=== PATIENT | male | born 1990 ===

== ENCOUNTER 2020-03-07 13:06 | Outpatient (REF) | payer OTHER, MEDICAID, SELFPAY ==
[2020-03-07 15:32] LABS: Alanine Aminotransferase 10 U/L (0-40); Albumin Level 4.2 g/dL (3.5-5.0); Alkaline Phosphatase 69 U/L (39-117); Anion Gap 10 (12-20); Aspartate Amino Transferase 17 U/L (5-37); Bilirubin Total 0.5 mg/dL (0.0-1.0); Blood Urea Nitrogen 17 mg/dL (9-16); Calcium 9.1 mg/dL (8.4-10.2); Carbon Dioxide 28 mmol/L (22-29); Chloride 102 mmol/L (96-108); Cholesterol 155 mg/dL; Estimated Glomerular Filt Rate > 60; Glucose Fasting 139 mg/dL (60-99); HDL Cholesterol 62 mg/dL; LDL Cholesterol Calculated 71 mg/dl; Potassium 4.1 mmol/l (3.3-5.1); Sodium 136 mmol/L (135-145); Triglycerides 110 mg/dL
[2020-03-07 15:35] LABS: Creatinine Urine 128.86 mg/dL; Microalbum/Creatinine Ratio Ur 3.8 ug/mg cr
[2020-03-07 15:53] LABS: Free T4 (Free Thyroxine) 0.95 ng/dL (0.71-1.85); Thyroid Stimulating Hormone 0.62 mIU/mL (0.32-4.0); Vitamin D 25-OH Total 33.8 ng/mL (>30)
[2020-03-07 15:58] LABS: Vitamin B12 748 pg/mL (200-900)
[2020-03-09 20:31] LABS: LDL Cholesterol Direct 76 mg/dL (<100)
== END 2020-03-07 13:07 | disposition home or self-care (01) ==
LOC: HO.LAB 13:06
PROVIDERS: PCP Family Medicine; Visit Provider Internal Medicine Endocrinology, Diabetes & Metabolism
DX: E10.65 Type 1 diabetes mellitus with hyperglycemia (principal); E55.9 Vitamin D deficiency, unspecified
CPT/HCPCS: 80053; 80061; 82043; 82306; 82607; 82947; 83721; 84439; 84443; 99212

== ENCOUNTER → 2020-06-06 13:09 | Outpatient (BNVA) | payer OTHER, SELFPAY | PROVIDERS: PCP Family Medicine; Visit Provider Internal Medicine Endocrinology, Diabetes & Metabolism | DX: E10.65 Type 1 diabetes mellitus with hyperglycemia (principal); E55.9 Vitamin D deficiency, unspecified | CPT/HCPCS: 82947; 99212 ==

== ENCOUNTER → 2020-09-05 13:05 | Outpatient (BNVA) | payer OTHER, SELFPAY | PROVIDERS: PCP Family Medicine; Visit Provider Internal Medicine Endocrinology, Diabetes & Metabolism | DX: E10.65 Type 1 diabetes mellitus with hyperglycemia (principal); E55.9 Vitamin D deficiency, unspecified; Z79.4 Long term (current) use of insulin | CPT/HCPCS: 82947; 99212 ==

== ENCOUNTER 2020-09-22 10:41 | Outpatient (REF) | payer OTHER, SELFPAY ==
[2020-09-22 11:30] LABS: Alanine Aminotransferase 15 U/L (0-40); Albumin Level 4.3 g/dL (3.5-5.0); Alkaline Phosphatase 78 U/L (39-117); Anion Gap 11 (12-20); Aspartate Amino Transferase 17 U/L (5-37); Bilirubin Total 1.1 mg/dL (0.0-1.0); Blood Urea Nitrogen 19 mg/dL (9-16); Calcium 9.3 mg/dL (8.4-10.2); Carbon Dioxide 28 mmol/L (22-29); Chloride 103 mmol/L (96-108); Cholesterol 162 mg/dL; Estimated Glomerular Filt Rate > 60; Glucose Fasting 210 mg/dL (60-99); HDL Cholesterol 61 mg/dL; LDL Cholesterol Calculated 89 mg/dl; Potassium 4.5 mmol/L (3.3-5.1); Sodium 137 mmol/L (135-145); Total Protein 7.2 g/dL (6.5-8.0); Triglycerides 63 mg/dL
[2020-09-22 11:53] LABS: Thyroid Stimulating Hormone 0.55 uIU/mL (0.32-4.0)
[2020-09-24 10:41] LABS: LDL Cholesterol Direct 83 mg/dL (<100)
== END 2020-09-22 10:42 | disposition home or self-care (01) ==
LOC: HO.LAB 10:41
PROVIDERS: PCP Family Medicine; Visit Provider Internal Medicine Endocrinology, Diabetes & Metabolism
DX: E10.65 Type 1 diabetes mellitus with hyperglycemia (principal)
CPT/HCPCS: 36415; 80053; 80061; 83721; 84439; 84443

== ENCOUNTER → 2020-10-24 10:18 | Outpatient (BNVA) | payer SELFPAY | PROVIDERS: PCP Family Medicine; Visit Provider Physician Assistant | DX: Z02.79 Encounter for issue of other medical certificate (principal) ==

== ENCOUNTER → 2021-06-25 12:16 | Outpatient (BNVA) | payer OTHER, SELFPAY | PROVIDERS: PCP Family Medicine; Visit Provider Nurse Practitioner Gerontology | DX: E10.9 Type 1 diabetes mellitus without complications (principal); E55.9 Vitamin D deficiency, unspecified; Z96.41 Presence of insulin pump (external) (internal) | CPT/HCPCS: 82947; 83036; 99212 ==

== ENCOUNTER 2021-08-05 10:09 | Outpatient (REF) | payer OTHER, SELFPAY ==
[2021-08-05 11:26] LABS: Alanine Aminotransferase 15 U/L (0-40); Albumin Level 4.2 g/dL (3.5-5.0); Alkaline Phosphatase 69 U/L (39-117); Anion Gap 10 (12-20); Aspartate Amino Transferase 14 U/L (5-37); Bilirubin Total 0.7 mg/dL (0.0-1.0); Blood Urea Nitrogen 18 mg/dL (9-16); Calcium 9.5 mg/dL (8.4-10.2); Carbon Dioxide 27 mmol/L (22-29); Chloride 105 mmol/L (96-108); Cholesterol 143 mg/dL; Estimated Glomerular Filt Rate > 60; Glucose Fasting 263 mg/dL (60-99); HDL Cholesterol 45 mg/dL; LDL Cholesterol Calculated 81 mg/dl; Potassium 4.8 mmol/L (3.3-5.1); Sodium 137 mmol/L (135-145); Total Protein 7.2 g/dL (6.5-8.0); Triglycerides 87 mg/dL
[2021-08-05 11:39] LABS: Free T4 (Free Thyroxine) 0.85 ng/dL (0.71-1.85); Thyroid Stimulating Hormone 0.98 uIU/mL (0.32-4.0); Vitamin D 25-OH Total 33.4 ng/mL (>30)
[2021-08-05 13:20] LABS: Creatinine Urine 152.74 mg/dL; Microalbum/Creatinine Ratio Ur 4.5 ug/mg cr
[2021-08-06 17:12] LABS: LDL Cholesterol Direct 74 mg/dL (<100)
== END 2021-08-05 10:10 | disposition home or self-care (01) ==
LOC: HO.LAB 10:09
PROVIDERS: PCP Family Medicine; Visit Provider Nurse Practitioner Gerontology
DX: E10.65 Type 1 diabetes mellitus with hyperglycemia (principal); E55.9 Vitamin D deficiency, unspecified; Z46.81 Encounter for fitting and adjustment of insulin pump
CPT/HCPCS: 36415; 80053; 80061; 82043; 82306; 83721; 84439; 84443

== ENCOUNTER → 2021-10-09 12:29 | Outpatient (BNVA) | payer OTHER, SELFPAY | PROVIDERS: PCP Family Medicine; Visit Provider Registered Nurse Diabetes Educator | DX: E10.9 Type 1 diabetes mellitus without complications (principal); Z96.41 Presence of insulin pump (external) (internal) | CPT/HCPCS: 99211 ==

== ENCOUNTER 2021-10-15 08:17 | Outpatient (REF) | payer OTHER, SELFPAY ==
[2021-10-15 09:14] LABS: Estimated Average Glucose 151 mg/dL; Hemoglobin A1c % 6.9 %
== END 2021-10-15 08:18 | disposition home or self-care (01) ==
LOC: HO.LAB 08:17
PROVIDERS: PCP Family Medicine; Visit Provider Nurse Practitioner Gerontology
DX: E10.9 Type 1 diabetes mellitus without complications (principal)
CPT/HCPCS: 36415; 83036

== ENCOUNTER → 2021-10-16 10:50 | Outpatient (BNVA) | payer SELFPAY | PROVIDERS: PCP Family Medicine; Visit Provider Physician Assistant | DX: Z02.79 Encounter for issue of other medical certificate (principal) ==

== ENCOUNTER → 2021-11-08 08:00 | Outpatient (BNVA) | payer OTHER, SELFPAY | PROVIDERS: PCP Family Medicine; Visit Provider Registered Nurse Diabetes Educator | DX: Z46.81 Encounter for fitting and adjustment of insulin pump (principal); E10.9 Type 1 diabetes mellitus without complications; Z79.4 Long term (current) use of insulin | CPT/HCPCS: 99211 ==

== ENCOUNTER → 2021-11-15 07:58 | Outpatient (BNVA) | payer OTHER, SELFPAY | PROVIDERS: PCP Family Medicine; Visit Provider Registered Nurse Diabetes Educator | DX: Z46.81 Encounter for fitting and adjustment of insulin pump (principal); E10.9 Type 1 diabetes mellitus without complications | CPT/HCPCS: 99211 ==

== ENCOUNTER → 2022-01-17 07:52 | Outpatient (BNVA) | payer OTHER, SELFPAY | PROVIDERS: PCP Family Medicine; Visit Provider Registered Nurse Diabetes Educator | DX: E10.9 Type 1 diabetes mellitus without complications (principal) | CPT/HCPCS: 99211 ==

== ENCOUNTER → 2022-02-13 07:54 | Outpatient (BNVA) | payer OTHER, SELFPAY | PROVIDERS: PCP Family Medicine; Visit Provider Internal Medicine Endocrinology, Diabetes & Metabolism | DX: E10.65 Type 1 diabetes mellitus with hyperglycemia (principal); Z79.4 Long term (current) use of insulin; Z96.41 Presence of insulin pump (external) (internal) | CPT/HCPCS: 82947; 83036; 99212 ==

== ENCOUNTER → 2022-05-02 08:00 | Outpatient (BNVA) | payer OTHER, SELFPAY | PROVIDERS: PCP Family Medicine; Visit Provider Registered Nurse Diabetes Educator | DX: Z46.81 Encounter for fitting and adjustment of insulin pump (principal); E10.65 Type 1 diabetes mellitus with hyperglycemia; Z79.4 Long term (current) use of insulin | CPT/HCPCS: 99211 ==

== ENCOUNTER → 2022-06-06 08:36 | Outpatient (BNVA) | payer MEDICAID, SELFPAY | PROVIDERS: PCP Family Medicine; Visit Provider Internal Medicine Endocrinology, Diabetes & Metabolism | DX: E10.65 Type 1 diabetes mellitus with hyperglycemia (principal); Z96.41 Presence of insulin pump (external) (internal); Z79.4 Long term (current) use of insulin | CPT/HCPCS: 82947; 83036; 99212 ==

== ENCOUNTER 2022-09-12 08:11 | Outpatient (REF) | payer MEDICAID, SELFPAY ==
[2022-09-12 10:05] LABS: Anion Gap 12 (12-20); Blood Urea Nitrogen 17 mg/dL (9-16); Calcium 9.3 mg/dL (8.4-10.2); Carbon Dioxide 26 mmol/L (22-29); Chloride 106 mmol/L (96-108); Cholesterol 156 mg/dL; Estimated Glomerular Filt Rate > 60; Glucose Random 116 mg/dL (60-115); HDL Cholesterol 52 mg/dL; LDL Cholesterol Calculated 92 mg/dl; Potassium 4.4 mmol/L (3.3-5.1); Sodium 140 mmol/L (135-145); Triglycerides 62 mg/dL
[2022-09-12 10:23] LABS: Creatinine Urine 150.08 mg/dL; Microalbum/Creatinine Ratio Ur 3.9 ug/mg cr
== END 2022-09-12 08:12 | disposition home or self-care (01) ==
LOC: HO.LAB 08:11
PROVIDERS: Visit Provider Internal Medicine Endocrinology, Diabetes & Metabolism
DX: E10.65 Type 1 diabetes mellitus with hyperglycemia (principal)
CPT/HCPCS: 36415; 80048; 80061; 82043

== ENCOUNTER → 2022-09-19 08:02 | Outpatient (BNVA) | payer MEDICAID, SELFPAY | PROVIDERS: PCP Family Medicine; Visit Provider Internal Medicine Endocrinology, Diabetes & Metabolism | DX: Z46.81 Encounter for fitting and adjustment of insulin pump (principal); E10.65 Type 1 diabetes mellitus with hyperglycemia; Z79.4 Long term (current) use of insulin | CPT/HCPCS: 82947; 83036; 99212 ==

== ENCOUNTER → 2022-10-02 08:47 | Outpatient (BNVA) | payer SELFPAY | PROVIDERS: PCP Family Medicine; Visit Provider Internal Medicine | DX: Z02.79 Encounter for issue of other medical certificate (principal) ==

== ENCOUNTER 2023-05-05 09:50 | Outpatient (AMB) | payer OTHER, SELFPAY ==
--- NOTE | 2023-05-05 09:52 | A.OFFVIS_ITS ---
Intake Vital Signs 05/05/23 10:48 Height 5 ft 6 in Weight 158 lb 4.67 oz BMI 25.5 BP 118/78 Blood Pressure Location Rt brachial Position Sitting Pulse 81 Pulse Source Pulse Oximeter Intake Visit Reasons: DM1 Pump-CONFIRMED Intake Note: Patient presents today to follow up on DM1T. Last Diabetic Eye exam:More than 1 year Last Podiatry Visit: Does not see a Training And Documentation Specialist Random Glucose: 238 mg/dl HgA1C:6.5% Patient reports receiving Insulin pump supplies through [employer] and Dexcom G6 supplies through pharmacy. Patient stated he was having issues with his insurance and contacted insurance regarding benefits. Busgirl Required: No Accompanied by: Self / Same As Patient Allergies No Known Allergies Allergy (Verified 09/19/22 08:08) Medication List - Last Reconciled 05/05/23 by Jose Buck MD alcohol swabs (Alcohol Prep Pads) 200 pad topical .8times/day blood sugar diagnostic 4 times a day blood sugar diagnostic (Contour Next Test Strips) USE TO TEST BLOOD SUGAR THREE TIMES DAILY blood-glucose meter ([employer] 3D Next Glucose Meter kit) As directed blood-glucose meter,continuous (Dexcom G6 Veneer Manufacturer) As directed blood-glucose sensor (Dexcom G6 Sensor device) USE DIRECTED CHANGE EVERY 10 DAYS blood-glucose transmitter (Dexcom G6 Transmitter device) As directed cholecalciferol (vitamin D3) (Vitamin D3) 50 mcg PO DAILY insulin aspart U-100 (Novolog U-100 Insulin aspart) up to 100 units via insulin pump subcut daily; 30 days lancets 4 times a day HPI HPI Comments History of Present Illness Details Patient is 33-year-old male with DM type 1 diagnosed at age 9 who presents for management of diabetes. 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 He reports rare hypoglycemia. Past medical history: DM 1 diagnosed at age 9 vitamin-D deficiency Micro and macrovascular complications: None known Diabetes medications: Novolog via Tandem T-Slim X2 with Dexcom G6 His total daily insulin dose is 41.7 units 24 hours. Auto mode 928%, 58% bolus 42% basal. Basal rate(s) (units/hour) : 1 New 12 AM to 6 AM 0.75 units / hr 6 AM? to 4 PM ? 0.750 units / hr 4 PM to 10 PM? 0.875 units / hr 10 PM?to 12 AM? 0.925 units / hr Bolus setting Insulin Carbohydrate Ratio (s) 12 AM? to 6 AM? 1:10 New 12 AM to 6 AM 1 :11 ?6 AM to 12 PM 1:8.5 12 PM to 12 AM 1:7.5 Correction Factor / Sensitivity Factor 12 AM? to 6 AM? 1:42 6 AM to 12 AM 1:45 Active Insulin Time:? 5 hours Target(s): 12 AM? to 12 AM? 120 -120 Control IQ target 12 AM? to 12 AM? 110 -110 CGM: In the past 14 days he is use control IQ 92 % of the time. Average glucose is 188. G mi is 7.1% with coefficient variation 34.5% 71 % range with 29% hyperglycemia and no hypoglycemia Symptoms reported: numbness, tingling, cramping in lower extremities Rare Hypoglycemia: Reports in the evening before dinner with symptoms of shakiness, sweating. Treats with juice. Always carries sugar with him. Hyperglycemia: denies urinary frequency, nocturia, polydypsia Compounding Assistant - CDE education: Training And Documentation Specialist: denies Ophthalmology evaluation: has appt - no retinopathy . Needs to make appt Other specialists: denies Laboratory Tests 03/07/20 09/22/20 09/22/20 Unknown 10:55 10:55 Creatinine 1.00 Estimated GFR > 60 Triglycerides 63 Cholesterol 162 LDL Cholesterol Di rect 83 LDL Cholesterol, C alc 89 HDL Cholesterol 61 Microalb/Creat Rat io 3.8 PFSH Medical History Diabetes type 1, controlled Diabetes type 1, uncontrolled Vitamin D deficiency Surgical History No pertinent past surgical history Family History Father No pertinent past medical history Mother No problems noted. Social History Household Members: Spouse and Children Alcohol intake: never Patient Tobacco Use Status: Never used Tobacco Physical Exam Vital Signs: Last Vital Signs Pulse 81 05/05/23 10:48 BP 118/78 05/05/23 10:48 BMI result Body Mass Index 25.5 Absence of Cushingoid features. Absence of acromegalic features. Neck exam reveals nl size thyroid about 15 gms. No thyroid nodules palpable. No carotid bruits present. Lungs CTA. Heart S1 S2, Reg R/R. No M/R/ G. Skin exam reveals absence of vitiligo or acanthosis nigricans. Abdominal exam reveals Soft NT/ND with NA BS. No organomegaly present. Extrem Other: Visual exam of foot performed. No ulcerations or open lesions. No onchomycosis, no callouses.Pulses 2 + distally. Sensation intact to monofilament exam. Vibratory sensation sensed 10 seconds in right, 10 seconds in left with 128 Hz tuning fork Results AMB Hemoglobin A1c AMB Hemoglobin A1c 6.5 % Last Edit by SHUN Bansal on 05/05/23 14:14 Results Reviewed Results Reviewed: Laboratory Last Values Glucose (Clinic) 238 mg/dL (60-115) H 05/05/23 13:45 Assessment & Plan Assessment & Plan (1) Diabetes type 1, uncontrolled: Code(s): E10.65 - Type 1 diabetes mellitus with hyperglycemia Plan: This is a 32-year-old male with a history of type 1 diabetes being managed with tandem T-slim X 2 pump with Dexcom with could glycemic control and no known microvascular or macrovascular complications Plan is to continue the current pump settings.. He will follow up with the heel cover softener. If continued post-lunch hyperglycemia made to tighten 12:00 insulin: Carbohydrate to 1: 7. This can be done at the next diabetic Education appointment if necessary Orders: Orders AMB Hemoglobin A1c Today E10.65 - Type 1 diabetes mellitus with hyperglycemia Coding Level of Care Code Est Pt Level 4 (96943) Diagnoses Diabetes type 1, uncontrolled E10.65
[2023-05-05 10:48] VITALS: BP 118/78; PULSE 81; BMI 25.5
[2023-05-05 13:49] LABS: Glucose, Whole Blood 238 mg/dL (60-115)
== END 2023-05-05 13:58 | disposition home or self-care (01) ==
PROVIDERS: PCP Family Medicine; Visit Provider Internal Medicine Endocrinology, Diabetes & Metabolism
DX: E10.65 Type 1 diabetes mellitus with hyperglycemia (principal)
CPT/HCPCS: 99214

== ENCOUNTER → 2023-05-05 09:50 | Outpatient (BNVA) | payer SELFPAY | PROVIDERS: PCP Family Medicine; Visit Provider Internal Medicine Endocrinology, Diabetes & Metabolism | DX: E10.65 Type 1 diabetes mellitus with hyperglycemia (principal); Z96.41 Presence of insulin pump (external) (internal) | CPT/HCPCS: 82947; 83036; 99212 ==

== ENCOUNTER 2023-05-06 08:29 | Outpatient (AMB) | payer SELFPAY ==
--- NOTE | 2023-05-06 08:38 | A.OFFVIS_ITS ---
Intake Intake Visit Reasons: DM1 pump Printing Film Stripper Required: No Accompanied by: Self / Same As Patient Allergies No Known Allergies Allergy (Verified 09/19/22 08:08) HPI Comprehensive Diabetes Asmnt Most Recent Diabetes Results: Microalb/Creat Ratio 3.9 ug/mg cr 09/12/22 Cholesterol 156 mg/dL 09/12/22 HDL Cholesterol 52 mg/dL 09/12/22 Triglycerides 62 mg/dL 09/12/22 Creatinine 0.92 mg/dL (0.5-1.4) 09/12/22 Blood Urea Nitrogen 17 mg/dL (9-16) H 09/12/22 Sodium 140 mmol/L (135-145) 09/12/22 Potassium 4.4 mmol/L (3.3-5.1) 09/12/22 Chloride 106 mmol/L (96-108) 09/12/22 Carbon Dioxide 26 mmol/L (22-29) 09/12/22 Calcium 9.3 mg/dL (8.4-10.2) 09/12/22 [facility] Medical History Diabetes type 1, controlled Diabetes type 1, uncontrolled Vitamin D deficiency Surgical History No pertinent past surgical history Family History Father No pertinent past medical history Mother No problems noted. Social History Household Members: Spouse and Children Alcohol intake: never Patient Tobacco Use Status: Never used Tobacco Assessment & Plan Assessment & Plan (1) Diabetes type 1, controlled: Code(s): E10.9 - Type 1 diabetes mellitus without complications Plan: Patient presents for pump training for [facility] with control IQ and Dexcom G6 The following topics were reviewed today: - upgrading from Dexcom G6 to Dexcom G7 - alternative DME company - Inserting infusion set or Pod site rotation Patient's average glucose in the past 2 weeks 160 mg/dL above target 29% at target 71% below target to 0% Patient is currently waiting for insurance to switch over after the new year, has run out of insulin pump supplies. Dexcom G6 sample sensor, + insulin delivery sets samples given to patient Patient having some postprandial excursions after lunch, see changed insulin to carb ratio below Reviewed with patient importance of changing insulin delivery set/Pod every 72 hours, with site rotation. Patient given the opportunity to ask questions about pump function ?Setting verified by CDCES, see changes made below Basal rate(s) (units/hour) : 12 AM to 4 AM? 0.8 units / hr 12 AM to 6 AM 0.75 units / hr 6 AM? to 4 PM ? 0.750 units / hr 4 PM to 10 PM? 0.825 units / hr 10 PM?to 12 AM? 0.925 units / hr Bolus setting Insulin Carbohydrate Ratio (s) 12 AM to 6 AM 1:11 ?6 AM to 12 PM 1:8.5 12 PM to 12 AM 1:7.5 New 12 PM to 4 PM 1:7 4 PM to 12 AM 1:7.5 Correction Factor / Sensitivity Factor 12 AM? to 6 AM? 1:42 6 AM to 12 AM 1:45 Active Insulin Time:? 5 hours Target(s): 12 AM? to 12 AM? 120 -120 Control IQ target 12 AM? to 12 AM? 110 -110 Patient Instructions: Contact word processor technician if having difficulty resuming insulin supply delivery after the new year Coding Level of Care Code Est Pt Level 1 (61618) Diagnoses Diabetes type 1, controlled E10.9
== END 2023-05-06 09:00 | disposition home or self-care (01) ==
PROVIDERS: PCP Family Medicine; Visit Provider Registered Nurse Diabetes Educator
DX: E10.9 Type 1 diabetes mellitus without complications (principal)

== ENCOUNTER → 2023-05-06 08:29 | Outpatient (BNVA) | payer SELFPAY | PROVIDERS: PCP Family Medicine; Visit Provider Registered Nurse Diabetes Educator | DX: Z46.81 Encounter for fitting and adjustment of insulin pump (principal); E10.9 Type 1 diabetes mellitus without complications | CPT/HCPCS: 99211 ==

== ENCOUNTER 2023-06-05 09:32 | Outpatient (AMB) | payer MEDICAID, SELFPAY ==
--- NOTE | 2023-06-05 09:45 | MHC.AMDMED ---
Intake Intake Visit Reasons: DM1 Chucker Required: No Accompanied by: Self / Same As Patient Allergies No Known Allergies Allergy (Verified 09/19/22 08:08) HPI Comprehensive Diabetes Asmnt Most Recent Diabetes Results: Hemoglobin A1c 7.2 % 11/21/19 Microalb/Creat Ratio 3.9 ug/mg cr 09/12/22 Cholesterol 156 mg/dL 09/12/22 HDL Cholesterol 52 mg/dL 09/12/22 Triglycerides 62 mg/dL 09/12/22 Creatinine 0.92 mg/dL (0.5-1.4) 09/12/22 Blood Urea Nitrogen 17 mg/dL (9-16) H 09/12/22 Sodium 140 mmol/L (135-145) 09/12/22 Potassium 4.4 mmol/L (3.3-5.1) 09/12/22 Chloride 106 mmol/L (96-108) 09/12/22 Carbon Dioxide 26 mmol/L (22-29) 09/12/22 Calcium 9.3 mg/dL (8.4-10.2) 09/12/22 AST 14 U/L (5-37) 08/05/21 ALT 15 U/L (0-40) 08/05/21 Total Protein 7.2 g/dL (6.5-8.0) 08/05/21 Albumin 4.2 g/dL (3.5-5.0) 08/05/21 [facility] Medical History Diabetes type 1, controlled Diabetes type 1, uncontrolled Vitamin D deficiency Surgical History No pertinent past surgical history Family History Father No pertinent past medical history Mother No problems noted. Social History Household Members: Spouse and Children Alcohol intake: never Patient Tobacco Use Status: Never used Tobacco Assessment & Plan Assessment & Plan (1) Diabetes type 1, uncontrolled: Code(s): E10.65 - Type 1 diabetes mellitus with hyperglycemia Plan: Patient presents for pump training for [facility] with control IQ and Dexcom G6 The following topics were reviewed today: - how ti insert Dexcom G7 sensors - Inserting infusion set or Pod site rotation Patient's average glucose in the past 2 weeks 152 mg/dL above target 24% at target 76% below target to 1% Patient still has not switch DME companies, however did receive insulin pump, and CGM supplies Patient also reports he upgraded T slim insulin pump to be compatible with Dexcom G7 sensor Recommended to patient when he switch DME request Dexcom G7 sensors from new DME Reviewed with patient importance of changing insulin delivery set/Pod every 72 hours, with site rotation. Patient given the opportunity to ask questions about pump function ?Setting verified by CDCES, no changes made at today's visit Basal rate(s) (units/hour) : 12 AM to 4 AM? 0.8 units / hr 12 AM to 6 AM 0.75 units / hr 6 AM? to 4 PM ? 0.750 units / hr 4 PM to 10 PM? 0.825 units / hr 10 PM?to 12 AM? 0.925 units / hr Bolus setting Insulin Carbohydrate Ratio (s) 12 AM to 6 AM 1:11 ?6 AM to 12 PM 1:8.5 12 PM to 4 PM 1:7 4 PM to 12 AM 1:7.5 Correction Factor / Sensitivity Factor 12 AM? to 6 AM? 1:42 6 AM to 12 AM 1:45 Active Insulin Time:? 5 hours Target(s): 12 AM? to 12 AM? 120 -120 Control IQ target 12 AM? to 12 AM? 110 -110 Patient Instructions: Follow-up with Dr. Buck in July 2023 Follow-up with Diabetes Education nurse in 6 months Contact Diabetes Education nurse if you have questions or concerns Coding Level of Care Code Est Pt Level 1 (84337) Diagnoses Diabetes type 1, uncontrolled E10.65
== END 2023-06-05 09:51 | disposition home or self-care (01) ==
PROVIDERS: PCP Family Medicine; Visit Provider Registered Nurse Diabetes Educator
DX: E10.65 Type 1 diabetes mellitus with hyperglycemia (principal)

== ENCOUNTER → 2023-06-05 09:32 | Outpatient (BNVA) | payer MEDICAID, SELFPAY | PROVIDERS: PCP Family Medicine; Visit Provider Registered Nurse Diabetes Educator | DX: Z46.81 Encounter for fitting and adjustment of insulin pump (principal); E10.65 Type 1 diabetes mellitus with hyperglycemia | CPT/HCPCS: 99211 ==

== ENCOUNTER 2023-08-11 10:27 | Outpatient (AMB) | payer OTHER, SELFPAY ==
[2023-08-11 10:28] VITALS: BP 106/62; PULSE 62; BMI 26.1
--- NOTE | 2023-08-11 10:28 | MHC.OFFVIS ---
Intake Vital Signs 08/11/23 10:28 Height 5 ft 6 in Weight 161 lb 9.581 oz BMI 26.1 BP 106/62 Blood Pressure Location Lt brachial Position Sitting Pulse 62 Pulse Source Pulse Oximeter Intake Visit Reasons: [id number] v/m Intake Note: Patient present today to follow up on Type 1 Diabetes Mellitus. Patient receives DME supplies through: Pharmacy Patient receives insulin pump supplies through: [employer] Last Diabetic Eye exam: Over 1 year Last Podiatry Visit: Doesn't have one. Random Glucose:202 mg/dl HgA1C: 6.4% Allergies No Known Allergies Allergy (Verified 09/19/22 08:08) Medication List - Last Reconciled 08/11/23 by Jose Buck MD alcohol swabs (Alcohol Prep Pads) 200 pad topical .8times/day blood sugar diagnostic 4 times a day blood sugar diagnostic (Contour Next Test Strips) USE TO TEST BLOOD SUGAR THREE TIMES DAILY blood-glucose meter (Contour Next Glucose Meter kit) As directed blood-glucose meter,continuous (Dexcom G6 Orthotic Practitioner) As directed blood-glucose sensor (Dexcom G6 Sensor device) USE DIRECTED CHANGE EVERY 10 DAYS blood-glucose sensor (Dexcom G7 Sensor device) As directed change every 10 days cholecalciferol (vitamin D3) (Vitamin D3) 50 mcg PO DAILY insulin lispro (Humalog U-100 Insulin) Infuse up to 100 units per day by insulin pump subcutaneously 3 times a day; lancets 4 times a day HPI HPI Comments History of Present Illness Details Patient is 33-year-old male with DM type 1 diagnosed at age 9 who presents for management of diabetes. 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 He reports rare hypoglycemia. Past medical history: DM 1 diagnosed at age 9 vitamin-D deficiency Micro and macrovascular complications: None known Diabetes medications: Novolog via Tandem T-Slim X2 with Dexcom G6 His total daily insulin dose is 45.6 units 24 hours. Auto mode 99%, 61% bolus 39% basal. Basal rate(s) (units/hour) : 12 AM to 4 PM 0.75 units / hr 4 PM to 10 PM? 0.875 units / hr 10 PM?to 12 AM? 0.925 units / hr Bolus setting Insulin Carbohydrate Ratio (s) 12 AM to 6 AM 1:11 ?6 AM to 12 PM 1:8.5 12 PM to 4 PM 1:7 4 PM to 12 AM 1:7.5 Correction Factor / Sensitivity Factor 12 AM? to 6 AM? 1:42 6 AM to 12 AM 1:45 Active Insulin Time:? 5 hours Target(s): 12 AM? to 12 AM? 120 -120 Control IQ target 12 AM? to 12 AM? 110 -110 CGM: In the past 14 days he is use control IQ 96 % of the time. Average glucose is 158. G mi is 7.1% with coefficient variation 30.5% 68 % range with 31% hyperglycemia and 1% hypoglycemia Symptoms reported: numbness, tingling, cramping in lower extremities Rare Hypoglycemia: Reports in the evening before dinner with symptoms of shakiness, sweating. Treats with juice. Always carries sugar with him. Hyperglycemia: denies urinary frequency, nocturia, polydypsia Senior Geotechnical Engineer - CDE education: Noc Technician: denies Ophthalmology evaluation: has appt - no retinopathy . Needs to make appt Other specialists: denies Laboratory Tests 03/07/20 09/22/20 09/22/20 Unknown 10:55 10:55 Creatinine 1.00 Estimated GFR > 60 Triglycerides 63 Cholesterol 162 LDL Cholesterol Di rect 83 LDL Cholesterol, C alc 89 HDL Cholesterol 61 Microalb/Creat Rat io 3.8 PFSH Medical History Diabetes type 1, controlled Diabetes type 1, uncontrolled Vitamin D deficiency Surgical History No pertinent past surgical history Family History Father No pertinent past medical history Mother No problems noted. Social History Household Members: Spouse and Children Alcohol intake: never Patient Tobacco Use Status: Never used Tobacco Physical Exam Vital Signs: Last Vital Signs Pulse 62 08/11/23 10:28 BP 106/62 08/11/23 10:28 BMI result Body Mass Index 26.1 Results AMB Hemoglobin A1c AMB Hemoglobin A1c 6.4 % Last Edit by SHUN Duncan on 08/11/23 10:46 Results Reviewed Results Reviewed: Laboratory Last Values Glucose (Clinic) 202 mg/dL (60-115) H 08/11/23 10:36 Assessment & Plan Assessment & Plan (1) Diabetes type 1, uncontrolled: Code(s): E10.65 - Type 1 diabetes mellitus with hyperglycemia Plan: This is a 32-year-old male with a history of type 1 diabetes being managed with tandem T-slim X 2 pump with Dexcom with excellent glycemic control and no known microvascular or macrovascular complications Plan is to continue the current pump settings.. He will follow up with the special education paraeducator. Overall control is excellent If continued post-lunch hyperglycemia made to tighten 12:00 insulin: Carbohydrate to 1: 7. This can be done at the next diabetic Education appointment if necessary Orders: Orders AMB Hemoglobin A1c Today E10.65 - Type 1 diabetes mellitus with hyperglycemia, E10.9 - Type 1 diabetes mellitus without complications, Z13.9 - Encounter for screening, unspecified Coding Level of Care Code Est Pt Level 4 (77856) Diagnoses Diabetes type 1, uncontrolled E10.65
[2023-08-11 10:40] LABS: Glucose, Whole Blood 202 mg/dL (60-115)
== END 2023-08-11 10:53 | disposition home or self-care (01) ==
PROVIDERS: PCP Family Medicine; Visit Provider Internal Medicine Endocrinology, Diabetes & Metabolism
DX: Z13.9 Encounter for screening, unspecified (principal); E10.65 Type 1 diabetes mellitus with hyperglycemia; E10.9 Type 1 diabetes mellitus without complications
CPT/HCPCS: 99214

== ENCOUNTER → 2023-08-11 10:27 | Outpatient (BNVA) | payer OTHER, SELFPAY | PROVIDERS: PCP Family Medicine; Visit Provider Internal Medicine Endocrinology, Diabetes & Metabolism | DX: E10.65 Type 1 diabetes mellitus with hyperglycemia (principal); Z96.41 Presence of insulin pump (external) (internal) | CPT/HCPCS: 82947; 83036 ==

== ENCOUNTER → 2023-09-07 09:19 | Outpatient (BNVA) | payer SELFPAY | PROVIDERS: PCP Family Medicine; Visit Provider Physician Assistant Medical | DX: Z02.79 Encounter for issue of other medical certificate (principal) ==

== ENCOUNTER 2023-12-03 09:58 | Outpatient (AMB) | payer OTHER, SELFPAY ==
--- NOTE | 2023-12-03 10:02 | A.OFFVIS_ITS ---
Vital Signs 12/03/23 10:03 Height 5 ft 6 in Weight 158 lb 4.67 oz BMI 25.5 BP 118/70 Blood Pressure Location Lt brachial Position Sitting Pulse 77 Pulse Source Pulse Oximeter Intake Visit Reasons: T1DM/CONFIRMED Intake Note: New Patient presents today to established treatment for Type 1 Diabetes Mellitus. 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 He reports some hypoglycemia in the evening. Past medical history: DM 1 diagnosed at age 9 vitamin-D deficiency Micro and macrovascular complications: None known Diabetes medications: Novolog via Tandem T-Slim X2 with Dexcom G6 Basal rate(s) (units/hour) : 12 AM to 4 PM 0.75 units / hr 4 PM to 10 PM? 0.875 units / hr 10PM 0.9 25 units/hr Bolus setting Insulin Carbohydrate Ratio (s) 12 AM to 6 AM 1:11 ?6 AM to 12 PM 1:8.5 12 PM to 4 PM 1:7 4 PM to 12 AM 1:7.5 Correction Factor / Sensitivity Factor 12 AM 1:42 4PM 1:52 new Active Insulin Time:? 5 hours Target(s): 12 AM? to 12 AM? 120 -120Control IQ targ et 12 AM? to 12 AM? 110 -110 Dexcom average glucose: [ 154]Glucose Managment indicator 7 % 6% very high (above 250)[19 ] % high ?(181-250) 74 % in range ?(70-180] 1 % low (69-55) 0 % ?very low (below 54 manual mode 1%) Symptoms reported:denies numbness, tingling, cramping in lower extremities Hypoglycemia: Reports in the evening before dinner with symptoms of shakiness, sweating. Treats with juice. Always carries sugar with him. Hyperglycemia: denies urinary frequency, nocturia, polydypsia Cushion Padder - CDE education: last seen earlier in the year Production Line Operator: denies Ophthalmology evaluation: has annual appt - no retinopathy Other specialists: denies [facility] Medical History Diabetes type 1, controlled Diabetes type 1, uncontrolled Vitamin D deficiency Surgical History No pertinent past surgical history Family History Father No pertinent past medical history Mother No problems noted. Social History Household Members: Spouse and Children Alcohol intake: never Patient Tobacco Use Status: Never used Tobacco Physical Exam Vital Signs: Last Vital Signs Pulse 77 12/03/23 10:03 BP 118/70 12/03/23 10:03 BMI result Body Mass Index 25.5 Resp Effort & Inspection: normal respiratory effort Auscultation: clear to auscultation bilaterally Cardio Jugular venous distension: no JVD Rate: regular rate Rhythm: regular rhythm Heart sounds: S1 normal heart sound present and S2 normal heart sound present Extrem Other: Visual exam of foot performed. No ulcerations or open lesions. No onchomycosis, no callouses. Sensation intact to monofilament exam. Vibratory sensation is normal with 128 Hz tuning fork. Results AMB Hemoglobin A1c AMB Hemoglobin A1c 6.4 % Last Edit by SHUN Duncan on 12/03/23 10:51 Results Reviewed Results Reviewed: Laboratory Last Values Glucose (Clinic) 119 mg/dL (60-115) H 12/03/23 10:35 Hgb A1c (Clinic) 6.4 % (4.0-6.0) H 12/03/23 10:38 Assessment & Plan Assessment & Plan (1) Diabetes type 1, controlled: Code(s): E10.9 - Type 1 diabetes mellitus without complications Category: Medical Plan: 33-year-old type 1 diabetic on an insulin pump for approximately 7 years. A1c is excellent. He is having some lows in the evenings which occur after a higher glucose correction and do not seem to be related to insulin to carb ratio. Correction factor was adjusted from 4p to 12p. Backup insulin and ketone test strips sent to pharmacy. Labs ordered. Patient teaching: The patient was counseled to achieve a target A1C of 7% (154 avg). Fasting blood sugars should be 90-130 in the morning and less than 180 two hours after meals. Reviewed the relationship between poor diabetic control and the development of complications The patient was counseled to always carry a source of sugar and on the rule of 15's: Take 3 glucose tablets and repeat again in 15 minutes if blood sugar is not in normal range. Continue to repeat every 15 minutes until blood sugar is normal Symptoms of DKA were reviewed: early: frequent urination, dry mouth, ketones in the urine, severe symptoms: abdominal pain, nausea, vomiting and weakness. It is important to hydrate with sugar free liquids every 30 minutes and bring the sugars down to normal levels. High glucose protocol reviewed Orders: Orders AMB Hemoglobin A1c Today E10.9 - Type 1 diabetes mellitus without complications, Z13.9 - Encounter for screening, unspecified Lipid Panel Today E10.9 - Type 1 diabetes mellitus without complications Microalbumin, Random (w Creat) Today E10.9 - Type 1 diabetes mellitus without complications Thyroid Stimulating Hormone Today E10.9 - Type 1 diabetes mellitus without complications Basic Metabolic Panel Today E10.9 - Type 1 diabetes mellitus without complications Creatinine Urine Today E10.9 - Type 1 diabetes mellitus without complications Medications: New insulin degludec (Tresiba FlexTouch U-100 insulin) 17 units (0.17 mL) subcut DAILY 30 days PRN 6 mL 1RF Pump failure E10.9 - Type 1 diabetes mellitus without complications urine glucose-ketones test As directed t.i.d. p.r.n. high sugar or symptoms of DKA 50 ea 1RF E10.9 - Type 1 diabetes mellitus without complications Coding Level of Care Code Est Pt Level 5 (91333) Complex EM visit Add On G2211 Diagnoses Diabetes type 1, controlled E10.9 Time Spent (min) 45 Comment Time spent reviewing labs/previous provider notes, face to face, chart documentation
[2023-12-03 10:03] VITALS: BP 118/70; PULSE 77; BMI 25.5
[2023-12-03 10:39] LABS: Glucose, Whole Blood 119 mg/dL (60-115)
== END 2023-12-03 11:15 | disposition home or self-care (01) ==
PROVIDERS: PCP Family Medicine; Visit Provider Nurse Practitioner Adult Health
DX: E10.9 Type 1 diabetes mellitus without complications (principal)
CPT/HCPCS: 99215; G2211

== ENCOUNTER 2023-12-03 09:58 | Outpatient (AMB) | payer OTHER, SELFPAY ==
--- NOTE | 2023-12-03 10:25 | A.OFFVIS_ITS ---
Intake Intake Visit Reasons: 30 min/CONFIRMED Fryline Attendant Required: No Accompanied by: Self / Same As Patient Allergies No Known Allergies Allergy (Verified 12/03/23 10:34) HPI Comprehensive Diabetes Asmnt Most Recent Diabetes Results: Hemoglobin A1c 7.2 % 11/21/19 Microalb/Creat Ratio 3.9 ug/mg cr 09/12/22 Cholesterol 156 mg/dL 09/12/22 HDL Cholesterol 52 mg/dL 09/12/22 Triglycerides 62 mg/dL 09/12/22 Creatinine 0.92 mg/dL (0.5-1.4) 09/12/22 Blood Urea Nitrogen 17 mg/dL (9-16) H 09/12/22 Sodium 140 mmol/L (135-145) 09/12/22 Potassium 4.4 mmol/L (3.3-5.1) 09/12/22 Chloride 106 mmol/L (96-108) 09/12/22 Carbon Dioxide 26 mmol/L (22-29) 09/12/22 Calcium 9.3 mg/dL (8.4-10.2) 09/12/22 AST 14 U/L (5-37) 08/05/21 ALT 15 U/L (0-40) 08/05/21 Total Protein 7.2 g/dL (6.5-8.0) 08/05/21 Albumin 4.2 g/dL (3.5-5.0) 08/05/21 FOR[facility]LY [facility] Medical History Diabetes type 1, controlled Diabetes type 1, uncontrolled Vitamin D deficiency Surgical History No pertinent past surgical history Family History Father No pertinent past medical history Mother No problems noted. Social History Household Members: Spouse and Children Alcohol intake: never Patient Tobacco Use Status: Never used Tobacco Assessment & Plan Assessment & Plan (1) Diabetes type 1, uncontrolled: Code(s): E10.65 - Type 1 diabetes mellitus with hyperglycemia Plan: Patient presents for pump training for [facility] with control IQ and Dexcom G7 The following topics were reviewed today: - setting up T connect layla, so patient can share data - Inserting infusion set or Pod site rotation Patient's average glucose in the past 2 weeks 154 mg/dL above target 25% at target 75% below target to 1% Basal 42% Bolus 58% Patient reports he has noticed higher glucose levels after breakfast and in the evening after supper, after review of pump data appears that he is getting frequent micro boluses after breakfast and supper. Patient's last A1c on 08/11/2023 6.4% Patient given the opportunity to ask questions about pump function ?Setting verified by CDCES, see changes made at today's visit Basal rate(s) (units/hour) : 12 AM to 4 AM? 0.8 units / hr 12 AM to 6 AM 0.75 units / hr 6 AM? to 4 PM ? 0.750 units / hr 4 PM to 10 PM? 0.825 units / hr 10 PM?to 12 AM? 0.925 units / hr Bolus setting Insulin Carbohydrate Ratio (s) 12 AM to 6 AM 1:11 ?6 AM to 12 PM 1:8.5 New ?6 AM to 12 PM 1:8 12 PM to 4 PM 1:7 4 PM to 10 PM 1:7.5 New 4 PM to 10 PM 1:7 10 PM to 12 AM 1:7.5 Correction Factor / Sensitivity Factor 12 AM? to 6 AM? 1:42 6 AM to 12 AM 1:45 Active Insulin Time:? 5 hours Target(s): 12 AM? to 12 AM? 120 -120 Control IQ target 12 AM? to 12 AM? 110 -110 Coding Level of Care Code Est Pt Level 1 (81007) Diagnoses Diabetes type 1, uncontrolled E10.65
== END 2023-12-03 11:14 | disposition home or self-care (01) ==
PROVIDERS: PCP Family Medicine; Visit Provider Registered Nurse Diabetes Educator
DX: E10.65 Type 1 diabetes mellitus with hyperglycemia (principal)

== ENCOUNTER → 2023-12-03 09:58 | Outpatient (BNVA) | payer OTHER, SELFPAY | PROVIDERS: PCP Family Medicine; Visit Provider Registered Nurse Diabetes Educator | DX: Z46.81 Encounter for fitting and adjustment of insulin pump (principal); E10.65 Type 1 diabetes mellitus with hyperglycemia | CPT/HCPCS: 82947; 83036; 99211 ==

== ENCOUNTER 2024-02-01 10:21 | Outpatient (REF) | payer OTHER, SELFPAY ==
[2024-02-01 11:24] LABS: Anion Gap 11 (12-20); Blood Urea Nitrogen 17 mg/dL (9-16); Calcium 9.4 mg/dL (8.4-10.2); Carbon Dioxide 26 mmol/L (22-29); Chloride 108 mmol/L (96-108); Cholesterol 159 mg/dL (<200); Estimated Glomerular Filt Rate > 60; Glucose Random 138 mg/dL (60-115); HDL Cholesterol 62 mg/dL (>40); LDL Cholesterol Calculated 88 mg/dL (<100); Sodium 141 mmol/L (135-145); Triglycerides 46 mg/dL (<150)
[2024-02-01 11:42] LABS: Thyroid Stimulating Hormone 0.74 uIU/mL (0.32-4.0)
[2024-02-01 12:17] LABS: Creatinine Urine 169.99 mg/dL; Microalbum/Creatinine Ratio Ur 3.5 ug/mg cr (<30)
== END 2024-02-01 10:22 | disposition home or self-care (01) ==
LOC: HO.LAB 10:21
PROVIDERS: PCP Family Medicine; Visit Provider Nurse Practitioner Adult Health
DX: E10.9 Type 1 diabetes mellitus without complications (principal)
CPT/HCPCS: 36415; 80048; 80061; 82043; 82570; 84443

== ENCOUNTER 2024-04-05 09:54 | Outpatient (AMB) | payer OTHER, SELFPAY ==
--- NOTE | 2024-04-05 09:56 | A.OFFVIS_ITS ---
Vital Signs 04/05/24 10:00 Height 5 ft 6 in Weight 158 lb 11.725 oz BMI 25.6 BP 116/72 Blood Pressure Location Rt brachial Position Sitting Pulse 76 Pulse Source Pulse Oximeter Intake Visit Reasons: DM/CONF Intake Note: Patient presents today for a follow-up on Type 1 Diabetes Mellitus: Last Diabetic eye exam was on: 09/02/2023 Last Podiatry exam was on: Does not see a Skating Carhop Most recent HbA1c: 6.4%, 04/05/2024 Random Glucose- 146 mg/dL, Today Investigator Narcotics Required: No Accompanied by: Self / Same As Patient Allergies No Known Allergies Allergy (Verified 04/05/24 10:01) HPI Comments Details: Patient is 34-year-old male with DM type 1 diagnosed at age 9 who presents for management of diabetes, 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 At his last visit correction factor was adjusted to prevent evening hypoglycemia. No recent hypoglycemia. Past medical history: DM 1 diagnosed at age 9 vitamin-D deficiency Micro and macrovascular complications: None known Diabetes medications: Novolog via Tandem T-Slim X2 with Dexcom G6 Backup pump failure plan 18 units of Lantus once daily Humalog 6-8 units with meals Dexcom average glucose: 159 14 day continuous glucose monitor report reviewedGlucose Managment indicator 7.1 %Days with CGM data 59 %TIme in ranges: 6 % very high (above 250) 20 % high ?(181-250) 73 % in range ?(70-180] 1 % low (69-55) 0 % ?very low (below 54) readings in good control He is requesting a change to [employer]ubator robi 3 plus as his sensor is not staying adhered despite overpatch Basal rate(s) (units/hour) : 12 AM to 4 PM 0.75 units / hr 4 PM to 10 PM? 0.875 units / hr 10PM 0.925 units/hr Bolus setting Insulin Carbohydrate Ratio (s) 12 AM to 6 AM 1:11 ?6 AM to 12 PM 1:8 12 PM to 4 PM 1:7 4 PM to 10pm 7 10pm 7.5 Correction Factor / Sensitivity Factor 12 AM 1:42 4PM 1.52 Active Insulin Time:? 5 hours Target(s): 12 AM? to 12 AM? 110Control IQ [email or web address] AM? to 12 AM? 110 -110 Symptoms reported:denies numbness, tingling, cramping in lower extremities Hypoglycemia:none recent Treats with juice. Always carries sugar with him. Hyperglycemia: denies urinary frequency, nocturia, polydypsia Screenplay Writer - CDE education: last seen earlier in the year Skating Carhop: denies Ophthalmology evaluation: has annual appt - no retinopathy he will schedule appointment with a [facility] Other specialists: denies [facility] Medical History Diabetes type 1, controlled Vitamin D deficiency Diabetes type 1, uncontrolled Surgical History No pertinent past surgical history Family History Father No pertinent past medical history Mother No problems noted. Social History Household Members: Spouse and Children Alcohol intake: never Patient Tobacco Use Status: Never used Tobacco Physical Exam Vital Signs: Last Vital Signs Pulse 76 04/05/24 10:00 BP 116/72 04/05/24 10:00 BMI result Body Mass Index 25.6 Const Other: Absence of Cushingoid features. Absence of acromegalic features. Neck exam reveals nl size thyroid about 15 gms. No thyroid nodules palpable. Heart S1 S2, Reg R/R. No M/R G. Skin exam reveals absence of vitiligo or acanthosis nigricans. Visual exam of foot performed. No ulcerations or open lesions. No inter digit maceration or fissuring. No onychomycosis, no callouses. Sensation intact to monofilament exam. Vibratory sensation is normal with 128 Hz tuning fork. Office Procedures Glucose Monitoring [place] [id number] - Glucose monitoring, continuous-physician I&R Procedure code (CPT) selection complete Results AMB Hemoglobin A1c AMB Hemoglobin A1c 6.4 % Last Edit by SHUN Muñoz on 04/05/24 10:21 Results Reviewed Results Reviewed: Laboratory Last Values Glucose (Clinic) 146 mg/dL (60-115) H 04/05/24 10:08 Hgb A1c (Clinic) 6.4 % (4.0-6.0) H 04/05/24 10:20 Assessment & Plan Assessment & Plan (1) Diabetes type 1, uncontrolled: Code(s): E10.65 - Type 1 diabetes mellitus with hyperglycemia Category: Medical Plan: Type 1 without diabetic complications on an insulin pump with excellent glycemic control. Continue all pump settings and we will send a prescription for freestyle Robi 3+ is he is having difficulty with the adherence on Dexcom. Tandem is not yet compatible with fs robi 3 so will continue the same. Orders: Orders AMB Hemoglobin A1c Today E10.9 - Type 1 diabetes mellitus without complications AMB Glucose Monitoring Today E10.65 - Type 1 diabetes mellitus with hyperglycemia Patient Instructions: The patient was counseled to achieve a target A1C of 7% (154 avg). Fasting blood sugars should be 90-130 in the morning and less than 180 two hours after meals. Reviewed the relationship between poor diabetic control and the development of complications. Check your feet daily looking for any signs of infection, ulceration and seek medical attention if this occurs. Break in shoes gradually and do not wear open-toed shoes or walk barefooted. Symptoms of DKA (diabetic ketoacidosis): early: frequent urination, dry mouth, fatigue, feeling ill, severe symptoms: ketones in the urine, abdominal pain, nausea, vomiting and weakness. It is important to hydrate with sugar free liquids every 15-30 minutes and bring the sugars down to normal levels. If you are moderate or severe with ketones or unable to bring glucose to less than 200, go to the emergency room. Troubleshooting after starting new pod or inserting new insulin set: Occlusion, adhesive tape sensitivity, redness Check BG 2 hours after site change Safety information: Importance of a backup plan, for manual injections, proper prescriptions and emergency supplies ketone strips, and rules for testing for ketones Coding Level of Care Code Est Pt Level 4 (45253) Diagnoses Diabetes type 1, uncontrolled E10.65 CPT Codes Details - CPT: 60062 - Glucose monitoring, continuous-physician I&R ([id number]) Time Spent (min) 35 Comment Reviewing labs/provider notes, glucose sensor/pump reports, face to face, chart doc
[2024-04-05 10:00] VITALS: BP 116/72; PULSE 76; BMI 25.6
[2024-04-05 10:13] LABS: Glucose, Whole Blood 146 mg/dL (60-115)
== END 2024-04-05 10:34 | disposition home or self-care (01) ==
PROVIDERS: PCP Family Medicine; Visit Provider Nurse Practitioner Adult Health
DX: E10.9 Type 1 diabetes mellitus without complications (principal); E10.65 Type 1 diabetes mellitus with hyperglycemia
CPT/HCPCS: 95251; 99214

== ENCOUNTER → 2024-04-05 09:54 | Outpatient (BNVA) | payer OTHER, SELFPAY | PROVIDERS: PCP Family Medicine; Visit Provider Nurse Practitioner Adult Health | DX: E10.65 Type 1 diabetes mellitus with hyperglycemia (principal) | CPT/HCPCS: 82947; 83036 ==

== ENCOUNTER 2024-07-06 09:54 | Outpatient (AMB) | payer OTHER, SELFPAY ==
--- NOTE | 2024-07-06 07:35 | A.OFFVIS_ITS ---
Vital Signs 07/06/24 10:05 Height 5 ft 6 in Weight 163 lb 2.273 oz BMI 26.3 Blood Pressure Location Rt brachial Position Sitting Pulse Source Pulse Oximeter Intake Visit Reasons: T1DM Intake Note: Patient presents today for a follow-up on Type 1 Diabetes Mellitus: Last Diabetic eye exam was on: 09/02/2023 Last Podiatry exam was on: Does not see a [facility] Most recent HbA1c: 6.5%, 07/06/2024 Random Glucose- 147 mg/dL, Today Theatre Instructor Required: No Accompanied by: Self / Same As Patient Allergies No Known Allergies Allergy (Verified 07/06/24 10:03) Medication List - Last Reconciled 07/06/24 by Marion Martinez NP alcohol swabs (Alcohol Prep Pads) 200 pad topical .8times/day atorvastatin 40 mg PO DAILY blood sugar diagnostic 4 times a day blood sugar diagnostic (Contour Next Test Strips) USE TO TEST BLOOD SUGAR THREE TIMES DAILY blood-glucose meter (Contour Next Glucose Meter kit) As directed blood-glucose meter,continuous (Dexcom G6 Connie Cleaner) As directed blood-glucose sensor (Dexcom G6 Sensor device) USE DIRECTED CHANGE EVERY 10 DAYS blood-glucose sensor (Dexcom G7 Sensor device) USE DIRECTED, CHANGE EVERY 10 DAYS cholecalciferol (vitamin D3) (Vitamin D3) 50 mcg PO DAILY glucagon 1 mg subcut Q20M PRN insulin glargine (Lantus Solostar U-100 Insulin) 17 units (0.17 mL) subcut .P.r.n. PRN 30 days MDD 17 units insulin lispro (Humalog U-100 Insulin) Infuse up to 100 units per day by insulin pump subcutaneously. lancets 4 times a day pen needle, diabetic (BD Ultra-Fine Janee Pen Needle) As directed prn pump failure up to qid urine glucose-ketones test As directed t.i.d. p.r.n. 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 He has had adjustments to his correction factor several visits ago to avoid evening hypoglycemia. No recent hypoglycemia. A1c is 6.5% in the office today Past medical history: DM 1 diagnosed at age 9 vitamin-D deficiency Micro and macrovascular complications: None known Diabetes medications: Novolog via Tandem T-Slim X2 with Dexcom G6 Backup pump failure plan 18 units of Lantus once daily Humalog 6-8 units with meals Dexcom average glucose: 1684 day continuous glucose monitor report reviewedGlucose Managment indicator 7.3 %Days with CGM data 92% TIme in ranges: 7 % very high (above 250) 28 % high ?(181-250) 65 % in range ?(70-180] 0 % low (69-55) 0 % ?very low (below 54) readings in good control Total daily dose 45 units Basal 42% 19 units bolus 58% 26 units entering 150 carb g daily Basal rate(s) (units/hour) : 12 AM to 4 PM 0.75 units / hr 4 PM to 10 PM? 0.875 units / hr 10PM 0.925 units/hr Bolus setting Insulin Carbohydrate Ratio (s) 12 AM to 6 AM 1:11 ?6 AM to 12 PM 1:8 12 PM to 4 PM 1:7 4 PM to 10pm 7 10pm 7.5 Correction Factor / Sensitivity Factor 12 AM 1:42 4PM 1.52 Active Insulin Time:? 5 hours Target(s): 12 AM? to 12 AM? 110Control IQ [id number] AM? to 12 AM? 110 -110 Denies retinopathy: followed by [facility] last eye exam 08/2023 Denies neuropathy:Symptoms reported:denies numbness, tingling, cramping in lower extremities No nephropathy: 02/01/2024 eGFR>60 02/01 microalbumin 6.0 Has HLD on statin: LDL 88 02/01/2024 Hypoglycemia:none recent Treats with juice. Always carries sugar with him. Hyperglycemia: denies urinary frequency, nocturia, polydypsia Continuity Person - CDE education: last seen earlier in 2023 [facility] Mica: denies Other specialists: denies [facility] Medical History Diabetes type 1, controlled Vitamin D deficiency Surgical History No pertinent past surgical history Family History Father No pertinent past medical history Mother No problems noted. Social History Household Members: Spouse and Children Alcohol intake: never Patient Tobacco Use Status: Never used Tobacco Physical Exam Vital Signs: BMI result Body Mass Index 26.3 Const Other: Absence of Cushingoid features. Absence of acromegalic features.nodules palpable. Heart S1 S2, Reg R/R. No M/R G. Skin exam reveals absence of vitiligo or acanthosis nigricans. Visual exam of foot performed. No ulcerations or open lesions. No inter digit maceration or fissuring. No onychomycosis, no callouses. Sensation intact to monofilament exam. Vibratory sensation is normal with 128 Hz tuning fork. Office Procedures Glucose Monitoring Details Details: see [facility] [id number] - Glucose monitoring, continuous-physician I&R Procedure code (CPT) selection complete Results AMB Hemoglobin A1c AMB Hemoglobin A1c 6.5 % Last Edit by SHUN Muñoz on 07/06/24 10:20 Results Reviewed Results Reviewed: Laboratory Last Values Glucose (Clinic) 147 mg/dL (60-115) H 07/06/24 10:09 Assessment & Plan Assessment & Plan (1) Diabetes type 1, controlled: Code(s): E10.9 - Type 1 diabetes mellitus without complications Category: Medical Plan: 34-year-old type 1 diabetic with no known micro/macrovascular complications on an insulin pump 07/06/24 HgbA1C % 6.5 The patient was advised to always have a functioning glucometer lancets in the event he has a failed sensor in his running able to get another sensor started. Written instructions on prevention/treatment of DKA reviewed and given He is going to upgrade. We have briefly the the pros and cons of the new tandem pump versus the islet bionics pancreas. In light of the fact he's had hypoglycemia in the past, tandem may be a better option for him as were not able to manipulate insulin to carb or correction factor ratios. The patient had an opportunity to ask questions regarding treatment plan. The patient expressed understanding and agreement with the above treatment plan. The patient is aware they should contact our office by phone for worsening glucose readings or for any low blood sugars which may warrant a change in diabetes medication. Compliance is encouraged with medications and any followup testing/consults which may have been ordered. Orders: Orders AMB Hemoglobin A1c Today E10.9 - Type 1 diabetes mellitus without complications AMB Glucose Monitoring Today E10.9 - Type 1 diabetes mellitus without complications Patient Instructions: The patient was counseled to achieve a target A1C of 7% (154 avg). Fasting blood sugars should be 90-130 in the morning and less than 180 two hours after meals. Reviewed the relationship between poor diabetic control and the development of complications. Check your feet daily looking for any signs of infection, drainage, redness, ulceration and seek medical attention if this occurs. Break in shoes gradually and do not wear open-toed shoes or walk stocking footed or barefooted. sick day management discussed Symptoms of DKA (diabetic ketoacidosis): early: frequent urination, dry mouth, fatigue, feeling ill, severe symptoms: ketones in the urine, abdominal pain, nausea, vomiting and weakness. It is important to hydrate with sugar free liquids every 15-30 minutes and bring the sugars down to normal levels. If you are moderate or severe with ketones or unable to bring glucose to less than 200, go to the emergency room. Troubleshooting after starting new pod or inserting new insulin set: Occlusion, adhesive tape sensitivity, redness Check BG 2 hours after site change Safety information: Importance of a backup plan, for manual injections, proper prescriptions and emergency supplies ketone strips, and rules for testing for ketones Coding Level of Care Code Est Pt Level 5 (25045) Complex EM visit Add On G2211 Diagnoses Diabetes type 1, controlled E10.9 CPT Codes Details - CPT: 76070 - Glucose monitoring, continuous-physician I&R ([id number]) Time Spent (min) 56 Comment Reviewing labs/provider notes, glucose sensor/pump reports, face to face, chart doc
[2024-07-06 10:05] VITALS: BMI 26.3
[2024-07-06 10:14] LABS: Glucose, Whole Blood 147 mg/dL (60-115)
--- OUTSIDE RECORDS SUMMARY | 2024-07-06 11:47 | XMS_ITS | Clinical Summary ---
Author Organization [employer] [facility] ity Address [address] [place] [address] Care Team Providers Care Telecommunications Administrator Name Role Phone Unavailable Primary Care Provider Unavailabl e Social History Tobacco Use Types Packs/Day Years Used Date Smoking Tobacco: Never Assessed Sex and Gender Information Value Date Recorded Sex Assigned at Not on file Legal Sex Male 5:44 AM EST Gender Identity Not on file Sexual Orientation Not on file Plan of Treatment Health Maintenance Due Date Last Done Comments DTaP,Tdap,and Td Vaccines (1 - Tdap) 2007 Hepatitis B Vaccines (1 of 3 - 19+ 3-dose series) 2007 COVID-19 Vaccine (2023-2 5 season) 2024 Influenza Vaccine (#1) 2024 HIB Vaccines Aged Out No longer eligi ble based on patient's age to complete this topic HPV Vaccines Aged Out No longer eligi ble based on patient's age to complete this topic Hepatitis A Vaccines Aged Out No long er eligible based on patient's age to complete this topic IPV Vaccines Aged Out No longer eligi ble based on patient's age to complete this topic MMR Vaccines Aged Out No longer eligi ble based on patient's age to complete this topic Meningococcal ACWY Vaccine Aged Out N o longer eligible based on patient's age to complete this topic Meningococcal B Vacine Aged Out No lo nger eligible based on patient's age to complete this topic Pneumococcal Vaccine: Pediat rics (0 to 5 Years) and At-Risk Patients (6 to 64 Years) Aged Out No longer eligible b ased on patient's age to complete this topic RSV Immunization Patients Un kamla 20 months Aged Out No longer eligible b ased on patient's age to complete this topic Varicella Vaccines Aged Out No longer eligible based on patient's age to complete this topic
--- OUTSIDE RECORDS SUMMARY | 2024-07-06 11:47 | XMS_ITS | Encounter Summary ---
Author Organization [employer] Address [address] [place] [address] Care Team Providers Care Sped Teacher Name Role Phone Corina Eli MD Primary Care Provider [phone] Encounter Details Date Type Department Care Team ([facility] st Contact Info) Description 03/11/2024 Orders Only [facility] [address], [place] [phone] Corina Eli MD [address] [place] [address] Social History Tobacco Use Types Packs/Day Years Used Date Smoking Tobacco: Never Smokeless Tobacco: Never Alcohol Use Standard Drinks/Week Comments Never 0 (1 standard drink = 0.6 oz pur e alcohol) Alcohol Answer Date Recorded How often do you have a drink containing alcohol ? 1 03/10/2024 Average Number of Drinks Not on file 024 Frequency of Binge Drinking Not on file 02/10 Depression Answer Date Recorded Patient Health Questionnaire-9 Score 0 03/10/2024 Patient Health Questionnaire-9 Score 0 03/10/2024 Last PHQ-9: Questionnaire Data Not on file 1 Housing Stability Answer Date Recorded What is your housing situation today? I have cony [place]mond 03/10/[address] you li ve. Do you have problems with any of the following? Water leaks 03/10/2024 Food Insecurity Answer Date Recorded Within the past 12 months, y ou worried that your food would run out before you got money to buy more: Never True 03/10/2024 Within the past 12 months,th e food you bought just didn't last and you didn't have enough money to get more: Never True Transportation Answer Date Recorded In the past 12 months, has l ack of transportation kept you from medical appts, meetings, work or from getting things needed for daily living? No 03/10/2024 Utilities Answer Date Recorded In the past 12 months, has t he electric, gas, oil or water company threatened to shut off services in your home? I am not sure 03/10/2024 Depression Answer Date Recorded Patient Health Questionnaire-2 Score 0 03/10/2024 Internet Access Answer Date Recorded Internet Access Q1 Yes 03/10/2024 Internet Access Q2 Not on file 03/10/2024 Sex and Gender Information Value Date Recorded Sex Assigned at Male 03/10/2022 10:19 AM EDT Legal Sex Male 10:19 AM EDT Gender Identity Male 03/10/2022 10:19 AM EDT Sexual Orientation Straight 03/10/2022 10 :19 AM EDT documented as of this encounter Plan of Treatment Not on file documented as of this encounter Visit Diagnoses Not on filedocumented in this encounter Additional Health Concerns Assessment Noted Time PHQ-9 Depression Total Score: 0 03/10/20 24 10:37 AM EDT documented as of this encounter Care Teams Sped Teacher Relationship Specialty Start Date End Date Corina Eli MD [address] [place] [id number] PCP - General Family Medicine 05/11/18 Sejal Alfaro NP [facility] Endocrinology Endocrinology 04/05/24 documented as of this encounter
--- OUTSIDE RECORDS SUMMARY | 2024-07-06 11:47 | XMS_ITS | Clinical Summary ---
Author Organization [employer] Address [address] [place] [address] Care Team Providers Care Pension Fund Manager Name Role Phone Corina Eli MD Primary Care Provider [phone]- [phone] Allergies No known active allergies Medications Alcohol Swabs 70 % pads 06/29/19 10 Active Insulin Aspart (NovoLOG) 100 UNIT/ML solution Inject under the skin. Active Acetone, Urine, Test (Ketone Test) strip USE DIRECTED THREE TIMES DAILY FOR INCREASE BLOOD SUGAR OR SYMPTOMS OF Diabetic Keto Acidosis 12/03/19 24 Active D3 Super Strength 50 MCG (1999 UT) capsule Take 50 mcg by mouth Once per day. 10/23/19 24 Active Continuous Glucose Sensor (Dexcom G7 Sensor) misc USE DIRECTED, CHANGE EVERY 10 DAYS 12/23/19 24 Active Continuous Glucose Transmitter (Dexcom G6 transmitter) misc USE DIRECTED 05/20/19 24 Active glucose (Glutose) 40 % gel oral gelIndications:T ype 1 diabetes mellitus without complication (CMS/HCC) Take 15 g by mouth every 15 (fifteen) minutes if needed for low blood sugar. 15 g 1 03/10/20 24 Active glucagon 1 MG injectionIndicat ions:Type 1 diabetes mellitus without complication (CMS/HCC) Use I'm for hypoglycemia and not responsive prn 1 each 1 03/10/20 24 Active atorvastatin (Lipitor) 40 MG tabletIndication s:Type 1 diabetes mellitus without complication (CMS/HCC) Take 1 tablet (40 mg) by mouth Once per day. 30 tablet 11 03/10/20 24 025 Active Gvoke HypoPen 1-Pack 1 MG/0.2ML injection INJECT 0.2 ML SUBCUTANEOUSLY ONCE NEEDED FOR LOW BLOOD SUGAR 0.2 mL 1 04/03/20 Active Active Problems Problem Noted Date Diagnosed Date Preventative health care 03/20/2023 Overview (03/10/2024): -next comprehensive annual evaluation due after 03/09/25 -eye care facilitated by [facility] seen 09/02/23 -dental home is [facility] proxy given and filed 03/09/24 Assessment & Plan (03/10/2024 10:11 AM EDT): -next comprehensive annual evaluation due after 03/09/25 -eye care facilitated by [facility] seen 09/02/23 -dental home is [facility] proxy given and filed 03/09/24 Seasonal allergies 12/24/2021 03/20/2023 Diabetes mellitus type 1 06/13/2011 023 Overview (03/10/2024): Diabetes is controlled. -Followed by filing clerk Dr. Jose Buck MD and Marion Martinez NP at [facility] -Dx? d at age 9. No microvascular or macrovascular disease Lab Results Component Value Date HGBA1C 6.4 (A) 03/10/2024 HGBA1C 6.5 (A) 12/02/2023 Lab Results Component Value Date CREATININE 0.92 02/01/2024 EGFR >60 02/01/2024 MICROALBCREU 3.5 02/01/2024 MICROALBCREU 3.9 09/12/2022 LDLCHOLCAL 88 02/01/2024 -Bill/Arb: none -Statin therapy: Start Atorvastatin 40 mg 03/09/24 -Diabetic eye exam: done, 12/2019. -Diabetic foot exam: done 03/09/24 -Continue lifestyle modifications -Continue current medications -Continue NovoLOG 100 UNIT/ML -Currently on Medtronic 10/15 og sensor and pump -Blood pressure is at goal of <130/80 -wears med alert bracelet -Importance of low-fat, low cholesterol, ADA diet discussed. Importance of moderate physical activity discussed. Endocrinology note from 12/07/23 reviewed Assessment & Plan (03/10/2024 10:45 AM EDT): Diabetes is controlled. -Followed by filing clerk Dr. Jose Buck MD and Marion Martinez NP at [facility] -Dx? d at age 9. No microvascular or macrovascular disease Lab Results Component Value Date HGBA1C 6.4 (A) 03/10/2024 HGBA1C 6.5 (A) 12/02/2023 Lab Results Component Value Date CREATININE 0.92 02/01/2024 EGFR >60 02/01/2024 MICROALBCREU 3.5 02/01/2024 MICROALBCREU 3.9 09/12/2022 LDLCHOLCAL 88 02/01/2024 -Bill/Arb: none -Statin therapy: Start Atorvastatin 40 mg 03/09/24 -Diabetic eye exam: done, 12/2019. -Diabetic foot exam: done 03/09/24 -Continue lifestyle modifications -Continue current medications -Continue NovoLOG 100 UNIT/ML -Currently on Medtronic 10/15 og sensor and pump -Blood pressure is at goal of <130/80 -wears med alert bracelet -Importance of low-fat, low cholesterol, ADA diet discussed. Importance of moderate physical activity discussed. Endocrinology note from 12/07/23 reviewed Resolved Problems Problem Noted Date Diagnosed Date Resolved Date Verruca vulgaris 11/21/2011 03/20/2023 03/10/2024 Encounters Date Type Department Care Team Description 07/06/2024 Orders Only GENERIC EXTERNAL DATA DEPARTMENT Provider, Generic External Data 04/05/2024 Abstract [facility] [address] [place] [id number] Corina Eli MD 04/05/2024 Orders Only GENERIC EXTERNAL DATA DEPARTMENT Provider, Generic External Data from Last 3 Months Immunizations Name Administration Dates Next Due Hep B, adult 03/10/2024,05/22/2017,04/15/2017 Influenza injectable quadriv alent IIV4 with preservative 04/15/2017 Influenza, IIV3, injectable 02/06/2014,1 06/29/2010,06/29/2009,03/11,05/07/2007 Influenza, Split (incl. jorge fied surface antigen) 02/14/2013 Moderna Covid-19 Vaccine 12+ 09/08/2020 Pfizer Covid-19 Vaccine 12+ 09/08/2020 Pneumococcal Conjugate PCV 20 03/10/2024 Pneumococcal Polysaccharide PPSV23 05/07/2007 Tdap 03/10/2024,11/21/2011 Social History Tobacco Use Types Packs/Day Years Used Date Smoking Tobacco: Never Smokeless Tobacco: Never Tobacco Cessation:Counseling Given: Not Answered Alcohol Use Standard Drinks/Week Comments Never 0 [...] Orientation Straight 03/10/2022 10 :19 AM EDT Last Filed Vital Signs Vital Sign Reading Time Taken Comments Blood Pressure 104/78 03/10/2024 9:53 AM EDT Pulse 60 03/10/2024 9:53 AM EDT Temperature 36.7 ??C (98.1 ??F) 03/10/2024 9:53 AM ED T Respiratory Rate 19 03/10/2024 9:53 AM EDT Oxygen Saturation - - Inhaled Oxygen Concentration - - Weight 73.5 kg (162 lb) 03/10/2024 9:53 AM EDT Height 172.7 cm (5' 8 ) 03/10/2024 9:53 AM EDT Body Mass Index 24.63 03/10/2024 9:53 AM EDT Plan of Treatment Health Maintenance Due Date Last Done Comments Diabetes: Hemoglobin A1C 10/03/2024 024, 03/10/2024, 12/02/2023, Additional history exists Influenza Vaccine (#1) 2024 7, 02/06/2014, 02/14/2013, Additional history exists Postponed from 01/10/2024 (Patient Refused) Diabetes: Urine Protein Screening 01/31/2025 02/01/2024, 09/12/2022, 08/05/2021, Additional history exists Lipid Panel 01/31/2025 02/01/2024, 05/09/2022, 08/05/2021, Additional history exists Alcohol/Substance Use Screening 03/10/2025 03/10/2024 COVID-19 Vaccine ( season) 2025 05/18/2021, 09/29/2020, 09/08/2020, Additional history exists Postponed from 01/10/2024 (Patient Refused) Depression Screening 03/10/2025 03/10/2024, 03/10/20 Diabetes: Foot Exam 03/10/2025 03/10/2024, 03/10/2024, 03/10/2024 Family Planning (PISQ) 03/10/2025 03/10/2024 SDOH Screening 03/10/2025 03/10/2024 Tobacco Screening 03/10/2025 03/10/2024 Eye Exam 09/01/2025 09/02/2023 DTaP/Tdap/Td Vaccines (3 - Td or Tdap) 03/10/2034 03/10/2024, 11/21/2011 Zoster Vaccines (1 of 2) 2038 RSV Patients and Patients Aged 60 years or older (1 - 1-dose 75+ series) 2063 HIV Screening Completed 04/15/2017 Hepatitis C Screening Completed 04/15/2017 Hepatitis B Vaccines Completed 03/10/2024, 05/22/2017, 04/15/2017 Pneumococcal Vaccine: Pediatrics (0 to 5 Years) and At-Risk Patients (6 to 49) Years) Completed 03/10/2024, 05/07/2007 HIB Vaccines Aged Out No longer eligi [...] patient's age to complete this topic Meningococcal Vaccine Aged Out No cl sherita eligible based on patient's age to complete this topic RSV under 20 months Aged Out No longe r eligible based on patient's age to complete this topic Rotavirus Vaccines Aged Out No longer eligible based on patient's age to complete this topic Procedures Procedure Name Priority Date/Time Associated Diagnosis Comments GLUCOSE, WHOLE BLOOD Routine 07/06/2024 10:09 AM EST GLUCOSE, WHOLE BLOOD Routine 04/05/2024 10:08 AM EST HEMOGLOBIN A1C Routine 04/05/2024 ALBUMIN, RANDOM URINE W/CREATININE Routine 02/01/2024 10:33 AM EDT LIPID PANEL, STANDARD Routine 02/01/2024 10:33 AM EDT HM DIABETES EYE EXAM Routine 09/02/2023 HM HEPATITIS C ANTIBODY Routine 04/15/2017 HM HIV 1/2 ANTIGEN AND ANTIBODY Routine 04/15/2017 from Last 3 Months or Most Recently Relevant to Health Maintenance Results * (ABNORMAL) Glucose, Whole Blood (07/06/2024 10:09 AM EST) Only the most recent of2 resultswithin the time period is included. Glucose, Whole Blood 147(H) 60 - 115 mg/dL [facility] Comment:METER #: [id number] Testing performed in the Endocrinology Department [address] , [address], [facility]. 07/06/2024 10:0 9 AM EST 07/06/2024 10:14 AM EST Generic External Data Provider LAB BLOOD ORDERAB LES Final Result Performing Organization Address [facility]/ZIP Co de Phone Number [facility] [address] [place] [phone] * Hemoglobin A1c (04/05/2024) Hemoglobin A1c 6.4 Blood Venous blood specimen / Unknown Historical Provider LAB BLOOD ORDERABLES Adrianne l Result * Albumin, Random Urine W/Creatinine (02/01/2024 10:33 AM EDT) Creatinine, Urine 169.99 mg/dL [facility] Microalbumin Urine 6.0 mg/L [facility] Microalbum Creatinine Ratio Ur 3.5 <30 ug/mg cr [facility] Comment:Albumin/Creatinine R atio Reference Ranges: Normal: < 30 ug/mg creatinine Microalbuminuria: 30 - 300 ug/mg creatinineClinical Albuminuria: > 300 ug/mg creatinine 02/01/2024 10:3 3 AM EDT 02/01/2024 10:45 AM EDT Generic External Data Provider LAB URINE ORDERAB LES Final Result Performing Organization Address City/[facility]/ZIP Co de Phone Number [facility] [address] [place] [phone] * Lipid Panel, Standard (02/01/2024 10:33 AM EDT) Triglycerides 46 <150 mg/dL [facility] Comment:Desirable Triglyceri de: less than 150 mg/dLBorderline High Triglyceride 150-199 mg/dLHigh Triglyceride: 200-499 mg/dLVery High Triglyceride: greater than or equal to 5OO mg/dL Cholesterol 159 <200 mg/dL [facility] Comment:Desirable Cholestero l: less than 200 mg/dLBorderline High Cholesterol: 200-239 mg/dLHigh Cholesterol: greater than 239 mg/dL LDL Cholesterol Calculated 88 <100 mg/dL [facility] Comment:Desirable LDL: less than 100 mg/dLNear Optimal/Above Optimal LDL: 110- 129 mg/dLBorderline High LDL: 130-159 mg/dLHigh LDL: 160-189 mg/dLVery High LDL: greater than or equal to 190 mg/dL HDL Cholesterol 62 >40 mg/dL [facility] Comment:Desirable HDL: great er than 40 mg/dL Note: This HDL assay may give artificially low results in patients with liver disease. 02/01/2024 10:3 3 AM EDT 02/01/2024 10:33 AM EDT us Generic External Data Provider LAB BLOOD ORDERAB LES Final Result [facility] [address] [place] [phone] * Diabetes Eye Exam (09/02/2023) Eye Exam Normal Normal Comment:[facility] Historical Provider HEALTH MAINTENANCE Final Result * Hepatitis C Antibody (04/15/2017) Hepatitis C Antibody Nonreactive Blood us Historical Provider HEALTH MAINTENANCE Final Result * HIV 1/2 Antigen and Antibody (04/15/2017) HIV Ag/Ab Nonreactive us Historical Provider HEALTH MAINTENANCE Final Result from Last 3 Months or Most Recently Relevant to Health Maintenance Insurance [facility] Advance Directives Documents on File Type Date Recorded Patient Air Bag Curer Expl anation Advance Directives and Living Will 03/10/2024 Health Care Proxy 03/10/24 Care Teams Pension Fund Manager Relationship Specialty Start Date End Date [place], MD Corina [address] [place] [phone] PCP - General Family Medicine 05/11/18 Sejal Alfaro NP [facility] [place] [place] Endocrinology Endocrinology 04/05/24
--- OUTSIDE RECORDS SUMMARY | 2024-07-06 11:47 | XMS_ITS | Encounter Summary ---
Author Organization [employer] Address [address] [place] [address] Care Team Providers Care Home Lighting Adviser Name Role Phone Corina Eli MD Primary Care Provider [phone]- [phone] Encounter Details Date Type Department Care Team (Late st Contact Info) Description 07/06/2024 Orders Only GENERIC EXTERNAL DATA DEPARTMENT Provider, Generic External Data Social History Tobacco Use Types Packs/Day Years [...] on file documented as of this encounter Procedures Procedure Name Priority Date/Time Associated Diagnosis Comments GLUCOSE, WHOLE BLOOD Routine 07/06/2024 10:09 AM EST documented in this encounter Results * (ABNORMAL) Glucose, Whole Blood (07/06/2024 10:09 AM EST) Glucose, Whole Blood 147(H) 60 - 115 mg/dL [facility] Comment:METER #: [id number] Testing performed in the Endocrinology Department [address] , [address], [facility]. 07/06/2024 10:0 9 AM EST 07/06/2024 10:14 AM EST us Generic External Data Provider LAB BLOOD ORDERAB LES Final Result [facility] [address] [place] [address] [phone] documented in this encounter Visit Diagnoses Not on filedocumented in this encounter Additional Health Concerns Assessment Noted Time PHQ-9 Depression Total Score: 0 03/10/20 24 10:37 AM EDT documented as of this encounter Care Teams Home Lighting Adviser Relationship Specialty Start Date End Date Corina Eli MD [address] [place] [phone] PCP - General Family Medicine 05/11/18 Sejal Alfaro NP [facility] [place] Endocrinology Endocrinology 04/05/24 documented as of this encounter
== END 2024-07-06 10:43 | disposition home or self-care (01) ==
PROVIDERS: PCP Family Medicine; Visit Provider Nurse Practitioner Adult Health
DX: E10.9 Type 1 diabetes mellitus without complications (principal)
CPT/HCPCS: 95251; 99215; G2211

== ENCOUNTER → 2024-07-06 09:54 | Outpatient (BNVA) | payer OTHER, SELFPAY | PROVIDERS: PCP Family Medicine; Visit Provider Nurse Practitioner Adult Health | DX: E10.9 Type 1 diabetes mellitus without complications (principal); Z79.4 Long term (current) use of insulin; Z96.41 Presence of insulin pump (external) (internal) | CPT/HCPCS: 82947; 83036 ==

== ENCOUNTER → 2024-08-23 14:43 | Outpatient (BNVA) | payer SELFPAY | PROVIDERS: PCP Family Medicine; Visit Provider Registered Nurse | DX: Z02.79 Encounter for issue of other medical certificate (principal) ==

== ENCOUNTER 2024-10-28 15:38 | Outpatient (AMB) | payer OTHER, SELFPAY ==
--- NOTE | 2024-10-28 14:33 | A.OFFVIS_ITS ---
Vital Signs 10/28/24 15:56 Height 5 ft 6 in Weight 156 lb 8.451 oz BMI 25.3 BP 122/72 Blood Pressure Location Rt brachial Position Sitting Pulse 65 Pulse Source Pulse Oximeter Pulse Oximetry (%) 98 Oxygen Delivery Method Room Air Intake Visit Reasons: T1DM Intake Note: Patient presents today for a follow-up on Type 1 Diabetes Mellitus, Patient on insulin pump: Last Diabetic eye exam was on: 09/02/2023, as a coming up appt Last Podiatry exam was on: Does not see a Pathology Technologist Most recent HbA1c: 6.7%, 10/28/2024 Random Glucose- 152 mg/dL, Today Ager Operator Required: No Accompanied by: Self / Same As Patient Allergies No Known Allergies Allergy (Verified 10/28/24 15:57) HPI Comments Details: Patient is 34-year-old male with DM type 1 diagnosed at age 9 who presents for management of diabetes, 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 He has had adjustments to his correction factor several visits ago to avoid evening hypoglycemia. No recent hypoglycemia. A1c is 6.5% in the office today is: Past medical history: DM 1 diagnosed at age 9 vitamin-D deficiency Micro and macrovascular complications: None known Diabetes medications: Novolog via Tandem T-Slim X2 with Dexcom G6 Backup pump failure plan 18 units of Lantus once daily Humalog 6-8 units with meals Dexcom average glucose: 174 14 day continuous glucose monitor report reviewed Glucose Managment indicator 7.5 % Days with CGM data [ ] % TIme in ranges: [ ] % very high (above 250) [ ] % high ?(181-250) [ ] % in range ?(70-180] [ ] % low (69-55) [ ] % ?very low (below 54) [ ] Standard Deviation Interpretation [ ] Basal rate(s) (units/hour) : 12 AM to 4 PM 0.75 units / hr 4 PM to 10 PM? 0.875 units / hr 10PM 0.925 units/hr Bolus setting Insulin Carbohydrate Ratio (s) 12 AM to 6 AM 1:11 ?6 AM to 12 PM 1:8 12 PM to 4 PM 1:7 4 PM to 10pm 7 10pm 7.5 Correction Factor / Sensitivity Factor 12 AM 1:42 4PM 1.52 Active Insulin Time:? 5 hours Target(s): 12 AM? to 12 AM? 110Control IQ [email or web address] AM? to 12 AM? 110 -110 Denies retinopathy: followed by [place] [facility] last eye exam 08/2023 Denies neuropathy:Symptoms reported:denies numbness, tingling, cramping in lower extremities No nephropathy: 02/01/2024 eGFR>60 02/01 microalbumin 6.0 Has HLD on statin: LDL 88 02/01/2024 Hypoglycemia:none recent Treats with juice. Always carries sugar with him. Hyperglycemia: denies urinary frequency, nocturia, polydypsia Driller Helper - CDE education: last seen earlier in 2023 Pathology Technologist: denies Other specialists: denies [facility] Medical History Diabetes type 1, controlled Vitamin D deficiency Surgical History No pertinent past surgical history Family History Father No pertinent past medical history Mother No problems noted. Social History Household Members: Spouse and Children Alcohol intake: never Patient Tobacco Use Status: Never used Tobacco Physical Exam Vital Signs: Last Vital Signs Pulse 65 10/28/24 15:56 BP 122/72 10/28/24 15:56 Pulse Ox 98 10/28/24 15:56 Oxygen Delivery Method Room Air 10/28/24 15:56 BMI result Body Mass Index 25.3 Results AMB Hemoglobin A1c AMB Hemoglobin A1c 6.7 % Last Edit by SHUN Muñoz on 10/28/24 16:14 Results Reviewed Results Reviewed: Laboratory Last Values Glucose (Clinic) 152 mg/dL (60-115) H 10/28/24 16:00 Assessment & Plan Assessment & Plan Orders: Orders AMB Hemoglobin A1c Today E10.9 - Type 1 diabetes mellitus without complications Medications: Changed From pen needle, diabetic (BD Ultra-Fine Janee Pen Needle) As directed prn pump failure up to qid 100 ea 6RF To pen needle, diabetic As directed prn pump failure up to qid 100 ea 6RF Refilled insulin lispro (Humalog U-100 Insulin) Infuse up to 100 units per day by insulin pump subcutaneously. 30 mL 5RF Coding
[2024-10-28 15:56] VITALS: BP 122/72; PULSE 65; O2SAT 98; BMI 25.3
[2024-10-28 16:05] LABS: Glucose, Whole Blood 152 mg/dL (60-115)
== END 2024-10-28 16:18 | disposition home or self-care (01) ==
PROVIDERS: PCP Family Medicine; Visit Provider Nurse Practitioner Adult Health
DX: E10.9 Type 1 diabetes mellitus without complications (principal)

== ENCOUNTER → 2024-10-28 15:38 | Outpatient (BNVA) | payer OTHER, SELFPAY | PROVIDERS: PCP Family Medicine; Visit Provider Nurse Practitioner Adult Health | DX: E10.9 Type 1 diabetes mellitus without complications (principal); Z79.4 Long term (current) use of insulin; Z96.41 Presence of insulin pump (external) (internal) | CPT/HCPCS: 82947; 83036 ==

== ENCOUNTER 2025-01-30 14:46 | Outpatient (AMB) | payer OTHER, SELFPAY ==
[2025-01-30 14:58] VITALS: BP 112/78; PULSE 54; O2SAT 98; BMI 25.3
--- NOTE | 2025-01-30 14:58 | MHC.OFFVIS ---
Vital Signs 01/30/25 14:58 Height 5 ft 6 in Weight 156 lb 11.979 oz BMI 25.3 BP 112/78 Blood Pressure Location Rt brachial Position Sitting Pulse 54 Pulse Source Pulse Oximeter Pulse Oximetry (%) 98 Oxygen Delivery Method Room Air Intake Visit Reasons: T1DM Intake Note: Patient present today for Type 1 Diabetes Mellitus Last Diabetic eye exam: Last exam was in 2023 and has upcoming appt 02/02/25 Last Podiatry Visit: Doesn't have one Random Glucose: 118 mg/dl HgA1C: 6.9% External Auditor Required: No Accompanied by: Self / Same As Patient Allergies No Known Allergies Allergy (Verified 01/30/25 15:03) Medication List - Last Reconciled 01/30/25 by Eliane Hidalgo MD alcohol swabs (Alcohol Prep Pads) 200 pad topical .8times/day atorvastatin 40 mg PO DAILY blood sugar diagnostic 4 times a day blood sugar diagnostic (Contour Next Test Strips) USE TO TEST BLOOD SUGAR THREE TIMES DAILY blood-glucose meter (Contour Next Glucose Meter kit) As directed blood-glucose sensor (Dexcom G6 Sensor device) USE DIRECTED CHANGE EVERY 10 DAYS blood-glucose sensor (Dexcom G7 Sensor device) USE DIRECTED, CHANGE EVERY 10 DAYS blood-glucose,toy consultant,cont (Dexcom G6 Battery Checker) As directed cholecalciferol (vitamin D3) (Vitamin D3) 50 mcg PO DAILY glucagon 1 mg subcut Q20M PRN insulin glargine (Lantus Solostar U-100 Insulin) 17 units (0.17 mL) subcut .P.r.n. PRN 30 days MDD 17 units insulin lispro (Humalog U-100 Insulin) Infuse up to 100 units per day by insulin pump subcutaneously. lancets 4 times a day pen needle, diabetic As directed prn pump failure up to qid urine glucose-ketones test As directed t.i.d. p.r.n. 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 He has had adjustments to his correction factor several visits ago to avoid evening hypoglycemia. No recent hypoglycemia. A1c October 2024 POC 6.7% 01/30/2025 POC 6.9% Diabetes medications: humalog via Tandem T-Slim X2 with Dexcom G7 Tandem T slim with Dexcom G7 downloaded from January 17 to January 30, 2025 Time CGM active 94 3% Average glucose 168 mg/dL G MS 7.3% Within target range 67% High 25% Very high 8% Low 0% Very low 0% Coefficient of variation 29.9% Interpretation: He is having some hyperglycemia after correction boluses given, however in the past he has had issues with hypoglycemia and especially since he is a transport truck driver, I am hesitant to adjust his correction factor. Control IQ 97% Carbs per day to 104.4 g Entries per day 4.4 Insulin usage 52.1 units per day Basal: 20.8 units, 40% Bolus: 31.3 units per day, 60% Backup pump failure plan 18 units of Lantus once daily Humalog 6-8 units with meals Basal rate(s) (units/hour) : 12 AM to 4 PM 0.75 units / hr 4 PM to 10 PM? 0.875 units / hr 10PM 0.925 units/hr Bolus setting Insulin Carbohydrate Ratio (s) 12 AM to 6 AM 1:11 ?6 AM to 12 PM 1:8 12 PM to 4 PM 1:7 4 PM to 10pm 7 10pm 7.5 Correction Factor / Sensitivity Factor 12 AM to 6 AM 42 ?6 AM to 12 PM 45 12 PM to 4 PM 45 4 PM to 10pm 52 10pm 52 Active Insulin Time:? 5 hours Target(s): 12 AM? to 12 AM? 110Control IQ [id number] AM? to 12 AM? 110 -110 Denies retinopathy: followed by [facility] last eye exam 08/2023 has upcoming appt 02/02 Denies neuropathy:Symptoms reported:denies numbness, tingling, cramping in lower extremities No nephropathy: 02/01/2024 eGFR>60 02/01 microalbumin 6.0 Has HLD on statin: LDL 88 02/01/2024 Hypoglycemia:none recent Treats with juice. Always carries sugar with him. Hyperglycemia: denies urinary frequency, nocturia, polydypsia Senior Process Analyst - CDE education: last seen earlier in 2023 Other specialists: denies Physical exam General: sitting comfortably in no acute distress Cardiac: normal heart sounds Pulm: normal breath sounds B/L, no added breath sounds Abd: not distended, no tenderness Foot exam: intact sensation to monofilament, intact pulses, intact vibration Laboratory Tests 02/01/24 07/06/24 10/28/24 10:33 10:19 16:00 Creatinine 0.92 Estimated GFR > 60 Glucose (Clinic) 152 H Hgb A1c (Clinic) 6.5 H Triglycerides 46 Cholesterol 159 LDL Cholesterol, Calc 88 HDL Cholesterol 62 TSH 0.74 Urine Creatinine 169.99 Urine Microalbumin 6.0 Microalb/Creat Ratio 3.5 10/28/24 16:14 Creatinine Estimated GFR Glucose (Clinic) Hgb A1c (Clinic) 6.7 H Triglycerides Cholesterol LDL Cholesterol, Calc HDL Cholesterol TSH Urine Creatinine Urine Microalbumin Microalb/Creat Ratio [facility] Medical History (Updated 01/30/25 @ 15:38 by Eliane Hidalgo MD) Insulin pump in place Diabetes type 1, controlled Vitamin D deficiency Surgical History No pertinent past surgical history Family History Father No pertinent past medical history Mother No problems noted. Social History Household Members: Spouse and Children Alcohol intake: never Patient Tobacco Use Status: Never used Tobacco Physical Exam Vital Signs: Last Vital Signs Pulse 54 01/30/25 14:58 BP 112/78 01/30/25 14:58 Pulse Ox 98 01/30/25 14:58 Oxygen Delivery Method Room Air 01/30/25 14:58 BMI result Body Mass Index 25.3 Office Procedures Glucose Monitoring Details Details: see [facility] [address] - Glucose monitoring, continuous-physician I&R Procedure code (CPT) selection complete Results AMB Hemoglobin A1c AMB Hemoglobin A1c 6.9 % Last Edit by SHUN Duncan on 01/30/25 15:17 Results Reviewed Results Reviewed: Laboratory Last Values Glucose (Clinic) 118 mg/dL (60-115) H 01/30/25 15:05 Hgb A1c (Clinic) 6.9 % (4.0-6.0) H 01/30/25 15:08 Assessment & Plan Assessment & Plan (1) Diabetes type 1, controlled: Code(s): E10.9 - Type 1 diabetes mellitus without complications Category: Medical Plan: 34-year-old male here today for follow up of type 1 diabetes mellitus on tandem T slim insulin pump with Dexcom G7 with the Humalog. A1c POC 01/30/2025 at 6.9% which is stable from October 2024 when it was 6.7%. 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 For now we will continue the same pump settings. He is interested in upgrading his tandem T slim pump, however heard about the tandem OB as well but is unsure which 1 he is interested in. At this time I have asked him to schedule a visit with the educator, elaine T saw her in 2023, to go over pump upgrade options. Plan: -no pump settings changed today -due for labs, ordered labs -has a upcoming eye appointment, no history of retinopathy -foot exam done today was unremarkable (2) Insulin pump in place: Code(s): Z96.41 - Presence of insulin pump (external) (internal) Category: Medical Plan: Has backup Lantus: To inject 18 units of Lantus in case of pump failure +6-8 8 units of Humalog t.i.d. pre meals Has urine ketone strips Prescribed nasal Baqsimi Plan I spent 30 minutes in reviewing the record, seeing the patient and documenting in the medical record. Orders: Orders Microalbumin, Random (w Creat) Today E10.9 - Type 1 diabetes mellitus without complications Thyroid Stimulating Hormone Today E10.9 - Type 1 diabetes mellitus without complications Creatinine Today E10.9 - Type 1 diabetes mellitus without complications AMB Glucose Monitoring Today E10.9 - Type 1 diabetes mellitus without complications AMB Hemoglobin A1c Today E10.9 - Type 1 diabetes mellitus without complications, Z13.9 - Encounter for screening, unspecified Lipid Panel Today E10.9 - Type 1 diabetes mellitus without complications Aspartate Amino Transferase Today E10.9 - Type 1 diabetes mellitus without complications Alanine Aminotransferase Today E10.9 - Type 1 diabetes mellitus without complications Complete Blood Count no Diff Today E10.9 - Type 1 diabetes mellitus without complications Medications: New glucagon 3 mg/actuation (Baqsimi) 3 mg intranasal ONCE PRN 1 ea 1RF pass out Refilled pen needle, diabetic As directed prn pump failure up to qid 100 ea 6RF Coding Level of Care Code Est Pt Level 4 (44293) Diagnoses Diabetes type 1, controlled E10.[address] Z96.41 CPT Codes Details - CPT: 90788 - Glucose monitoring, continuous-physician I&R ([id number]) Time Spent (min) 30
[2025-01-30 15:09] LABS: Glucose, Whole Blood 118 mg/dL (60-115)
--- OUTSIDE RECORDS SUMMARY | 2025-01-30 17:20 | XMS_ITS | Encounter Summary ---
Demographics Address [address] [place] [address] Mobile Phone Home Phone Email Address Preferred Language es Marital Status Single Anabaptist Affiliation Unknown
== END 2025-01-30 15:34 | disposition home or self-care (01) ==
PROVIDERS: PCP Family Medicine; Visit Provider Student in an Organized Health Care Education/Training Program
DX: Z13.9 Encounter for screening, unspecified (principal); E10.9 Type 1 diabetes mellitus without complications; Z96.41 Presence of insulin pump (external) (internal)
CPT/HCPCS: 95251; 99214

== ENCOUNTER → 2025-01-30 14:46 | Outpatient (BNVA) | payer OTHER, SELFPAY | PROVIDERS: PCP Family Medicine; Visit Provider Student in an Organized Health Care Education/Training Program | DX: E10.9 Type 1 diabetes mellitus without complications (principal) | CPT/HCPCS: 82947; 83036 ==

== ENCOUNTER → 2025-02-21 16:21 | Outpatient (AMB) | payer OTHER, SELFPAY ==
--- OUTSIDE RECORDS SUMMARY | 2025-02-17 16:39 | XMS_ITS | Encounter Summary ---
Author Organization [facility] Address [address] [place] [address] Care Team Providers Care Thermal Molder Name Role Phone Corina Eli Juanpablo Primary Care Provider [phone] Reason for Visit * Reason Comments Hyperglycemia * Auth/Cert (Routine) Specialty Diagnoses / Procedures Referred By Jacek t Referred To Contact Diagnoses DKA, type 1, not at goal Referral ID Status Reason Start Date Expiration Date Visits Re quested Visits Authorized [id number] Encounter Details Date Type Department Care Team (Latest Contact Info) Description 02/17/2025 4:39 PM EDT - 02/19/2025 11:06 AM EDT Hospital Encounter [facility] 2 Critical Care Unit [address] [place] [address] Saida Haro MD [address] [place] [id number] Polo Medrano MD [address] [place] [id number] Ryan Kelley MD [address] [place] [phone] DKA, type 1, not at goal (Primary Dx) Discharge Disposition: Home or Self Care () Social History Tobacco Use Types Packs/Day Years Used Date Smoking Tobacco: Never Smokeless Tobacco: Never Tobacco Cessation:Counseling Given: Not Answered Alcohol Use Standard Drinks/Week Comments Yes 0 (1 standard drink = 0.6 oz pur e alcohol) reports ~5 drinks x2/month Hunger Vital Sign Answer Date Recorded Within the past 12 months, y ou worried that your food would run out before you got the money to buy more. Never true 02/18/20 25 Within the past 12 months, t he food you bought just didn't last and you didn't have money to get more. Never true 02/17/2025 [facility] Utilities Answer Date Recorded In the past 12 months has th e electric, gas, oil, or water company threatened to shut off services in your home? No 02/17/2025 Transportation Answer Date Recorded In the past 12 months, has l ack of reliable transportation kept you from medical appointments, meetings, work or from getting things needed for daily living? No 02/17/2025 Housing Answer Date Recorded Housing Risk Low 1 02/17/2025 Housing Risk Medium Not on file 02/17/2025 Housing Risk High Not on file 02/17/2025 What is your living situation today? LSSTEADY 02/17/2025 Sex and Gender Information Value Date Recorded Sex Assigned at Male 02/17/2025 5:00 PM EDT Legal Sex Male 4:36 PM EDT Gender Identity Male 02/17/2025 5:00 PM EDT Sexual Orientation Not on file documented as of this encounter Last Filed Vital Signs Vital Sign Reading Time Taken Comments Blood Pressure 128/92 02/19/2025 8:00 AM EDT Pulse 95 02/19/2025 9:00 AM EDT Temperature 37.2 C (99 F) 02/19/2025 8:00 AM EDT Respiratory Rate 16 02/19/2025 9:00 AM EDT Oxygen Saturation 98% 02/19/2025 9:00 AM EDT Inhaled Oxygen Concentration - - Weight 68.2 kg (150 lb 5.7 oz) 02/19/2025 4:29 A M EDT Height 175.3 cm (5' 9 ) 02/17/2025 9:48 PM EDT Body Mass Index 22.2 02/17/2025 9:48 PM EDT documented in this encounter Discharge Summaries * BABAR Leigh - 02/19/2025 7:42 AM EDT DISCHARGE SUMMARY [facility] DISCHARGE INFORMATION: Date and Time of Admission: 02/17/2025 10:37 PM Date of Discharge: 02/19/2025. DISCHARGE DIAGNOSIS: Problem List Active Problems * (Principal) DKA, type 1, not at goal Metabolic acidosis due to diabetes mellitus Leukemoid reaction ATTENDING PHYSICIAN ON DISCHARGE: Attending Provider: Ryan Kelley MD [phone] FOLLOW-UPS AND SCHEDULED APPOINTMENTS: No future appointments. CONTACT INFORMATION FOR FOLLOW-UP Jose Buck Specialty: Endocrinology [address] [place] [id number] Next Steps: Schedule an appointment as soon as possible for a visit in 2 week(s) PENDING LABS: . Ordered GLUCOSE RANDOM 02/18/25 1541 DISCHARGE MEDICATIONS: Discharge Medication list: Discharge Medications Medications To Continue Sig Disp Refill atorvastatin 40 mg tablet Commonly known as: LIPITOR Take 40 mg by mouth once a day. 0 Dexcom G7 Sensor device Generic drug: blood-glucose sensor 1 Application every 7 days. Change sensor every 7 days. 0 insulin pump, continuous infusion subcutaneous cartridge Commonly known as: OMNIPOD DASH Inject 1 application. under the skin every 3 days. Changes site to pump q3 days 0 vitamin D3 50 mcg (2,000 unit) capsule Take 1 capsule by mouth once a day. 0 ALLERGIES: Patient has no known allergies. IMMUNIZATION HISTORY: Most Recent Immunizations Administered Date(s) Administered Covid-19, Pfizer, mRNA, Monovalent, PF 30 mcg/0.3 mL dose (for ages 12 and older) 09/08/2020 PRESENTATION INFORMATION: HISTORY OF PRESENT ILLNESS: HISTORY OF PRESENT ILLNESS: This is a 34 yr old male with PMHx of DM type I (Dx at age 9) on insulin pump and Vit D def. Per report, pt reported that he was concerned that his pump was not working correctly after a recent changing of the tubing. Presented with N/V. Found to have be in DKA. Given IVF and started on an insulingtt. Now comes to the ICU for further management of his DKA. According to the pt, he changed is Dexcom sensor the night prior to presentation. He noticed early in the morning when he was getting up to go to work that his sugar was higher than normal. DevelopedN/V while out on the road. He had his change the sensor in the afternoon on the day of admission ans when doing so, it was noted that the needle part of the sensor was kinked/bent. Do to ongoingN/V with generalized pain he came to the ED. At that point, it was noted that he was in DKA. Given IVF and started on an insulin gtt. Now comes to the ICU in the setting of DKA requiring further management. PAST MEDICAL HISTORY: Past Medical History: Diagnosis Date Diabetes mellitus type I PAST SURGICAL HISTORY: History reviewed. No pertinent surgical history. PAST FAMILY HISTORY: Family History Problem Relation Age of Onset No Known Problems Mother No Known Problems Father No Known Problems Brother No Known Problems Daughter PAST SOCIAL HISTORY: Social History[1] HOSPITAL COURSE: ICU Course by System from 02/17/2025 to 02/19/25 Admission Dx: DKA Discharge Dx: DKA due to equipment malfunction Nervous: No known Hx. Presents A+O x3 to the ED and ICU. Reports occasional ETOH use at a social event only.No active issues. Respiratory: No known Hx. No reported smoking Hx., no acute issues. Remained on RA during admission. Circulatory: No known Hx but is on atorvastatin at baseline.Trop flat. Denied CP. Continue home meds. Digestive: No known Hx. Presents with N/V in the setting of DKA. Suspect N/V will improve as DKA improves. No LFTs for review. Abd exam benign on admit. Diabetic Diet. Genitourinary: No known urinary Hx. Presents with AGMA and electrolyte abnormalities in the setting of DKA no since resolved Cr appears to be at baseline. Lytes relatively normal on admit. Endocrine/Metabolic: Hx of DM 1. now on a insulin pump. According to the pt, he changed his Dexcom site the night prior to coming to the ICU. Went to work and later in the day started to develop N/V. He had is change the site of the sensor and found that the needle (portion that goes under the skin) was bent. Found to be in with an elevated beta-hydroxybutyrate, (+) AG, a CO2 of 9, and a glu of 372. Given IVF while in the ED, pump stopped, and started on insulin gtt. Transitioned off DKA protocol to ICU insulin protocol and then to home pump with Endo's assistance. Hematologic: No known heme Hx. Presents with a leukocytosis of 21, suspect in the setting of DKA and likely reactive, since improved. Infectious/Inflammatory: No known Hx. Presents with a leukocytosis likely due to reactive state. No suspected infection. Other: DISCHARGE DAY INFORMATION: DISCHARGE PHYSICAL EXAM: Vital signs: Blood pressure 110/74, pulse 77, temperature 37.1 ??C (98.8 ??F), temperature source Oral, resp. rate (!) 21, height 1.753 m (5' 9 ), weight 68.2 kg (150 lb 5.7 oz), SpO2 98%. Physical Exam Constitutional: General: He is awake. He is not in acute distress. HENT: Head: Normocephalic and atraumatic. Mouth/Throat: Lips: [place]. Mouth: Mucous membranes are dry. Eyes: General: Lids are normal. Pupils: Pupils are equal, round, and reactive to light. Cardiovascular: Rate and Rhythm: Normal rate and regular rhythm. Heart sounds: No murmur heard. No friction rub. No gallop. Pulmonary: Effort: Pulmonary effort is normal. Breath sounds: Normal breath sounds. Chest: Chest wall: No mass or lacerations. Abdominal: General: Abdomen is flat. Bowel sounds are normal. Palpations: Abdomen is soft. Musculoskeletal: Cervical back: Neck supple. No erythema. Skin: General: Skin is warm and dry. Capillary Refill: Capillary refill takes less than 2 seconds. Neurological: Mental Status: He is alert and oriented to person, place, and time. GCS: GCS eye subscore is 4. GCS verbal subscore is 5. GCS motor subscore is 6. Psychiatric: Behavior: Behavior is cooperative. LAB AND RADIOLOGY: LABS: Recent Results (from the past 48 hours) POCT Glucose, interfaced Collection Time: 02/17/25 4:44 PM Result Value Ref Range Glucose, POCT 333 (H) 70 - 99 mg/dL CBC Auto Differential Collection Time: 02/17/25 5:12 PM Specimen: Venous, Peripheral; Blood Result Value Ref Range WBC 21.0 (H) 3.8 - 10.8 10*3/uL RBC 4.91 4.20 - 5.80 10*6/uL Hemoglobin 14.9 13.2 - 17.1 g/dL Hematocrit 44.4 38.5 - 50.0 % MCV 90.4 80.0 - 100.0 fL MCH 30.3 27.0 - 33.0 pg MCHC 33.6 32.0 - 36.0 g/dL RDW 12.1 11.0 - 15.0 % Platelets 211 140 - 400 10*3/uL MPV 11.9 7.5 - 12.5 fL Neutrophil % 86.5 % Immature Grans % 0.5 0.0 - 0.9 % Lymphocyte % 4.8 % Monocyte % 8.0 % Eosinophil % 0.0 % Basophil % 0.2 % Neutrophil # 18.15 (H) 1.50 - 7.80 10*3/uL Immature Grans # 0.10 (H) <=0.03 10*3/uL Lymphocyte # 1.00 0.85 - 3.90 10*3/uL Monocyte # 1.70 (H) 0.20 - 0.95 10*3/uL Eosinophil # <0.03 0.02 - 0.50 10*3/uL Basophil # <0.03 0.00 - 0.20 10*3/uL nRBC % 0.0 /100 WBCs nRBC # <0.01 <0.01 10*3/uL BMP - Basic Metabolic Panel Collection Time: 02/17/25 5:12 PM Specimen: Venous, Peripheral; Blood Result Value Ref Range NA 135 135 - 145 mmol/L K 4.8 3.5 - 5.3 mmol/L Cl 99 97 - 110 mmol/L CO2 9 (LL) 22 - 32 mmol/L BUN 23 7 - 23 mg/dL Creatinine 1.12 0.60 - 1.30 mg/dL Glucose 372 (H) 65 - 99 mg/dL Calcium 9.7 8.6 - 10.5 mg/dL Anion Gap 27 (H) 5 - 15 eGFR 87 >=60 mL/min/1.73m2 Betahydroxybutyrate Collection Time: 02/17/25 5:12 PM Specimen: Venous, Peripheral; Blood Result Value Ref Range Beta-Hydroxybutyrate 4.45 (H) <=0.27 mmol/L Magnesium Collection Time: 02/17/25 5:12 PM Specimen: Venous, Peripheral; Blood Result Value Ref Range MG 1.9 1.6 - 2.4 mg/dL Blood Bank Hold Tube Collection Time: 02/17/25 5:12 PM Result Value Ref Range Extra Tube Hold for add-ons. Light Blue Top Collection Time: 02/17/25 5:12 PM Specimen: Venous, Peripheral; Blood Result Value Ref Range Extra Tube Hold for add-ons. Lima Top Collection Time: 02/17/25 5:12 PM Specimen: Venous, Peripheral; Blood Result Value Ref Range Extra Tube Hold for add-ons. POCT I-STAT Lactate W/VBG, interfaced Collection Time: 02/17/25 5:45 PM Result Value Ref Range Sample Type, POCT Venous Lactate, POCT 3.28 (H) 0.9 - 1.7 mmol/L pH, POCT 7.23 (L) 7.31 - 7.41 pH pCO2, POCT 33.0 (L) 41 - 51 mm Hg pO2, POCT 49 (H) 35 - 40 mm Hg Base Excess, POCT -14 (L) 0 - 3 mmol/L HCO3, POCT 13.7 (L) 23 - 28 mmol/L TCO2, POCT 15 (LL) 24 - 29 mmol/L Saturated O2, POCT 77 (H) 70 - 75 % Marshall's Test, POCT N/A POCT Glucose, interfaced Collection Time: 02/17/25 9:44 PM Result Value Ref Range Glucose, POCT 125 (H) 70 - 99 mg/dL POCT Glucose, interfaced Collection Time: 02/17/25 11:03 PM Result Value Ref Range Glucose, POCT 121 (H) 70 - 99 mg/dL Urinalysis W/Reflex to Microscopic (No Culture) Collection Time: 02/17/25 11:12 PM Specimen: Clean Catch; Urine Result Value Ref Range Color, Urine Light Yellow Colorless, Light Yellow, Yellow, Dark Yellow Clarity, Urine Clear Clear Specific [place], Urine 1.027 <1.030 pH, Urine 5.5 4.6 - 8.0 Protein, Urine Negative Negative Glucose, Urine 4+ (A) Normal Ketones, Urine 3+ (A) Negative Bilirubin, Urine Negative Negative Blood, Urine Negative Negative Nitrite, Urine Negative Negative Urobilinogen, Urine Normal Normal Leukocyte Esterase, Urine Negative Negative Basic Metabolic Panel - Every 4 hours Collection Time: 02/17/25 11:12 PM Specimen: Venous, Peripheral; Blood Result Value Ref Range NA 139 135 - 145 mmol/L K 3.9 3.5 - 5.3 mmol/L Cl 111 (H) 97 - 110 mmol/L CO2 19 (L) 22 - 32 mmol/L BUN 18 7 - 23 mg/dL Creatinine 0.82 0.60 - 1.30 mg/dL Glucose 127 (H) 65 - 99 mg/dL Calcium 8.7 8.6 - 10.5 mg/dL Anion Gap 9 5 - 15 eGFR >90 >=60 mL/min/1.73m2 Magnesium - Every 4 hours Collection Time: 02/17/25 11:12 PM Specimen: Venous, Peripheral; Blood Result Value Ref Range MG 1.9 1.6 - 2.4 mg/dL Phosphorus - Every 4 hours Collection Time: 02/17/25 11:12 PM Specimen: Venous, Peripheral; Blood Result Value Ref Range Phosphorus 1.6 (L) 2.5 - 4.5 mg/dL CBC Collection Time: 02/17/25 11:12 PM Specimen: Venous, Peripheral; Blood Result Value Ref Range WBC 16.8 (H) 3.8 - 10.8 10*3/uL RBC 4.40 4.20 - 5.80 10*6/uL Hemoglobin 13.4 13.2 - 17.1 g/dL Hematocrit 39.1 38.5 - 50.0 % MCV 88.9 80.0 - 100.0 fL MCH 30.5 27.0 - 33.0 pg MCHC 34.3 32.0 - 36.0 g/dL RDW 12.3 11.0 - 15.0 % Platelets 214 140 - 400 10*3/uL MPV 11.5 7.5 - 12.5 fL POCT Glucose, interfaced Collection Time: 02/18/25 12:07 AM Result Value Ref Range Glucose, POCT 118 (H) 70 - 99 mg/dL POCT Glucose, interfaced Collection Time: 02/18/25 1:03 AM Result Value Ref Range Glucose, POCT 117 (H) 70 - 99 mg/dL POCT Glucose, interfaced Collection Time: 02/18/25 2:04 AM Result Value Ref Range Glucose, POCT 130 (H) 70 - 99 mg/dL POCT Glucose, interfaced Collection Time: 02/18/25 3:08 AM Result Value Ref Range Glucose, POCT 132 (H) 70 - 99 mg/dL Basic Metabolic Panel - Every 4 hours Collection Time: 02/18/25 3:09 AM Specimen: Venous, Peripheral; Blood Result Value Ref Range NA 138 135 - 145 mmol/L K 4.1 3.5 - 5.3 mmol/L Cl 109 97 - 110 mmol/L CO2 21 (L) 22 - 32 mmol/L BUN 16 7 - 23 mg/dL Creatinine 0.81 0.60 - 1.30 mg/dL Glucose 147 (H) 65 - 99 mg/dL Calcium 8.3 (L) 8.6 - 10.5 mg/dL Anion Gap 8 5 - 15 eGFR >90 >=60 mL/min/1.73m2 Magnesium - Every 4 hours Collection Time: 02/18/25 3:09 AM Specimen: Venous, Peripheral; Blood Result Value Ref Range MG 2.4 1.6 - 2.4 mg/dL Phosphorus - Every 4 hours Collection Time: 02/18/25 3:09 AM Specimen: Venous, Peripheral; Blood Result Value Ref Range Phosphorus 2.5 2.5 - 4.5 mg/dL CBC Collection Time: 02/18/25 3:09 AM Specimen: Venous, Peripheral; Blood Result Value Ref Range WBC 16.5 (H) 3.8 - 10.8 10*3/uL RBC 4.25 4.20 - 5.80 10*6/uL Hemoglobin 13.0 (L) 13.2 - 17.1 g/dL Hematocrit 38.0 (L) 38.5 - 50.0 % MCV 89.4 80.0 - 100.0 fL MCH 30.6 27.0 - 33.0 pg MCHC 34.2 32.0 - 36.0 g/dL RDW 12.3 11.0 - 15.0 % Platelets 213 140 - 400 10*3/uL MPV 11.2 7.5 - 12.5 fL Troponin T, High Sensitivity Collection Time: 02/18/25 3:09 AM Specimen: Venous, Peripheral; Blood Result Value Ref Range Troponin T High Sensitivity 8 <=21 ng/L POCT Glucose, interfaced Collection Time: 02/18/25 4:07 AM Result Value Ref Range Glucose, POCT 150 (H) 70 - 99 mg/dL POCT Glucose, interfaced Collection Time: 02/18/25 6:03 AM Result Value Ref Range Glucose, POCT 137 (H) 70 - 99 mg/dL Basic Metabolic Panel - Every 4 hours Collection Time: 02/18/25 8:12 AM Specimen: Venous, Peripheral; Blood Result Value Ref Range NA 139 135 - 145 mmol/L K 3.7 3.5 - 5.3 mmol/L Cl 110 97 - 110 mmol/L CO2 22 22 - 32 mmol/L BUN 14 7 - 23 mg/dL Creatinine 0.70 0.60 - 1.30 mg/dL Glucose 122 (H) 65 - 99 mg/dL Calcium 8.2 (L) 8.6 - 10.5 mg/dL Anion Gap 7 5 - 15 eGFR >90 >=60 mL/min/1.73m2 Magnesium - Every 4 hours Collection Time: 02/18/25 8:12 AM Specimen: Venous, Peripheral; Blood Result Value Ref Range MG 2.1 1.6 - 2.4 mg/dL Phosphorus - Every 4 hours Collection Time: 02/18/25 8:12 AM Specimen: Venous, Peripheral; Blood Result Value Ref Range Phosphorus 1.7 (L) 2.5 - 4.5 mg/dL POCT Glucose, interfaced Collection Time: 02/18/25 8:12 AM Result Value Ref Range Glucose, POCT 83 70 - 99 mg/dL POCT Glucose, interfaced Collection Time: 02/18/25 10:37 AM Result Value Ref Range Glucose, POCT 200 (H) 70 - 99 mg/dL POCT Glucose, interfaced Collection Time: 02/18/25 11:31 AM Result Value Ref Range Glucose, POCT 174 (H) 70 - 99 mg/dL Troponin T, High Sensitivity Collection Time: 02/18/25 11:32 AM Specimen: Venous, Peripheral; Blood Result Value Ref Range Troponin T High Sensitivity 6 <=21 ng/L POCT Glucose, interfaced Collection Time: 02/18/25 12:49 PM Result Value Ref Range Glucose, POCT 265 (H) 70 - 99 mg/dL POCT Glucose, interfaced Collection Time: 02/18/25 2:47 PM Result Value Ref Range Glucose, POCT 259 (H) 70 - 99 mg/dL POCT Glucose, interfaced Collection Time: 02/18/25 4:22 PM Result Value Ref Range Glucose, POCT 216 (H) 70 - 99 mg/dL POCT Glucose, interfaced Collection Time: 02/18/25 5:33 PM Result Value Ref Range Glucose, POCT 145 (H) 70 - 99 mg/dL POCT Glucose, interfaced Collection Time: 02/18/25 10:04 PM Result Value Ref Range Glucose, POCT 211 (H) 70 - 99 mg/dL Magnesium Collection Time: 02/19/25 4:15 AM Specimen: Venous, Peripheral; Blood Result Value Ref Range MG 2.0 1.6 - 2.4 mg/dL CBC Collection Time: 02/19/25 4:15 AM Specimen: Venous, Peripheral; Blood Result Value Ref Range WBC 9.3 3.8 - 10.8 10*3/uL RBC 4.47 4.20 - 5.80 10*6/uL Hemoglobin 13.6 13.2 - 17.1 g/dL Hematocrit 39.3 38.5 - 50.0 % MCV 87.9 80.0 - 100.0 fL MCH 30.4 27.0 - 33.0 pg MCHC 34.6 32.0 - 36.0 g/dL RDW 12.2 11.0 - 15.0 % Platelets 188 140 - 400 10*3/uL MPV 11.0 7.5 - 12.5 fL Renal function panel Collection Time: 02/19/25 4:15 AM Specimen: Venous, Peripheral; Blood Result Value Ref Range NA 141 135 - 145 mmol/L K 3.7 3.5 - 5.3 mmol/L Cl 105 97 - 110 mmol/L CO2 25 22 - 32 mmol/L Anion Gap 11 5 - 15 Glucose 142 (H) 65 - 99 mg/dL BUN 9 7 - 23 mg/dL Creatinine 0.72 0.60 - 1.30 mg/dL Calcium 8.4 (L) 8.6 - 10.5 mg/dL Phosphorus 2.9 2.5 - 4.5 mg/dL Albumin 3.8 3.5 - 5.2 g/dL eGFR >90 >=60 mL/min/1.73m2 POCT Glucose, interfaced Collection Time: 02/19/25 6:34 AM Result Value Ref Range Glucose, POCT 140 (H) 70 - 99 mg/dL IMAGING: No radiology results in the last 2 days GLOBAL PLAN OF CARE: Consults: IP CONSULT TO DIABETES MANAGEMENT Procedures: Condition: Good Code Status: Full Code Patient Capacity: Full capacity Salt Plant Operator Salt Plant Operator Used: Declined, patient informed of rights by cold press loader and has waived rights I spent 32 minutes performing discharge day services (e.g. examination, discussion of hospital course, follow up care and planning) as appropriate BABAR Leigh Electronic Signature [1] Social History Socioeconomic History Marital status: Spouse name: Not on file Number of children: Not on file Years of education: Not on file Highest education level: Not on file Occupational History Not on file Tobacco Use Smoking status: Never Smokeless tobacco: Never Vaping Use Vaping status: Never Used Substance and Sexual Activity Alcohol use: Yes Comment: reports ~5 drinks x2/month Drug use: Never Sexual activity: Yes Other Topics Concern Not on file Social History Narrative Not on file Cosigned by Ryan Kelley MD at 02/19/2025 10:48 AM EDT Associated attestation - Ryan Kelley MD - 02/19/2025 10:48 AM EDT [facility] IP Attest to Resident/MULU Discharge Summary: I reviewed and agree with the INTERIOR DECORATOR/PA's documentation. Dka resolved, dexcom sensor replaced documented in this encounter Discharge Instructions * Discharge Instructions* BABAR Leigh - 02/19/2025 6:46 AM EDT You labs showed that you were in Diabetic Ketoacidosis. You were given fluids and insulin and your electrolytes and blood sugar returned to normal. We consulted the diabetes team here who evaluated your pump , provided equipment and provided recommendations on transitioning you back to you home pump. During you admission you developed chest pain. We evaluated cardiac enzymes and an EKG for cardiac condition such as a heart attack. The enzymes were normal and the EKG was not concerning for signs of ischemia/infarct ( heart attack). We did a Chest X-ray that was normal. Chest pain is most likely due to muscular strain from the episodes of vomiting as well as the acid from you stomach causing irritation and inflammation of you throat which should resolve within the next few days. . Throat Pain: We recommend that you continue soft diet but you may advanced your diet as your symptoms improve. You can purchase throat lozenge from the pharmacy to aid with throat discomfort. Chest Soreness This is mostly from multiple episodes of vomiting causing strain on you muscles, especially as yourpain is resolved by Acetaminophen (Tylenol) May continue to take Acetaminophen ( Tylenol) 1000mg Three times a day as needed If you Develop worsening Chest pain not resolved by Tylenol, Shortness of Breath, Nausea, Vomiting,Continued Diarrhea, Confusion, Loss of Consciousness, Syncope( fainting), Dizziness, Loss of Vision, numbness, weakness, incontinence, thought of harming yourself or others, please seek Emergent Medical Care and/ or Call 911 Immediately If your pump fails please call your County Engineer if they are not available see emergent medical care for medical management of you diabetes and insulin. Recommendations from Diabetes: 1. Anticipated Discharge Medications: Insulin for discharge: Humalog vial U-100 for insulin pump. Non-insulin agents: there is no indication for non-insulin medications . 2. Plan for Follow up: Patient is to schedule follow up in the next 2-[address] Jose Buck MD or Marion Martinez NP. * Attachments The following attachments cannot be sent through Care Everywhere. * Diabetic ketoacidosis ??? Discharge instructions (Pashto) * Diabetic ketoacidosis (Moroccan) * Soft diet (Moroccan) documented in this encounter Medications at Time of Discharge atorvastatin (LIPITOR) 40 mg tablet Take 40 mg by mouth once a day. blood-glucose sensor (Dexcom G7 Sensor) device 1 Application every 7 days. Change sensor every 7 days. cholecalciferol (VITAMIN D3) 2,000 unit capsule Take 1 capsule by mouth once a day. insulin pump, continuous infusion (OMNIPOD DASH) subcutaneous cartridge Inject 1 application. under the skin every 3 days. Changes site to pump q3 days documented as of this encounter Progress Notes * Ryan Kelley MD - 02/19/2025 10:21 AM EDT MEDICAL ICU ATTENDING PROGRESS NOTE PATIENT SUMMARY: This is a 34 yr old male with PMHx of DM type I (Dx at age 9) on insulin pump and Vit D def. Per report, pt reported that he was concerned that his pump was not working correctly after a recent changing of the tubing. Presented with N/V. Found to have be in DKA. Given IVF and started on an insulingtt. Now comes to the ICU for further management of his DKA. 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 placed on soft diet. Poor glucose readings on dexcom -pump functional, replacing dexcom sensor Ate breakfast Objective VS Past 24 Hours ([High] [Low] (Last Recorded Value)): Temp: [36.9 ??C (98.4 ??F)-37.2 ??C (99 ??F)] 37.2 ??C (99 ??F) Heart Rate: [64-109] 95 Resp: [11-25] 16 BP: (110-146)/(74-100) 128/92 SpO2: [96 %-100 %] 98 % I/Os 24 Hours: I/O this shift: In: 240 [P.O.:240] Out: 250 [Urine:250] I/O last 3 completed shifts: In: 1187.1 [P.O.:610; I.V.:431.2; IV Piggyback:145.8] Out: 1900 [Urine:1900] Physical Exam: GEN: No saundra distress. nourished EYE: Anicteric, pink conjunctivae, PERRL, no obvious lid lig HENT: Normocephalic, atraumatic, moist mucous membranes NECK: Supple, trachea is midline CHEST: no respiratory distress, no wheeze, no rhonchi CARDIO: Regular rate and rhythm, s1/s2, no murmurs/thrills/gallops ABDO: Soft, nontender, bowel sounds present EXTREMITIES: No clubbing, cyanosis nor edema. good range of motion SKIN: No rashes/lesions on a limited exam NEURO: Alert and oriented, no gross focal deficitis PSYCH: Pleasant and engaged Active Airways None . Active Lines Name Placement date Placement time Site Days Peripheral IV 02/17/25 Left;Posterior Hand 02/17/25 1646 Hand 1 Peripheral IV 02/17/25 Right Antecubital 02/17/25 1656 Antecubital 1 Pump Device Insulin pump Lateral;Left;Lower Back 02/18/25 1710 Back less than 1 Active Drains None @[email or web address]@ MEDICATIONS: acetaminophen, 650 mg, oral, q6h PRN benzocaine-menthol/menthol, 1 lozenge, mucous membrane, q2h PRN dextrose, 15 g, oral, q15min PRN Or dextrose, 6.25 g, intravenous, q15min PRN Or dextrose, 12.5 g, intravenous, q15min PRN Or dextrose, 25 g, intravenous, q15min PRN enoxaparin, 40 mg, subcutaneous, Daily INSULIN PUMP - insulin lispro, 100 Units, pump refill, See admin instructions sodium chloride, 2.5-10 mL, intravenous, See admin instructions And sodium chloride, 2.5-10 mL, intravenous, q12h KAMRON sodium chloride, 2.5-10 mL, intravenous, See admin instructions And sodium chloride, 2.5-10 mL, intravenous, q12h KAMRON sodium chloride, 2.5-10 mL, intravenous, See admin instructions And sodium chloride, 2.5-10 mL, intravenous, q12h KAMRON Labs: I have personally reviewed the patient???s laboratory results from the last 24 hours. Diagnostics & Labs Component Value Date WBC 9.3 02/19/2025 HGB 13.6 02/19/2025 HCT 39.3 02/19/2025 PLT 188 02/19/2025 Diagnostics & Labs Component Value Date NA 141 02/19/2025 K 3.7 02/19/2025 CL 105 02/19/2025 CO2 25 02/19/2025 BUN 9 02/19/2025 CREATININE 0.72 02/19/2025 GLUCOSE 142 (H) 02/19/2025 Imaging: I have personally reviewed the patient???s chest imaging from the last 24 hours. Today I have personally visualized the real-time EKG tracing and pulse oximetry tracing. HOSPITAL PROBLEMS: Active Problems: No Active Problems: There are no active problems currently on the Problem List. Please update the Problem List and refresh. ASSESSMENT AND PLAN: * Nervous Assessment & Plan No known Hx. Presents A+O x3 to the ED and ICU. occasional ETOH use at a social event only. Respiratory Assessment & Plan No known Hx. No reported smoking Hx. -O2 to maintain O2 sats >92% as needed Circulatory Assessment & Plan No known Hx but is on atorvastatin at baseline. PCP noted indicated that he has been educated to low fat diet. -atorvastatin Digestive Assessment & Plan No known Hx. Presents with N/V in the setting of DKA. Suspect N/V will improve as DKA improves. No LFTs for review. Abd exam benign on admit. -full diabetic diet when appropriate and able (diabetic) Genitourinary Assessment & Plan No known urinary Hx. Presents with AGMA in the setting of DKA. Cr appears to be at baseline. Lytes relatively normal on admit. Musculoskeletal Assessment & Plan I performed a complete examination of the dorsal surface of the patient's body, plus the sites of any medical devices plus all sites of potential wound on the ventral surface. There were no wounds found unless listed below. Endocrine/Metabolic Assessment & Plan Hx of DM type I (Dx at age 9 per notes), now on a insulin pump. According to the pt, he changed his Dexcom site the night prior to coming to the ICU. He awoke as per usual on the day of presentationto find that his glu was rising. Went to work and later in the day started to develop N/V. He had is change the site of the sensor and found that the needle (portion that goes under the skin) was bent. Given that the N/V had not subsided, he presented to the ICU. Presented to the ED with N/V likely due to DKA which he was found to be in with an elevated beta-hydroxybutyrate, (+) AG, a CO2 of9, and a glu of 372. Given IVF while in the ED, stopped pump, and started on insulin gtt. -endocrine eval appreciated -pump functional, replacing dexcom sensor -daily labs Hematologic No known heme Hx. Presents with a leukocytosis of 21, suspect in the setting of DKA and likely reactive. -CBC -Usual transfusion parameters -DVT: boots and lovenox Infectious/Inflammatory No known Hx. Presents with a leukocytosis likely due to reactive state. No suspected infection. -Follow off abx * Full Code I have discussed the plan of care with: Patient and Inter-professional team The complexity of management and decision making for the subsequent care of this patient was of moderate intensity. Care during the described time interval was provided by me. I have reviewed this patient's available data, including medical history, events of note, physical examination and test results, and have overseen the activities of other members of the care team under my direct supervision (e.g. house officers, physician assistants, nurse practitioners). Ryan Kelley MD Zac Cuadra : 1990 CSN: [id number] * Shauna Sanchez NP - 02/19/2025 7:40 AM EDT Images from the original note were not included. Diabetes Management Inpatient Progress Note Solange Cuadra is a 34 y.o. male with a past medical history of Type 1 diabetes mellitus who was admitted to the hospital with diabetic ketoacidosis with severe hyperglycemia in the setting of insulinpump failure. The blood glucose management service was consulted for further management. Diet: Dietary Orders (From admission, onward) Start Ordered 02/18/25 1219 Diet, Adult Full participation; Carbohydrate Consistent; 60 GM; IDDSI Level 0: Thin; IDDSI Level 6: Soft & Bite-sized Diet effective now References: Click here for diet reference sheet if patient ordered for [facility] diet IDDSI Question Answer Comment MEAL SERVICE PARTICIPATION STATUS Full participation DIET TYPE Carbohydrate Consistent Total grams/meal 60 GM Fluid Consistency IDDSI Level 0: Thin Texture IDDSI Level 6: Soft & Bite-sized 02/18/25 1228 Current Diabetes Medications: Currently Prescribed Diabetes Medications INSULIN PUMP - insulin lispro, 100 Units, pump refill, See admin instructions Currently Prescribed Glucocorticoids None Diabetes History: Diagnosis: Type 1 diabetes mellitus diagnosed at age 9. Condition at time of diagnosis: at the time of initial diagnosis had: weakness, polydipsia, polyuria, and diabetic ketoacidosis. C-peptide/ antibodies: none available in our records. Diabetes Provider: External city tax auditor, Dr. Jose Buck MD and Marion Martinez NP at [facility] [place] [facility]. Complications: no other microvascular or macrovascular complications. Associated comorbidities: Other associated comorbidities include: no condition. Hypoglycemia: feels hypoglycemia at blood sugar level of 78. Rarely occurs, but would feel shaky and sweaty and very hungry. Hyperglycemia admissions: no previous admission for hyperglycemia. This is reportedly his first admission for DKA or diabetes-related problems other than during his childhood diagnosis/hospital admission. SMBG: home glucose testing is performed using DexGoSporty G7. Home Diabetes Medications: Tandem T-slim in Control IQ (fills with insulin lispro U-100 vials). In the event of pump failure: Lantus 18 units + 6-8 units of humalog three times a day per most recent endo note. Current pump settings: Basal: 0.75 Correction: 1:45 Carb Ratio: 1:7 Target blood glucose: 110 Previous Medication trials: N/A. Always used insulin pump since childhood. Diabetes Family History: Zac has no family history of diabetes. Social Profile: The patient lives with spouse and 2 children and 2 dogs. The patient is . The patient reports that he has never smoked. He has never used smokeless tobacco. The patient reportscurrent alcohol use. VITAL SIGNS FOR PAST 24 Hours ([High] [Low] (Last Recorded Value)): Temp: [36.9 ??C (98.4 ??F)-37.2 ??C (99 ??F)] 37.2 ??C (99 ??F) Heart Rate: [64-109] 95 Resp: [11-25] 16 BP: (110-146)/(74-100) 128/92 SpO2: [96 %-100 %] 98 % Body mass index is 22.2 kg/m??. Wt Readings from Last 2 Encounters: 02/19/25 68.2 kg (150 lb 5.7 oz) Most recent creatinine is 0.72 mg/dL, and most recent eGFR is >90 mL/min/1.73m2. Current Diet: Diet, Adult Full participation; Carbohydrate Consistent; 60 GM; IDDSI Level 0: Thin; IDDSI Level 6: Soft & Bite-sized. Assessment & Plan 1. Type 1 diabetes mellitus with long-term insulin use complicated by no microvascular complications. The patient is currently admitted to the hospital with diabetic ketoacidosis with severe hyperglycemia in the setting of insulin pump failure. The patient has had no hypoglycemia over the past 24 hours. The patient has been NPO, which is tolerated well. Significant medication changes affecting blood sugars include: None. Patient is seen and evaluated at the bedside. Alert, not in acute distress. Respirations even and unlabored. No nausea/vomiting. I reviewed insulin administration, blood sugars, and pertinent labs in the last 24 hours. The patient was successfully transitioned off the insulin infusion back to his home insulin pump. Blood glucose levels were in desired range. There was a concern that his pump was reading in the 50s based on his CGM, but around that time, both his BMP and POCT glucose showed an appropriate blood sugar (140s). Patient updated the pump accordingly per RN note. Therefore, [facility] feels patient is safe for discharge on home pump with current settings. Current recommendations are below: Factors affecting decision making regarding medication dosing and adjustment include variability oforal intake and symptomatic hyperglycemia. Treatment Plan: While inpatient on oral diet and on discharge: 1. Basal insulin: Continue insulin pump at 100% basal rate of current setting. DO NOT HOLD basal insulin as this patient has T1DM. Please contact [facility] with questions/concerns. 2. Nutritional insulin: administered via insulin pump 3. Correction insulin: administered via insulin pump 4. Nutritional recommendations: 60 grams carb consistent diet. 5. Insulin pump contract signed on 02/18/2025. Glucose log at bedside. In the event of a pump failure (per last endo note): Start insulin glargine 18 units daily Start insulin lispro 6 units with meals Start a LDCS with lispro ACHS Diabetes Discharge Plannin. Teaching completed: No. 2. Teaching required: No. Patient uses an insulin pump at baseline and can self- manage his pump. 3. Anticipated Discharge Medications: a. Insulin for discharge: Humalog vial U-100 for insulin pump. If patient does not have pump failure back-up insulin, will need Lantus Solostar U-100 pen and Humalog Flexpen U-100 pen at discharge. b. Non-insulin agents: there is no indication for non-insulin medications . 4. Anticipated Discharge Prescriptions: a. Pen Santo/Syringes: Order pen needle 4 mm x 32 b. Glucose meter: Order no meter, patient already has meter. Patient uses a Dexcom G7 CGM. Gave himanother sample prior to discharge due to inaccuracies in currently placed CGM. c. Hypoglycemia treatment: Order BAQSIMI 3 mg nasal spray. 5. Outstanding and pending labs: The following labs were ordered and results require follow up: no current pending labs. 6. Plan for Follow up: Patient is to schedule follow up in the next 2-[address] Jose Buck MD or Marion Martinez NP. Edited by: Shauna Sanchez NP at 02/19/2025 1024 Counseling: The following points were discussed: plan for insulin use and adjustment while inpatient. We will continue to follow this patient during the remainder of the hospitalization and will arrange for close follow up at time of discharge. I have reviewed, updated, and verified this note's content. I have discussed the plan of care with: Patient, Inter-professional team, and [facility] attending, Dr. Duarte. Shauna Sanchez NP Pager # [phone] Zac Cuadra : 1990 : [phone] * Ryan Kelley MD - 02/18/2025 9:36 AM EDT MEDICAL ICU ATTENDING PROGRESS NOTE PATIENT SUMMARY: This is a 34 yr old male with PMHx of DM type I (Dx at age 9) on insulin pump and Vit D def. Per report, pt reported that he was concerned that his pump was not working correctly after a recent changing of the tubing. Presented with N/V. Found to have be in DKA. Given IVF and started on an insulingtt. Now comes to the ICU for further management of his DKA. 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 nourished EYE: Anicteric, pink conjunctivae, PERRL, no obvious lid lig HENT: Normocephalic, atraumatic, moist mucous membranes NECK: Supple, trachea is midline CHEST: no respiratory distress, no wheeze, no rhonchi CARDIO: Regular rate and rhythm, s1/s2, no murmurs/thrills/gallops ABDO: Soft, nontender, bowel sounds present EXTREMITIES: No clubbing, cyanosis nor edema. good range of motion SKIN: No rashes/lesions on a limited exam NEURO: Alert and oriented, no gross focal deficitis PSYCH: Pleasant and engaged Active Airways None . Active Lines Name Placement date Placement time Site Days Peripheral IV 02/17/25 Left;Posterior Hand 02/17/25 1646 Hand less than 1 Peripheral IV 02/17/25 Right Antecubital 02/17/25 1656 Antecubital less than 1 Active Drains None @[email or web address]@ MEDICATIONS: benzocaine-menthol/menthol, 1 lozenge, mucous membrane, q2h PRN dextrose, 15 g, oral, q15min PRN Or dextrose, 6.25 g, intravenous, q15min PRN Or dextrose, 12.5 g, intravenous, q15min PRN Or dextrose, 25 g, intravenous, q15min PRN dextrose 5% and lactated Ringer's (LR), , intravenous, Continuous enoxaparin, 40 mg, subcutaneous, Daily insulin lispro, 1-20 Units, subcutaneous, See admin instructions insulin regular (ICU infusion guideline), 0.5-20 Units/hr, intravenous, Continuous PRN potassium phosphate, 30 mmol, intravenous, Once sodium chloride, 2.5-10 mL, intravenous, See admin instructions And sodium chloride, 2.5-10 mL, intravenous, q12h KAMRON sodium chloride, 2.5-10 mL, intravenous, See admin instructions And sodium chloride, 2.5-10 mL, intravenous, q12h KAMRON sodium chloride, 2.5-10 mL, intravenous, See admin instructions And sodium chloride, 2.5-10 mL, intravenous, q12h KAMRON Labs: I have personally reviewed the patient???s laboratory results from the last 24 hours. Diagnostics & Labs Component Value Date WBC 16.5 (H) 02/18/2025 HGB 13.0 (L) 02/18/2025 HCT 38.0 (L) 02/18/2025 PLT 213 02/18/2025 Diagnostics & Labs Component Value Date NA 139 02/18/2025 K 3.7 02/18/2025 CL 110 02/18/2025 CO2 22 02/18/2025 BUN 14 02/18/2025 CREATININE 0.70 02/18/2025 GLUCOSE 122 (H) 02/18/2025 Imaging: I have personally reviewed the patient???s chest imaging from the last 24 hours. Today I have personally visualized the real-time EKG tracing and pulse oximetry tracing. HOSPITAL PROBLEMS: Principal Problem: DKA, type 1, not at goal Active Problems: Metabolic acidosis due to diabetes mellitus Leukemoid reaction ASSESSMENT AND PLAN: * Nervous Assessment & Plan No known Hx. Presents A+O x3 to the ED and ICU. occasional ETOH use at a social event only. Respiratory Assessment & Plan No known Hx. No reported smoking Hx. -O2 to maintain O2 sats >92% as needed Circulatory Assessment & Plan No known Hx but is on atorvastatin at baseline. PCP noted indicated that he has been educated to low fat diet. -atorvastatin Digestive Assessment & Plan No known Hx. Presents with N/V in the setting of DKA. Suspect N/V will improve as DKA improves. No LFTs for review. Abd exam benign on admit. -full diabetic diet when appropriate and able (diabetic) Genitourinary Assessment & Plan No known urinary Hx. Presents with AGMA in the setting of DKA. Cr appears to be at baseline. Lytes relatively normal on admit. Musculoskeletal Assessment & Plan I performed a complete examination of the dorsal surface of the patient's body, plus the sites of any medical devices plus all sites of potential wound on the ventral surface. There were no wounds found unless listed below. Endocrine/Metabolic Assessment & Plan Hx of DM type I (Dx at age 9 per notes), now on a insulin pump. According to the pt, he changed his Dexcom site the night prior to coming to the ICU. He awoke as per usual on the day of presentationto find that his glu was rising. Went to work and later in the day started to develop N/V. He had is change the site of the sensor and found that the needle (portion that goes under the skin) was bent. Given that the N/V had not subsided, he presented to the ICU. Presented to the ED with N/V likely due to DKA which he was found to be in with an elevated beta-hydroxybutyrate, (+) AG, a CO2 of9, and a glu of 372. Given IVF while in the ED, stopped pump, and started on insulin gtt. -call endocrine RE: pump malfunction or dilslodged -daily labs Hematologic Assessment & Plan No known heme Hx. Presents with a leukocytosis of 21, suspect in the setting of DKA and likely reactive. -CBC -Usual transfusion parameters -DVT: boots and lovenox Infectious/Inflammatory Assessment & Plan No known Hx. Presents with a leukocytosis likely due to reactive state. No suspected infection. -Follow * Global Issues Mobility Level That Needs to Be Ordered: 7 Medical Decision Maker: Patient Disposition: Transfer Full Code I have discussed the plan of care with: Patient and Inter-professional team The complexity of management and decision making for the subsequent care of this patient was of high intensity. Care during the described time interval was provided by me. I have reviewed this patient's available data, including medical history, events of note, physical examination and test results, and have overseen the activities of other members of the care team under my direct supervision (e.g. house officers, physician assistants, nurse practitioners). MD Zac Wild : 1990 CSN: [id number] * BABAR Leigh - 02/18/2025 7:36 AM EDT CRITICAL CARE PROGRESS NOTE PATIENT SUMMARY: This is a 34 yr old male with PMHx of DM type I (Dx at age 9) on insulin pump and Vit D def. Per report, pt reported that he was concerned that his pump was not working correctly after a recent changing of the tubing. Presented with N/V. Found to have be in DKA. Given IVF and started on an insulingtt. Now comes to the ICU for further management of his DKA. Subjective Denies CP, Nausea, GRADY, weakness, cough, congestion, fatigue lethargy. Would like to liberalize diet. Hospital Day: 2 24 HOUR INTERVAL HISTORY: Overnight: -Admitted -DKA protocol initially, transitioned to regular insulin protocol Objective VITAL SIGNS FOR PAST 24 Hours ([High] [Low] (Last Recorded Value)): Temp: [36.7 ??C (98.1 ??F)-37.2 ??C (98.9 ??F)] 36.7 ??C (98.1 ??F) Heart Rate: [69-119] 69 Resp: [13-29] 17 BP: (91-141)/(54-87) 92/65 SpO2: [75 %-100 %] 98 % I/Os LAST 24 HOURS: Intake/Output Summary (Last 24 hours) at 02/18/2025 0736 Last data filed at 02/18/2025 0600 Gross per 24 hour Intake 2185.56 ml Output 350 ml Net 1835.56 ml PHYSICAL EXAM: Physical Exam Constitutional: General: He is awake. He is not in acute distress. HENT: Head: Normocephalic and atraumatic. Mouth/Throat: Lips: [place]. Mouth: Mucous membranes are dry. Eyes: General: Lids are normal. Pupils: Pupils are equal, round, and reactive to light. Cardiovascular: Rate and Rhythm: Normal rate and regular rhythm. Heart sounds: No murmur heard. No friction rub. No gallop. Pulmonary: Effort: Pulmonary effort is normal. Breath sounds: Normal breath sounds. Chest: Chest wall: No mass or lacerations. Abdominal: General: Abdomen is flat. Bowel sounds are normal. Palpations: Abdomen is soft. Musculoskeletal: Cervical back: Neck supple. No erythema. Skin: General: Skin is warm and dry. Capillary Refill: Capillary refill takes less than 2 seconds. Neurological: Mental Status: He is alert and oriented to person, place, and time. GCS: GCS eye subscore is 4. GCS verbal subscore is 5. GCS motor subscore is 6. Psychiatric: Behavior: Behavior is cooperative. . Active Lines Name Placement date Placement time Site Days Peripheral IV 02/17/25 Left;Posterior Hand 02/17/25 1646 Hand less than 1 Peripheral IV 02/17/25 Right Antecubital 02/17/25 1656 Antecubital less than 1 , Active Drains None , Active Airways None VENT SETTINGS (LAST 12 HOURS): MEDICATIONS: enoxaparin, 40 mg, subcutaneous, Daily insulin lispro, 1-20 Units, subcutaneous, See admin instructions sodium chloride, 2.5-10 mL, intravenous, See admin instructions And sodium chloride, 2.5-10 mL, intravenous, q12h KAMRON sodium chloride, 2.5-10 mL, intravenous, See admin instructions And sodium chloride, 2.5-10 mL, intravenous, q12h KAMRON sodium chloride, 2.5-10 mL, intravenous, See admin instructions And sodium chloride, 2.5-10 mL, intravenous, q12h KAMRON dextrose 5% and lactated Ringer's (LR), , Last Rate: 100 mL/hr at 02/18/25 0600 insulin regular (ICU infusion guideline), 0.5-20 Units/hr, Last Rate: 2 Units/hr (02/18/25 0608) Micro LAB: CBC: 16.5*/4.25/13.0*/38.0*/89.4/30.6/34.2/213/11.2/--/--/--/--/--/-- (02/18 309) Results from last 7 days Lab Units 02/18/25 0309 02/17/25 2312 02/17/25 1712 SODIUM mmol/L 138 139 135 POTASSIUM mmol/L 4.1 3.9 4.8 CHLORIDE mmol/L 109 111* 99 CARBON DIOXIDE mmol/L 21* 19* 9* BUN mg/dL 16 18 23 CREATININE mg/dL 0.81 0.82 1.12 GLUCOSE mg/dL 147* 127* 372* IMAGING/OTHER STUDIES: No radiology results in the last 2 days HOSPITAL PROBLEMS: Principal Problem: DKA, type 1, not at goal Active Problems: Metabolic acidosis due to diabetes mellitus Leukemoid reaction Assessment & Plan Neurologic: No known Hx. Presents A+O x3 to the ED and ICU. Reports occasional ETOH use at a social event only . No active issues. -Monitor Mental status - APAP PRN Pulmonary: No known Hx. No reported smoking Hx., no acute issues. - mL 7 - Maintain adequate analgesia - Supplemental O2 as needed to maintain sats >92% Cardiovascular: No known Hx but is on atorvastatin at baseline.Trop flat, denies CP. - Home Meds - Continue to monitor hemodynamics Gastrointestinal: No known Hx. Presents with N/V in the setting of DKA. Suspect N/V will improve as DKA improves. No LFTs for review. Abd exam benign on admit -Diabetic Diet -PPI: not indicated -Bowel reg not yet indicated Genitourinary/Renal: No known urinary Hx. Presents with AGMA and electrolyte abnormalities in the setting of DKA no since resolved Cr appears to be at baseline. Lytes relatively normal on admit. - Monitor I&Os - BMP, mag and phos daily, PRN - Replete electrolytes as necessary Endocrine: Hx of DM 1. now on a insulin pump. According to the pt, he changed his Dexcom site the night prior to coming to the ICU. Went to work and later in the day started to develop N/V. He had is change the site of the sensor and found that the needle (portion that goes under the skin) was bent. found to be in with an elevated beta-hydroxybutyrate, (+) AG, a CO2 of 9, and a glu of 372. Given IVF while in the ED, stopped pump, and started on insulin gtt. No results found for: HGBA1C , TSH Lab Results Component Value Date CREATININE 0.81 02/18/2025 EGFR >90 02/18/2025 - ICU glycemic protocol, off DKA - Avoid hypoglycemia <80 and hyperglycemia >140 - DM consult, will consider use of home pump with DM following, if labs stable. Hematologic: No known heme Hx. Presents with a leukocytosis of 21, suspect in the setting of DKA and likely reactive. - monitor for signs of bleeding - CBC daily, PRN - transfuse for H/H <7/21 - VD boots and _ Lovenox for DVT prophylaxis Infectious: No known Hx. Presents with a leukocytosis likely due to reactive state. No suspected infection - Monitor fever curve - Monitor WBC GLOBAL PLAN OF CARE: Code Status: Full Code Global Issues Mobility Level That Needs to Be Ordered: 7 Medical Decision Maker: Patient Disposition: Transfer PCP was notified about ICU admission, major condition changes, and code status changes?: Yes VTE PROPHYLAXIS VTE Prevention/Management: sequential compression devices on Current Facility-Administered Medications Medication enoxaparin DISCHARGE PLANNING/PLACEMENT: I have discussed the plan of care with: Patient The complexity of management and decision making for the subsequent care of this patient was of high intensity. Care during the described time interval was provided by me. I have reviewed this patient's available data, including medical history, events of note, physical examination and test results as part of my evaluation SIGNATURE: BABAR Leigh Electronic Signature 02/18/2025 7:36 AM documented in this encounter H&P Notes * Yousuf Grimaldo NP - 02/17/2025 10:50 PM EDT CRITICAL CARE HISTORY AND PHYSICAL PATIENT SUMMARY: This is a 34 yr old male with PMHx of DM type I (Dx at age 9) on insulin pump and Vit D def. Per report, pt reported that he was concerned that his pump was not working correctly after a recent changing of the tubing. Presented with N/V. Found to have be in DKA. Given IVF and started on an insulingtt. Now comes to the ICU for further management of his DKA. Subjective HISTORY OF PRESENT ILLNESS: This is a 34 yr old male with PMHx of DM type I (Dx at age 9) on insulin pump and Vit D def. Per report, pt reported that he was concerned that his pump was not working correctly after a recent changing of the tubing. Presented with N/V. Found to have be in DKA. Given IVF and started on an insulingtt. Now comes to the ICU for further management of his DKA. According to the pt, he changed is Dexcom sensor the night prior to presentation. He noticed early in the morning when he was getting up to go to work that his sugar was higher than normal. DevelopedN/V while out on the road. He had his change the sensor in the afternoon on the day of admission ans when doing so, it was noted that the needle part of the sensor was kinked/bent. Do to ongoingN/V with generalized pain he came to the ED. At that point, it was noted that he was in DKA. Given IVF and started on an insulin gtt. Now comes to the ICU in the setting of DKA requiring further management. Review of Systems Gastrointestinal: Positive for nausea and vomiting. Musculoskeletal: Positive for myalgias. PAST MEDICAL HISTORY: Past Medical History: Diagnosis Date Diabetes mellitus type I PAST SURGICAL HISTORY: History reviewed. No pertinent surgical history. MEDICATIONS: Prior to Admission medications Medication Sig Start Date End Date Taking? Authorizing Provider atorvastatin (LIPITOR) 40 mg tablet Take 40 mg by mouth once a day. Yes Unknown Provider, blood-glucose sensor (Dexcom G7 Sensor) device 1 Application every 7 days. Change sensor every 7 days. Yes Unknown Provider, cholecalciferol (VITAMIN D3) 2,000 unit capsule Take 1 capsule by mouth once a day. Unknown Provider, insulin pump, continuous infusion (OMNIPOD DASH) subcutaneous cartridge Inject 1 application. underthe skin every 3 days. Changes site to pump q3 days Unknown Provider, All medications reviewed. Reviewed with pt ALLERGIES: Patient has no known allergies. SOCIAL HISTORY: Social History Tobacco Use Smoking status: Never Smokeless tobacco: Never Vaping Use Vaping status: Never Used Substance Use Topics Alcohol use: Yes Comment: reports ~5 drinks x2/month Drug use: Never Social Documentation No social documentation on file. FAMILY HISTORY: Family History Problem Relation Age of Onset No Known Problems Mother No Known Problems Father No Known Problems Brother No Known Problems Daughter Objective VITAL SIGNS FOR PAST 24 Hours ([High] [Low] (Last Recorded Value)): Temp: [37 ??C (98.6 ??F)-37.2 ??C (98.9 ??F)] 37 ??C (98.6 ??F) Heart Rate: [101-119] 103 Resp: [17-29] 17 BP: (109-141)/(65-87) 112/75 SpO2: [95 %-99 %] 97 % . Active Lines Name Placement date Placement time Site Days Peripheral IV 02/17/25 Left;Posterior Hand 02/17/25 1646 Hand less than 1 Peripheral IV 02/17/25 Right Antecubital 02/17/25 1656 Antecubital less than 1 , Active Drains None , Active Airways None VENT SETTINGS (LAST 12 HOURS): Physical Exam Vitals and nursing note reviewed. Exam conducted with a veterinary practice manager present. Constitutional: Appearance: Normal appearance. He is obese. HENT: Head: Normocephalic and atraumatic. Right Ear: External ear normal. Left Ear: External ear normal. Nose: Nose normal. Mouth/Throat: Mouth: Mucous membranes are moist. Eyes: Extraocular Movements: Extraocular movements intact. Conjunctiva/sclera: Conjunctivae normal. Pupils: Pupils are equal, round, and reactive to light. Cardiovascular: Rate and Rhythm: Regular rhythm. Tachycardia present. Pulmonary: Effort: Pulmonary effort is normal. Breath sounds: Normal breath sounds. Abdominal: General: Abdomen is flat. Bowel sounds are normal. Palpations: Abdomen is soft. Musculoskeletal: General: Normal range of motion. Cervical back: Normal range of motion and neck supple. Skin: General: Skin is warm and dry. Capillary Refill: Capillary refill takes less than 2 seconds. Neurological: General: No focal deficit present. Mental Status: He is alert and oriented to person, place, and time. Psychiatric: Mood and Affect: Mood normal. Behavior: Behavior normal. Thought Content: Thought content normal. Judgment: Judgment normal. LAB: I have personally reviewed the patient's lab results from the past 24 hours. IMAGING /OTHER STUDIES: I have personally reviewed the patient's imaging results HOSPITAL PROBLEM LIST: Principal Problem: DKA, type 1, not at goal Active Problems: Metabolic acidosis due to diabetes mellitus Leukemoid reaction Assessment & Plan Nervous Assessment & Plan No known Hx. Presents A+O x3 to the ED and ICU. Reports occasional ETOH use at a social event only. -Follow Respiratory Assessment & Plan No known Hx. No reported smoking Hx. -O2 to maintain O2 sats >92% as needed Circulatory Assessment & Plan No known Hx but is on atorvastatin at baseline. PCP noted indicated that he has been educated to low fat diet. -Restart atorvastatin Digestive Assessment & Plan No known Hx. Presents with N/V in the setting of DKA. Suspect N/V will improve as DKA improves. No LFTs for review. Abd exam benign on admit. -Diet when appropriate and able (diabetic) -LFTs if N/V not improved Genitourinary Assessment & Plan No known urinary Hx. Presents with AGMA in the setting of DKA. Cr appears to be at baseline. Lytes relatively normal on admit. -Follow lytes per DKA and replace as needed Musculoskeletal Assessment & Plan I performed a complete examination of the dorsal surface of the patient's body, plus the sites of any medical devices plus all sites of potential wound on the ventral surface. There were no wounds found unless listed below. Endocrine/Metabolic Assessment & Plan Hx of DM type I (Dx at age 9 per notes), now on a insulin pump. According to the pt, he changed his Dexcom site the night prior to coming to the ICU. He awoke as per usual on the day of presentationto find that his glu was rising. Went to work and later in the day started to develop N/V. He had is change the site of the sensor and found that the needle (portion that goes under the skin) was bent. Given that the N/V had not subsided, he presented to the ICU. Presented to the ED with N/V likely due to DKA which he was found to be in with an elevated beta-hydroxybutyrate, (+) AG, a CO2 of9, and a glu of 372. Given IVF while in the ED, stopped pump, and started on insulin gtt. -DKA protocol -Follow labs Hematologic Assessment & Plan No known heme Hx. Presents with a leukocytosis of 21, suspect in the setting of DKA and likely reactive. -Follow CBC -Usual transfusion parameters -DVT: boots and lovenox Infectious/Inflammatory Assessment & Plan No known Hx. Presents with a leukocytosis likely due to reactive state. No suspected infection. -Follow GLOBAL PLAN OF CARE: Code Status: Full Code Code discussion occurred and pt is a full code. Global Issues Mobility Level That Needs to Be Ordered: 7 Medical Decision Maker: Patient Disposition: Keep PCP was notified about ICU admission, major condition changes, and code status changes?: Yes Medical Decision Maker: Medical Decision Maker: Patient FLUIDS/ELECTROLYTES/NUTRITION VTE PROPHYLAXIS Current Facility-Administered Medications Medication [START ON 02/18/2025] enoxaparin DISCHARGE PLANNING/PLACEMENT: I have discussed the plan of care with: Patient, Family, and Attending This patient is critically ill with acute organ failure, present and threatened. Today, I personally spent 100 minutes performing and managing evaluation and management services for this critically ill patient with life-threatening organ failure, Life threatening metabolic derangements: I performed serial, frequent titrated management interventions to diagnose and manage life-threatening metabolic imbalance This patient has life-threatening DKA related Acid-base and Glucose & Osmotic derangements requiring complex, serially adjusted and carefully considered support and management that I provided. Extensive interpretation of multiple databases: I performed an extensive review of EMR and pre-arrival course and interventions and Outside records Care during the described time interval was provided by me. I have reviewed this patient's available data, including medical history, events of note, physical examination and test results as part of my evaluation SIGNATURE: Yousuf Grimaldo NP Electronic Signature aZc Cuadra : 1990 CSN: [id number] Cosigned by Ryan Kelley MD at 02/18/2025 8:07 AM EDT Associated attestation - Ryan Kelley MD - 02/18/2025 8:07 AM EDT INTERIOR DECORATOR/PA note reviewed documented in this encounter Consult Notes * Shauna Sanchez NP - 02/18/2025 11:31 AM EDTAssociated Order(s): Inpatient consult to Diabetes Management Images from the original note were not included. Inpatient consult to Diabetes Management Consult performed by: Shauna Sanchez NP Consult ordered by: Cheri Lopez NP Reason for consult: s/p DKA, need for subcutaneous insulin recommendations Admission Diagnosis: DKA, type 1, not at goal [E10.10] History of Present Illness: Zac Cuadra is a 34 y.o. male with a past medical history of Type 1 diabetes mellitus who was admitted to the hospital with diabetic ketoacidosis with severe hyperglycemia in the setting of insulinpump failure. The blood glucose management service was consulted for further management. Zac Cuadra presented to the ED on 02/17 after noticing that after he changed his insulin pump (around 8pm the night prior to admission), that his blood sugars were elevated to the 240s. He appropriately bolused himself and then noticed new onset severe nausea/vomiting, polyuria, polydipsia, and generalized malaise. At that time, his blood sugars were reportedly in the 400s. 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 As his symptoms did notimprove following a repeat bolus of insulin with the new pump site in place, EMS was called to transport the patient to the hospital for further management. EMS on site documented that en route to the hospital the patient had a blood glucose of 413 with a HR in the 110s via EMS run form. In the ED, the patient had a POCT blood glucose of 333. BMP with low CO2 at 9. AG at 27, glucose 371. CBC with leukocytosis at 21.0, otherwise unremarkable. VBG with metabolic acidosis (7.23/33.0/13.7). BHB elevated to 4.45. UA positive for glucose (4+) and ketones (3+), all concerning for DKA. Patient was then disconnected from his insulin pump and placed on an IVinsulin infusion for DKA management. Since then, his AG has closed x 3 with his glucose normalizingto the 100-200s. Diabetes History: Diagnosis: Type 1 diabetes mellitus diagnosed at age 9. Condition at time of diagnosis: at the time of initial diagnosis had: weakness, polydipsia, polyuria, and diabetic ketoacidosis. C-peptide/ antibodies: none available in our records. Diabetes Provider: External city tax auditor, Dr. Jose Buck MD and Marion Martinez NP at [facility] [place]. Complications: no other microvascular or macrovascular complications. Associated comorbidities: Other associated comorbidities include: no condition. Hypoglycemia: feels hypoglycemia at blood sugar level of 78. Rarely occurs, but would feel shaky and sweaty and very hungry. Hyperglycemia admissions: no previous admission for hyperglycemia. This is reportedly his first admission for DKA or diabetes-related problems other than during his childhood diagnosis/hospital admission. SMBG: home glucose testing is performed using Dexcom G7. Home Diabetes Medications: Tandem T-slim in Control IQ (fills with insulin lispro U-100 vials). In the event of pump failure: Lantus 18 units + 6-8 units of humalog three times a day per most recent endo note. Current pump settings: Basal: 0.75 Correction: 1:45 Carb Ratio: 1:7 Target blood glucose: 110 Previous Medication trials: N/A. Always used insulin pump since childhood. Diabetes Family History: Zac has no family history of diabetes. Social Profile: The patient lives with spouse and 2 children and 2 dogs. The patient is . The patient reports that he has never smoked. He has never used smokeless tobacco. The patient reportscurrent alcohol use. No data to display 02/18/2025 5:16 AM HT/WT/BMI Weight 153 lb 14.1 oz BMI (Calculated) 22.71 kg/m2 Dietary Orders (From admission, onward) Start Ordered 02/18/25 0815 Diet, Adult Full participation; Regular, Carbohydrate Consistent; 60 GM Diet effective now References: Click here for diet reference sheet if patient ordered for GVHD diet IDDSI Question Answer Comment MEAL SERVICE PARTICIPATION STATUS Full participation DIET TYPE Regular DIET TYPE Carbohydrate Consistent Total grams/meal 60 GM 02/18/25 0814 Review of Systems Constitutional: Negative for chills, diaphoresis and unexpected weight change. Eyes: Negative for blurred vision and vision loss. Respiratory: Negative for cough, shortness of breath and wheezing. Cardiovascular: Positive for leg swelling. Negative for chest pain, chest pressure and chest tightness. Gastrointestinal: Positive for nausea and vomiting. Negative for abdominal distention, abdominal pain and diarrhea. Genitourinary: Negative for dysuria. Endocrine: Positive for polydipsia and polyuria. Negative for polyphagia. Musculoskeletal: Negative for arthralgias. Neurological: Positive for weakness. Negative for headaches, numbness and tingling. Psychiatric/Behavioral: Negative for agitation and confusion. The following portions of the patient's history were reviewed and updated as appropriate: allergies, current medications, past family history, past medical history, past social history, past surgicalhistory, and problem list . History obtained by reviewing outside records. MEDICATIONS: Prescriptions Prior to Admission[1] enoxaparin, 40 mg, subcutaneous, Daily insulin lispro, 1-20 Units, subcutaneous, See admin instructions potassium phosphate, 30 mmol, intravenous, Once sodium chloride, 2.5-10 mL, intravenous, See admin instructions And sodium chloride, 2.5-10 mL, intravenous, q12h [facility] sodium chloride, 2.5-10 mL, intravenous, See admin instructions And sodium chloride, 2.5-10 mL, intravenous, q12h [facility] sodium chloride, 2.5-10 mL, intravenous, See admin instructions And sodium chloride, 2.5-10 mL, intravenous, q12h [facility] ALLERGIES: has no known allergies. VITAL SIGNS FOR PAST 24 Hours ([High] [Low] (Last Recorded Value)): Temp: [36.7 ??C (98.1 ??F)-37.2 ??C (98.9 ??F)] 36.8 ??C (98.2 ??F) Heart Rate: [69-119] 95 Resp: [13-29] 24 BP: (91-146)/(54-97) 146/93 SpO2: [75 %-100 %] 100 % Body mass index is 22.72 kg/m??. Wt Readings from Last 2 Encounters: 02/18/25 69.8 kg (153 lb 14.1 oz) PHYSICAL EXAM: Physical Exam Constitutional: General: He is awake. He is not in acute distress. Appearance: Normal appearance. He is not ill-appearing. HENT: Head: Normocephalic and atraumatic. Eyes: General: Lids are normal. Vision grossly intact. Extraocular Movements: Extraocular movements intact. Cardiovascular: Rate and Rhythm: Normal rate and regular rhythm. Pulses: Normal pulses. Heart sounds: Normal heart sounds. Pulmonary: Effort: Pulmonary effort is normal. Breath sounds: Normal breath sounds. No decreased breath sounds, wheezing, rhonchi or rales. Chest: Chest wall: No mass or deformity. Abdominal: General: Bowel sounds are normal. Palpations: Abdomen is soft. Tenderness: There is no abdominal tenderness. Genitourinary: Comments: Voiding independently clear yellow urine Musculoskeletal: Cervical back: Normal range of motion and neck supple. Right lower leg: No edema. Left lower leg: No edema. Comments: Able to move all 4 extremities purposefully and spontaneously Skin: General: Skin is warm and dry. Capillary Refill: Capillary refill takes less than 2 seconds. Neurological: General: No focal deficit present. Mental Status: He is alert and oriented to person, place, and time. Mental status is at baseline. Psychiatric: Behavior: Behavior is cooperative. Skin findings include : no insulin hypertrophy. Normal pigmentation without acanthosis, or skin tags. LAB: No data to display Latest Ref Rng & Units 02/18/2025 8:12 AM Creatinine Creatinine 0.60 - 1.30 mg/dL 0.70 EGFR >=60 mL/min/1.73m2 >90 No data to display No data to display No data to display HOSPITAL PROBLEMS: Principal Problem: DKA, type 1, not at goal Active Problems: Metabolic acidosis due to diabetes mellitus Leukemoid reaction Assessment & Plan ASSESSMENT AND PLAN: 1. Type 1 diabetes mellitus with long-term insulin use complicated by no microvascular complications. The patient is currently admitted to the hospital with diabetic ketoacidosis with severe hyperglycemia in the setting of insulin pump failure. Zac Cuadra is a 34 y.o. male with a past medical history of Type 1 diabetes mellitus. The patient's blood sugar control has been acceptable during this admission. The blood glucose management service was consulted for further management. I reviewed available inpatient records and outpatient records. His last A1c (per chart review) was 6.7 (10/28/2024) reflects their diabetes control is excellent. Current diet: Diet, Adult Full participation; Regular, Carbohydrate Consistent; 60 GM I reviewed insulin administration, blood sugars, and pertinent labs in the last 24 hours. In the last 24 hours the patient has required total of 66 units of insulin via insulin infusion with 2 units of subcutaneous lispro. While using his pump last (Tandem T-slim in control IQ) (02/16) he required 21.15 units of basal and 43.86 units of bolus insulin. Blood sugars are now within target range. 3 consecutive BMP's show resolution of DKA. Patient's symptoms have improved. Plan to put the patient back on his home insulin pump. Current recommendations are below: Factors affecting decision making regarding medication dosing and adjustment include variability oforal intake and symptomatic hyperglycemia. Treatment Plan: While inpatient on oral diet: Basal insulin: START insulin pump at 100% basal rate of current setting. PLEASE ALLOW A 2 HOUR OVERLAP WITH THE INSULIN INFUSION ON BEFORE TURNING OFF THE INFUSION. DO NOT HOLD basal insulin as this patient has T1DM. Please contact [facility] with questions/concerns. Nutritional insulin: administered via insulin pump. HOLD if not eating at least 50% of meals. Correction insulin: administered via insulin pump. Nutritional recommendations: 60 grams carb consistent diet. Insulin pump contract signed on 02/18/2025. Glucose log at bedside. In the event of a pump failure (per last endo note): Start insulin glargine 18 units daily Start insulin lispro 6 units with meals Start a LDCS with lispro ACHS Diabetes Discharge Planning: Teaching completed: No. Teaching required: No. Patient uses an insulin pump at baseline and can self- manage his pump. Anticipated Discharge Medications: Insulin for discharge: Humalog vial U-100 for insulin pump. If patient does not have pump failure back-up insulin, will need Lantus Solostar U-100 pen and Humalog Flexpen U-100 pen at discharge. Non-insulin agents: there is no indication for non-insulin medications . Anticipated Discharge Prescriptions: Pen Santo/Syringes: Order pen needle 4 mm x 32 g. Glucose meter: Order no meter, patient already has meter. Patient uses a Dexcom G7 CGM. Hypoglycemia treatment: Order BAQSIMI 3 mg nasal spray. Outstanding and pending labs: The following labs were ordered and results require follow up: no current pending labs. Plan for Follow up: Patient is to schedule follow up in the next 2-[address] Jose Buck MD or Marion Martinez NP. 2. Hyperlipidemia: Currently Prescribed Lipid Medications None No data to display 3. Hypertension: Currently Prescribed HTN Medications None Counseling: The following points were discussed: plan for insulin use and adjustment while inpatient. Thank you for this consult and please feel free to call us with any questions or concerns. We will continue to follow this patient during the remainder of the hospitalization and will arrange for close follow up at time of discharge. I have reviewed, updated, and verified this note's content. I have discussed the plan of care with: Patient, Inter-professional team, and [facility] attending, Dr. Duarte. Shauna Sanchez NP [facility] Pager # [phone] Zac Cuadra : 1990 : [id number] [1] Medications Prior to Admission: atorvastatin (LIPITOR) 40 mg tablet 40 mg oral Daily blood-glucose sensor (Dexcom G7 Sensor) device 1 Application miscellaneous q7 days cholecalciferol (VITAMIN D3) 2,000 unit capsule 1 capsule oral Daily insulin pump, continuous infusion (OMNIPOD DASH) subcutaneous cartridge 1 application. subcutaneousq3 days Cosigned by Cristy Duarte DO at 02/18/2025 4:33 PM EDT Associated attestation - Cristy Duarte DO - 02/18/2025 4:33 PM EDT I have seen and evaluated this patient and agree with the plan outlined by SETH Sanchez. Thank you for allowing the [facility] team to participate in the care of this patient. Following with you. SALESPERSON HOUSEHOLD APPLIANCES documented in this encounter Nursing Notes * Ria Madera RN - 02/19/2025 10:57 AM EDT Pt's pump reading 161 this am and the POCT reading 121-Praveen Craige notified and diabetes INTERIOR DECORATOR up tobedside to see pt. Pt discharge to home done. PT's IV's gisel rut and pt discharged with and father in law. Pt stable on discharge documented in this encounter Miscellaneous Notes * Significant Event - Kirsten Trammell RN - 02/19/2025 6:38 AM EDT Pt. called because insulin pump BS reading 50, no symptoms, states feels fine, FSBS done with glucometer reading 140, pt. will manually put 140 into pump, sm [place] juice given * Plan of Care - Kirsten Trammell RN - 02/19/2025 4:34 AM EDT Plan of Care Summary: Pt. slept though night, OOB to bathroom, medicated with tylenol for headache and throat soreness with relief, will cont. to monitor, report to be given to oncoming shift Plan of Care Reviewed With: patient Progress: improving * Hospital Course - Yousuf Grimaldo NP - 02/18/2025 7:16 PM EDT ICU Course by System from 02/17/2025 to 02/19/25 Admission Dx: DKA Discharge Dx: DKA due to equipment malfunction Nervous: No known Hx. Presents A+O x3 to the ED and ICU. Reports occasional ETOH use at a social event only.No active issues. Respiratory: No known Hx. No reported smoking Hx., no acute issues. Remained on RA during admission. Circulatory: No known Hx but is on atorvastatin at baseline.Trop flat. Denied CP. Continue home meds. Digestive: No known Hx. Presents with N/V in the setting of DKA. Suspect N/V will improve as DKA improves. No LFTs for review. Abd exam benign on admit. Diabetic Diet. Genitourinary: No known urinary Hx. Presents with AGMA and electrolyte abnormalities in the setting of DKA no since resolved Cr appears to be at baseline. Lytes relatively normal on admit. Endocrine/Metabolic: Hx of DM 1. now on a insulin pump. According to the pt, he changed his Dexcom site the night prior to coming to the ICU. Went to work and later in the day started to develop N/V. He had is change the site of the sensor and found that the needle (portion that goes under the skin) was bent. Found to be in with an elevated beta-hydroxybutyrate, (+) AG, a CO2 of 9, and a glu of 372. Given IVF while in the ED, pump stopped, and started on insulin gtt. Transitioned off DKA protocol to ICU insulin protocol and then to home pump with Endo's assistance. Hematologic: No known heme Hx. Presents with a leukocytosis of 21, suspect in the setting of DKA and likely reactive, since improved. Infectious/Inflammatory: No known Hx. Presents with a leukocytosis likely due to reactive state. No suspected infection. Other: * Plan of Care - Ria Madera RN - 02/18/2025 6:51 PM EDT * Plan of Care - Kirsten Trammell RN - 02/18/2025 5:16 AM EDT Plan of Care Summary: Pt. admitted to CCU in DKA, IVF and insulin infusing, Gap closed transitionedto glycemic protocol, at 0435, cont. to monitor, report to be given to oncoming shift Plan of Care Reviewed With: patient Progress: improving * Telehealth - Thanh Harvey MD - 02/17/2025 11:16 PM EDT eICU Staffing Note Primary Critical Care Problem: Lab Abnormality Alerted By: Bedside Provider Briefly this is a This is a 34 yr old male with PMHx of DM type I (Dx at age 9) on insulin pump and Vit D def. Per report, pt reported that he was concerned that his pump was not working correctly after a recent changing of the tubing. Presented with N/V. Found to have be in DKA. Given IVF and started on an insulin gtt. Now comes to the ICU for further management of his DKA.. Principal Problem: DKA, type 1, not at goal Active Problems: Metabolic acidosis due to diabetes mellitus Leukemoid reaction Vitals: 02/17/25 2300 BP: 110/70 Pulse: 97 Resp: 20 Temp: SpO2: 99% Labs: Results from last 7 days Lab Units 02/17/25 1712 WBC 10*3/uL 21.0* HEMOGLOBIN g/dL 14.9 HEMATOCRIT % 44.4 PLATELETS 10*3/uL 211 Results from last 7 days Lab Units 02/17/25 1712 SODIUM mmol/L 135 POTASSIUM mmol/L 4.8 CHLORIDE mmol/L 99 CARBON DIOXIDE mmol/L 9* BUN mg/dL 23 CREATININE mg/dL 1.12 GLUCOSE mg/dL 372* CALCIUM mg/dL 9.7 MAGNESIUM mg/dL 1.9 34 yo M with DM 1 presents with nausea/vomiting after diabetic pump sensor change. Hyperglycemic athome. Called 911. Found to be in DKA on arrival. S/p IV fluids and insulin gtt. - DKA protocol labs/ fluids/ insulin prot This is NOT a billable note * Assessment & Plan Note - Yousuf Grimaldo NP - 02/17/2025 8:55 PM EDT Associated Problem(s): Infectious/Inflammatory No known Hx. Presents with a leukocytosis likely due to reactive state. No suspected infection. -Follow * Assessment & Plan Note - Yousuf Grimaldo NP - 02/17/2025 8:51 PM EDT Associated Problem(s): Hematologic No known heme Hx. Presents with a leukocytosis of 21, suspect in the setting of DKA and likely reactive. -Follow CBC -Usual transfusion parameters -DVT: boots and lovenox * Assessment & Plan Note - Yousuf Grimaldo NP - 02/17/2025 8:49 PM EDT Associated Problem(s): Musculoskeletal I performed a complete examination of the dorsal surface of the patient's body, plus the sites of any medical devices plus all sites of potential wound on the ventral surface. There were no wounds found unless listed below. * Assessment & Plan Note - Yousuf Grimaldo NP - 02/17/2025 8:49 PM EDT Associated Problem(s): Genitourinary No known urinary Hx. Presents with AGMA in the setting of DKA. Cr appears to be at baseline. Lytes relatively normal on admit. -Follow lytes per DKA and replace as needed * Assessment & Plan Note - Yousuf Grimaldo NP - 02/17/2025 8:32 PM EDT Associated Problem(s): Digestive No known Hx. Presents with N/V in the setting of DKA. Suspect N/V will improve as DKA improves. No LFTs for review. Abd exam benign on admit. -Diet when appropriate and able (diabetic) -LFTs if N/V not improved * Assessment & Plan Note - Yousuf Grimaldo NP - 02/17/2025 8:21 PM EDT Associated Problem(s): Circulatory No known Hx but is on atorvastatin at baseline. PCP noted indicated that he has been educated to low fat diet. -Restart atorvastatin * Assessment & Plan Note - Yousuf Grimaldo NP - 02/17/2025 8:20 PM EDT Associated Problem(s): Respiratory No known Hx. No reported smoking Hx. -O2 to maintain O2 sats >92% as needed * Assessment & Plan Note - Yousuf Grimaldo NP - 02/17/2025 8:17 PM EDT Associated Problem(s): Nervous No known Hx. Presents A+O x3 to the ED and ICU. Reports occasional ETOH use at a social event only. -Follow * Assessment & Plan Note - Yousuf Grimaldo NP - 02/17/2025 8:16 PM EDT Associated Problem(s): Endocrine/Metabolic Hx of DM type I (Dx at age 9 per notes), now on a insulin pump. According to the pt, he changed his Dexcom site the night prior to coming to the ICU. He awoke as per usual on the day of presentationto find that his glu was rising. Went to work and later in the day started to develop N/V. He had is change the site of the sensor and found that the needle (portion that goes under the skin) was bent. Given that the N/V had not subsided, he presented to the ICU. Presented to the ED with N/V likely due to DKA which he was found to be in with an elevated beta-hydroxybutyrate, (+) AG, a CO2 of9, and a glu of 372. Given IVF while in the ED, stopped pump, and started on insulin gtt. -DKA protocol -Follow labs documented in this encounter Plan of Treatment Not on file documented as of this encounter Procedures * Due to [place] state law, this organization might not be sharing negative HIV tests. Procedure Name Priority Date/Time Associated Diagnosis Comments POCT GLUCOSE Routine 02/19/2025 8:30 AM EDT POCT GLUCOSE Routine 02/19/2025 6:34 AM EDT CBC Routine 02/19/2025 4:15 AM EDT MAGNESIUM Routine 02/19/2025 4:15 AM EDT RENAL FUNCTION PANEL Routine 02/19/2025 4:15 AM EDT POCT GLUCOSE Routine 02/18/2025 10:04 PM EDT POCT GLUCOSE Routine 02/18/2025 5:33 PM EDT POCT GLUCOSE Routine 02/18/2025 4:22 PM EDT POCT GLUCOSE Routine 02/18/2025 2:47 PM EDT POCT GLUCOSE Routine 02/18/2025 12:49 PM EDT TROPONIN T HIGH SENSITIVITY STAT 02/18/2025 11:32 AM EDT POCT GLUCOSE Routine 02/18/2025 11:31 AM EDT XR CHEST 1 VW STAT 02/18/2025 11:30 AM EDT POCT GLUCOSE Routine 02/18/2025 10:37 AM EDT POCT GLUCOSE Routine 02/18/2025 8:12 AM EDT PHOSPHORUS Timed 02/18/2025 8:12 AM EDT MAGNESIUM Timed 02/18/2025 8:12 AM EDT BASIC METABOLIC PANEL Timed 02/18/2025 8:12 AM EDT POCT GLUCOSE Routine 02/18/2025 6:03 AM EDT POCT GLUCOSE Routine 02/18/2025 4:07 AM EDT TROPONIN T HIGH SENSITIVITY STAT Add-on 02/18/2025 3:09 AM EDT CBC Routine 02/18/2025 3:09 AM EDT PHOSPHORUS Timed 02/18/2025 3:09 AM EDT MAGNESIUM Timed 02/18/2025 3:09 AM EDT BASIC METABOLIC PANEL Timed 02/18/2025 3:09 AM EDT POCT GLUCOSE Routine 02/18/2025 3:08 AM EDT POCT GLUCOSE Routine 02/18/2025 2:04 AM EDT POCT GLUCOSE Routine 02/18/2025 1:03 AM EDT POCT GLUCOSE Routine 02/18/2025 12:07 AM EDT URINALYSIS W/REFLEX TO MICROSCOPIC (NO CULTURE) STAT 02/17/2025 11:12 PM EDT CBC Routine 02/17/2025 11:12 PM EDT PHOSPHORUS Timed 02/17/2025 11:12 PM EDT MAGNESIUM Timed 02/17/2025 11:12 PM EDT BASIC METABOLIC PANEL Timed 02/17/2025 11:12 PM EDT POCT GLUCOSE Routine 02/17/2025 11:03 PM EDT POCT GLUCOSE Routine 02/17/2025 9:44 PM EDT POCT I-STAT LACTATE W/VBG Routine 2024 5:45 PM EDT [place] Routine 02/17/2025 5:12 PM EDT BETAHYDROXYBUTYRATE STAT 02/17/2025 5 :12 PM EDT CBC AUTO DIFFERENTIAL STAT 02/17/2025 5:12 PM EDT BLOOD BANK HOLD TUBE Routine 02/17/2025 5:12 PM EDT LIGHT BLUE TOP Routine 02/17/2025 5:12 PM EDT RAINBOW DRAW Routine 02/17/2025 5:12 PM EDT MAGNESIUM STAT 02/17/2025 5:12 PM EDT BASIC METABOLIC PANEL STAT 02/17/2025 5:12 PM EDT POCT GLUCOSE Routine 02/17/2025 4:44 PM EDT HEART & VASCULAR - SCANNED 02/17/2025 HEART & VASCULAR - SCANNED 02/17/2025 HEART & VASCULAR - SCANNED 02/17/2025 documented in this encounter Results * Due to [place] state law, this organization might not be sharing negative HIV tests. * (ABNORMAL) POCT Glucose, interfaced (02/19/2025 8:30 AM EDT) [facility] Glucose, POCT 121(H) 70 - 99 mg/dL 02/19/2025 8:32 AM EDT [facility] Comment: The client services associate has not determined the efficacy of this test in Critically ill patients. [facility] defines Critically ill patients for the purpose of blood glucose monitoring (BGM) by glucometer, as patients meeting one or more of the following criteria: Hypotension- non-ICU patients (systolic blood pressure Less than 90 mmHg) due to shock Hypotension -ICU patients (Mean Arterial Pressure (MAP) <60 mmHg or systolic blood pressure < 90 mmHg due to shock Patients receiving Vasopressors (phenylephrine, vasopressin or norepinephrine) Anasarca In all locations, BGM test results should not be relied upon in the above situations, unless these results confirmed with lab-based glucose values. Blood 02/19/2025 8:30 AM EDT 02/19/2025 8:32 AM EDT Ryan Kelley MD LAB POCT ORDERABLES - DEVICE Final Result Performing Organization Address [facility] Co de Phone Number ANTHONY Cordon [facility] [address] [place] [address], [place] * (ABNORMAL) POCT Glucose, interfaced (02/19/2025 6:34 AM EDT) Glucose, POCT 140(H) 70 - 99 mg/dL 02/19/2025 6:36 AM EDT [facility] Comment: The client services associate has not determined the efficacy of this test in Critically ill patients. [facility] defines Critically ill patients for the purpose of blood glucose monitoring (BGM) by glucometer, as patients meeting one or more of the following criteria: Hypotension- non-ICU patients (systolic blood pressure Less than 90 mmHg) due to shock Hypotension -ICU patients (Mean Arterial Pressure (MAP) <60 mmHg or systolic blood pressure < 90 mmHg due to shock Patients receiving Vasopressors (phenylephrine, vasopressin or norepinephrine) Anasarca In all locations, BGM test results should not be relied upon in the above situations, unless these results confirmed with lab-based glucose values. Blood 02/19/2025 6:34 AM EDT 02/19/2025 6:36 AM EDT Ryan Kelley MD LAB POCT ORDERABLES - DEVICE Final Result Performing Organization Address [facility] Co de Phone Number ANTHONY Cordon [facility] [address] [place] [address], [place] * (ABNORMAL) Renal function panel (02/19/2025 4:15 AM EDT) NA 141 135 - 145 mmol/L 02/19/2025 4:45 AM EDT [facility] K 3.7 3.5 - 5.3 mmol/L 02/19/2025 4:45 AM [facility] Cl 105 97 - 110 mmol/L 02/19/2025 4:45 AM [facility] CO2 25 22 - 32 mmol/L 02/19/2025 4:45 AM [facility] Anion Gap 11 5 - 15 02/19/2025 4:45 AM [facility] Glucose 142(H) 65 - 99 mg/dL 02/19/2025 4:45 AM [facility] BUN 9 7 - 23 mg/dL 02/19/2025 4:45 AM [facility] Creatinine 0.72 0.60 - 1.30 mg/dL 02/19/2025 4:45 AM [facility] Calcium 8.4(L) 8.6 - 10.5 mg/dL 02/19/2025 4:45 AM [facility] Phosphorus 2.9 2.5 - 4.5 mg/dL 02/19/2025 4:45 AM [facility] Albumin 3.8 3.5 - 5.2 g/dL 02/19/2025 4:45 AM [facility] eGFR >90 >=60 mL/min/1. 73m2 02/19/2025 4:45 AM [facility] Comment:The estimated glomer ular filtration rate (eGFR) is calculated using a new formula developed by the NKF-ASN task force to eliminate race-based correction factors. The new formula uses serum/plasma creatinine, age, and gender to determine eGFR. A value below 60mls/min might indicate kidney disease and will be flagged. For additional information, see Christi cardozo al, Am J Kidney Dis. 2021;79(2):268- 288, A Unifying Approach for GFR estimation: Recommendations of the NKF-ASN Task Force on Reassessing the Inclusion of Race in Diagnosing Kidney Disease . Blood Structure of peripheral vein / Unknown Venipuncture / Unknown 02/19/2025 4:15 AM EDT 02/19/2025 4:19 AM EDT us Waylon ECKERT LAB BLOOD ORDERABLES Final Re sult [facility] [address] [place] [address], [place] * CBC (02/19/2025 4:15 AM EDT) WBC 9.3 3.8 - 10.8 10*3/uL 02/19/2025 4:23 AM EDT [facility] RBC 4.47 4.20 - 5.80 10*6/uL 02/19/2025 4:23 AM EDT [facility] Hemoglobin 13.6 13.2 - 17.1 g/dL 02/19/2025 4:23 AM EDT [facility] Hematocrit 39.3 38.5 - 50.0 % 02/19/2025 4:23 AM EDT [facility] MCV 87.9 80.0 - 100.0 fL 02/19/2025 4:23 AM EDT [facility] MCH 30.4 27.0 - 33.0 pg 02/19/2025 4:23 AM EDT [facility] MCHC 34.6 32.0 - 36.0 g/dL 02/19/2025 4:23 AM EDT [facility] RDW 12.2 11.0 - 15.0 % 02/19/2025 4:23 AM EDT [facility] Platelets 188 140 - 400 10*3/uL 02/19/2025 4:23 AM EDT [facility] MPV 11.0 7.5 - 12.5 fL 02/19/2025 4:23 AM EDT [facility] Blood Structure of peripheral vein / Unknown Venipuncture / Unknown 02/19/2025 4:15 AM EDT 02/19/2025 4:19 AM EDT Waylon ECKERT LAB BLOOD ORDERABLES Final Re sult Performing Organization Address City/[facility]/ZIP Co de Phone Number [facility] [address] [place] [id number], [place] * Magnesium (02/19/2025 4:15 AM EDT) MG 2.0 1.6 - 2.4 mg/dL 02/19/2025 4:45 AM EDT [facility] Blood Structure of peripheral vein / Unknown Venipuncture / Unknown 02/19/2025 4:15 AM EDT 02/19/2025 4:19 AM EDT Waylon ECKERT LAB BLOOD ORDERABLES Final Re sult Performing Organization Address [facility] Co de Phone Number [facility] [address] [place] [phone], [place] * (ABNORMAL) POCT Glucose, interfaced (02/18/2025 10:04 PM EDT) Glucose, POCT 211(H) 70 - 99 mg/dL 02/18/2025 10:08 PM EDT [facility] Comment: The client services associate has not determined the efficacy of this test in Critically ill patients. [facility] defines Critically ill patients for the purpose of blood glucose monitoring (BGM) by glucometer, as patients meeting one or more of the following criteria: Hypotension- non-ICU patients (systolic blood pressure Less than 90 mmHg) due to shock Hypotension -ICU patients (Mean Arterial Pressure (MAP) <60 mmHg or systolic blood pressure < 90 mmHg due to shock Patients receiving Vasopressors (phenylephrine, vasopressin or norepinephrine) Anasarca In all locations, BGM test results should not be relied upon in the above situations, unless these results confirmed with lab-based glucose values. Blood 02/18/2025 10:0 4 PM EDT 02/18/2025 10:08 PM EDT Ryan Kelley MD LAB POCT ORDERABLES - DEVICE Final Result Performing Organization Address [facility] Co de Phone Number [facility] [address] [place] [address], [place] * (ABNORMAL) POCT Glucose, interfaced (02/18/2025 5:33 PM EDT) Glucose, POCT 145(H) 70 - 99 mg/dL 02/18/2025 5:34 PM EDT [facility] Comment: The client services associate has not determined the efficacy of this test in Critically ill patients. [facility] defines Critically ill patients for the purpose of blood glucose monitoring (BGM) by glucometer, as patients meeting one or more of the following criteria: Hypotension- non-ICU patients (systolic blood pressure Less than 90 mmHg) due to shock Hypotension -ICU patients (Mean Arterial Pressure (MAP) <60 mmHg or systolic blood pressure < 90 mmHg due to shock Patients receiving Vasopressors (phenylephrine, vasopressin or norepinephrine) Anasarca In all locations, BGM test results should not be relied upon in the above situations, unless these results confirmed with lab-based glucose values. Blood 02/18/2025 5:33 PM EDT 02/18/2025 5:34 PM EDT Ryan Kelley MD LAB POCT ORDERABLES - DEVICE Final Result Performing Organization Address [facility] Co de Phone Number [facility] [address] [place] [address], [place] * (ABNORMAL) POCT Glucose, interfaced (02/18/2025 4:22 PM EDT) Glucose, POCT 216(H) 70 - 99 mg/dL 02/18/2025 4:23 PM EDT [facility] Comment: The client services associate has not determined the efficacy of this test in Critically ill patients. [facility] defines Critically ill patients for the purpose of blood glucose monitoring (BGM) by glucometer, as patients meeting one or more of the following criteria: Hypotension- non-ICU patients (systolic blood pressure Less than 90 mmHg) due to shock Hypotension -ICU patients (Mean Arterial Pressure (MAP) <60 mmHg or systolic blood pressure < 90 mmHg due to shock Patients receiving Vasopressors (phenylephrine, vasopressin or norepinephrine) Anasarca In all locations, BGM test results should not be relied upon in the above situations, unless these results confirmed with lab-based glucose values. Blood 02/18/2025 4:22 PM EDT 02/18/2025 4:23 PM EDT us Ryna Kelley MD LAB POCT ORDERABLES - DEVICE Final Result [facility] [address] [place] [address], [place] * (ABNORMAL) POCT Glucose, interfaced (02/18/2025 2:47 PM EDT) [facility] Glucose, POCT 259(H) 70 - 99 mg/dL 02/18/2025 2:51 PM EDT [facility] Comment: The client services associate has not determined the efficacy of this test in Critically ill patients. [facility] defines Critically ill patients for the purpose of blood glucose monitoring (BGM) by glucometer, as patients meeting one or more of the following criteria: Hypotension- non-ICU patients (systolic blood pressure Less than 90 mmHg) due to shock Hypotension -ICU patients (Mean Arterial Pressure (MAP) <60 mmHg or systolic blood pressure < 90 mmHg due to shock Patients receiving Vasopressors (phenylephrine, vasopressin or norepinephrine) Anasarca In all locations, BGM test results should not be relied upon in the above situations, unless these results confirmed with lab-based glucose values. Blood 02/18/2025 2:47 PM EDT 02/18/2025 2:51 PM EDT us Ryan Kelley MD LAB POCT ORDERABLES - DEVICE Final Result Performing Organization Address [facility] Co de Phone Number [facility] [address] [place] [address], [place] * (ABNORMAL) POCT Glucose, interfaced (02/18/2025 12:49 PM EDT) Glucose, POCT 265(H) 70 - 99 mg/dL 02/18/2025 12:51 PM EDT [facility] Comment: The client services associate has not determined the efficacy of this test in Critically ill patients. [facility] defines Critically ill patients for the purpose of blood glucose monitoring (BGM) by glucometer, as patients meeting one or more of the following criteria: Hypotension- non-ICU patients (systolic blood pressure Less than 90 mmHg) due to shock Hypotension -ICU patients (Mean Arterial Pressure (MAP) <60 mmHg or systolic blood pressure < 90 mmHg due to shock Patients receiving Vasopressors (phenylephrine, vasopressin or norepinephrine) Anasarca In all locations, BGM test results should not be relied upon in the above situations, unless these results confirmed with lab-based glucose values. Blood 02/18/2025 12:4 9 PM EDT 02/18/2025 12:51 PM EDT us Ryan Kelley MD LAB POCT ORDERABLES - DEVICE Final Result Performing Organization Address [facility] de Phone Number [facility] [address] [place] [address], [place] * Troponin T, High Sensitivity (02/18/2025 11:32 AM EDT) Troponin T High Sensitivity 6 <=21 ng/L 02/18/2025 12:01 PM EDT [facility] Comment: Jo-Ycohnqhh-[id number] level of 52 ng/L or higher at 0-hour at presentation is recommended by the ESC 0/1-hour algorithm for identifying patients at high risk for ruling in acute myocardial infarction (AMI) in the appropriate clinical context. Repeat troponin testing 1-3 hours after the initial sample may be helpful in assessing for ongoing myocardial injury. Troponin elevations can be seen in several other non-infarct conditions, and the change (delta) should be evaluated in line with the 4th Pray Definition of AMI. Troponin baseline and serial elevation for a significant delta should be interpreted with clinical presentation, history, signs and symptoms, ECG, and biomarker concentrations. For inpatient setting: Value <12ng/L is considered negative for all genders. 0-1hr: A delta change of <3 will be considered negative/flat if chest pain onset >3 hours 0-3hr: A delta change of <7 will be considered negative/flat Blood Structure of peripheral vein / Unknown Venipuncture / Unknown 02/18/2025 11:32 AM EDT 02/18/2025 11:36 AM EDT us Waylon ECKERT LAB BLOOD ORDERABLES Final Re sult [facility] [address] [place] [phone], * (ABNORMAL) POCT Glucose, interfaced (02/18/2025 11:31 AM EDT) Glucose, POCT 174(H) 70 - 99 mg/dL 02/18/2025 11:33 AM EDT [facility] Comment: The client services associate has not determined the efficacy of this test in Critically ill patients. [facility] defines Critically ill patients for the purpose of blood glucose monitoring (BGM) by glucometer, as patients meeting one or more of the following criteria: Hypotension- non-ICU patients (systolic blood pressure Less than 90 mmHg) due to shock Hypotension -ICU patients (Mean Arterial Pressure (MAP) <60 mmHg or systolic blood pressure < 90 mmHg due to shock Patients receiving Vasopressors (phenylephrine, vasopressin or norepinephrine) Anasarca In all locations, BGM test results should not be relied upon in the above situations, unless these results confirmed with lab-based glucose values. Blood 02/18/2025 11:3 1 AM EDT 02/18/2025 11:33 AM EDT us Ryan Kelley MD LAB POCT ORDERABLES - DEVICE Final Result [facility] [address] [place] [address], [place] * X-Ray Chest 1 View (02/18/2025 11:30 AM EDT) Anatomical Region Laterality Modality Body Computed Radiogr aphy 02/21/2025 8:50 AM EDT Impressions 02/21/2025 8:50 AM EDT FINDINGS/IMPRESSION: Negative. Heart normal. Lungs clear. If this radiology report contains a blank impression section, it is an incomplete radiology report. Please contact the interpreting radiologist or applicable radiology division as soon as possible to obtain the completed interpretation. Workstation ID: [id number] Narrative 02/21/2025 8:50 AM EDT COMPARISON: None Resulting Agency Comment [id number] Procedure Note Polo Hickman MD - 02/21/2025 COMPARISON: None IMPRESSION: FINDINGS/IMPRESSION: Negative. Heart normal. Lungs clear. If this radiology report contains a blank impression section, it is anincomplete radiology report. Please contact the interpreting radiologistor applicable radiology division as soon as possible to obtain thecompleted interpretation. Workstation ID: [id number] us Waylon ECKERT IMG XR PROCEDURES Final Resul t * (ABNORMAL) POCT Glucose, interfaced (02/18/2025 10:37 AM EDT) [facility] Glucose, POCT 200(H) 70 - 99 mg/dL 02/18/2025 10:38 AM EDT [facility] Comment: The client services associate has not determined the efficacy of this test in Critically ill patients. [facility] defines Critically ill patients for the purpose of blood glucose monitoring (BGM) by glucometer, as patients meeting one or more of the following criteria: Hypotension- non-ICU patients (systolic blood pressure Less than 90 mmHg) due to shock Hypotension -ICU patients (Mean Arterial Pressure (MAP) <60 mmHg or systolic blood pressure < 90 mmHg due to shock Patients receiving Vasopressors (phenylephrine, vasopressin or norepinephrine) Anasarca In all locations, BGM test results should not be relied upon in the above situations, unless these results confirmed with lab-based glucose values. Blood 02/18/2025 10:3 7 AM EDT 02/18/2025 10:38 AM EDT us Ryan Kelley MD LAB POCT ORDERABLES - DEVICE Final Result Performing Organization Address [facility] Co de Phone Number [facility] [address] [place] [address], [place] * POCT Glucose, interfaced (02/18/2025 8:12 AM EDT) Glucose, POCT 83 70 - 99 mg/dL 02/18/2025 8:12 AM EDT [facility] Comment: The client services associate has not determined the efficacy of this test in Critically ill patients. [facility] defines Critically ill patients for the purpose of blood glucose monitoring (BGM) by glucometer, as patients meeting one or more of the following criteria: Hypotension- non-ICU patients (systolic blood pressure Less than 90 mmHg) due to shock Hypotension -ICU patients (Mean Arterial Pressure (MAP) <60 mmHg or systolic blood pressure < 90 mmHg due to shock Patients receiving Vasopressors (phenylephrine, vasopressin or norepinephrine) Anasarca In all locations, BGM test results should not be relied upon in the above situations, unless these results confirmed with lab-based glucose values. Blood 02/18/2025 8:12 AM EDT 02/18/2025 8:12 AM EDT us Ryan Kelley MD LAB POCT ORDERABLES - DEVICE Final Result Performing Organization Address [facility] de Phone Number ANTHONY [facility], [facility] [address] [place] [address], [place] * (ABNORMAL) Phosphorus - Every 4 hours (02/18/2025 8:12 AM EDT) Phosphorus 1.7(L) 2.5 - 4.5 mg/dL 02/18/2025 8:47 AM EDT [facility] Blood Structure of peripheral vein / Unknown Venipuncture / Unknown 02/18/2025 8:12 AM EDT 02/18/2025 8:14 AM EDT Ryan Kelley MD LAB BLOOD ORDERABLES Final R esult Performing Organization Address City/[facility] Co de Phone Number [facility] [address] [place] [address], [place] * Magnesium - Every 4 hours (02/18/2025 8:12 AM EDT) MG 2.1 1.6 - 2.4 mg/dL 02/18/2025 8:47 AM EDT [facility] Blood Structure of peripheral vein / Unknown Venipuncture / Unknown 02/18/2025 8:12 AM EDT 02/18/2025 8:14 AM EDT Ryan Kelley MD LAB BLOOD ORDERABLES Final R esult Performing Organization Address City/[facility] Co de Phone Number [facility] [address] [place] [address], [place] * (ABNORMAL) Basic Metabolic Panel - Every 4 hours (02/18/2025 8:12 AM EDT) NA 139 135 - 145 mmol/L 02/18/2025 8:47 AM EDT [facility] K 3.7 3.5 - 5.3 mmol/L 02/18/2025 8:47 AM EDT [facility] Cl 110 97 - 110 mmol/L 02/18/2025 8:47 AM EDT [facility] CO2 22 22 - 32 mmol/L 02/18/2025 8:47 AM EDT [facility] BUN 14 7 - 23 mg/dL 02/18/2025 8:47 AM EDT [facility] Creatinine 0.70 0.60 - 1.30 mg/dL 02/18/2025 8:47 AM EDT [facility] Glucose 122(H) 65 - 99 mg/dL 02/18/2025 8:47 AM EDT [facility] Calcium 8.2(L) 8.6 - 10.5 mg/dL 02/18/2025 8:47 AM EDT [facility] Anion Gap 7 5 - 15 02/18/2025 8:47 AM EDT [facility] eGFR >90 >=60 mL/min/1. 73m2 02/18/2025 8:47 AM EDT [facility] Comment:The estimated glomer ular filtration rate (eGFR) is calculated using a new formula developed by the NKF-ASN task force to eliminate race-based correction factors. The new formula uses serum/plasma creatinine, age, and gender to determine eGFR. A value below 60mls/min might indicate kidney disease and will be flagged. For additional information, see Barraza et al, Am J Kidney Dis. 2021;79(2):268- 288, A Unifying Approach for GFR estimation: Recommendations of the NKF-ASN Task Force on Reassessing the Inclusion of Race in Diagnosing Kidney Disease . Blood Structure of peripheral vein / Unknown Venipuncture / Unknown 02/18/2025 8:12 AM EDT 02/18/2025 8:14 AM EDT us Ryan Kelley MD LAB BLOOD ORDERABLES Final R esult [facility] [address] [place] [address], * (ABNORMAL) POCT Glucose, interfaced (02/18/2025 6:03 AM EDT) Glucose, POCT 137(H) 70 - 99 mg/dL 02/18/2025 6:05 AM EDT [facility] Comment: The client services associate has not determined the efficacy of this test in Critically ill patients. [facility] defines Critically ill patients for the purpose of blood glucose monitoring (BGM) by glucometer, as patients meeting one or more of the following criteria: Hypotension- non-ICU patients (systolic blood pressure Less than 90 mmHg) due to shock Hypotension -ICU patients (Mean Arterial Pressure (MAP) <60 mmHg or systolic blood pressure < 90 mmHg due to shock Patients receiving Vasopressors (phenylephrine, vasopressin or norepinephrine) Anasarca In all locations, BGM test results should not be relied upon in the above situations, unless these results confirmed with lab-based glucose values. Blood 02/18/2025 6:03 AM EDT 02/18/2025 6:05 AM EDT us Ryan Kelley MD LAB POCT ORDERABLES - DEVICE Final Result Performing Organization Address City/State/[facility] Co de Phone Number [facility], [facility] [address] [place] [address], * (ABNORMAL) POCT Glucose, interfaced (02/18/2025 4:07 AM EDT) [facility] Glucose, POCT 150(H) 70 - 99 mg/dL 02/18/2025 4:08 AM EDT [facility] Comment: The client services associate has not determined the efficacy of this test in Critically ill patients. [facility] defines Critically ill patients for the purpose of blood glucose monitoring (BGM) by glucometer, as patients meeting one or more of the following criteria: Hypotension- non-ICU patients (systolic blood pressure Less than 90 mmHg) due to shock Hypotension -ICU patients (Mean Arterial Pressure (MAP) <60 mmHg or systolic blood pressure < 90 mmHg due to shock Patients receiving Vasopressors (phenylephrine, vasopressin or norepinephrine) Anasarca In all locations, BGM test results should not be relied upon in the above situations, unless these results confirmed with lab-based glucose values. Blood 02/18/2025 4:07 AM EDT 02/18/2025 4:08 AM EDT us Ryan Kelley MD LAB POCT ORDERABLES - DEVICE Final Result [facility] [address] [place] [address], [place] * Troponin T, High Sensitivity (02/18/2025 3:09 AM EDT) Troponin T High Sensitivity 8 <=21 ng/L 02/18/2025 8:14 AM EDT [facility] Comment: Nm-[id number] level of 52 ng/L or higher at 0-hour at presentation is recommended by the ESC 0/1-hour algorithm for identifying patients at high risk for ruling in acute myocardial infarction (AMI) in the appropriate clinical context. Repeat troponin testing 1-3 hours after the initial sample may be helpful in assessing for ongoing myocardial injury. Troponin elevations can be seen in several other non-infarct conditions, and the change (delta) should be evaluated in line with the 4th Pray Definition of AMI. Troponin baseline and serial elevation for a significant delta should be interpreted with clinical presentation, history, signs and symptoms, ECG, and biomarker concentrations. For inpatient setting: Value <12ng/L is considered negative for all genders. 0-1hr: A delta change of <3 will be considered negative/flat if chest pain onset >3 hours 0-3hr: A delta change of <7 will be considered negative/flat Blood Structure of peripheral vein / Unknown Venipuncture / Unknown 02/18/2025 3:09 AM EDT 02/18/2025 3:12 AM EDT us Waylon ECKERT LAB BLOOD ORDERABLES Final Re sult [facility] [address] [place] [address], [place] * (ABNORMAL) CBC (02/18/2025 3:09 AM EDT) WBC 16.5(H) 3.8 - 10.8 10*3/uL 02/18/2025 3:17 AM EDT [facility] RBC 4.25 4.20 - 5.80 10*6/uL 02/18/2025 3:17 AM EDT [facility] Hemoglobin 13.0(L) 13.2 - 17.1 g/dL 02/18/2025 3:17 AM EDT [facility] Hematocrit 38.0(L) 38.5 - 50.0 % 02/18/2025 3:17 AM EDT [facility] MCV 89.4 80.0 - 100.0 fL 02/18/2025 3:17 AM EDT [facility] MCH 30.6 27.0 - 33.0 pg 02/18/2025 3:17 AM EDT [facility] MCHC 34.2 32.0 - 36.0 g/dL 02/18/2025 3:17 AM EDT [facility] RDW 12.3 11.0 - 15.0 % 02/18/2025 3:17 AM EDT [facility] Platelets 213 140 - 400 10*3/uL 02/18/2025 3:17 AM EDT [facility] MPV 11.2 7.5 - 12.5 fL 02/18/2025 3:17 AM EDT [facility] Blood Structure of peripheral vein / Unknown Venipuncture / Unknown 02/18/2025 3:09 AM EDT 02/18/2025 3:12 AM EDT us Yousuf Grimaldo INTERIOR DECORATOR LAB BLOOD ORDERABLES Final R esult [facility] [address] [place] [address], [place] * Phosphorus - Every 4 hours (02/18/2025 3:09 AM EDT) Phosphorus 2.5 2.5 - 4.5 mg/dL 02/18/2025 4:25 AM EDT [facility] Blood Structure of peripheral vein / Unknown Venipuncture / Unknown 02/18/2025 3:09 AM EDT 02/18/2025 3:12 AM EDT Ryan Kelley MD LAB BLOOD ORDERABLES Final R esult Performing Organization Address City/[facility] Co de Phone Number [facility] [address] [place] [address], [place] * Magnesium - Every 4 hours (02/18/2025 3:09 AM EDT) MG 2.4 1.6 - 2.4 mg/dL 02/18/2025 4:25 AM EDT [facility] Blood Structure of peripheral vein / Unknown Venipuncture / Unknown 02/18/2025 3:09 AM EDT 02/18/2025 3:12 AM EDT Ryan Kelley MD LAB BLOOD ORDERABLES Final R esult Performing Organization Address City/[facility] Co de Phone Number [facility] [address] [place] [address], [place] * (ABNORMAL) Basic Metabolic Panel - Every 4 hours (02/18/2025 3:09 AM EDT) NA 138 135 - 145 mmol/L 02/18/2025 4:25 AM EDT [facility] K 4.1 3.5 - 5.3 mmol/L 02/18/2025 4:25 AM EDT [facility] Cl 109 97 - 110 mmol/L 02/18/2025 4:25 AM EDT [facility] CO2 21(L) 22 - 32 mmol/L 02/18/2025 4:25 AM EDT [facility] BUN 16 7 - 23 mg/dL 02/18/2025 4:25 AM EDT [facility] Creatinine 0.81 0.60 - 1.30 mg/dL 02/18/2025 4:25 AM EDT [facility] Glucose 147(H) 65 - 99 mg/dL 02/18/2025 4:25 AM EDT [facility] Calcium 8.3(L) 8.6 - 10.5 mg/dL 02/18/2025 4:25 AM EDT [facility] Anion Gap 8 5 - 15 02/18/2025 4:25 AM EDT [facility] eGFR >90 >=60 mL/min/1. 73m2 02/18/2025 4:25 AM EDT [facility] Comment:The estimated glomer ular filtration rate (eGFR) is calculated using a new formula developed by the NKF-ASN task force to eliminate race-based correction factors. The new formula uses serum/plasma creatinine, age, and gender to determine eGFR. A value below 60mls/min might indicate kidney disease and will be flagged. For additional information, see Barraza et al, Am J Kidney Dis. 2021;79(2):268- 288, A Unifying Approach for GFR estimation: Recommendations of the NKF-ASN Task Force on Reassessing the Inclusion of Race in Diagnosing Kidney Disease . Blood Structure of peripheral vein / Unknown Venipuncture / Unknown 02/18/2025 3:09 AM EDT 02/18/2025 3:12 AM EDT us Ryan Kelley MD LAB BLOOD ORDERABLES Final R esult [facility] [address] [place] [address], * (ABNORMAL) POCT Glucose, interfaced (02/18/2025 3:08 AM EDT) Glucose, POCT 132(H) 70 - 99 mg/dL 02/18/2025 3:10 AM EDT [facility] Comment: The client services associate has not determined the efficacy of this test in Critically ill patients. [facility] defines Critically ill patients for the purpose of blood glucose monitoring (BGM) by glucometer, as patients meeting one or more of the following criteria: Hypotension- non-ICU patients (systolic blood pressure Less than 90 mmHg) due to shock Hypotension -ICU patients (Mean Arterial Pressure (MAP) <60 mmHg or systolic blood pressure < 90 mmHg due to shock Patients receiving Vasopressors (phenylephrine, vasopressin or norepinephrine) Anasarca In all locations, BGM test results should not be relied upon in the above situations, unless these results confirmed with lab-based glucose values. Blood 02/18/2025 3:08 AM EDT 02/18/2025 3:09 AM EDT us Ryan Kelley MD LAB POCT ORDERABLES - DEVICE Final Result [facility] [address] [place] [address], * (ABNORMAL) POCT Glucose, interfaced (02/18/2025 2:04 AM EDT) [facility] Glucose, POCT 130(H) 70 - 99 mg/dL 02/18/2025 2:06 AM EDT [facility] Comment: The client services associate has not determined the efficacy of this test in Critically ill patients. [facility] defines Critically ill patients for the purpose of blood glucose monitoring (BGM) by glucometer, as patients meeting one or more of the following criteria: Hypotension- non-ICU patients (systolic blood pressure Less than 90 mmHg) due to shock Hypotension -ICU patients (Mean Arterial Pressure (MAP) <60 mmHg or systolic blood pressure < 90 mmHg due to shock Patients receiving Vasopressors (phenylephrine, vasopressin or norepinephrine) Anasarca In all locations, BGM test results should not be relied upon in the above situations, unless these results confirmed with lab-based glucose values. Blood 02/18/2025 2:04 AM EDT 02/18/2025 2:06 AM EDT Ryan Kelley MD LAB POCT ORDERABLES - DEVICE Final Result Performing Organization Address [facility] Co de Phone Number ANTHONY [facility] [address] [place] [address], [place] * (ABNORMAL) POCT Glucose, interfaced (02/18/2025 1:03 AM EDT) Glucose, POCT 117(H) 70 - 99 mg/dL 02/18/2025 1:04 AM EDT [facility] Comment: The client services associate has not determined the efficacy of this test in Critically ill patients. [facility] defines Critically ill patients for the purpose of blood glucose monitoring (BGM) by glucometer, as patients meeting one or more of the following criteria: Hypotension- non-ICU patients (systolic blood pressure Less than 90 mmHg) due to shock Hypotension -ICU patients (Mean Arterial Pressure (MAP) <60 mmHg or systolic blood pressure < 90 mmHg due to shock Patients receiving Vasopressors (phenylephrine, vasopressin or norepinephrine) Anasarca In all locations, BGM test results should not be relied upon in the above situations, unless these results confirmed with lab-based glucose values. Blood 02/18/2025 1:03 AM EDT 02/18/2025 1:04 AM EDT Ryan Kelley MD LAB POCT ORDERABLES - DEVICE Final Result Performing Organization Address [facility] Co de Phone Number ANTHONY [facility], [facility] [address] [place] [address], [place] * (ABNORMAL) POCT Glucose, interfaced (02/18/2025 12:07 AM EDT) Glucose, POCT 118(H) 70 - 99 mg/dL 02/18/2025 12:07 AM EDT [facility] Comment: The client services associate has not determined the efficacy of this test in Critically ill patients. [facility] defines Critically ill patients for the purpose of blood glucose monitoring (BGM) by glucometer, as patients meeting one or more of the following criteria: Hypotension- non-ICU patients (systolic blood pressure Less than 90 mmHg) due to shock Hypotension -ICU patients (Mean Arterial Pressure (MAP) <60 mmHg or systolic blood pressure < 90 mmHg due to shock Patients receiving Vasopressors (phenylephrine, vasopressin or norepinephrine) Anasarca In all locations, BGM test results should not be relied upon in the above situations, unless these results confirmed with lab-based glucose values. Blood 02/18/2025 12:0 7 AM EDT 02/18/2025 12:07 AM EDT Ryan Kelley MD LAB POCT ORDERABLES - DEVICE Final Result Performing Organization Address [facility] Co de Phone Number [facility] [address] [place] [address], [place] * (ABNORMAL) Phosphorus - Every 4 hours (02/17/2025 11:12 PM EDT) Phosphorus 1.6(L) 2.5 - 4.5 mg/dL 02/17/2025 11:44 PM EDT [facility] Blood Structure of peripheral vein / Unknown Venipuncture / Unknown 02/17/2025 11:12 PM EDT 02/17/2025 11:12 PM EDT Yousuf Grimaldo NP LAB BLOOD ORDERABLES Final R esult Performing Organization Address City/[facility]/ZIP Co de Phone Number [facility] [address] [place] [address], [place] * Magnesium - Every 4 hours (02/17/2025 11:12 PM EDT) MG 1.9 1.6 - 2.4 mg/dL 02/17/2025 11:44 PM EDT [facility] Blood Structure of peripheral vein / Unknown Venipuncture / Unknown 02/17/2025 11:12 PM EDT 02/17/2025 11:12 PM EDT us Yousuf Grimaldo INTERIOR DECORATOR LAB BLOOD ORDERABLES Final R esult [facility] [address] [place] [address], * (ABNORMAL) Basic Metabolic Panel - Every 4 hours (02/17/2025 11:12 PM EDT) NA 139 135 - 145 mmol/L 02/17/2025 11:52 PM EDT [facility] K 3.9 3.5 - 5.3 mmol/L 02/17/2025 11:52 PM EDT [facility] Cl 111(H) 97 - 110 mmol/L 02/17/2025 11:52 PM EDT [facility] CO2 19(L) 22 - 32 mmol/L 02/17/2025 11:52 PM EDT [facility] BUN 18 7 - 23 mg/dL 02/17/2025 11:52 PM EDT [facility] Creatinine 0.82 0.60 - 1.30 mg/dL 02/17/2025 11:52 PM EDT [facility] Glucose 127(H) 65 - 99 mg/dL 02/17/2025 11:52 PM EDT [facility] Calcium 8.7 8.6 - 10.5 mg/dL 02/17/2025 11:52 PM EDT [facility] Anion Gap 9 5 - 15 02/17/2025 11:52 PM EDT [facility] eGFR >90 >=60 mL/min/1. 73m2 02/17/2025 11:52 PM EDT [facility] Comment:The estimated glomer ular filtration rate (eGFR) is calculated using a new formula developed by the NKF-ASN task force to eliminate race-based correction factors. The new formula uses serum/plasma creatinine, age, and gender to determine eGFR. A value below 60mls/min might indicate kidney disease and will be flagged. For additional information, see Christi et al, Am J Kidney Dis. 2021;79(2):268- 288, A Unifying Approach for GFR estimation: Recommendations of the NKF-ASN Task Force on Reassessing the Inclusion of Race in Diagnosing Kidney Disease . Blood Structure of peripheral vein / Unknown Venipuncture / Unknown 02/17/2025 11:12 PM EDT 02/17/2025 11:12 PM EDT us Yousuf Grimaldo INTERIOR DECORATOR LAB BLOOD ORDERABLES Final R esult [facility] [address] [place] [address], * (ABNORMAL) CBC (02/17/2025 11:12 PM EDT) WBC 16.8(H) 3.8 - 10.8 10*3/uL 02/17/2025 11:29 PM EDT [facility] RBC 4.40 4.20 - 5.80 10*6/uL 02/17/2025 11:29 PM EDT [facility] Hemoglobin 13.4 13.2 - 17.1 g/dL 02/17/2025 11:29 PM EDT [facility] Hematocrit 39.1 38.5 - 50.0 % 02/17/2025 11:29 PM EDT [facility] MCV 88.9 80.0 - 100.0 fL 02/17/2025 11:29 PM EDT [facility] MCH 30.5 27.0 - 33.0 pg 02/17/2025 11:29 PM EDT [facility] MCHC 34.3 32.0 - 36.0 g/dL 02/17/2025 11:29 PM EDT [facility] RDW 12.3 11.0 - 15.0 % 02/17/2025 11:29 PM EDT [facility] Platelets 214 140 - 400 10*3/uL 02/17/2025 11:29 PM EDT [facility] MPV 11.5 7.5 - 12.5 fL 02/17/2025 11:29 PM EDT [facility] Blood Structure of peripheral vein / Unknown Venipuncture / Unknown 02/17/2025 11:12 PM EDT 02/17/2025 11:12 PM EDT us Yousuf Grimaldo INTERIOR DECORATOR LAB BLOOD ORDERABLES Final R esult [facility] [address] [place] [address], [place] * (ABNORMAL) Urinalysis W/Reflex to Microscopic (No Culture) (02/17/2025 11:12 PM EDT) Color, Urine Light Yellow Colorless, Light Yellow, Yellow, Dark Yellow 02/17/2025 11:51 PM EDT [facility] Clarity, Urine Clear Clear 02/17/2025 11:51 PM EDT [facility] Specific [place], Urine 1.027 <1.030 02/17/2025 11:51 PM EDT [facility] pH, Urine 5.5 4.6 - 8.0 02/17/2025 11:51 PM EDT [facility] Protein, Urine Negative Negative 02/17/2025 11:51 PM EDT [facility] Glucose, Urine 4+(A) Normal 02/17/2025 11:51 PM EDT [facility] Ketones, Urine 3+(A) Negative 02/17/2025 11:51 PM EDT [facility] Bilirubin, Urine Negative Negative 02/17/2025 11:51 PM EDT [facility] Blood, Urine Negative Negative 02/17/2025 11:51 PM EDT [facility] Nitrite, Urine Negative Negative 02/17/2025 11:51 PM EDT [facility] Urobilinogen, Urine Normal Normal 02/17/2025 11:51 PM EDT [facility] Leukocyte Esterase, Urine Negative Negative 02/17/2025 11:51 PM EDT [facility] Urine Urine specimen collection, clean catch / Unknown Non-Blood Collection / Unknown 02/17/2025 11:12 PM EDT 02/17/2025 11:12 PM EDT us Yousuf Grimaldo NP LAB URINE ORDERABLES Final R esult [facility] [address] [place] [id number], [place] * (ABNORMAL) POCT Glucose, interfaced (02/17/2025 11:03 PM EDT) [facility] Glucose, POCT 121(H) 70 - 99 mg/dL 02/17/2025 11:05 PM EDT [facility] Comment: The client services associate has not determined the efficacy of this test in Critically ill patients. [facility] defines Critically ill patients for the purpose of blood glucose monitoring (BGM) by glucometer, as patients meeting one or more of the following criteria: Hypotension- non-ICU patients (systolic blood pressure Less than 90 mmHg) due to shock Hypotension -ICU patients (Mean Arterial Pressure (MAP) <60 mmHg or systolic blood pressure < 90 mmHg due to shock Patients receiving Vasopressors (phenylephrine, vasopressin or norepinephrine) Anasarca In all locations, BGM test results should not be relied upon in the above situations, unless these results confirmed with lab-based glucose values. Blood 02/17/2025 11:0 3 PM EDT 02/17/2025 11:04 PM EDT us Ryan Kelley MD LAB POCT ORDERABLES - DEVICE Final Result ANTHONY Cordon [facility], [facility] [address] [place] [address], [place] * (ABNORMAL) POCT Glucose, interfaced (02/17/2025 9:44 PM EDT) Glucose, POCT 125(H) 70 - 99 mg/dL 02/17/2025 9:45 PM EDT [facility] Comment: The client services associate has not determined the efficacy of this test in Critically ill patients. [facility] defines Critically ill patients for the purpose of blood glucose monitoring (BGM) by glucometer, as patients meeting one or more of the following criteria: Hypotension- non-ICU patients (systolic blood pressure Less than 90 mmHg) due to shock Hypotension -ICU patients (Mean Arterial Pressure (MAP) <60 mmHg or systolic blood pressure < 90 mmHg due to shock Patients receiving Vasopressors (phenylephrine, vasopressin or norepinephrine) Anasarca In all locations, BGM test results should not be relied upon in the above situations, unless these results confirmed with lab-based glucose values. Blood 02/17/2025 9:44 PM EDT 02/17/2025 9:45 PM EDT us Ploo Medrano MD LAB POCT ORDERABLES - DEVIC E Final Result Performing Organization Address [facility] de Phone Number [facility], POC [address] [place] [address], [place] * (ABNORMAL) POCT I-STAT Lactate W/VBG, interfaced (02/17/2025 5:45 PM EDT) Sample Type, POCT Venous 02/17/2025 5:47 PM EDT [facility], [facility]OC Lactate, POCT 3.28(H) 0.9 - 1.7 mmol/L 02/17/2025 5:47 PM EDT [facility], [facility] pH, POCT 7.23(L) 7.31 - 7.41 pH 02/17/2025 5:47 PM EDT [facility], [facility] pCO2, POCT 33.0(L) 41 - 51 mm Hg 02/17/2025 5:47 PM EDT [facility], [facility] pO2, POCT 49(H) 35 - 40 mm Hg 02/17/2025 5:47 PM EDT [facility], [facility] Base Excess, POCT -14(L) 0 - 3 mmol/L 02/17/2025 5:47 PM EDT [facility], [facility] HCO3, POCT 13.7(L) 23 - 28 mmol/L 02/17/2025 5:47 PM EDT [facility] TCO2, POCT 15(LL) 24 - 29 mmol/L 02/17/2025 5:47 PM EDT [facility], [facility] Saturated O2, POCT 77(H) 70 - 75 % 02/17/2025 5:47 PM EDT [facility], [facility] Test, POCT N/A 02/17/2025 5:47 PM EDT [facility], [facility] Blood 02/17/2025 5:45 PM EDT 02/17/2025 5:47 PM EDT Saida Haro MD LAB POCT ORDERABLES - DONOVAN CE Final Result Performing Organization Address City/[facility]/ZIP Co de Phone Number [facility], POC [address] [place] [address], * Lima Top (02/17/2025 5:12 PM EDT) Extra Tube Hold for add-ons. 02/17/2025 10:05 PM EDT [facility] [employer] CL[facility]ICAL PATHOLOGY LABORATORY Comment:Auto resulted. Blood Structure of peripheral vein / Unknown Venipuncture / Unknown 02/17/2025 5:12 PM EDT 02/17/2025 5:21 PM EDT Saida Haro MD LAB BLOOD ORDERABLES Final Result [facility] [facility] CL[facility]ICAL [facility] LABORATORY [address] [place] [address], [place] * Light Blue Top (02/17/2025 5:12 PM EDT) Extra Tube Hold for add-ons. 02/17/2025 10:05 PM EDT [facility] CLINICAL PATHOLOGY LABORATORY Comment:Auto resulted. Blood Structure of peripheral vein / Unknown Venipuncture / Unknown 02/17/2025 5:12 PM EDT 02/17/2025 5:21 PM EDT Saida Haro MD LAB BLOOD ORDERABLES Final Result Performing Organization Address City/[facility]/ZIP Co de Phone Number [facility]ICAL PATHOLOG[facility] LABORATORY [address] [place] [address], * Blood Bank Hold Tube (02/17/2025 5:12 PM EDT) Extra Tube Hold for add-ons. [place] [facility] 02/17/2025 10:05 PM EDT BLOOD BANK Comment:Auto resulted. Blood Structure of peripheral vein / Unknown Venipuncture / Unknown 02/17/2025 5:12 PM EDT 02/17/2025 5:26 PM EDT Saida Haro MD LAB BLOOD BANK TEST ORDERA BLES Final Result BLOOD BANK [address] [place] [address], * Magnesium (02/17/2025 5:12 PM EDT) MG 1.9 1.6 - 2.4 mg/dL 02/17/2025 6:13 PM EDT [facility] CL[facility] PATHOLOGY LAB[facility]ATORY Blood Structure of peripheral vein / Unknown Venipuncture / Unknown 02/17/2025 5:12 PM EDT 02/17/2025 5:25 PM EDT Saida Haro MD LAB BLOOD ORDERABLES Final Result Performing Organization Address City/[facility]/ZIP Co de Phone Number [facility] [employer] CL[facility]ICAL PATHOLOGY LABORATORY [address] [place] [address] * (ABNORMAL) Betahydroxybutyrate (02/17/2025 5:12 PM EDT) Beta-Hydroxybu tyrate 4.45(H) <=0.27 mmol/L 02/17/2025 6:13 PM EDT [facility] [facility] Blood Structure of peripheral vein / Unknown Venipuncture / Unknown 02/17/2025 5:12 PM EDT 02/17/2025 5:25 PM EDT Saida Haro MD LAB BLOOD ORDERABLES Final Result Performing Organization Address City/[facility]/ZIP Co de Phone Number [employer] CLINICAL PATHOLOGY LABORATORY [address] [place] [address] * (ABNORMAL) BMP - Basic Metabolic Panel (02/17/2025 5:12 PM EDT) NA 135 135 - 145 mmol/L 02/17/2025 6:13 PM EDT [employer] [facility] K 4.8 3.5 - 5.3 mmol/L 02/17/2025 6:13 PM EDT [employer] [facility] Cl 99 97 - 110 mmol/L 02/17/2025 6:13 PM EDT [employer] [facility] LAB[facility] CO2 9(LL) 22 - 32 mmol/L 02/17/2025 6:13 PM EDT [employer] [facility] Comment:Result confirmed by repeat analysis. BUN 23 7 - 23 mg/dL 02/17/2025 6:13 PM EDT [employer] [facility] Creatinine 1.12 0.60 - 1.30 mg/dL 02/17/2025 6:13 PM EDT [employer] [facility] Glucose 372(H) 65 - 99 mg/dL 02/17/2025 6:13 PM EDT [facility] CL[facility] PATHOLOG[facility] LAB[facility]ORY Calcium 9.7 8.6 - 10.5 mg/dL 02/17/2025 6:13 PM EDT [facility] LAB[facility] Anion Gap 27(H) 5 - 15 02/17/2025 6:13 PM EDT [facility] LAB[facility] eGFR 87 >=60 mL/min/1. 73m2 02/17/2025 6:13 PM EDT [facility] PATHOLOG[facility] LABOR[facility]ORY Comment:The estimated glomer ular filtration rate (eGFR) is calculated using a new formula developed by the NKF-ASN task force to eliminate race-based correction factors. The new formula uses serum/plasma creatinine, age, and gender to determine eGFR. A value below 60mls/min might indicate kidney disease and will be flagged. For additional information, see Christi et al, Am J Kidney Dis. 2021;79(2):268- 288, A Unifying Approach for GFR estimation: Recommendations of the NKF-ASN Task Force on Reassessing the Inclusion of Race in Diagnosing Kidney Disease . Blood Structure of peripheral vein / Unknown Venipuncture / Unknown 02/17/2025 5:12 PM EDT 02/17/2025 5:25 PM EDT us Saida Haro MD LAB BLOOD ORDERABLES Final Result [facility] CL[facility]ICAL PATHOLOGY LABORATORY [address] [place] [id number], * (ABNORMAL) CBC Auto Differential (02/17/2025 5:12 PM EDT) WBC 21.0(H) 3.8 - 10.8 10*3/uL 02/17/2025 5:26 PM EDT [facility] LAB[facility] RBC 4.91 4.20 - 5.80 10*6/uL 02/17/2025 5:26 PM EDT [facility] LAB[facility] Hemoglobin 14.9 13.2 - 17.1 g/dL 02/17/2025 5:26 PM EDT [facility] Hematocrit 44.4 38.5 - 50.0 % 02/17/2025 5:26 PM EDT [facility] MCV 90.4 80.0 - 100.0 fL 02/17/2025 5:26 PM EDT [facility] MCH 30.3 27.0 - 33.0 pg 02/17/2025 5:26 PM EDT [facility] MCHC 33.6 32.0 - 36.0 g/dL 02/17/2025 5:26 PM EDT [facility] RDW 12.1 11.0 - 15.0 % 02/17/2025 5:26 PM EDT [facility] Platelets 211 140 - 400 10*3/uL 02/17/2025 5:26 PM EDT [facility] MPV 11.9 7.5 - 12.5 fL 02/17/2025 5:26 PM EDT [facility] Neutrophil % 86.5 % 02/17/2025 5:26 PM EDT [facility] Immature Grans % 0.5 0.0 - 0.9 % 02/17/2025 5:26 PM EDT [facility] Lymphocyte % 4.8 % 02/17/2025 5:26 PM EDT [facility] Monocyte % 8.0 % 02/17/2025 5:26 PM EDT [facility] Eosinophil % 0.0 % 02/17/2025 5:26 PM EDT [facility] Basophil % 0.2 % 02/17/2025 5:26 PM EDT [facility] Neutrophil # 18.15(H) 1.50 - 7.80 10*3/uL 02/17/2025 5:26 PM EDT [email or web address] Immature Grans # 0.10(H) <=0.03 10*3/uL 02/17/2025 5:26 PM EDT [facility] Lymphocyte # 1.00 0.85 - 3.90 10*3/uL 02/17/2025 5:26 PM EDT [facility] Monocyte # 1.70(H) 0.20 - 0.95 10*3/uL 02/17/2025 5:26 PM EDT [facility] Eosinophil # <0.03 0.02 - 0.50 10*3/uL 02/17/2025 5:26 PM EDT [facility] Basophil # <0.03 0.00 - 0.20 10*3/uL 02/17/2025 5:26 PM EDT [facility] nRBC % 0.0 /100 WBCs 02/17/2025 5:26 PM EDT [facility] nRBC # <0.01 <0.01 10*3/uL 02/17/2025 5:26 PM EDT [email or web address] LAB[facility] Blood Structure of peripheral vein / Unknown Venipuncture / Unknown 02/17/2025 5:12 PM EDT 02/17/2025 5:20 PM EDT us Saida Haro MD LAB BLOOD ORDERABLES Final Result Performing Organization Address City/State/[facility] Co de Phone Number [facility] CL[facility] LABORAT[facility] [address] [place] [phone], * (ABNORMAL) POCT Glucose, interfaced (02/17/2025 4:44 PM EDT) [facility] Glucose, POCT 333(H) 70 - 99 mg/dL 02/17/2025 4:45 PM EDT [facility] Comment: The client services associate has not determined the efficacy of this test in Critically ill patients. [facility] defines Critically ill patients for the purpose of blood glucose monitoring (BGM) by glucometer, as patients meeting one or more of the following criteria: Hypotension- non-ICU patients (systolic blood pressure Less than 90 mmHg) due to shock Hypotension -ICU patients (Mean Arterial Pressure (MAP) <60 mmHg or systolic blood pressure < 90 mmHg due to shock Patients receiving Vasopressors (phenylephrine, vasopressin or norepinephrine) Anasarca In all locations, BGM test results should not be relied upon in the above situations, unless these results confirmed with lab-based glucose values. Blood 02/17/2025 4:44 PM EDT 02/17/2025 4:45 PM EDT us Doctor Unknown LAB POCT ORDERABLES - DEVICE Fin al Result Performing Organization Address City/State/[facility] Co de Phone Number [facility], POC [address] [place] [address], [place] * HEART & VASCULAR - SCANNED (02/17/2025) Anatomical Region Laterality Modality Other us Onbase Scan Tia SCANNED PROCEDURES Final Resu lt * HEART & VASCULAR - SCANNED (02/17/2025) Anatomical Region Laterality Modality Other us Onbase Scan Tia SCANNED PROCEDURES Final Resu lt * HEART & VASCULAR - SCANNED (02/17/2025) Anatomical Region Laterality Modality Other us Onbase Scan Tia SCANNED PROCEDURES Final Resu lt documented in this encounter Visit Diagnoses Diagnosis DKA, type 1, not at goal- Primary DKA, type 1, not at goal Metabolic acidosis due to diabetes mellitus Leukemoid reaction documented in this encounter Admitting Diagnoses Diagnosis DKA, type 1, not at goal documented in this encounter Administered Medications Inactive Administered Medications - up to 3 most recent administrations Medication Order MAR Action Action Date Dose Rate Site acetaminophen (TYLENOL) tablet 650 mg 650 mg, oral, Every 6 hours PRN, headache, fever, pain, Starting on 02/18/25 at 1938, Until 02/19/25 at 1306 Given 02/19/2025 4:23 AM EDT 650 mg Given 02/18/2025 7:45 PM EDT 650 mg benzocaine-menthoL (CEPACOL) lozenge 1 lozenge 1 lozenge, mucous membrane, Every 2 hour PRN, sore throat, Starting on 02/18/25 at 0907, Until 02/19/25 at 1306 Given 02/19/2025 8:39 AM EDT 1 lozeng e Given 02/18/2025 5:44 PM EDT 1 lozenge Given 02/18/2025 12:53 PM EDT 1 lozenge dextrose (D50W) IV injection 12.5 g 12.5 g, intravenous, Every 15 min PRN, If Glucose 40-59 mg/dL in a patient without enteral access., Starting on 02/18/25 at 0434, Until 02/19/25 at 1306, If Glucose 40-59 mg/dL: Stop infusion and administer IV dextrose. Then check glucose 15 minutes after dextrose administration and repeat administration until BG is equal to or greater than 100 mg/dL. Resume glucose measurements every 1 hour. If previously requiring an insulin infusion, resume insulin at 50% of previous rate when glucose rises above 120 mg/dL. (new rate = current rate x 0.5) dextrose (D50W) IV injection 25 g 25 g, intravenous, Every 15 min PRN, If Glucose less than 40 mg/dL in a patient without enteral access., Starting on 02/18/25 at 0434, Until 02/19/25 at 1306, If Glucose less than 40 mg/dL: Stop infusion and administer IV dextrose. Then check glucose 15 minutes after dextrose administration and repeat administration until BG is equal to or greater than 100 mg/dL. Resume glucose measurements every 1 hour. If previously requiring an insulin infusion, resume insulin at 50% of previous rate when glucose rises above 120 mg/dL. (new rate = current rate x 0.5) dextrose (D50W) IV injection 6.25 g 6.25 g, intravenous, Every 15 min PRN, If Glucose 60-69 mg/dL in a patient without enteral access., Starting on 02/18/25 at 0434, Until 02/19/25 at 1306, If Glucose 60-69 mg/dL: Stop infusion and administer IV dextrose. Then check glucose 15 minutes after dextrose administration and repeat administration until BG is equal to or greater than 100 mg/dL. Resume glucose measurements every 1 hour. If previously requiring an insulin infusion, resume insulin at 50% of previous rate when glucose rises above 120 mg/dL. (new rate = current rate x 0.5) dextrose (GLUTOSE) gel 15 g 15 g, oral, Every 15 min PRN, Glucose less than or equal to 100 mg/dL in a conscious patient with enteral access. May alternatively give 4 oz of non-diabetic juice., Starting on 02/18/25 at 0434, Until 02/19/25 at 1306, 0.2 g (200 mg) = 0.5 mL dextrose 5% and lactated Ringer's (LR) premix infusion intravenous, at 150 mL/hr, Continuous PRN, Blood glucose is less than 250 mg/dL., Starting on Thu02/17/25 at 2244, Until 02/18/25 at 0434 Rate/Dose Verify 02/18/2025 4:00 AM EDT 150 mL/hr Rate/Dose Verify 02/18/2025 3:00 AM EDT 150 mL/ hr Rate/Dose Verify 02/18/2025 2:00 AM EDT 150 mL/ hr dextrose 5% and lactated Ringer's (LR) premix infusion intravenous, at 70 mL/hr, Continuous, Starting on 02/18/25 at 0445, Until 02/18/25 at 1518 Rate/Dose Verify 02/18/2025 12:00 PM EDT 100 mL/hr Restarted 02/18/2025 11:50 AM EDT 100 mL/hr Rate/Dose Verify 02/18/2025 9:00 AM EDT 100 mL/ hr insulin lispro (ADMELOG/HumaLOG - 100 units/mL) injection 1-20 Units 1-20 Units, subcutaneous, See admin instructions, Starting on 02/18/25 at 0434, Until 02/18/25 at 1742, If patient resumes an oral diet while continuing to require an insulin infusion, see Carbohydrate Counting Table to determine and give dose of insulin lispro (HumaLOG). Check blood glucose two hours after the administration of subcutaneous insulin lispro and adjust the insulin infusion per the Carbohydrate Counting Table. Amount of Carbohydrates Consumed: Amount of subcutaneous insulin lispro to administer: Greater than 30 g (Greater than 50% of meal) 3 x current insulin infusion; max 20 units of insulin lispro 15-30 g (25-50% of meal) 2 x current insulin infusion; max 20 units of insulin lispro Less than 15 g (Less than 25% of meal) 1 x current insulin infusion; max 20 units of insulin lispro No carbohydrates consumed None Administer within 30 minutes of fingerstick blood glucose. Given 02/18/2025 10:42 AM EDT 2 Units Left Upper Arm (Back) INSULIN PUMP - insulin lispro (ADMELOG/HumaLOG) patient supplied pump 100 Units 100 Units, pump refill, See admin instructions, Starting on 02/18/25 at 1539, Until 02/19/25 at 1306, Do not stop/remove insulin pump unless patient is unconscious or with an LIP order. Current pump settings: Basal: 0.75 Correction: 1:45 Carb Ratio: 1:7 Target blood glucose: 110 When the patient requires a pump refill, please request a vial from pharmacy. This record is for documentation of pump refills. insulin regular in 0.9 % NaCl (MYXREDLIN) premix infusion 0-20 Units/hr (0-20 mL/hr), intravenous, Continuous, Starting on Thu02/17/25 at 1840, Until Thu02/17/25 at 2222, Initial rate: No [place] Body Weight recorded. Initial rate: 10 units/hr DO NOT START INSULIN IF serum potassium less than 3.3 mEq/L Check blood sugar as ordered If BS drops greater than 100 mg/dL/hr contact the MD/LIP. DO NOT shut insulin off unless FSBS less than 70 mg/dL. Rate/Dose Change 02/17/2025 9:44 PM EDT 5 Units/hr 5 mL/hr Continue on Transfer 02/17/2025 9:35 PM EDT 10 Units/hr 10 mL/hr New Bag/Syringe 02/17/2025 7:38 PM EDT 10 Units/hr 10 mL/h r insulin regular in 0.9 % NaCl (MYXREDLIN) premix infusion 0.5-20 Units/hr (0.5-20 mL/hr), intravenous, Continuous PRN, per protocol, Starting on Thu02/17/25 at 2232, Until 02/18/25 at 0434, DO NOT START INSULIN IF serum potassium less than 3.3 mEq/L Initiate infusion at 5 units/hour. Do not exceed 20 units/hour. If maximum infusion rate exceeds 20 units per hour: notify provider to discuss orders for bolus doses of insulin or to titrate outside of the protocol. Check blood sugar as ordered and adjust insulin rate per DKA protocol, round insulin dose up to the nearest 0.5 units. BS should be decreased no more than 50-100 mg/dL/hr. If BS drops greater than 100 mg/dL/hr, follow protocol and contact the MD/provider. If insulin drip does not change despite a decrease in BG, contact MD/provider to increase dextrose infusion. DO NOT shut insulin off unless FSBS less than 70 mg/dL. Rate/Dose Change 02/18/2025 4:13 AM EDT 2.5 Units/hr 2.5 mL/hr Rate/Dose Verify 02/18/2025 4:00 AM EDT 2 Units/hr 2 mL/hr Rate/Dose Change 02/18/2025 3:13 AM EDT 2 Units/hr 2 mL/hr insulin regular in 0.9 % NaCl (MYXREDLIN) premix infusion 0.5-20 Units/hr (0.5-20 mL/hr), intravenous, Continuous PRN, per protocol, Starting on 02/18/25 at 0434, Until 02/18/25 at 1742, -For patients with type 1 DM, do NOT stop insulin infusion per protocol and notify provider. - If tube feeds/TPN are held and/or discontinued while receiving IV insulin, decrease the insulin infusion by 50% and recheck blood glucose per protocol. - Maximum infusion rate is 20 units/hour. If patient requires greater than 20 units/hour, notify provider to order bolus dosing with regular insulin. - Round all insulin drip rates to the nearest 0.5 units/hour. - If the amount to decrease exceeds the rate of insulin infusion, turn off the infusion and resume every 2 hour blood glucose checks. Restart insulin infusion at 50% of previous rate once blood glucose exceeds 120 mg/dL. Rate/Dose Verify 02/18/2025 5:00 PM EDT 5.5 Units/hr 5.5 mL/hr Rate/Dose Verify 02/18/2025 4:00 PM EDT 5.5 Units/hr 5.5 m L/hr Rate/Dose Verify 02/18/2025 3:00 PM EDT 5.5 Units/hr 5.5 m L/hr lactated Ringer's (LR) bolus 1,000 mL 1,000 mL, intravenous, Once, On Thu02/17/25 at 1840, 1 dose New Bag/Syringe 02/17/2025 7:37 PM EDT 1,000 mL lactated Ringer's (LR) premix infusion intravenous, at 150 mL/hr, Continuous, Starting on Thu02/17/25 at 1840, Until Thu02/17/25 at 2222, Discontinue this infusion and initiate dextrose-containing fluid infusion when blood glucose is less than 250 mg/dL. New Bag/Syringe 02/17/2025 6:40 PM EDT 150 mL/hr magnesium sulfate 2 g in SWFI 50 mL IVPB premix 2 g, intravenous, Administer over 2 Hours, See admin instructions, Starting on Thu02/17/25 at 2244, Until 02/18/25 at 0434, Magnesium 1.7-1.9 mg/dL: 2 g IV (1 bag) over 2 hours Magnesium 1.2-1.6 mg/dL: 4 g IV (2 bags) over 4 hours Magnesium less than 1.2 mg/dL: 6 g IV (3 bags) over 6 hours and notify LIP New Bag/Syringe 02/18/2025 12:11 AM EDT 2 g ondansetron (ZOFRAN) injection 4 mg 4 mg, intravenous, Once, On Thu02/17/25 at 1720, 1 dose Given 02/17/2025 5:38 PM EDT 4 mg potassium chloride 10 mEq in 100 mL IVPB premix 10 mEq, intravenous, See admin instructions, Starting on Thu02/17/25 at 2243, Until 02/18/25 at 0434, serum potassium 3.8-4.4 mmol/L: give IV KCl 20 mEq (2 bags) over 2 hours serum potassium 3.5-3.7 mmol/L: give IV KCl 40 mEq (4 bags) over 4 hours serum potassium 3.0-3.4 mmol/L: give IV KCl 60 mEq (6 bags) over 6 hours serum potassium less than 3.0 mmol/L: give IV KCl 80 mEq (8 bags) over 8 hours Call Provider if serum potassium greater than 5.2 mmol/L or less than 3.0 mmol/L New Bag/Syringe 02/18/2025 1:34 AM EDT 10 mEq New Bag/Syringe 02/18/2025 12:09 AM EDT 10 mEq potassium chloride ER (KLOR-CON) tablet 40 mEq 40 mEq, oral, Once, On Thu02/19/25 at 0800, 1 dose, Do not crush. Given 02/19/2025 8:39 AM EDT 40 mEq potassium phosphate 30 mmol in 0.9% NaCl 500 mL infusion 30 mmol, intravenous, at 125 mL/hr, Administer over 4 Hours, Once, On 02/18/25 at 1030, 1 dose, Room Temperature. Rate/Dose Verify 02/18/2025 1:00 PM EDT 125 mL/hr Rate/Dose Verify 02/18/2025 12:00 PM EDT 125 mL /hr New Bag/Syringe 02/18/2025 11:50 AM EDT 30 mmol 125 mL/ hr sodium chloride 0.9% (NS) bolus 1,000 mL 1,000 mL, intravenous, Once, On Thu02/17/25 at 1710, 1 dose New Bag/Syringe 02/17/2025 5:38 PM EDT 1,000 mL sodium chloride 0.9% flush 2.5-10 mL 2.5-10 mL, intravenous, See admin instructions, Starting on Thu02/17/25 at 2232, Until 02/19/25 at 1306, Flush each lumen with a pulsatile motion with a minimum of 2.5 mL before and after use. Please note which lumen(s) have been flushed in comments section. sodium chloride 0.9% flush 2.5-10 mL 2.5-10 mL, intravenous, Every 12 hours scheduled, First dose on Thu02/17/25 at 2245, Until Discontinued, Flush each lumen with a pulsatile motion with a minimum of 2.5 mL every 12 hours. Please note which lumen(s) have been flushed in comments section. Given 02/19/2025 8:41 AM EDT 10 mL Given 02/17/2025 11:11 PM EDT 10 mL sodium chloride 0.9% flush 2.5-10 mL 2.5-10 mL, intravenous, See admin instructions, Starting on Thu02/17/25 at 2232, Until Thu02/19/25 at 1306, Flush each lumen with a pulsatile motion with a minimum of 2.5 mL before and after use. Please note which lumen(s) have been flushed in comments section. sodium chloride 0.9% flush 2.5-10 mL 2.5-10 mL, intravenous, Every 12 hours scheduled, First dose on Thu02/17/25 at 2245, Until Discontinued, Flush each lumen with a pulsatile motion with a minimum of 2.5 mL every 12 hours. Please note which lumen(s) have been flushed in comments section. Given 02/19/2025 8:41 AM EDT 10 mL Given 02/18/2025 8:09 PM EDT 10 mL Given 02/17/2025 11:11 PM EDT 10 mL sodium chloride 0.9% flush 2.5-10 mL 2.5-10 mL, intravenous, See admin instructions, Starting on Thu02/17/25 at 2243, Until 02/19/25 at 1306, Flush each lumen with a pulsatile motion with a minimum of 2.5 mL before and after use. Please note which lumen(s) have been flushed in comments section. sodium chloride 0.9% flush 2.5-10 mL 2.5-10 mL, intravenous, Every 12 hours scheduled, First dose on Thu02/17/25 at 2300, Until Discontinued, Flush each lumen with a pulsatile motion with a minimum of 2.5 mL every 12 hours. Please note which lumen(s) have been flushed in comments section. Given 02/19/2025 8:41 AM EDT 10 mL Given 02/18/2025 8:09 PM EDT 10 mL documented in this encounter Active and Recently Administered Medications Times are shown in EDT. Scheduled Medication Order 02/17/2025 02/18/2025 02/19/2025 enoxaparin (LOVENOX) subcutaneous injection 40 mg 40 mg, subcutaneous, Daily, First dose on 02/18/25 at 1700, Until Discontinued 1700 (Not Given - Provider: Ria Madera RN - Reason: Patient/family refused) insulin lispro (ADMELOG/HumaLOG - 100 units/mL) injection 1-20 Units (CANCELED) 1-20 Units, subcutaneous, See admin instructions, Starting on 02/18/25 at 0434, Until 02/18/25 at 1742, If patient resumes an oral diet while continuing to require an insulin infusion, see Carbohydrate Counting Table to determine and give dose of insulin lispro (HumaLOG). Check blood glucose two hours after the administration of subcutaneous insulin lispro and adjust the insulin infusion per the Carbohydrate Counting Table. Amount of Carbohydrates Consumed: Amount of subcutaneous insulin lispro to administer: Greater than 30 g (Greater than 50% of meal) 3 x current insulin infusion; max 20 units of insulin lispro 15-30 g (25-50% of meal) 2 x current insulin infusion; max 20 units of insulin lispro Less than 15 g (Less than 25% of meal) 1 x current insulin infusion; max 20 units of insulin lispro No carbohydrates consumed None Administer within 30 minutes of fingerstick blood glucose. 1042 (Given - Provider: Ria Madera RN) INSULIN PUMP - insulin lispro (ADMELOG/HumaLOG) patient supplied pump 100 Units 100 Units, pump refill, See admin instructions, Starting on 02/18/25 at 1539, Until Thu02/19/25 at 1306, Do not stop/remove insulin pump unless patient is unconscious or with an LIP order. Current pump settings: Basal: 0.75 Correction: 1:45 Carb Ratio: 1:7 Target blood glucose: 110 When the patient requires a pump refill, please request a vial from pharmacy. This record is for documentation of pump refills. lactated Ringer's (LR) bolus 1,000 mL (COMPLETED) 1,000 mL, intravenous, Once, On Thu02/17/25 at 1840, 1 dose 1936 (New Bag/Syringe - Provider: Jose Manuel Nation, NONA)211 (Stopped - Provider: Jose Manuel Nation, NONA) magnesium sulfate 2 g in SWFI 50 mL IVPB premix (CANCELED) 2 g, intravenous, Administer over 2 Hours, See admin instructions, Starting on Thu02/17/25 at 2244, Until 02/18/25 at 0434, Magnesium 1.7-1.9 mg/dL: 2 g IV (1 bag) over 2 hours Magnesium 1.2-1.6 mg/dL: 4 g IV (2 bags) over 4 hours Magnesium less than 1.2 mg/dL: 6 g IV (3 bags) over 6 hours and notify LIP 0011 (New Bag/Syringe - Provider: Kirsten Trammell RN)0100 (Stopped - Provider: Kirsten Trammell RN) ondansetron (ZOFRAN) injection 4 mg (COMPLETED) 4 mg, intravenous, Once, On Thu02/17/25 at 1720, 1 dose 1738 (Given - Provider: Leslee Cash RN) potassium chloride 10 mEq in 100 mL IVPB premix (CANCELED) 10 mEq, intravenous, See admin instructions, Starting on Thu02/17/25 at 2243, Until 02/18/25 at 0434, serum potassium 3.8-4.4 mmol/L: give IV KCl 20 mEq (2 bags) over 2 hours serum potassium 3.5-3.7 mmol/L: give IV KCl 40 mEq (4 bags) over 4 hours serum potassium 3.0-3.4 mmol/L: give IV KCl 60 mEq (6 bags) over 6 hours serum potassium less than 3.0 mmol/L: give IV KCl 80 mEq (8 bags) over 8 hours Call Provider if serum potassium greater than 5.2 mmol/L or less than 3.0 mmol/L 0009 (New Bag/Syringe - Provider: Kirsten Trammell RN - Comment: K 3.9)0100 (Stopped - Provider: Kirsten Trammell RN)0134 (New Bag/Syringe - Provider: Kirsten Trammell RN)0200 (Stopped - Provider: Kirsten Trammell, NONA) potassium chloride ER (KLOR-CON) tablet 40 mEq (COMPLETED) 40 mEq, oral, Once, On Thu02/19/25 at 0800, 1 dose, Do not crush. 0839 (Given - Provider: Ria Madera, NONA) potassium phosphate 30 mmol in 0.9% NaCl 500 mL infusion (COMPLETED) 30 mmol, intravenous, at 125 mL/hr, Administer over 4 Hours, Once, On 02/18/25 at 1030, 1 dose, Room Temperature. 1150 (New Bag/Syringe - Provider: Ria Madera RN)1200 (Rate/Dose Verify - Provider: Ria Madera RN)1300 (Rate/Dose Verify - Provider: Ria Madera RN)1939 (Stopped - Provider: Kirsten Trammell RN) sodium chloride 0.9% (NS) bolus 1,000 mL (COMPLETED) 1,000 mL, intravenous, Once, On Thu02/17/25 at 1710, 1 dose 1738 (New Bag/Syringe - Provider: Leslee Cash, RN)1900 (Stopped - Provider: Jose Manuel Nation RN) sodium chloride 0.9% flush 2.5-10 mL(Linked Group 1) 2.5-10 mL, intravenous, See admin instructions, Starting on Thu02/17/25 at 2232, Until Thu02/19/25 at 1306, Flush each lumen with a pulsatile motion with a minimum of 2.5 mL before and after use. Please note which lumen(s) have been flushed in comments section. sodium chloride 0.9% flush 2.5-10 mL(Linked Group 1) 2.5-10 mL, intravenous, Every 12 hours scheduled, First dose on Thu02/17/25 at 2245, Until Discontinued, Flush each lumen with a pulsatile motion with a minimum of 2.5 mL every 12 hours. Please note which lumen(s) have been flushed in comments section. 2311 (Given - Provider: Kirsten Trammell RN) 0900 (Not Given - Provider: Ria Madera RN - Reason: Line In Use)2100 (Not Given - Provider: Kirsten Trammell RN - Reason: IV access not available) 0841 (Given - Provider: Ria Madera RN) sodium chloride 0.9% flush 2.5-10 mL(Linked Group 2) 2.5-10 mL, intravenous, See admin instructions, Starting on Thu02/17/25 at 2232, Until 02/19/25 at 1306, Flush each lumen with a pulsatile motion with a minimum of 2.5 mL before and after use. Please note which lumen(s) have been flushed in comments section. sodium chloride 0.9% flush 2.5-10 mL(Linked Group 2) 2.5-10 mL, intravenous, Every 12 hours scheduled, First dose on Thu02/17/25 at 2245, Until Discontinued, Flush each lumen with a pulsatile motion with a minimum of 2.5 mL every 12 hours. Please note which lumen(s) have been flushed in comments section. 2311 (Given - Provider: Kirsten Trammell RN) 0900 (Not Given - Provider: Ria Madera RN - Reason: Line In Use)2008 (Given - Provider: Kirsten Trammell RN) 0841 (Given - Provider: Ria Madera RN) sodium chloride 0.9% flush 2.5-10 mL(Linked Group 3) 2.5-10 mL, intravenous, See admin instructions, Starting on Thu02/17/25 at 2243, Until Thu02/19/25 at 1306, Flush each lumen with a pulsatile motion with a minimum of 2.5 mL before and after use. Please note which lumen(s) have been flushed in comments section. sodium chloride 0.9% flush 2.5-10 mL(Linked Group 3) 2.5-10 mL, intravenous, Every 12 hours scheduled, First dose on Thu02/17/25 at 2300, Until Discontinued, Flush each lumen with a pulsatile motion with a minimum of 2.5 mL every 12 hours. Please note which lumen(s) have been flushed in comments section. 2300 (Not Given - Provider: Kirsten Trammell RN - Reason: IV access not available) 0900 (Not Given - Provider: Ria Madera RN - Reason: Line In Use)2008 (Given - Provider: Kirsten Trammell RN) 0841 (Given - Provider: Ria Madera RN) Continuous Medication Order 02/17/2025 02/18/2025 02/19/2025 dextrose 5% and lactated Ringer's (LR) premix infusion (CANCELED) intravenous, at 70 mL/hr, Continuous, Starting on 02/18/25 at 0445, Until 02/18/25 at 1518 0445 (Rate/Dose Change - Provider: Kirsten Trammell RN)0500 (Rate/Dose Verify - Provider: Kirsten Trammell RN)0510 (New Bag/Syringe - Provider: Kirsten Trammell RN)0600 (Rate/Dose Verify - Provider: Kirsten Trammell RN)0900 (Rate/Dose Verify - Provider: Ria Madera RN)1000 (Stopped - Provider: Ria A Cassy, RN)1150 (Restarted - Provider: Ria Madera RN)1200 (Rate/Dose Verify - Provider: Ria Madera RN)1248 (Stopped - Provider: Ria Madera RN)1505 (Stopped - Provider: Ria Madera RN) insulin regular in 0.9 % NaCl (MYXREDLIN) premix infusion (CANCELED) 0-20 Units/hr (0-20 mL/hr), intravenous, Continuous, Starting on Thu02/17/25 at 1840, Until Thu02/17/25 at 2222, Initial rate: No [place] Body Weight recorded. Initial rate: 10 units/hr DO NOT START INSULIN IF serum potassium less than 3.3 mEq/L Check blood sugar as ordered If BS drops greater than 100 mg/dL/hr contact the MD/LIP. DO NOT shut insulin off unless FSBS less than 70 mg/dL. 1937 (New Bag/Syringe - Provider: Jose Manuel Nation RN)2134 (Continue on Transfer - Provider: Kirsten Trammell RN)2143 (Rate/Dose Change - Provider: Kirsten Trammell RN)2199 (Canceled Entry - Provider: Kirsten Trammell RN - Comment: Cancelled from back documented administration.) 1938 (Stopped - Provider: Kirsten Trammell RN) lactated Ringer's (LR) premix infusion (CANCELED) intravenous, at 150 mL/hr, Continuous, Starting on Thu02/17/25 at 1840, Until Thu02/17/25 at 2222, Discontinue this infusion and initiate dextrose-containing fluid infusion when blood glucose is less than 250 mg/dL. 1839 (New Bag/Syringe - Provider: Jose Manuel Nation RN)2143 (Stopped - Provider: Kirsten Trammell RN)2199 (Canceled Entry - Provider: Kirsten Trammell RN - Comment: Cancelled from back documented administration.) PRN Medication Order 02/17/2025 02/18/2025 02/19/2025 acetaminophen (TYLENOL) tablet 650 mg 650 mg, oral, Every 6 hours PRN, headache, fever, pain, Starting on 02/18/25 at 1938, Until 02/19/25 at 1306 1945 (Given - Provider: Kirsten Trammell RN) 0423 (Given - Provider: Kirsten Trammell RN) benzocaine-menthoL (CEPACOL) lozenge 1 lozenge 1 lozenge, mucous membrane, Every 2 hour PRN, sore throat, Starting on 02/18/25 at 0907, Until 02/19/25 at 1306 1007 (Given - Provider: Ria Madera RN)1253 (Given - Provider: Ria Madera RN)1744 (Given - Provider: Ria Madera RN) 0839 (Given - Provider: Ria Madera RN) dextrose (D50W) IV injection 12.5 g(Linked Group 4) 12.5 g, intravenous, Every 15 min PRN, If Glucose 40-59 mg/dL in a patient without enteral access., Starting on 02/18/25 at 0434, Until 02/19/25 at 1306, If Glucose 40-59 mg/dL: Stop infusion and administer IV dextrose. Then check glucose 15 minutes after dextrose administration and repeat administration until BG is equal to or greater than 100 mg/dL. Resume glucose measurements every 1 hour. If previously requiring an insulin infusion, resume insulin at 50% of previous rate when glucose rises above 120 mg/dL. (new rate = current rate x 0.5) dextrose (D50W) IV injection 25 g(Linked Group 4) 25 g, intravenous, Every 15 min PRN, If Glucose less than 40 mg/dL in a patient without enteral access., Starting on 02/18/25 at 0434, Until 02/19/25 at 1306, If Glucose less than 40 mg/dL: Stop infusion and administer IV dextrose. Then check glucose 15 minutes after dextrose administration and repeat administration until BG is equal to or greater than 100 mg/dL. Resume glucose measurements every 1 hour. If previously requiring an insulin infusion, resume insulin at 50% of previous rate when glucose rises above 120 mg/dL. (new rate = current rate x 0.5) dextrose (D50W) IV injection 6.25 g(Linked Group 4) 6.25 g, intravenous, Every 15 min PRN, If Glucose 60-69 mg/dL in a patient without enteral access., Starting on 02/18/25 at 0434, Until 02/19/25 at 1306, If Glucose 60-69 mg/dL: Stop infusion and administer IV dextrose. Then check glucose 15 minutes after dextrose administration and repeat administration until BG is equal to or greater than 100 mg/dL. Resume glucose measurements every 1 hour. If previously requiring an insulin infusion, resume insulin at 50% of previous rate when glucose rises above 120 mg/dL. (new rate = current rate x 0.5) dextrose (GLUTOSE) gel 15 g(Linked Group 4) 15 g, oral, Every 15 min PRN, Glucose less than or equal to 100 mg/dL in a conscious patient with enteral access. May alternatively give 4 oz of non-diabetic juice., Starting on 02/18/25 at 0434, Until 02/19/25 at 1306, 0.2 g (200 mg) = 0.5 mL dextrose 5% and lactated Ringer's (LR) premix infusion (CANCELED) intravenous, at 150 mL/hr, Continuous PRN, Blood glucose is less than 250 mg/dL., Starting on Thu02/17/25 at 2244, Until 02/18/25 at 0434 2144 (New Bag/Syringe - Provider: Kirsten Trammell RN - Comment: awaiting written order)2300 (Rate/Dose Verify - Provider: Kirsten Trammell RN) 0000 (Rate/Dose Verify - Provider: Kirsten Trammell RN)0100 (Rate/Dose Verify - Provider: Kirsten Trammell RN)0200 (Rate/Dose Verify - Provider: Kirsten Trammell RN)0300 (Rate/Dose Verify - Provider: Kirsten Trammell RN)0400 (Rate/Dose Verify - Provider: Kirsten Trammell RN)0443 (Stopped - Provider: Kirsten Trammell RN) insulin regular in 0.9 % NaCl (MYXREDLIN) premix infusion (CANCELED) 0.5-20 Units/hr (0.5-20 mL/hr), intravenous, Continuous PRN, per protocol, Starting on Thu02/17/25 at 2232, Until 02/18/25 at 0434, DO NOT START INSULIN IF serum potassium less than 3.3 mEq/L Initiate infusion at 5 units/hour. Do not exceed 20 units/hour. If maximum infusion rate exceeds 20 units per hour: notify provider to discuss orders for bolus doses of insulin or to titrate outside of the protocol. Check blood sugar as ordered and adjust insulin rate per DKA protocol, round insulin dose up to the nearest 0.5 units. BS should be decreased no more than 50-100 mg/dL/hr. If BS drops greater than 100 mg/dL/hr, follow protocol and contact the MD/provider. If insulin drip does not change despite a decrease in BG, contact MD/provider to increase dextrose infusion. DO NOT shut insulin off unless FSBS less than 70 mg/dL. 2238 (Rate/Dose Change - Provider: Kirsten Trammell RN)2300 (Rate/Dose Verify - Provider: Kirsten Trammell RN)2311 (Rate/Dose Change - Provider: Kirsten Trammell RN) 0000 (Rate/Dose Verify - Provider: Kirsten Trammell RN)0008 (Rate/Dose Change - Provider: Kirsten Trammell RN - Comment: BS 118)0100 (Rate/Dose Verify - Provider: Kirsten Trammell RN)0106 (Rate/Dose Change - Provider: Kirsten Trammell RN)0200 (Rate/Dose Verify - Provider: Kirsten Trammell RN)0207 (Rate/Dose Change - Provider: Kirsten Trammell RN - Comment: BS 130)0300 (Rate/Dose Verify - Provider: Kirsten Trammell RN)0313 (Rate/Dose Change - Provider: Kirsten Trammell RN)0400 (Rate/Dose Verify - Provider: Kirsten Trammell RN)0413 (Rate/Dose Change - Provider: Kirsten Trammell RN - Comment: BS 150)0441 (Stopped - Provider: Kirsten Trammell RN) insulin regular in 0.9 % NaCl (MYXREDLIN) premix infusion (CANCELED) 0.5-20 Units/hr (0.5-20 mL/hr), intravenous, Continuous PRN, per protocol, Starting on 02/18/25 at 0434, Until 02/18/25 at 1742, -For patients with type 1 DM, do NOT stop insulin infusion per protocol and notify provider. - If tube feeds/TPN are held and/or discontinued while receiving IV insulin, decrease the insulin infusion by 50% and recheck blood glucose per protocol. - Maximum infusion rate is 20 units/hour. If patient requires greater than 20 units/hour, notify provider to order bolus dosing with regular insulin. - Round all insulin drip rates to the nearest 0.5 units/hour. - If the amount to decrease exceeds the rate of insulin infusion, turn off the infusion and resume every 2 hour blood glucose checks. Restart insulin infusion at 50% of previous rate once blood glucose exceeds 120 mg/dL. 0442 (Restarted - Provider: Kirsten Trammell RN)0500 (Rate/Dose Verify - Provider: Kirsten Trammell RN)0600 (Rate/Dose Verify - Provider: Kirsten Trammell RN)0608 (Rate/Dose Change - Provider: Kirsten Trammell RN - Comment: BS 137)0845 (Rate/Dose Change - Provider: Ria Madera RN)0900 (Rate/Dose Verify - Provider: Ria Madera RN)1000 (Rate/Dose Verify - Provider: Ria Madera RN)1100 (Rate/Dose Verify - Provider: Ria Madera RN)1200 (Rate/Dose Verify - Provider: Ria Madera RN)1250 (Rate/Dose Change - Provider: Ria aMdera RN)1300 (Rate/Dose Verify - Provider: Ria Madera RN)1449 (Rate/Dose Change - Provider: Ria Madera RN)1500 (Rate/Dose Verify - Provider: Ria Madera RN)1600 (Rate/Dose Verify - Provider: Ria Madera RN)1700 (Rate/Dose Verify - Provider: Ria Madera RN)1745 (Stopped - Provider: Ria Madera RN) Linked Groups Order Group 1: IV Peripheral Line Care (CANCELED) Until discontinued, Starting on Thu02/17/25 at 2233, Until Specified, Insert/Replace: 96 hours for non-flexion, sterile IVs, 48 hours for flexion IVs, and 24 hours for non-sterile field IVs, Blood Draw: With insertion only And sodium chloride 0.9% flush 2.5-10 mLJump to med 2.5-10 mL, intravenous, See admin instructions, Starting on Thu02/17/25 at 2232, Until Thu02/19/25 at 1306, Flush each lumen with a pulsatile motion with a minimum of 2.5 mL before and after use. Please note which lumen(s) have been flushed in comments section. And sodium chloride 0.9% flush 2.5-10 mLJump to med 2.5-10 mL, intravenous, Every 12 hours scheduled, First dose on Thu02/17/25 at 2245, Until Discontinued, Flush each lumen with a pulsatile motion with a minimum of 2.5 mL every 12 hours. Please note which lumen(s) have been flushed in comments section. Group 2: IV Peripheral Line Care (CANCELED) Until discontinued, Starting on Thu02/17/25 at 2233, Until Specified, Insert/Replace: 96 hours for non-flexion, sterile IVs, 48 hours for flexion IVs, and 24 hours for non-sterile field IVs, Blood Draw: With insertion only And sodium chloride 0.9% flush 2.5-10 mLJump to med 2.5-10 mL, intravenous, See admin instructions, Starting on Thu02/17/25 at 2232, Until Thu02/19/25 at 1306, Flush each lumen with a pulsatile motion with a minimum of 2.5 mL before and after use. Please note which lumen(s) have been flushed in comments section. And sodium chloride 0.9% flush 2.5-10 mLJump to med 2.5-10 mL, intravenous, Every 12 hours scheduled, First dose on Thu02/17/25 at 2245, Until Discontinued, Flush each lumen with a pulsatile motion with a minimum of 2.5 mL every 12 hours. Please note which lumen(s) have been flushed in comments section. Group 3: IV Peripheral Line Care (CANCELED) Until discontinued, Starting on Thu02/17/25 at 2244, Until Specified, Insert/Replace: 96 hours for non-flexion, sterile IVs, 48 hours for flexion IVs, and 24 hours for non-sterile field IVs, Blood Draw: With insertion only And sodium chloride 0.9% flush 2.5-10 mLJump to med 2.5-10 mL, intravenous, See admin instructions, Starting on Thu02/17/25 at 2243, Until Thu02/19/25 at 1306, Flush each lumen with a pulsatile motion with a minimum of 2.5 mL before and after use. Please note which lumen(s) have been flushed in comments section. And sodium chloride 0.9% flush 2.5-10 mLJump to med 2.5-10 mL, intravenous, Every 12 hours scheduled, First dose on Thu02/17/25 at 2300, Until Discontinued, Flush each lumen with a pulsatile motion with a minimum of 2.5 mL every 12 hours. Please note which lumen(s) have been flushed in comments section. Group 4: dextrose (GLUTOSE) gel 15 gJump to med 15 g, oral, Every 15 min PRN, Glucose less than or equal to 100 mg/dL in a conscious patient with enteral access. May alternatively give 4 oz of non-diabetic juice., Starting on 02/18/25 at 0434, Until 02/19/25 at 1306, 0.2 g (200 mg) = 0.5 mL Or dextrose (D50W) IV injection 6.25 gJump to med 6.25 g, intravenous, Every 15 min PRN, If Glucose 60-69 mg/dL in a patient without enteral access., Starting on 02/18/25 at 0434, Until 02/19/25 at 1306, If Glucose 60-69 mg/dL: Stop infusion and administer IV dextrose. Then check glucose 15 minutes after dextrose administration and repeat administration until BG is equal to or greater than 100 mg/dL. Resume glucose measurements every 1 hour. If previously requiring an insulin infusion, resume insulin at 50% of previous rate when glucose rises above 120 mg/dL. (new rate = current rate x 0.5) Or dextrose (D50W) IV injection 12.5 gJump to med 12.5 g, intravenous, Every 15 min PRN, If Glucose 40-59 mg/dL in a patient without enteral access., Starting on 02/18/25 at 0434, Until 02/19/25 at 1306, If Glucose 40-59 mg/dL: Stop infusion and administer IV dextrose. Then check glucose 15 minutes after dextrose administration and repeat administration until BG is equal to or greater than 100 mg/dL. Resume glucose measurements every 1 hour. If previously requiring an insulin infusion, resume insulin at 50% of previous rate when glucose rises above 120 mg/dL. (new rate = current rate x 0.5) Or dextrose (D50W) IV injection 25 gJump to med 25 g, intravenous, Every 15 min PRN, If Glucose less than 40 mg/dL in a patient without enteral access., Starting on 02/18/25 at 0434, Until 02/19/25 at 1306, If Glucose less than 40 mg/dL: Stop infusion and administer IV dextrose. Then check glucose 15 minutes after dextrose administration and repeat administration until BG is equal to or greater than 100 mg/dL. Resume glucose measurements every 1 hour. If previously requiring an insulin infusion, resume insulin at 50% of previous rate when glucose rises above 120 mg/dL. (new rate = current rate x 0.5) documented in this encounter Care Teams [employer] Relationship Specialty Start Date End Date Corina Eli [address] [place] [id number] PCP - General Family Medicine 02/17/25 documented as of this encounter
--- NOTE | 2025-02-21 17:10 | A.OFFVIS_ITS ---
Intake Intake Visit Reasons: DMT1 PUMP Questions Allergies No Known Allergies Allergy (Verified 01/30/25 15:03) HPI Comprehensive Diabetes Asmnt Most Recent Diabetes Results: 2 Hemoglobin A1c 7.2 % 11/21/19 Microalb/Creat Ratio, (<30) 3.5 ug/mg cr 02/01/24 Cholesterol, (<200) 159 mg/dL 02/01/24 HDL Cholesterol, (>40) 62 mg/dL 02/01/24 Triglycerides, (<150) 46 mg/dL 02/01/24 Creatinine, (0.5-1.4) 0.92 mg/dL 02/01/24 BUN, (9-16) 17 mg/dL H 02/01/24 Sodium, (135-145) 141 mmol/L 02/01/24 Potassium, (3.3-5.1) 4.0 mmol/L 02/01/24 Chloride, (96-108) 108 mmol/L 02/01/24 Carbon Dioxide, (22-29) 26 mmol/L 02/01/24 Calcium, (8.4-10.2) 9.4 mg/dL 02/01/24 AST, (5-37) 14 U/L 08/05/21 ALT, (0-40) 15 U/L 08/05/21 Total Protein, (6.5-8.0) 7.2 g/dL 08/05/21 Albumin, (3.5-5.0) 4.2 g/dL 08/05/21 [facility] Medical History (Updated 01/30/25 @ 15:38 by Eliane Hidalgo MD) Insulin pump in place Diabetes type 1, controlled Vitamin D deficiency Surgical History No pertinent past surgical history Family History Father No pertinent past medical history Mother No problems noted. Social History Household Members: Spouse and Children Alcohol intake: never Patient Tobacco Use Status: Never used Tobacco Assessment & Plan Assessment & Plan (1) Diabetes type 1, controlled: Code(s): E10.9 - Type 1 diabetes mellitus without complications Plan: Patient presents for pump training for [facility] with control IQ and Dexcom G7 The following topics were reviewed today: - Alternative pump option - Ketone testing Patient reports on ThursdayFebruary 17 he was admitted to [facility] in [place] for DKA. Patient did not have ketone strips, extra infusion set or pen needles and backup insulin pen. Reviewed patient importance always carrying extra pump supplies, and insulin when away from home. Reviewed info below: Diabetic ketoacidosis (DKA) Is serious condition that can lead to diabetic coma (passing out for a long time) or even . When your cells don't get the glucose they need for energy, your body begins to burn fat for energy, which produces ketones. Ketones are chemicals that the body creates when it breaks down fat to use for energy. The body does this when it doesn?t have enough insulin to use glucose, the body?s normal source of energy. When ketones build up in the blood, they make it more acidic. They are a warning sign that your diabetes is out of control or that you are getting sick. Symptoms of Diabetic Ketoacidosis (DKA) ? DKA usually develops slowly. But when vomiting occurs, this life- threatening condition can develop in a few hours. Early symptoms include the following: ? Thirst or a very dry mouth ? Frequent urination ? High blood glucose (blood sugar) levels ? High levels of ketones in the urine ? Then, other symptoms appear: ? Constantly feeling tired ? Dry or flushed skin ? Nausea, vomiting, or abdominal pain ? (Vomiting can be caused by many illnesses, not just ketoacidosis. If vomiting continues for more than 2 hours, contact your health care provider.) ? Difficulty breathing ? Fruity odor on breath ? A hard time paying attention, or confusion When should you test for ketones? It is advisable to check for ketones under the following conditions when: Your blood glucose is higher than 250mg/dl. Feeling nauseated, throwing up, or have pains in your abdominal region. Have a cold or flu. Have general body fatigue. Feel thirsty or have a very dry mouth. Have flushed skin. Have a fruity breath or a hard time breathing. You feel perplexed or in fog. How to Test Urine for Ketones You can detect ketones with a simple urine test using a test strip, similar to a blood testing strip. Ask your health care provider when and how you should test for ketones. Many experts advise to check your urine for ketones when your blood glucose is more than 250 mg/dl. When you are ill (when you have a cold or the flu, for example), check for ketones every 4 to 6 hours. And check every 4 to 6 hours when your blood sugar is more than 250 mg/dl. Also, check for ketones when you have any symptoms of DKA. How to lower your blood sugar level. ? Take medications as directed by physician. ? Drink extra water or noncaffeinated, nonsugared drinks to prevented hydration. ? Exercise if you are not sick However, if your blood sugar is above 250 mg/dl, check your urine for ketones. I f you have ketones, do not exercise Exercising when ketones are present may make your blood sugar level go even higher. You'll need to work with your doctor to find the safest way for you to lower your blood sugar level. Regularly check blood sugar or urine for sugar and acetone during illness After reviewing alternative insulin pump options Pt decided to continue with T- Slim X2 Patient's last A1c on 01/30/2025 6.2%. Patient given the opportunity to ask questions about pump function ?Setting verified by [facility], no changes made to patient's pump settings Basal rate(s) (units/hour) : 12 AM to 4 AM? 0.75 units / hr 12 AM to 6 AM 0.75 units / hr 6 AM? to 4 PM ? 0.750 units / hr 4 PM to 10 PM? 0.875 units / hr 10 PM?to 12 AM? 0.925 units / hr Bolus setting Insulin Carbohydrate Ratio (s) 12 AM to 6 AM 1:11 ?6 AM to 12 PM 1:8 12 PM to 4 PM 1:7 4 PM to 10 PM 1:7 10 PM to 12 AM 1:7.5 Correction Factor / Sensitivity Factor 12 AM? to 6 AM? 1:42 6 AM to 4 PM 1:45 4 PM to 12 AM 1:52 Active Insulin Time:? 5 hours Target(s): 12 AM? to 12 AM? 120 -120 Control IQ target 12 AM? to 12 AM? 110 -110 Patient Instructions: DIABETES PROBLEMS HOMECARE INSTRUCTIONS? for High Blood Sugar and When to Test for Ketones Hyperglycemia is the technical term for high blood glucose (blood sugar). High blood sugar happens when the body has too little insulin or when the body can't use insulin properly. What causes hyperglycemia? A number of things can cause hyperglycemia: * If you have type 1, you may not have given yourself enough insulin. ? If you have type 2, your body may have enough insulin, but it is not as effective as it should be. * You ate more than planned or exercised less than planned. * You have stress from an illness, such as a cold or flu. * You have other stress, such as family conflicts or school or dating problems. How to lower your blood sugar level. ? Take medications as directed by physician. ? Drink extra water or noncaffeinated, nonsugared drinks to prevented hydration. ? Exercise if you are not sick However, if your blood sugar is above 250 mg/dl, check your urine for ketones. I f you have ketones, do not exercise Exercising when ketones are present may make your blood sugar level go even higher. You'll need to work with your doctor to find the safest way for you to lower your blood sugar level. Regularly check blood sugar or urine for sugar and acetone during illness. Diabetic ketoacidosis (DKA) Is serious condition that can lead to diabetic coma (passing out for a long time) or even . When your cells don't get the glucose they need for energy, your body begins to burn fat for energy, which produces ketones. Ketones are chemicals that the body creates when it breaks down fat to use for energy. The body does this when it doesn?t have enough insulin to use glucose, the body?s normal source of energy. When ketones build up in the blood, they make it more acidic. They are a warning sign that your diabetes is out of control or that you are getting sick. Symptoms of Diabetic Ketoacidosis (DKA) ? DKA usually develops slowly. But when vomiting occurs, this life- threatening condition can develop in a few hours. Early symptoms include the following: ? Thirst or a very dry mouth ? Frequent urination ? High blood glucose (blood sugar) levels ? High levels of ketones in the urine ? Then, other symptoms appear: ? Constantly feeling tired ? Dry or flushed skin ? Nausea, vomiting, or abdominal pain ? (Vomiting can be caused by many illnesses, not just ketoacidosis. If vomiting continues for more than 2 hours, contact your health care provider.) ? Difficulty breathing ? Fruity odor on breath ? A hard time paying attention, or confusion When should you test for ketones? It is advisable to check for ketones under the following conditions when: Your blood glucose is higher than 250mg/dl. Feeling nauseated, throwing up, or have pains in your abdominal region. Have a cold or flu. Have general body fatigue. Feel thirsty or have a very dry mouth. Have flushed skin. Have a fruity breath or a hard time breathing. You feel perplexed or in fog. How to Test Urine for Ketones You can detect ketones with a simple urine test using a test strip, similar to a blood testing strip. Ask your health care provider when and how you should test for ketones. Many experts advise to check your urine for ketones when your blood glucose is more than 250 mg/dl. When you are ill (when you have a cold or the flu, for example), check for ketones every 4 to 6 hours. And check every 4 to 6 hours when your blood sugar is more than 250 mg/dl. Also, check for ketones when you have any symptoms of DKA. How to lower your blood sugar level. ? Take medications as directed by physician. ? Drink extra water or noncaffeinated, nonsugared drinks to prevented hydration. ? Exercise if you are not sick However, if your blood sugar is above 250 mg/dl, check your urine for ketones. I f you have ketones, do not exercise Exercising when ketones are present may make your blood sugar level go even higher. You'll need to work with your doctor to find the safest way for you to lower your blood sugar level. Regularly check blood sugar or urine for sugar and acetone during illness Coding Level of Care Code Est Pt Level 1 (30337) Diagnoses Diabetes type 1, controlled E10.9
--- OUTSIDE RECORDS SUMMARY | 2025-02-21 18:40 | XMS_ITS | Clinical Summary ---
Author Organization [employer] Address [address] [place] [address] [address] [place] [address] Care Team Providers Care Nonprofit Manager Name Role Phone Corina Eli MD Primary Care Provider [phone]- [phone] Allergies No known active allergies Medications Alcohol Swabs 70 % pads 06/29/19 10 Active Insulin Aspart (NovoLOG) 100 UNIT/ML solution Inject under the skin. Active Acetone, Urine, Test (Ketone Test) strip USE DIRECTED THREE TIMES DAILY FOR INCREASE BLOOD SUGAR OR SYMPTOMS OF Diabetic Keto Acidosis 12/03/19 24 Active D3 Super Strength 50 MCG (2000 UT) capsule Take 50 mcg by mouth Once per day. 10/23/19 24 Active Continuous Glucose Transmitter (Dexcom G6 transmitter) misc USE DIRECTED 05/20/19 24 Active glucose (Glutose) 40 % gel oral gelIndications:T ype 1 diabetes mellitus without complication Take 15 g by mouth every 15 (fifteen) minutes if needed for low blood sugar. 15 g 1 03/10/20 24 Active glucagon 1 MG injectionIndicat ions:Type 1 diabetes mellitus without complication Use I'm for hypoglycemia and not responsive prn 1 each 1 03/10/20 24 Active atorvastatin (Lipitor) 40 MG tabletIndication s:Type 1 diabetes mellitus without complication Take 1 tablet (40 mg) by mouth Once per day. 30 tablet 11 03/10/20 24 025 Active Gvoke HypoPen 1-Pack 1 MG/0.2ML injection INJECT 0.2 ML SUBCUTANEOUSLY ONCE NEEDED FOR LOW BLOOD SUGAR 0.2 mL 1 04/03/20 24 Active Continuous Glucose Sensor (Dexcom G7 Sensor) misc USE DIRECTED TO TEST BLOOD SUGAR. CHANGE EVERY 10 DAYS 3 each 3 12/02/19 25 Active Active Problems Problem Noted Date Diagnosed Date Preventative health care 03/20/2023 Overview (02/06/2025): -next comprehensive annual evaluation due after 03/09/25 -eye care facilitated by [facility] seen 02/02/25 -dental home is [facility] proxy filed 03/09/24 Assessment & Plan (03/10/2024 10:11 AM EDT): -next comprehensive annual evaluation due after 03/09/25 -eye care facilitated by [facility] seen 09/02/23 -dental home is [facility] proxy given and filed 03/09/24 Seasonal allergies 12/24/2021 03/20/2023 Diabetes mellitus type 1 06/13/2011 023 Overview (02/20/2025): Diabetes is controlled. -Followed by restaurant crew Dr. Jose Buck MD and Marion Martinez NP at [facility] -Dx d at age 9. No microvascular or macrovascular disease Lab Results Component Value Date HGBA1C 6.7 (A) 10/28/2024 HGBA1C 6.4 04/05/2024 HGBA1C 6.4 (A) 03/10/2024 Lab Results Component Value Date CREATININE 0.92 02/01/2024 EGFR >60 02/01/2024 MICROALBCREU 3.5 02/01/2024 MICROALBCREU 3.9 09/12/2022 LDLCHOLCAL 88 02/01/2024 -Bill/Arb: none -Statin therapy: Start Atorvastatin 40 mg 03/09/24 -Diabetic eye exam: done, 02/02/25 [facility] -Diabetic foot exam: done 03/09/24 -Continue lifestyle modifications -Continue current medications -Continue NovoLOG 100 UNIT/ML via insulin pump -Currently on [employer] 10/15 og sensor and pump -Blood pressure is at goal of <130/80 -wears med alert bracelet -Importance of low-fat, low cholesterol, ADA diet discussed. Importance of moderate physical activity discussed. Endocrinology note from 11/04/24 reviewed -note from Endo 01/30/25 reviewed : Has backup Lantus: To inject 18 units of Lantus in case of pump failure +6-8 8 units of Humalog t.i.d. pre meals Has urine ketone strips Prescribed nasal Baqsimi -Admitted to [facility] For DKA 02/17/25-04/21/25 due to pump not working correctly. Assessment & Plan (03/10/2024 10:45 AM EDT): Diabetes is controlled. -Followed by restaurant crew Dr. Jose Buck MD and Marion Martinez NP at [facility] -Dx d at age 9. No microvascular or [...] Encounters Date Type Department Care Team Description 02/20/2025 Telephone [facility] [address] [place] [phone] Corina Eli MD Hospital Follow-up 02/20/2025 Patient Outreach [facility] [address] [place] [address] Corina Eli MD Transition Of Care (Tcm) (HDF unscheduled ) 01/31/2025 Refill [facility] [address] [place] [address], [place] [address] Corina Eli MD Vitamin D deficiency, unspecified 01/30/2025 Orders Only GENERIC EXTERNAL DATA DEPARTMENT Provider, Generic External Data 01/11/[address] [facility] [address] [place] [address] Anayeli Madden MA March recalls 11/30/[address] [facility] [address] [place] [address] Keeley Strickland ANP from Last 3 Months Immunizations Immunization Administration Dates Next Due Hep B, adult [...] is your housing situation today? I have conykun edmond 03/10/[address] you [...] the past 12 months, has t he [employer], gas, oil or water company threatened to [...] 60 03/10/2024 9:53 AM EDT Temperature 36.7 C (98.1 F) 03/10/2024 9:53 AM EDT Respiratory Rate 19 03/10/2024 9:53 AM EDT Oxygen Saturation - - Inhaled Oxygen Concentration - - Weight 73.5 kg (162 lb) 03/10/2024 9:53 AM EDT Height 172.7 cm (5' 8 ) 03/10/2024 9:53 AM EDT Body Mass Index 24.63 03/10/2024 9:53 AM EDT Plan of Treatment Upcoming Encounters Date Type Department Care Team (Late st Contact Info) Description 03/15/2025 9:00 AM EST Office Visit [facility] [address] [place] [address] Corina Eli MD [address] [place] [address] Health Maintenance Due Date Last Done Comments Disability Screening 1988 HPV Vaccines (1 - Male 3-dose series) 2003 COVID-19 Vaccine (5 - season) 2025 05/18/2021, 09/29/2020, 09/08/2020, Additional history exists Influenza Vaccine (#1) 2025 7, 02/06/2014, 02/14/2013, Additional history exists Diabetes: Urine Protein Screening 01/31/2025 02/01/2024, 09/12/2022, 08/05/2021, Additional history exists Lipid Panel 01/31/2025 02/01/2024, 09/2022, 08/05/2021, Additional history exists Alcohol/Substance Use Screening 03/10/2025 03/10/2024 Depression Screening 03/10/2025 03/10/2024, 03/10/20 Diabetes: Foot Exam 03/10/2025 03/10/2024, 03/10/2024, 03/10/2024 Family Planning (PISQ) 03/10/2025 03/10/2024 SDOH Screening 03/10/2025 03/10/2024 Tobacco Screening 03/10/2025 03/10/2024 Diabetes: Hemoglobin A1C 04/29/2025 025, 04/05/2024, 03/10/2024, Additional history exists Eye Exam 02/02/2027 02/02/2025, 09/02/2023 DTaP/Tdap/Td Vaccines (3 - Td or Tdap) 03/10/2034 03/10/2024, 11/21/2011 Zoster Vaccines (1 of 2) 2038 RSV Patients and Patients Aged 60 years or older (1 - 1-dose 75+ series) 2063 HIV Screening Completed 04/15/2017 Hepatitis C Screening Completed 04/15/2017 Hepatitis B Vaccines Completed 03/10/2024, 05/22/2017, 04/15/2017 Pneumococcal Vaccine: Pediatrics (0 to 5 Years) and At-Risk Patients (6 to 49) Years Completed 03/10/2024, 05/07/2007 HIB Vaccines Aged Out No longer eligi ble based on patient's age to complete this topic Hepatitis A Vaccines Aged Out No long er eligible based on patient's age to complete this topic IPV Vaccines Aged Out No longer eligi ble based on patient's age to complete this topic Meningococcal B Vaccine Aged Out No l onger eligible based on patient's age to complete this topic Meningococcal Vaccine Aged Out No lc sherita eligible based on patient's age to complete this topic RSV under 20 months Aged Out No longe r eligible based on patient's age to complete this topic Rotavirus Vaccines Aged Out No longer eligible based on patient's age to complete this topic Procedures Procedure Name Priority Date/Time Associated Diagnosis Comments GLUCOSE, WHOLE BLOOD Routine 01/30/2025 3:05 PM EDT HM HEMOGLOBIN A1C Routine 10/28/2024 ALBUMIN, RANDOM URINE W/CREATININE Routine 02/01/2024 10:33 AM EDT LIPID PANEL, STANDARD Routine 02/01/2024 10:33 AM EDT HM DIABETES EYE EXAM Routine 09/02/2023 HM HEPATITIS C ANTIBODY Routine 04/15/2017 HM HIV 1/2 ANTIGEN AND ANTIBODY Routine 04/15/2017 from Last 3 Months or Most Recently Relevant to Health Maintenance Results * (ABNORMAL) Glucose, Whole Blood (01/30/2025 3:05 PM EDT) Glucose, Whole Blood 118(H) 60 - 115 mg/dL [facility] Comment:METER #: [id number] Testing performed in the Endocrinology Department [address] , [address], [place]. 01/30/2025 3:05 PM EDT 01/30/2025 3:09 PM EDT us Generic External Data Provider LAB BLOOD ORDERAB LES Final Result [facility] [address] [place] [phone] * (ABNORMAL) Hemoglobin A1c (10/28/2024) Hemoglobin A1C 6.7(A) 4.0 - 5.7 % Historical Provider MD HEALTH MAINTENANCE Final Result * Albumin, Random Urine W/Creatinine (02/01/2024 10:33 AM EDT) Creatinine, Urine 169.99 mg/dL [facility] Microalbumin Urine 6.0 mg/L [facility] Microalbum Creatinine Ratio Ur 3.5 <30 ug/mg cr [facility] Comment:Albumin/Creatinine R atio Reference Ranges: Normal: < 30 ug/mg creatinine Microalbuminuria: 30 - 300 ug/mg creatinineClinical Albuminuria: > 300 ug/mg creatinine 02/01/2024 10:3 3 AM EDT 02/01/2024 10:45 AM EDT Generic External Data Provider LAB URINE ORDERAB LES Final Result [facility] [address] [place] [address] [phone] * Lipid Panel, Standard (02/01/2024 10:33 AM EDT) Triglycerides 46 <150 mg/dL [facility] Comment:Desirable Triglyceri de: less than 150 mg/dLBorderline High Triglyceride 150-199 mg/dLHigh Triglyceride: 200-499 mg/dLVery High Triglyceride: greater than or equal to 5OO mg/dL Cholesterol 159 <200 mg/dL [facility] Comment:Desirable Cholestero l: less than 200 mg/dLBorderline High Cholesterol: 200-239 mg/dLHigh Cholesterol: greater than 239 mg/dL LDL Cholesterol Calculated 88 <100 mg/dL [facility] Comment:Desirable LDL: less than 100 mg/dLNear Optimal/Above Optimal LDL: 110- 129 mg/dLBorderline High LDL: 130-159 mg/dLHigh LDL: 160-189 mg/dLVery High LDL: greater than or equal to 190 mg/dL HDL Cholesterol 62 >40 mg/dL [facility] Comment:Desirable HDL: great er than 40 mg/dL Note: This HDL assay may give artificially low results in patients with liver disease. 02/01/2024 10:3 3 AM EDT 02/01/2024 10:33 AM EDT Generic External Data Provider LAB BLOOD ORDERAB LES Final Result [facility] [address] [place] [address] [phone] * Diabetes Eye Exam (09/02/2023) Eye Exam Normal Normal Comment:[facility] Historical Provider HEALTH MAINTENANCE Final Result * Hepatitis C Antibody (04/15/2017) Hepatitis C Antibody Nonreactive Blood Historical Provider HEALTH MAINTENANCE Final Result * HIV 1/2 Antigen and Antibody (04/15/2017) HIV Ag/Ab Nonreactive Historical Provider HEALTH MAINTENANCE Final Result from Last 3 Months or Most Recently Relevant to Health Maintenance Insurance [facility] Advance Directives Documents on File Type Date Recorded Patient Pattern Wheel Maker Expl anation Advance Directives and Living Will 03/10/2024 Health Care Proxy 03/10/24 Care Teams Nonprofit Manager Relationship Specialty Start Date End Date Sreedhar, MD Corina [address] [place] [phone] PCP - General Family Medicine 05/11/18 Sejal Alfaro NP [facility] Endocrinology Endocrinology 04/05/24
--- OUTSIDE RECORDS SUMMARY | 2025-02-21 18:40 | XMS_ITS | Encounter Summary ---
Author Organization [employer] Address [address] [place] [address] [address] [place] [address] Care Team Providers Care Lead Network Engineer Name Role Phone Corina Eli MD Primary Care Provider [phone]- [phone] Reason for Visit * Reason Onset Date Comments Hospital Follow-up 02/20/2025 Encounter Details Date Type Department Care Team ([facility] st Contact Info) Description 02/20/2025 Telephone [facility] [address] [place], [place] [phone] Corina Eli MD [address] [place] [address] Hospital Follow-up Social History Tobacco Use Types Packs/Day Years [...] AM EDT documented as of this encounter Miscellaneous Notes * Telephone Encounter - Tiffanie Martines - 02/20/2025 12:32 PM EDT Tc from pt retuning call for HDF Contact pt at [phone] Need translator interpreter documented in this encounter Plan of Treatment Upcoming Encounters Date Type Department Care Team (Late st Contact Info) Description 03/15/2025 9:00 AM EST Office Visit [facility] [address] [place] [address] Corina Eli MD [address] [place] [address] documented as of this encounter Visit Diagnoses Not on filedocumented in this encounter Additional Health Concerns Assessment Noted Time PHQ-9 Depression Total Score: 0 03/10/20 24 10:37 AM EDT documented as of this encounter Care Teams Lead Network Engineer Relationship Specialty Start Date End Date Corina Eli MD [address] [place] [address] PCP - General Family Medicine 05/11/18 Sejal Alfaro NP [facility] Endocrinology Endocrinology 04/05/24 documented as of this encounter
--- OUTSIDE RECORDS SUMMARY | 2025-02-21 18:40 | XMS_ITS | Encounter Summary ---
Author Organization [employer] Address [address] [facility] 7 [place] [address] Care Team Providers Care Finishing Tunnel Operator Name Role Phone Corina Eli MD Primary Care Provider +1- [phone] Reason for Visit * Reason Comments Med Refill Encounter Details Date Type Department Care Team ([facility] st Contact Info) Description 01/31/2025 Refill [facility] [address] [place], [place] [phone] Corina Eli MD [address] [place], [place] [phone] Vitamin D deficiency, unspecified Social History Tobacco Use Types Packs/Day Years [...] as of this encounter Plan of Treatment Upcoming Encounters Date Type Department Care Team (Late st Contact Info) Description 03/15/2025 9:00 AM EST Office Visit [facility] [address] [place] [phone] Corina Eli MD [address] [place] [phone] documented as of this encounter Visit Diagnoses Diagnosis Vitamin D deficiency, unspecified documented in this encounter Additional Health Concerns Assessment Noted Time PHQ-9 Depression Total Score: 0 03/10/20 10:37 AM EDT documented as of this encounter Care Teams Finishing Tunnel Operator Relationship Specialty Start Date End Date Corina Eli MD [address] [place] [id number] PCP - General Family Medicine 05/11/[address] [facility] Endocrinology Endocrinology 04/05/24 documented as of this encounter
--- OUTSIDE RECORDS SUMMARY | 2025-02-21 18:40 | XMS_ITS | Encounter Summary ---
Author Organization [employer] Address [address] [facility] 7t [place] [address] Care Team Providers Care Breaker Table Worker Name Role Phone Corina Eli MD Primary Care Provider +1- [phone] Encounter Details Date Type Department Care Team ([facility] st Contact Info) Description 03/11/2024 Orders Only [facility] [address] [place], [place] [phone] Corina Eli MD [address] [place], [place] [phone] Social History Tobacco Use Types Packs/Day Years [...] Description 03/15/2025 9:00 AM EST Office Visit [facility] [address] [place] [phone] Corina Eli MD [address] [place] [phone] documented as of this encounter Visit Diagnoses Not on filedocumented in this encounter Additional Health Concerns Assessment Noted Time PHQ-9 Depression Total Score: 0 03/10/20 24 10:37 AM EDT documented as of this encounter Care Teams Breaker Table Worker Relationship Specialty Start Date End Date Corina Eli MD [address] [place] [phone] PCP - General Family Medicine 05/11/18 Sejal Alfaro NP [facility] Endocr[place]ology Endocrinology 04/05/24 documented as of this encounter
--- OUTSIDE RECORDS SUMMARY | 2025-02-21 18:40 | XMS_ITS | Encounter Summary ---
Author Organization [employer] Address [address] [place] [address] 7 [place] [address] Care Team Providers Care Assembler Piano Name Role Phone Corina Eli MD Primary Care Provider +1- [phone] Reason for Visit * Reason Comments Transition Of Care (Tcm) HDF unscheduled Encounter Details Date Type Department Care Team ([facility] st Contact Info) Description 02/20/2025 Patient Outreach [facility] [address] [place], [place] [phone] Corina lEi MD [address] [place] [address] Transition Of Care (Tcm) (HDF unscheduled ) Social History Tobacco Use Types Packs/Day Years [...] AM EDT documented as of this encounter Progress Notes * Vonnie Babb - 02/20/2025 9:34 AM EDT CC Vonnie Mayer placed outbound call to patient for HDF outreach. Patient's name and were confirmed. Patient educated on the importance of follow up with provider following inpatient admission. Patient offered an HDF appointment however CC advised provider does not have any availability appointmentwill be scheduled with a different provider. Patient declined appointment, pt would like to see PCPonly. Patient educated on extended clinic hours on Mondays and Wednesdays, and Walk-In Urgent Care Located in [facility]. Patient provided with after-hours line for [facility], , which offer night time triage service and option to transfer to smoke control supervisor provider if needed. * Cara Shah RN - 02/20/2025 9:34 AM EDT TC placed to the pt to assist in scheduling an appointment for a hospital follow up. The pt was recently discharged from [facility] after being seen for DKA. The pt states that he is doing well and had a follow up scheduled with Dr. Buck at [facility] Endocrinology on 02/21/2025. The pt was advised that PCP first available appointment is not until 03/15/2025 but was agreeable as pt only wants to see PCP. documented in this encounter Miscellaneous Notes * Significant Event - Vonnie Babb - 02/20/2025 10:53 AM EDT 02/20/25 0936 Hospital Discharges and Admission for [facility] Type of Visit Hospital Admission Date of Admission/Visit 02/17/25 Date of Discharge 02/19/25 Facility [facility] Diagnosis Type 1 diabetes mellitus with ketoacidosis without coma Disposition Discharged Home Follow-Up Actions Follow-Up Needed Provider appointment Follow-Up Outcome Left Voicemail Initial Contact Date 02/20/25 CC oVnnie Mayer placed outbound call to patient for HDF outreach. CC placing call to offer patient with an HDF appointment with provider. No answer at this time. Patient's name and were not confirmed. CC left detailed message educating patient on importance of following up with provider following an inpatient admission. Provided contact information requesting a call back in order to schedule theHDF appointment. Patient educated via voicemail on extended clinic hours on Mondays and Wednesdays,and Walk-In Urgent Care Located in [facility]. Patient provided with after-hours line for [facility], , which offer night time triage service and option to transfer to smoke control supervisor provider if needed. CC will request Discharge summaries to scan into chart. CC will place additional outreach call within 2-5 business days. documented in this encounter Plan of Treatment Upcoming Encounters Date Type Department Care Team (Late st Contact Info) Description 03/15/2025 9:00 AM EST Office Visit [facility] [address] [place] [phone] Corina Eli MD [address] [place], [place] [phone] documented as of this encounter Visit Diagnoses Not on filedocumented in this encounter Additional Health Concerns Assessment Noted Time PHQ-9 Depression Total Score: 0 03/10/20 24 10:37 AM EDT documented as of this encounter Care Teams Assembler Piano Relationship Specialty Start Date End Date Corina Eli MD [address] [place] [address] PCP - General Family Medicine 05/11/18 Sejal Alfaro NP [facility] Endocrinology Endocrinology 04/05/24 documented as of this encounter
--- OUTSIDE RECORDS SUMMARY | 2025-02-21 18:40 | XMS_ITS | Clinical Summary ---
Author Organization [facility] Address [address] [place] [address] Care Team Providers Care Supervisor [employer]works [employer] Name Role Phone Corina Eli Primary Care Provider Allergies No known active allergies Medications atorvastatin (LIPITOR) 40 mg tablet Take 40 mg by mouth once a day. Active blood-glucose sensor (Dexcom G7 Sensor) device 1 Application every 7 days. Change sensor every 7 days. Active cholecalciferol (VITAMIN D3) 2,000 unit capsule Take 1 capsule by mouth once a day. Active insulin pump, continuous infusion (OMNIPOD DASH) subcutaneous cartridge Inject 1 application. under the skin every 3 days. Changes site to pump q3 days Active Active Problems No known active problems Resolved Problems Problem Noted Date Diagnosed Date Resolved Date DKA, type 1, not at goal 02/17/202504/2025 Metabolic acidosis due to diabetes mellitus 02/17/2025 02/19/2025 Leukemoid reaction 02/17/2025 Encounters Date Type Department Care Team Description 02/17/2025 4:39 PM EDT - 02/19/2025 11:06 AM EDT Hospital Encounter [facility] 2 Critical Care Unit [address] [place] [address] Saida Haro MD Gallant, Joseph J., MD Halligan, Kyle T., MD DKA, type 1, not at goal (Primary Dx) Discharge Disposition: Home or Self Care (01) from Last 3 Months Family History Medical History Relation Name Comments No Known Problems Brother No Known Problems Daughter No Known Problems Father No Known Problems Mother Relation Name Status Comments Brother Alive Daughter Alive Father Alive Mother Alive Social History Tobacco Use Types Packs/Day Years [...] money to get more. Never true 02/17/2025 [facility] Utilities Answer Date Recorded In the past [...] PM EDT Sexual Orientation Not on file Last Filed Vital Signs Vital Sign Reading [...] Mass Index 22.2 02/17/2025 9:48 PM EDT Plan of Treatment Health Maintenance Due Date Last Done Comments HIV Screening 1988 Hepatitis C Screening 1988 Ophthalmology Exam 1998 Urine Microalbumin 1998 Varicella Vaccines (1 of 2 - 13+ 2-dose series) 2001 Alcohol/Substance Use Screening 05/11/2024 Depression Screening and Follow-Up 05/11/2024 Social Drivers of Health Pooja ual Screening 05/11/2024 Hemoglobin A1C 09/07/2024 03/10/2024 COVID-19 Vaccine (4 - 2024-2 6 season) 2025 05/18/2021, 09/29/2020, 09/08/2020 Influenza Vaccine (#1) 2025 7, 02/06/2014, 02/14/2013, Additional history exists Basic Metabolic Panel 02/19/2026 02/19/2025 , 02/18/2025, 02/18/2025, Additional history exists DTaP,Tdap,and Td Vaccines (3 - Td or Tdap) 03/10/2034 03/10/2024, 11/21/2011 RSV Vaccine (60+ years old a nd patients) (1 - 1-dose 75+ series) 2063 Hepatitis B Vaccines Completed 03/10/2024, 05/22/2017, 04/15/2017 Pneumococcal Vaccine: Pediat brianna (0-5 Years) and At-Risk Patients (6-50 Years) Completed 03/10/2024, 05/07/2007 Procedures * Due to [place] state law, this organization might not be sharing negative HIV tests. Procedure Name Priority Date/Time Associated Diagnosis Comments POCT GLUCOSE Routine 02/19/2025 8:30 AM EDT POCT GLUCOSE Routine 02/19/2025 6:34 AM EDT RENAL FUNCTION PANEL Routine 02/19/2025 4:15 AM EDT CBC Routine 02/19/2025 4:15 AM EDT MAGNESIUM Routine 02/19/2025 4:15 AM EDT POCT GLUCOSE [...] POCT GLUCOSE Routine 02/18/2025 12:07 AM EDT CBC Routine 02/17/2025 11:12 PM EDT PHOSPHORUS Timed 02/17/2025 11:12 PM EDT MAGNESIUM Timed 02/17/2025 11:12 PM EDT BASIC METABOLIC PANEL Timed 02/17/2025 11:12 PM EDT URINALYSIS W/REFLEX TO MICROSCOPIC (NO CULTURE) STAT 02/17/2025 11:12 PM EDT POCT GLUCOSE Routine 02/17/2025 11:03 PM EDT POCT GLUCOSE Routine 02/17/2025 9:44 PM EDT POCT I-STAT LACTATE W/VBG Routine 2024 5:45 PM EDT [place] Routine 02/17/2025 5:12 PM EDT LIGHT BLUE TOP Routine 02/17/2025 5:12 PM EDT BLOOD BANK HOLD TUBE Routine 02/17/2025 5:12 PM EDT RAINBOW DRAW Routine 02/17/2025 5:12 PM EDT MAGNESIUM STAT 02/17/2025 5:12 PM EDT BETAHYDROXYBUTYRATE STAT 02/17/2025 5 :12 PM EDT BASIC METABOLIC PANEL STAT 02/17/2025 5:12 PM EDT CBC AUTO DIFFERENTIAL STAT 02/17/2025 5:12 PM EDT POCT GLUCOSE Routine 02/17/2025 4:44 PM EDT HEART & VASCULAR - SCANNED 02/17/2025 HEART & VASCULAR - SCANNED 02/17/2025 HEART & VASCULAR - SCANNED 02/17/2025 from Last 3 Months Results * Due to [place] state law, this organization might not be sharing negative HIV tests. * (ABNORMAL) POCT Glucose, interfaced (02/19/2025 8:30 AM EDT) Only the most recent of19 resultswithin the time period is included. [facility] Signature Glucose, POCT 121(H) 70 - 99 mg/dL 02/19/2025 8:32 AM EDT [facility] Comment: The strategic alliances manager has not determined the efficacy of this test in Critically ill patients. [facility] defines Critically ill patients for the purpose [...] 8:30 AM EDT 02/19/2025 8:32 AM EDT us Ryan Kelley MD LAB POCT ORDERABLES - DEVICE Final Result [facility] [address] [place] [address], * CBC (02/19/2025 4:15 AM EDT) Only the most recent of3 resultswithin the time period is included. WBC 9.3 3.8 - 10.8 10*3/uL 02/19/2025 4:23 AM EDT [facility] RBC 4.47 4.20 - 5.80 10*6/uL 02/19/2025 4:23 AM EDT [facility] Hemoglobin 13.6 13.2 - 17.1 g/dL 02/19/2025 4:23 AM EDT [facility] Hematocrit 39.3 38.5 - 50.0 % 02/19/2025 4:23 AM EDT [facility] MCV 87.9 80.0 - 100.0 fL 02/19/2025 4:23 AM EDT [facility] MCH 30.4 27.0 - 33.0 pg 02/19/2025 4:23 AM EDT [facility] MCHC 34.6 32.0 - 36.0 g/dL 02/19/2025 4:23 AM EDT [facility] RDW 12.2 11.0 - 15.0 % 02/19/2025 4:23 AM EDT [facility] Platelets 188 140 - 400 10*3/uL 02/19/2025 4:23 AM EDT [facility] MPV 11.0 7.5 - 12.5 fL 02/19/2025 4:23 AM EDT [facility] Blood Structure of peripheral vein / Unknown Venipuncture / Unknown 02/19/2025 4:15 AM EDT 02/19/2025 4:19 AM EDT Waylon Fransisco ECKERT LAB BLOOD ORDERABLES Final Re sult Performing Organization Address [facility] de Phone Number [facility] [address] [place] [address], * Magnesium (02/19/2025 4:15 AM EDT) Only the most recent of5 resultswithin the time period is included. MG 2.0 1.6 - 2.4 mg/dL 02/19/2025 4:45 AM EDT [facility] Blood Structure of peripheral vein / Unknown Venipuncture / Unknown 02/19/2025 4:15 AM EDT 02/19/2025 4:19 AM EDT Waylon Fransisco ECKERT LAB BLOOD ORDERABLES Final Re sult Performing Organization Address [facility] de Phone Number [facility] [address] [place] [address], [place] * (ABNORMAL) Renal function panel (02/19/2025 4:15 AM EDT) NA 141 135 - 145 mmol/L 02/19/2025 4:45 AM EDT [facility] K 3.7 3.5 - 5.3 mmol/L 02/19/2025 4:45 AM EDT [facility] Cl 105 97 - 110 mmol/L 02/19/2025 4:45 AM EDT [facility] CO2 25 22 - 32 mmol/L 02/19/2025 4:45 AM EDT [facility] Anion Gap 11 5 - 15 02/19/2025 4:45 AM EDT [facility] Glucose 142(H) 65 - 99 mg/dL 02/19/2025 4:45 AM EDT [facility] BUN 9 7 - 23 mg/dL 02/19/2025 4:45 AM EDT [facility] Creatinine 0.72 0.60 - 1.30 mg/dL 02/19/2025 4:45 AM EDT [facility] Calcium 8.4(L) 8.6 - 10.5 mg/dL 02/19/2025 4:45 AM EDT [facility] Phosphorus 2.9 2.5 - 4.5 mg/dL 02/19/2025 4:45 AM EDT [facility] Albumin 3.8 3.5 - 5.2 g/dL 02/19/2025 4:45 AM EDT [facility] eGFR >90 >=60 mL/min/1. 73m2 02/19/2025 4:45 AM EDT [facility] Comment:The estimated glomer ular [...] ECKERT LAB BLOOD ORDERABLES Final Re sult [facility] [address] [place] [address], * Troponin T, High Sensitivity (02/18/2025 11:32 AM EDT) Only the most recent of2 resultswithin the time period is included. Troponin T High Sensitivity 6 <=21 ng/L 02/18/2025 12:01 PM EDT [facility] Comment: Cf-Yuyvhxkh-A level of 52 ng/L or higher at [...] be evaluated in line with the 4th [place] Definition of AMI. Troponin baseline and serial [...] 11:32 AM EDT 02/18/2025 11:36 AM EDT Waylon ECKERT LAB BLOOD ORDERABLES Final Re sult [facility] [address] [place] [address], [place] * X-Ray Chest 1 View (02/18/2025 [...] to obtain the completed interpretation. Workstation ID: [id number] Narrative 02/21/2025 8:50 AM EDT COMPARISON: None Resulting Agency Comment [id number] Procedure Note Polo Hickman MD - 02/21/2025 COMPARISON: None IMPRESSION: FINDINGS/IMPRESSION: Negative. Heart normal. Lungs clear. If this radiology report contains a blank impression section, it is anincomplete radiology report. Please contact the interpreting radiologistor applicable radiology division as soon as possible to obtain thecompleted interpretation. Workstation ID: [id number] us Waylon ECKERT IMG XR PROCEDURES Final Resul t * (ABNORMAL) Phosphorus - Every 4 hours (02/18/2025 8:12 AM EDT) Only the most recent of3 resultswithin the time period is included. Phosphorus 1.7(L) 2.5 - 4.5 mg/dL 02/18/2025 8:47 AM EDT [facility] Blood Structure of peripheral vein / Unknown Venipuncture / Unknown 02/18/2025 8:12 AM EDT 02/18/2025 8:14 AM EDT Ryan Kelley MD LAB BLOOD ORDERABLES Final R esult [facility] [address] [place] [address], [place] * (ABNORMAL) Basic Metabolic Panel - Every 4 hours (02/18/2025 8:12 AM EDT) Only the most recent of4 resultswithin the time period is included. NA 139 135 - 145 mmol/L 02/18/2025 8:47 AM EDT [facility] K 3.7 3.5 - 5.3 mmol/L 02/18/2025 8:47 AM EDT [facility] Cl 110 97 - 110 mmol/L 02/18/2025 8:47 AM EDT [facility] CO2 22 22 - 32 mmol/L 02/18/2025 8:47 AM EDT [facility] BUN 14 7 - 23 mg/dL 02/18/2025 8:47 AM EDT [facility] Creatinine 0.70 0.60 - 1.30 mg/dL 02/18/2025 8:47 AM EDT [facility] Glucose 122(H) 65 - 99 mg/dL 02/18/2025 8:47 AM EDT [facility] Calcium 8.2(L) 8.6 - 10.5 mg/dL 02/18/2025 8:47 AM EDT [facility] Anion Gap 7 5 - 15 02/18/2025 8:47 AM EDT [facility] eGFR >90 >=60 mL/min/1. 73m2 02/18/2025 8:47 AM T [facility] Comment:The estimated glomer ular [...] MD LAB BLOOD ORDERABLES Final R esult [facility] [address] [place] [address], [place] * (ABNORMAL) Urinalysis W/Reflex to Microscopic (No Culture) (02/17/2025 11:12 PM EDT) Color, Urine Light Yellow Colorless, Light Yellow, Yellow, Dark Yellow 02/17/2025 11:51 PM EDT [facility] Clarity, Urine Clear Clear 02/17/2025 11:51 PM EDT [facility] Specific [place], Urine 1.027 <1.030 02/17/2025 11:51 PM EDT [facility] pH, Urine 5.5 4.6 - 8.0 02/17/2025 11:51 PM EDT [facility] Protein, Urine Negative Negative 02/17/2025 11:51 PM EDT [facility] Glucose, Urine 4+(A) Normal 02/17/2025 11:51 PM EDT [facility] Ketones, Urine 3+(A) Negative 02/17/2025 11:51 PM EDT [facility] Bilirubin, Urine Negative Negative 02/17/2025 11:51 PM EDT [facility] Blood, Urine Negative Negative 02/17/2025 11:51 PM EDT [facility] Nitrite, Urine Negative Negative 02/17/2025 11:51 PM EDT [facility] Urobilinogen, Urine Normal Normal 02/17/2025 11:51 PM EDT [facility] Leukocyte Esterase, Urine Negative Negative 02/17/2025 11:51 PM EDT [facility] Urine Urine specimen collection, clean catch / Unknown Non-Blood Collection / Unknown 02/17/2025 11:12 PM EDT 02/17/2025 11:12 PM EDT us Yousuf Grimaldo WAREHOUSER LAB URINE ORDERABLES Final R esult [facility] [address] [place] [address], [place] * (ABNORMAL) POCT I-STAT Lactate W/VBG, interfaced (02/17/2025 5:45 PM EDT) Sample Type, POCT Venous 02/17/2025 5:47 PM EDT [facility] Lactate, POCT 3.28(H) 0.9 - 1.7 mmol/L 02/17/2025 5:47 PM EDT [facility] pH, POCT 7.23(L) 7.31 - 7.41 pH 02/17/2025 5:47 PM EDT [facility] pCO2, POCT 33.0(L) 41 - 51 mm Hg 02/17/2025 5:47 PM EDT [facility] pO2, POCT 49(H) 35 - 40 mm Hg 02/17/2025 5:47 PM EDT [facility] Base Excess, POCT -14(L) 0 - 3 mmol/L 02/17/2025 5:47 PM EDT [facility] HCO3, POCT 13.7(L) 23 - 28 mmol/L 02/17/2025 5:47 PM EDT [facility] TCO2, POCT 15(LL) 24 - 29 mmol/L 02/17/2025 5:47 PM EDT [facility] Saturated O2, POCT 77(H) 70 - 75 % 02/17/2025 5:47 PM EDT [facility] Marshall's Test, POCT N/A 02/17/2025 5:47 PM EDT [facility] Blood 02/17/2025 5:45 PM EDT 02/17/2025 5:47 PM EDT us Saida Haro MD LAB POCT ORDERABLES - DONOVAN CE Final Result [facility] [address] [place] [address], [place] * [place] Top (02/17/2025 5:12 PM EDT) Pathologist [facility] Extra Tube Hold for add-ons. 02/17/2025 10:05 PM EDT [facility] Comment:Auto resulted. Blood Structure of peripheral vein / Unknown Venipuncture / Unknown 02/17/2025 5:12 PM EDT 02/17/2025 5:21 PM EDT Saida Haro MD LAB BLOOD ORDERABLES Final Result Performing Organization Address City/[facility]/ZIP Co de Phone Number [facility] [address] [place] [address], * (ABNORMAL) Betahydroxybutyrate (02/17/2025 5:12 PM EDT) Pathologist [facility] Beta-Hydroxybu tyrate 4.45(H) <=0.27 mmol/L 02/17/2025 6:13 PM EDT [facility] Blood Structure of peripheral vein / Unknown Venipuncture / Unknown 02/17/2025 5:12 PM EDT 02/17/2025 5:25 PM EDT Saida Haro MD LAB BLOOD ORDERABLES Final Result Performing Organization Address City/[facility]/ZIP Co de Phone Number [facility] [address] [place] [address], [place] * (ABNORMAL) CBC Auto Differential (02/17/2025 5:12 PM EDT) Pathologist [facility] WBC 21.0(H) 3.8 - 10.8 10*3/uL 02/17/2025 5:26 PM EDT [facility] RBC 4.91 4.20 - 5.80 10*6/uL 02/17/2025 5:26 PM EDT [facility] Hemoglobin 14.9 13.2 - 17.1 g/dL 02/17/2025 5:26 PM EDT [facility] Hematocrit 44.4 38.5 - 50.0 % 02/17/2025 5:26 PM EDT [facility] MCV 90.4 80.0 - 100.0 fL 02/17/2025 5:26 PM EDT [facility] MCH 30.3 27.0 - 33.0 pg 02/17/2025 5:26 PM EDT [facility] MCHC 33.6 32.0 - 36.0 g/dL 02/17/2025 5:26 PM EDT [facility] RDW 12.1 11.0 - 15.0 % 02/17/2025 5:26 PM EDT [facility] Platelets 211 140 - 400 10*3/uL 02/17/2025 5:26 PM EDT [facility] MPV 11.9 7.5 - 12.5 fL 02/17/2025 5:26 PM EDT [facility] Neutrophil % 86.5 % 02/17/2025 5:26 PM EDT [facility] Immature Grans % 0.5 0.0 - 0.9 % 02/17/2025 5:26 PM EDT [facility] Lymphocyte % 4.8 % 02/17/2025 5:26 PM EDT [facility] Monocyte % 8.0 % 02/17/2025 5:26 PM EDT [facility] Eosinophil % 0.0 % 02/17/2025 5:26 PM EDT [facility] Basophil % 0.2 % 02/17/2025 5:26 PM EDT [facility] Neutrophil # 18.15(H) 1.50 - 7.80 10*3/uL 02/17/2025 5:26 PM EDT [facility] Immature Grans # 0.10(H) <=0.03 10*3/uL 02/17/2025 5:26 PM EDT [facility] Lymphocyte # 1.00 0.85 - 3.90 10*3/uL 02/17/2025 5:26 PM EDT [facility] Monocyte # 1.70(H) 0.20 - 0.95 10*3/uL 02/17/2025 5:26 PM EDT [facility] Eosinophil # <0.03 0.02 - 0.50 10*3/uL 02/17/2025 5:26 PM EDT [facility] Basophil # <0.03 0.00 - 0.20 10*3/uL 02/17/2025 5:26 PM EDT [facility] nRBC % 0.0 /100 WBCs 02/17/2025 5:26 PM EDT [facility] nRBC # <0.01 <0.01 10*3/uL 02/17/2025 5:26 PM EDT [facility] Blood Structure of peripheral vein / Unknown Venipuncture / Unknown 02/17/2025 5:12 PM EDT 02/17/2025 5:20 PM EDT us Saida Haro MD LAB BLOOD ORDERABLES Final Result Performing Organization Address City/State/[facility] Co de Phone Number [facility] [address] [place] [address], * Blood Bank Hold Tube (02/17/2025 5:12 PM EDT) Extra Tube Hold for add-ons. [place] MANUAL 02/17/2025 10:05 PM EDT [facility] Comment:Auto resulted. Blood Structure of peripheral vein / Unknown Venipuncture / Unknown 02/17/2025 5:12 PM EDT 02/17/2025 5:26 PM EDT us Saida Haro MD LAB BLOOD BANK TEST ORDERA BLES Final Result Performing Organization Address City/[facility]/ZIP Co de Phone Number [facility] [address] [place] [address], * Light Blue Top (02/17/2025 5:12 PM EDT) Extra Tube Hold for add-ons. 02/17/2025 10:05 PM EDT [facility] Comment:Auto resulted. Blood Structure of peripheral vein / Unknown Venipuncture / Unknown 02/17/2025 5:12 PM EDT 02/17/2025 5:21 PM EDT Saida Haro MD LAB BLOOD ORDERABLES Final Result Performing Organization Address [facility] Co de Phone Number [facility] [address] [place] [address], [place] * HEART & VASCULAR - SCANNED (02/17/2025) Only the most recent of3 resultswithin the time period is included. Anatomical Region Laterality Modality Other Onbase Scan Tia SCANNED PROCEDURES Final Resu lt from Last 3 Months Insurance HSNO/FREE CARE Advance Directives Documents on File Type Date Recorded Patient Manager [employer] Expl anation Health Care Proxy 02/19/2025 1:26 PM 02-08 Health Care Proxy 02/18/2025 8:33 AM 02-08 * Full Code (Latest Code Status on File) Date Activated Date Inactivated Comments 02/17/2025 10:37 PM 02/19/2025 1:11 PM Care Teams Supervisor Fireworks Assembly Relationship Specialty Start Date End Date Iron, Corina Geronimo [address] [place] [id number] PCP - General Family Medicine 02/17/25
== END ==
LOC: HO.ENCR 16:21
PROVIDERS: PCP Family Medicine; Visit Provider Registered Nurse Diabetes Educator
DX: E10.9 Type 1 diabetes mellitus without complications (principal)
CPT/HCPCS: 99499

== ENCOUNTER 2025-03-15 07:50 | Outpatient (REF) | payer OTHER, SELFPAY ==
--- OUTSIDE RECORDS SUMMARY | 2025-03-15 07:54 | XMS_ITS | Clinical Summary ---
Author Organization [employer] Address [address] [place] [address] 7[address] [place] [address] Care Team Providers Care Cloud Infrastructure Architect Name Role Phone Corina Eli MD Primary Care Provider [phone]- [phone] Allergies No known active allergies Medications Acetone, Urine, Test (Ketone Test) strip USE DIRECTED THREE TIMES DAILY FOR INCREASE BLOOD SUGAR OR SYMPTOMS OF Diabetic Keto Acidosis 024 Active glucose (Glutose) 40 % gel oral gelIndications:T ype 1 diabetes mellitus without complication Take 15 g by mouth every 15 (fifteen) minutes if needed for low blood sugar. 15 g 1 Active atorvastatin (Lipitor) 40 MG tabletIndication s:Type 1 diabetes mellitus without complication Take 1 tablet (40 mg) by mouth Once per day. 30 tablet 11 024 Active Gvoke HypoPen 1-Pack 1 MG/0.2ML injection INJECT 0.2 ML SUBCUTANEOUSLY ONCE NEEDED FOR LOW BLOOD SUGAR 0.2 mL 1 024 Active Continuous Glucose Sensor (Dexcom G7 Sensor) misc USE DIRECTED TO TEST BLOOD SUGAR. CHANGE EVERY 10 DAYS 3 each 3 025 Active Fiasp 100 UNIT/ML solutionIndicati ons:Type 1 Diabetes Mellitus Inject up to 100 units per day by insulin pump 025 Active Insulin Disposable Pump (Omnipod DASH Pods, Gen 4,) miscIndications: Type 1 diabetes mellitus without complications (HCC) Inject 1 Application under the skin every 3 (three) days. Active Lantus SoloStar 100 UNIT/ML penIndications:T ype 1 Diabetes Mellitus Inject 17 units subcutaneous as needed for pump failure. Do not exceed 17 units/day Active Embecta Pen Needle Janee 32G X 4 MM miscIndications: Type 1 Diabetes Mellitus Use as directed up to four times a day Active Alcohol Swabs 70 % pads 010 2024 Discontinued(M ed list cleanup (will not trigger notification to Pharmacy)) Insulin Aspart (NovoLOG) 100 UNIT/ML solution Inject under the skin. 2024 Discontinued(M ed list cleanup (will not trigger notification to Pharmacy)) D3 Super Strength 50 MCG (1999 UT) capsule Take 50 mcg by mouth Once per day. 024 2024 Discontinued(M ed list cleanup (will not trigger notification to Pharmacy)) Continuous Glucose Transmitter (Dexcom G6 transmitter) misc USE DIRECTED 024 2024 Discontinued(M ed list cleanup (will not trigger notification to Pharmacy)) glucagon 1 MG injectionIndicat ions:Type 1 diabetes mellitus without complication Use I'm for hypoglycemia and not responsive prn 1 each 1 024 2024 Discontinued(M ed list cleanup (will not trigger notification to Pharmacy)) Active Problems Problem Noted Date Diagnosed Date Preventative health care 03/20/2023 Overview (02/06/2025): -next comprehensive annual evaluation due after 03/09/25 -eye care facilitated by [facility] seen 02/02/25 -dental home is [facility] proxy filed 03/09/24 Assessment & Plan (03/10/2024 10:11 AM EDT): -next comprehensive annual evaluation due after 03/09/25 -eye care facilitated by [facility] seen 09/02/23 -dental home is [facility] proxy given and filed 03/09/24 Seasonal allergies 12/24/2021 03/20/2023 Diabetes mellitus type 1 06/13/2011 023 Overview (02/20/2025): Diabetes is controlled. -Followed by senior inspector Dr. Jose Buck MD and Marion Martinez NP at [facility] -Dx d at age 9. No microvascular or macrovascular disease Lab Results Component Value Date HGBA1C 6.7 (A) 10/28/2024 HGBA1C 6.4 04/05/2024 HGBA1C 6.4 (A) 03/10/2024 Lab Results Component Value Date CREATININE 0.92 02/01/2024 EGFR >60 02/01/2024 MICROALBCREU 3.5 02/01/2024 MICROALBCREU 3.9 09/12/2022 LDLCHOLCAL 88 02/01/2024 -Bill/Arb: none -Statin therapy: Start Atorvastatin 40 mg 03/09/24 -Diabetic eye exam: done, 02/02/25 [facility] -Diabetic foot exam: done 03/09/24 -Continue lifestyle modifications -Continue current medications -Continue NovoLOG 100 UNIT/ML via insulin pump -Currently on [employer] 10/15 og sensor and pump -Blood pressure [...] ketone strips Prescribed nasal Baqsimi -Admitted to [facility] For DKA 02/17/25-04/21/25 due to pump not working correctly. Assessment & Plan (03/10/2024 10:45 AM EDT): Diabetes is controlled. -Followed by senior inspector Dr. Jose Buck MD and Marion Martinez RECONCILIATION MANAGER at [facility] -Dx d at age 9. [...] -Continue NovoLOG 100 UNIT/ML -Currently on [employer]tronic 6/ og sensor and pump -Blood pressure is at goal of <130/80 -wears med alert bracelet -Importance of low-fat, low cholesterol, ADA diet discussed. Importance of moderate physical activity discussed. Endocrinology note from 12/07/23 reviewed Resolved Problems Problem Noted Date Diagnosed Date Resolved Date Verruca vulgaris 11/21/2011 03/20/2023 03/10/2024 Encounters Date Type Department Care Team Description 03/14/[address] [address] Cornia Eli MD Insurance 02/20/[address] [address] Corina Eli MD Hospital Follow-up 02/20/2025 Patient Outreach [address] [address] Corina Eli MD Transition Of Care (Tcm) (HDF unscheduled ) 01/31/[address] [address] Corina Eli MD Vitamin D deficiency, unspecified 01/30/2025 Orders Only GENERIC EXTERNAL DATA DEPARTMENT Provider, Generic External Data 01/11/[address] [address] Anayeli Madden [place] March recalls from Last 3 Months Immunizations Immunization Administration [...] Description 03/15/2025 9:00 AM EST Office Visit [facility] MEDICINE [address] [place], [place] [phone] Corina Eli MD [address] [place], [place] [phone] Health Maintenance Due Date Last Done Comments Disability Screening 1988 Alcohol/Substance Use Screening 2000 Family Planning (PISQ) 2003 HPV Vaccines (1 - Male 3-dose series) 2003 COVID-19 Vaccine ( season) 2025 05/18/2021, 09/29/2020, 09/08/2020, Additional history exists Influenza Vaccine (#1) 2025 7, 02/06/2014, 02/14/2013, Additional history exists Diabetes: Urine Protein Screening 01/31/2025 02/01/2024, 09/12/2022, 08/05/2021, Additional history exists Lipid Panel 01/31/2025 02/01/2024, 0509/2022, 08/05/2021, Additional history exists Depression Screening 03/10/2025 03/10/2024, 03/10/20 SDOH Screening 03/10/2025 03/10/2024 Tobacco Screening 03/10/2025 03/10/2024 Diabetes: Hemoglobin A1C 04/29/2025 025, 04/05/2024, 03/10/2024, Additional history exists Diabetes: Foot Exam 03/15/2026 03/15/2025, 03/15/2025, 03/15/2025, Additional history exists Eye Exam 02/02/2027 02/02/2025, [...] Whole Blood 118(H) 60 - 115 mg/dL [facility] Comment:METER #: [id number] Testing performed in the Endocrinology Department [address] , [address], [facility]. 01/30/2025 3:05 PM EDT 01/30/2025 3:09 PM EDT Generic External Data Provider LAB BLOOD ORDERAB LES Final Result Performing Organization Address City/State/[facility] Co de Phone Number [facility] [address] [place] [phone] * (ABNORMAL) Hemoglobin A1c (10/28/2024) Hemoglobin A1C 6.7(A) 4.0 - 5.7 % Historical Provider HEALTH MAINTENANCE Final Result * Albumin, Random Urine W/Creatinine (02/01/2024 10:33 AM EDT) Creatinine, Urine 169.99 mg/dL [facility] Microalbumin Urine 6.0 mg/L [facility] Microalbum Creatinine Ratio Ur 3.5 <30 ug/mg cr [facility] Comment:Albumin/Creatinine R atio Reference Ranges: Normal: < 30 ug/mg creatinine Microalbuminuria: 30 - 300 ug/mg creatinineClinical Albuminuria: > 300 ug/mg creatinine 02/01/2024 10:3 3 AM EDT 02/01/2024 10:45 AM EDT Generic External Data Provider LAB URINE ORDERAB LES Final Result Performing Organization Address [facility] Co de Phone Number [facility] [address] [place] [phone] * Lipid Panel, Standard (02/01/2024 10:33 AM EDT) Triglycerides 46 <150 mg/dL [facility] Comment:Desirable Triglyceri de: less than 150 mg/dLBorderline High Triglyceride 150-199 mg/dLHigh Triglyceride: 200-499 mg/dLVery High Triglyceride: greater than or equal to 5OO mg/dL Cholesterol 159 <200 mg/dL [facility] Comment:Desirable Cholestero l: less than 200 mg/dLBorderline High Cholesterol: 200-239 mg/dLHigh Cholesterol: greater than 239 mg/dL LDL Cholesterol Calculated 88 <100 mg/dL [facility] Comment:Desirable LDL: less than 100 mg/dLNear Optimal/Above Optimal LDL: 110- 129 mg/dLBorderline High LDL: 130-159 mg/dLHigh LDL: 160-189 mg/dLVery High LDL: greater than or equal to 190 mg/dL HDL Cholesterol 62 >40 mg/dL [facility] Comment:Desirable HDL: great er than 40 mg/dL Note: This HDL assay may give artificially low results in patients with liver disease. 02/01/2024 10:3 3 AM EDT 02/01/2024 10:33 AM EDT us Generic External Data Provider LAB BLOOD ORDERAB LES Final Result Performing Organization Address [facility]/ZIP Co de Phone Number [facility] [address] [place] [phone] * Diabetes Eye Exam (09/02/2023) Eye Exam Normal Normal Comment:[facility] Historical Provider HEALTH MAINTENANCE Final Result * HM Hepatitis C Antibody (04/15/2017) Hepatitis C Antibody Nonreactive Blood Historical Provider HEALTH MAINTENANCE Final Result * HIV 1/2 Antigen and Antibody (04/15/2017) HIV Ag/Ab Nonreactive Historical Provider HEALTH MAINTENANCE Final Result from Last 3 Months or Most Recently Relevant to Health Maintenance Insurance [facility] Advance Directives Documents on File Type Date Recorded 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
--- OUTSIDE RECORDS SUMMARY | 2025-03-15 07:54 | XMS_ITS | Encounter Summary ---
Author Organization [employer] Address [address] [place] [address] 7 [place] [address] Care Team Providers Care Cnc Lathe Machine Operator Name Role Phone Corina Eli MD Primary Care Provider [phone]- [phone] Reason for Visit * Reason Onset Date Comments Insurance 03/14/2025 Encounter Details Date Type Department Care Team ([facility] st Contact Info) Description 03/14/2025 Telephone [facility] MEDICINE [address] [place], [place] [phone] Corina Eli MD [address] [place], [place] [phone] Insurance Social History Tobacco Use Types Packs/Day Years [...] encounter Miscellaneous Notes * Telephone Encounter - Barbara Rain - 03/14/2025 11:55 AM EST Called Patient left vm no answer. Advised to call back with new insurance information. Insurance onfile is inactive. Patient will need active insurance before appointment time. documented in this encounter Plan of Treatment Upcoming Encounters Date Type Department Care Team (Late st Contact Info) Description 03/15/2025 9:00 AM EST Office Visit [facility] MEDICINE [address] [place] [phone] Corina Eli MD [address] [place] [phone] documented as of this encounter Visit Diagnoses Not on filedocumented in this encounter Additional Health Concerns Assessment Noted Time PHQ-9 Depression Total Score: 0 03/10/20 24 10:37 AM EDT documented as of this encounter Care Teams Cnc Lathe Machine Operator Relationship Specialty Start Date End Date Corina Eli MD [address] [place] [address] PCP - General Family Medicine 05/11/18 Sejal Alfaro NP [facility] [place] Endocrinology Endocrinology 04/05/24 documented as of this encounter
--- OUTSIDE RECORDS SUMMARY | 2025-03-15 07:54 | XMS_ITS | Clinical Summary ---
Author Organization [facility] Address [address] [place] [address] Phone Care Team Providers Care Ostrich Farmer Name Role Phone Physician, Pcp Unknown Primary Care Provider Nasima vailable Allergies No known active allergies Social History Tobacco Use Types Packs/Day Years Used Date Smoking Tobacco: Never Assessed Sex and Gender Information Value Date Recorded Sex Assigned at Not on file Legal Sex Male 5:44 AM EST Gender Identity Not on file Sexual Orientation Not on file Last Filed Vital Signs Vital Sign Reading Time Taken Comments Blood Pressure 115/70 09/30/2024 8:52 PM EDT Pulse 69 09/30/2024 8:52 PM EDT Temperature 37.6 C (99.7 F) 09/30/2024 8:52 PM EDT Respiratory Rate 16 09/30/2024 8:52 PM EDT Oxygen Saturation 99% 09/30/2024 8:52 PM EDT Inhaled Oxygen Concentration - - Weight 71.2 kg (157 lb) 09/30/2024 4:37 PM EDT Height 175.3 cm (5' 9 ) 09/30/2024 4:37 PM EDT Body Mass Index 23.18 09/30/2024 4:37 PM EDT Plan of Treatment Health Maintenance Due Date Last Done Comments Diabetes: Annual Foot Exam 1998 Diabetes: Annual Retina Eye Exam 1998 HPV Vaccines (1 - 3-dose SCDM series) 2015 Depression Screening 05/11/2024 Diabetes: Annual Urine Albumin-Creatinine Ratio (uACR) 10/01/2024 HIV Screening 10/01/2024 Hepatitis C Screening 10/01/2024 Social Influencers of Health Screening 10/01/2024 Diabetes: Blood Sugar Control Test (HGBA1C) 10/03/2024 04/05/2024 COVID-19 Vaccine ( - season) 2025 09/08/2020 Influenza Vaccine (#1) 2025 7, 02/06/2014, 02/14/2013, Additional history exists Diabetes: Annual GFR (Glomerular Filtration Rate) 09/30/2025 09/30/2024 Cholesterol Screening (Lipid Panel) 01/31/2029 02/01/2024 DTaP,Tdap,and Td Vaccines (3 - Td or Tdap) 03/10/2034 03/10/2024, 11/21/2011 RSV Immunization Adult Patients (1 - 1-dose 75+ series) 2063 Hepatitis B Vaccines Completed 03/10/2024, 05/22/2017, 04/15/2017 Pneumococcal Vaccine: Pediatrics (0 to 5 Years) and At-Risk Patients (6 to 49 Years) Aged Out 03/10/2024, 05/07/2007 No longer eligibl e based on patient's age to complete this topic HIB Vaccines Aged Out No longer eligi [...] to complete this topic RSV Immunization Patients Under 20 months Aged Out No longer eligible based on patient's age to complete this topic Varicella Vaccines Aged Out No longer eligible based on patient's age to complete this topic Procedures Procedure Name Priority Date/Time Associated Diagnosis Comments COMPREHENSIVE METABOLIC PANEL STAT 09/30/2024 5:19 PM EDT from Last 3 Months or Most Recently Relevant to Health Maintenance Results * (ABNORMAL) Comprehensive metabolic panel (09/30/2024 5:19 PM EDT) Sodium 136 133 - 145 mmol/L LAB CHEMISTRY METHOD 09/30/2024 6:22 PM EDT [facility] Potassium 3.6 3.5 - 5.5 mmol/L LAB CHEMISTRY METHOD 09/30/2024 6:22 PM [facility] Chloride 103 96 - 110 mmol/L LAB CHEMISTRY METHOD 09/30/2024 6:22 PM [facility] CO2 25 21 - 32 mmol/L LAB CHEMISTRY METHOD 09/30/2024 6:22 PM [facility] Anion Gap 8 3 - 11 LAB CHEMISTRY METHOD 09/30/2024 6:22 PM [facility] Glucose 115(H) 70 - 100 mg/dL LAB CHEMISTRY METHOD 09/30/2024 6:22 PM [facility] BUN 18 5 - 25 mg/dL LAB CHEMISTRY METHOD 09/30/2024 6:22 PM [facility] Creatinine 0.90 0.70 - 1.30 mg/dL LAB CHEMISTRY METHOD 09/30/2024 6:22 PM [facility] eGFR 114 >=60 mL/min/1. 73m2 LAB CHEMISTRY METHOD 09/30/2024 6:22 PM [facility] Comment:Calculation based on the Chronic Kidney Disease Epidemiology Collaboration (CKD-EPI) equation refit without adjustment for race. BUN/Creatinine Ratio 20.0 LAB CHEMISTRY METHOD 09/30/2024 6:22 PM [facility] Calcium 9.1 8.5 - 10.5 mg/dL LAB CHEMISTRY METHOD 09/30/2024 6:22 PM [facility] AST (SGOT) 31 10 - 42 unit/L LAB CHEMISTRY METHOD 09/30/2024 6:22 PM [facility] ALT (SGPT) 48 10 - 60 unit/L LAB CHEMISTRY METHOD 09/30/2024 6:22 PM [facility] Alkaline Phosphatase 68 42 - 121 unit/L LAB CHEMISTRY METHOD 09/30/2024 6:22 PM [facility] Total Protein 7.5 6.0 - 8.0 g/dL LAB CHEMISTRY METHOD 09/30/2024 6:22 PM EDT [facility] Albumin 3.9 3.2 - 5.0 g/dL LAB CHEMISTRY METHOD 09/30/2024 6:22 PM EDT [facility] Total Bilirubin 1.4 0.0 - 1.4 mg/dL LAB CHEMISTRY METHOD 09/30/2024 6:22 PM EDT [facility] Blood Venous blood specimen / Unknown Venipuncture / Unknown 09/30/2024 5:19 PM EDT 09/30/2024 5:51 PM EDT Tayler ECKERT LAB BLOOD ORDERABLES F inal Result [facility] [address] [place] [address], from Last 3 Months or Most Recently Relevant to Health Maintenance Insurance [facility] [employer] Care Teams Ostrich Farmer Relationship Specialty Start Date End Date Physician, Pcp Unknown PCP - General 09/30/24
--- OUTSIDE RECORDS SUMMARY | 2025-03-15 07:54 | XMS_ITS | Encounter Summary ---
Author Organization [employer] Address [address] [facility] [address] [place] [address] Care Team Providers Care Sustainability Analyst Name Role Phone Corina Eli MD Primary Care Provider +1- [phone] Encounter Details Date Type Department Care Team ([facility] st Contact Info) Description 03/11/2024 Orders Only [facility] MEDICINE [address] [place], [place] [phone] Corina Eli MD [address] [place] [phone] Social History Tobacco Use Types Packs/Day Years [...] Description 03/15/2025 9:00 AM EST Office Visit [facility] MEDICINE [address] [place] [phone] Corina Eli MD [address] [place] [phone] documented as of this encounter Visit Diagnoses Not on filedocumented in this encounter Additional Health Concerns Assessment Noted Time PHQ-9 Depression Total Score: 0 03/10/20 24 10:37 AM EDT documented as of this encounter Care Teams Sustainability Analyst Relationship Specialty Start Date End Date Corina Eli MD [address] [place] [phone] PCP - General Family Medicine 05/11/18 Sejal Alfaro NP [facility] [place]ocrinology Endocrinology 04/05/24 documented as of this encounter
--- OUTSIDE RECORDS SUMMARY | 2025-03-15 07:55 | XMS_ITS | Clinical Summary ---
Author Organization [facility] Address [address] [place] [address] Care Team Providers Care Travel Rn Or Name Role Phone Corina Eli Primary Care [...] - 02/19/2025 11:06 AM EDT Hospital Encounter [facility] 2 Critical Care Unit [address] [place] [address] Saida Haro MD Gallant, Joseph J., MD [...] money to get more. Never true 02/17/2025 [facility] Utilities Answer Date Recorded In the past [...] 05/11/2024 Hemoglobin A1C 09/07/2024 03/10/2024 COVID-19 Vaccine ( - 2024-2 6 season) 2025 05/18/2021, 09/29/2020, 09/08/2020 Influenza Vaccine (#1) 2025 7, 02/06/2014, 02/14/2013, Additional history exists Basic Metabolic Panel 02/19/2026 02/19/2025 , 02/18/2025, 02/18/2025, Additional history exists DTaP,Tdap,and Td Vaccines (3 - Td or Tdap) 03/10/2034 03/10/2024, 11/21/2011 Hepatitis B Vaccines Completed 03/10/2024, 05/22/2017, 04/15/2017 Pneumococcal Vaccine: Pediat brianna (0-5 Years) and At-Risk Patients (6-50 Years) Completed 03/10/2024, 05/07/2007 Procedures * Due to [place] state law, this organization might not be [...] 1 VW STAT 02/18/2025 11:30 AM EDT ECG 12-LEAD Routine 02/18/2025 10:44 AM EDT POCT GLUCOSE Routine 02/18/2025 10:37 [...] LACTATE W/VBG Routine 2024 5:45 PM EDT ECG 12-LEAD STAT 02/17/2025 5:18 PM EDT [place] Routine 02/17/2025 5:12 [...] Last 3 Months Results * Due to [place] state law, this organization might not be sharing negative HIV tests. * (ABNORMAL) POCT Glucose, interfaced (02/19/2025 8:30 AM EDT) Only the most recent of19 resultswithin the time period is included. [facility] Glucose, POCT 121(H) 70 - 99 mg/dL 02/19/2025 8:32 AM EDT [facility] Comment: The mold chipper has not determined the efficacy of this test in Critically ill patients. [facility] defines Critically ill patients for the purpose [...] LAB POCT ORDERABLES - DEVICE Final Result [facility] [address] [place] [address], [place] * CBC (02/19/2025 4:15 AM EDT) Only the most recent of3 resultswithin the time period is included. WBC 9.3 3.8 - 10.8 10*3/uL 02/19/2025 4:23 AM EDT [facility] CL[facility]ICAL PATHOLOGY LABORATORY RBC 4.47 4.20 - 5.80 10*6/uL 02/19/2025 4:23 AM EDT [facility] CL[facility] PATHOLOGY LAB[facility]ORY Hemoglobin 13.6 13.2 - 17.1 g/dL 02/19/2025 4:23 AM EDT [facility] CL[facility]ICAL PATHOLOGY LAB[facility]ORY Hematocrit 39.3 38.5 - 50.0 % 02/19/2025 4:23 AM EDT [facility] CL[facility]ICAL PATHOLOGY LAB[facility] MCV 87.9 80.0 - 100.0 fL 02/19/2025 4:23 AM EDT [facility] CL[facility]ICAL PATHOLOGY LAB[facility] MCH 30.4 27.0 - 33.0 pg 02/19/2025 4:23 AM EDT [facility] CL[facility]ICAL PATHOLOGY LAB[facility] MCHC 34.6 32.0 - 36.0 g/dL 02/19/2025 4:23 AM EDT [facility] CL[facility]ICAL PATHOLOGY LAB[facility] RDW 12.2 11.0 - 15.0 % 02/19/2025 4:23 AM EDT [facility] CL[facility]ICAL PATHOLOGY LAB[facility] Platelets 188 140 - 400 10*3/uL 02/19/2025 4:23 AM EDT [facility] CLINICAL PATHOLOGY LABORATORY MPV 11.0 7.5 - 12.5 fL 02/19/2025 4:23 AM EDT [facility] CL[facility]ICAL PATHOLOGY LAB[facility] Blood Structure of peripheral vein / Unknown Venipuncture / Unknown 02/19/2025 4:15 AM EDT 02/19/2025 4:19 AM EDT Waylon Fransisco ECKERT LAB BLOOD ORDERABLES Final Re sult Performing Organization Address [facility] de Phone Number [facility] CLINICAL PATHOLOGY LABORATORY [address] [place] [address], * Magnesium (02/19/2025 4:15 AM EDT) Only the most recent of5 resultswithin the time period is included. MG 2.0 1.6 - 2.4 mg/dL 02/19/2025 4:45 AM EDT [facility] PATHOLOG[facility] Blood Structure of peripheral vein / Unknown Venipuncture / Unknown 02/19/2025 4:15 AM EDT 02/19/2025 4:19 AM EDT Waylon Fransisco ECKERT LAB BLOOD ORDERABLES Final Re sult Performing Organization Address [facility] de Phone Number [facility] CLINICAL PATHOLOGY LABORATORY [address] [place] [phone], * (ABNORMAL) Renal function panel (02/19/2025 4:15 AM EDT) NA 141 135 - 145 mmol/L 02/19/2025 4:45 AM EDT [facility] CL[facility] PATHOLOGY LAB[facility] K 3.7 3.5 - 5.3 mmol/L 02/19/2025 4:45 AM EDT [facility] PATHOLOGY LAB[facility] Cl 105 97 - 110 mmol/L 02/19/2025 4:45 AM EDT [facility] CL[facility] PATHOLOGY LAB[facility] CO2 25 22 - 32 mmol/L 02/19/2025 4:45 AM EDT [facility] CL[facility] PATHOLOGY LAB[facility] Anion Gap 11 5 - 15 02/19/2025 4:45 AM EDT [facility] CL[facility] PATHOLOGY LAB[facility] Glucose 142(H) 65 - 99 mg/dL 02/19/2025 4:45 AM EDT [facility] CL[facility] PATHOLOGY LAB[facility] BUN 9 7 - 23 mg/dL 02/19/2025 4:45 AM EDT [facility] CL[facility] PATHOLOGY LAB[facility] Creatinine 0.72 0.60 - 1.30 mg/dL 02/19/2025 4:45 AM EDT [facility] CL[facility] PATHOLOGY LAB[facility] Calcium 8.4(L) 8.6 - 10.5 mg/dL 02/19/2025 4:45 AM EDT [facility] CL[facility] PATHOLOGY LAB[facility] Phosphorus 2.9 2.5 - 4.5 mg/dL 02/19/2025 4:45 AM EDT [facility] CL[facility] PATHOLOGY LAB[facility] Albumin 3.8 3.5 - 5.2 g/dL 02/19/2025 4:45 AM EDT [facility] CL[facility] PATHOLOGY LAB[facility]ATORY eGFR >90 >=60 mL/min/1. 73m2 02/19/2025 4:45 AM EDT [facility] CLINICAL PATHOLOGY LABORATORY Comment:The estimated [...] ECKERT LAB BLOOD ORDERABLES Final Re sult [facility] CL[facility]ICAL PATHOLOGY LABORATORY [address] [place] [address], [place] * Troponin T, High Sensitivity (02/18/2025 11:32 AM EDT) Only the most recent of2 resultswithin the time period is included. Troponin T High Sensitivity 6 <=21 ng/L 02/18/2025 12:01 PM EDT [facility] CL[facility]ICAL PATHOLOGY LABORATORY Comment: Az-Tpzzjbou-T level of 52 ng/L or higher at [...] be evaluated in line with the 4th Idamay Definition of AMI. Troponin baseline and serial [...] ECKERT LAB BLOOD ORDERABLES Final Re sult [facility] PATHOLOGY LABORATORY [address] [place] [address], [place] * X-Ray Chest 1 View (02/18/2025 [...] to obtain the completed interpretation. Workstation ID: [id number] Narrative 02/21/2025 8:50 AM EDT COMPARISON: None Resulting Agency Comment [id number] Procedure Note Polo Hickman MD - 02/21/2025 COMPARISON: None IMPRESSION: FINDINGS/IMPRESSION: Negative. Heart normal. Lungs clear. If this radiology report contains a blank impression section, it is anincomplete radiology report. Please contact the interpreting radiologistor applicable radiology division as soon as possible to obtain thecompleted interpretation. Workstation ID: [id number] Waylon ECKERT IMG XR PROCEDURES Final Resul t * ECG 12 lead (02/18/2025 10:44 AM EDT) Only the most recent of2 resultswithin the time period is included. Ventricular Rate EKG 86 BPM MUSE EKG Atrial Rate 86 BPM MUSE EKG TN Interval 128 ms MUSE EKG QRS Interval 86 ms MUSE EKG QT Interval 402 ms MUSE EKG QTC Interval 481 ms MUSE EKG P [place] 71 degrees MUSE EKG R [place] 34 degrees MUSE EKG T Wave [place] 57 degrees MUSE EKG 02/18/2025 10:4 4 AM EDT 02/22/2025 11:33 AM EDT Impressions MUSE EKG - 02/22/2025 11:33 AM EDT NORMAL SINUS RHYTHM NONSPECIFIC T WAVE ABNORMALITY PROLONGED QT ABNORMAL ECG WHEN COMPARED WITH ECG OF 17-Feb-2025 17:18, (UNCONFIRMED) QT HAS LENGTHENED Confirmed by Juwan Rivera ([id number]) on 02/22/2025 11:33:28 AM Narrative Procedure Note Juwan Simms MD - 02/22/2025 IMPRESSION: NORMAL SINUS RHYTHM NONSPECIFIC T WAVE ABNORMALITY PROLONGED QT ABNORMAL ECG WHEN COMPARED WITH ECG OF 17-Feb-2025 17:18, (UNCONFIRMED) QT HAS LENGTHENED Confirmed by Juwan Rivera ([id number]) on 02/22/2025 11:33:28 AM Medical Laboratory Technologist Tika MIKE ECG ORDERABLES Final Resu lt MUSE EKG * (ABNORMAL) Phosphorus - Every 4 hours (02/18/2025 8:12 AM EDT) Only the most recent of3 resultswithin the time period is included. Phosphorus 1.7(L) 2.5 - 4.5 mg/dL 02/18/2025 8:47 AM EDT [facility] CLINICAL PATHOLOGY LABORAT[facility] Blood Structure of peripheral vein / Unknown Venipuncture / Unknown 02/18/2025 8:12 AM EDT 02/18/2025 8:14 AM EDT us Ryan Kelley MD LAB BLOOD ORDERABLES Final R esult Performing Organization Address City/[facility] Co de Phone Number [facility] PATH[facility] [address] [place] [address], [place] * (ABNORMAL) Basic Metabolic Panel - Every 4 hours (02/18/2025 8:12 AM EDT) Only the most recent of4 resultswithin the time period is included. NA 139 135 - 145 mmol/L 02/18/2025 8:47 AM EDT [facility] CL[facility]ICAL PATHOLOGY LABORAT[facility] K 3.7 3.5 - 5.3 mmol/L 02/18/2025 8:47 AM EDT [facility] CL[facility] PATHOLOGY LAB[facility] Cl 110 97 - 110 mmol/L 02/18/2025 8:47 AM EDT [facility] CL[facility] PATHOLOGY LAB[facility] CO2 22 22 - 32 mmol/L 02/18/2025 8:47 AM EDT [facility] CL[facility] PATHOLOGY LAB[facility] BUN 14 7 - 23 mg/dL 02/18/2025 8:47 AM EDT [facility] CL[facility] PATHOLOGY LAB[facility] Creatinine 0.70 0.60 - 1.30 mg/dL 02/18/2025 8:47 AM EDT [facility] PATHOLOGY LAB[facility] Glucose 122(H) 65 - 99 mg/dL 02/18/2025 8:47 AM EDT [facility] CL[facility] PATHOLOGY LAB[facility] Calcium 8.2(L) 8.6 - 10.5 mg/dL 02/18/2025 8:47 AM EDT [facility] CL[facility] PATHOLOGY LAB[facility] Anion Gap 7 5 - 15 02/18/2025 8:47 AM EDT [facility] CL[facility]ICAL PATHOLOGY LAB[facility] eGFR >90 >=60 mL/min/1. 73m2 02/18/2025 8:47 AM EDT [facility] CL[facility]ICAL PATHOLOGY LABORATORY Comment:The estimated [...] MD LAB BLOOD ORDERABLES Final R esult [facility] CL[facility] PATHOLOGY LABORATORY [address] [place] [address], [place] * (ABNORMAL) Urinalysis W/Reflex to Microscopic (No Culture) (02/17/2025 11:12 PM EDT) Color, Urine Light Yellow Colorless, Light Yellow, Yellow, Dark Yellow 02/17/2025 11:51 PM EDT [facility] CL[facility] PATHOLOGY LAB[facility] Clarity, Urine Clear Clear 02/17/2025 11:51 PM EDT [facility] CLINICAL PATHOLOGY LABORATORY Specific [place], Urine 1.027 <1.030 02/17/2025 11:51 PM EDT [facility] CL[facility] PATHOLOGY LAB[facility] pH, Urine 5.5 4.6 - 8.0 02/17/2025 11:51 PM EDT [facility] PATHOLOG[facility] LAB[facility] Protein, Urine Negative Negative 02/17/2025 11:51 PM EDT [facility] Glucose, Urine 4+(A) Normal 02/17/2025 11:51 PM EDT [facility] Ketones, Urine 3+(A) Negative 02/17/2025 11:51 PM EDT [facility] PATHOLOG[facility] LAB[facility] Bilirubin, Urine Negative Negative 02/17/2025 11:51 PM EDT [facility] Blood, Urine Negative Negative 02/17/2025 11:51 PM EDT [facility] Nitrite, Urine Negative Negative 02/17/2025 11:51 PM EDT [facility] Urobilinogen, Urine Normal Normal 02/17/2025 11:51 PM EDT [facility] Leukocyte Esterase, Urine Negative Negative 02/17/2025 11:51 PM EDT [facility] Urine Urine specimen collection, clean catch / Unknown Non-Blood Collection / Unknown 02/17/2025 11:12 PM EDT 02/17/2025 11:12 PM EDT us Yousuf Grimaldo [employer] LAB URINE ORDERABLES Final R esult Performing Organization Address City/State/[facility] Co de Phone Number [facility] CLINICAL PATHOLOGY LABORATORY [address] [place] [phone], * (ABNORMAL) POCT I-STAT Lactate W/VBG, interfaced (02/17/2025 5:45 PM EDT) Sample Type, POCT Venous 02/17/2025 5:47 PM EDT [facility] Lactate, POCT 3.28(H) 0.9 - 1.7 mmol/L 02/17/2025 5:47 PM EDT [facility] pH, POCT 7.23(L) 7.31 - 7.41 pH 02/17/2025 5:47 PM EDT [facility] pCO2, POCT 33.0(L) 41 - 51 mm Hg 02/17/2025 5:47 PM EDT [facility] pO2, POCT 49(H) 35 - 40 mm Hg 02/17/2025 5:47 PM EDT [facility] Base Excess, POCT -14(L) 0 - 3 mmol/L 02/17/2025 5:47 PM EDT [facility] HCO3, POCT 13.7(L) 23 - 28 mmol/L 02/17/2025 5:47 PM EDT [facility] TCO2, POCT 15(LL) 24 - 29 mmol/L 02/17/2025 5:47 PM EDT [facility] Saturated O2, POCT 77(H) 70 - 75 % 02/17/2025 5:47 PM EDT [facility] Marshall's Test, POCT N/A 02/17/2025 5:47 PM EDT [facility] Blood 02/17/2025 5:45 PM EDT 02/17/2025 5:47 PM EDT us Saida Haro MD LAB POCT ORDERABLES - DONOVAN CE Final Result [facility] [address] [place] [address], * [place] Top (02/17/2025 5:12 PM EDT) Extra Tube Hold for add-ons. 02/17/2025 10:05 PM EDT [facility] PATHOLOG[facility] LAB[facility]ATORY Comment:Auto resulted. Blood Structure of peripheral vein / Unknown Venipuncture / Unknown 02/17/2025 5:12 PM EDT 02/17/2025 5:21 PM EDT Saida Haro MD LAB BLOOD ORDERABLES Final Result Performing Organization Address [facility]/ZIP Co de Phone Number [facility] CL[facility]OLOG[facility] LABORATORY [address] [place] [address] * (ABNORMAL) Betahydroxybutyrate (02/17/2025 5:12 PM EDT) Beta-Hydroxybu tyrate 4.45(H) <=0.27 mmol/L 02/17/2025 6:13 PM EDT [facility] LAB[facility] Blood Structure of peripheral vein / Unknown Venipuncture / Unknown 02/17/2025 5:12 PM EDT 02/17/2025 5:25 PM EDT Saida Haro MD LAB BLOOD ORDERABLES Final Result Performing Organization Address [facility] Co de Phone Number [facility] CL[facility]ICAL PATHOLOG[facility] LABORATORY [address] [place] [address], * (ABNORMAL) CBC Auto Differential (02/17/2025 5:12 PM EDT) Pathologist [facility] WBC 21.0(H) 3.8 - 10.8 10*3/uL 02/17/2025 5:26 PM EDT [facility] RBC 4.91 4.20 - 5.80 10*6/uL 02/17/2025 5:26 PM EDT [facility] Hemoglobin 14.9 13.2 - 17.1 g/dL 02/17/2025 5:26 PM EDT [facility] Hematocrit 44.4 38.5 - 50.0 % 02/17/2025 5:26 PM EDT [facility] MCV 90.4 80.0 - 100.0 fL 02/17/2025 5:26 PM EDT [facility] MCH 30.3 27.0 - 33.0 pg 02/17/2025 5:26 PM EDT [facility] MCHC 33.6 32.0 - 36.0 g/dL 02/17/2025 5:26 PM EDT [facility] RDW 12.1 11.0 - 15.0 % 02/17/2025 5:26 PM EDT [facility] Platelets 211 140 - 400 10*3/uL 02/17/2025 5:26 PM EDT [facility] MPV 11.9 7.5 - 12.5 fL 02/17/2025 5:26 PM EDT [facility] Neutrophil % 86.5 % 02/17/2025 5:26 PM EDT [facility] Immature Grans % 0.5 0.0 - 0.9 % 02/17/2025 5:26 PM EDT [facility] Lymphocyte % 4.8 % 02/17/2025 5:26 PM EDT [facility] Monocyte % 8.0 % 02/17/2025 5:26 PM EDT [facility] Eosinophil % 0.0 % 02/17/2025 5:26 PM EDT [facility] Basophil % 0.2 % 02/17/2025 5:26 PM EDT [facility] Neutrophil # 18.15(H) 1.50 - 7.80 10*3/uL 02/17/2025 5:26 PM EDT [facility] Immature Grans # 0.10(H) <=0.03 10*3/uL 02/17/2025 5:26 PM EDT [facility] Lymphocyte # 1.00 0.85 - 3.90 10*3/uL 02/17/2025 5:26 PM EDT [facility] Monocyte # 1.70(H) 0.20 - 0.95 10*3/uL 02/17/2025 5:26 PM EDT [facility] Eosinophil # <0.03 0.02 - 0.50 10*3/uL 02/17/2025 5:26 PM EDT [facility] Basophil # <0.03 0.00 - 0.20 10*3/uL 02/17/2025 5:26 PM EDT [facility] nRBC % 0.0 /100 WBCs 02/17/2025 5:26 PM EDT [facility] CLINICAL PATHOLOG[facility] LABORAT[facility] nRBC # <0.01 <0.01 10*3/uL 02/17/2025 5:26 PM EDT [facility] Blood Structure of peripheral vein / Unknown Venipuncture / Unknown 02/17/2025 5:12 PM EDT 02/17/2025 5:20 PM EDT Saida Haro MD LAB BLOOD ORDERABLES Final Result [email or web address] [address] [place] [address], * Blood Bank Hold Tube (02/17/2025 5:12 PM EDT) Extra Tube Hold for add-ons. [place] [facility] 02/17/2025 10:05 PM EDT BLOOD BANK Comment:Auto resulted. Blood Structure of peripheral vein / Unknown Venipuncture / Unknown 02/17/2025 5:12 PM EDT 02/17/2025 5:26 PM EDT Saida Haro MD LAB BLOOD BANK TEST ORDERA BLES Final Result BLOOD BANK [address] [place] [address], * Light Blue Top (02/17/2025 5:12 PM EDT) Extra Tube Hold for add-ons. 02/17/2025 10:05 PM EDT [email or web address] Comment:Auto resulted. Blood Structure of peripheral vein / Unknown Venipuncture / Unknown 02/17/2025 5:12 PM EDT 02/17/2025 5:21 PM EDT us Saida Haro MD LAB BLOOD ORDERABLES Final Result [email or web address] [address] [place] [address], * HEART & VASCULAR - SCANNED (02/17/2025) Only the most recent of3 resultswithin the time period is included. Anatomical Region Laterality Modality Other us Onbase Scan Tia SCANNED PROCEDURES Final Resu lt from Last 3 Months Insurance HSNO/FREE CARE Advance Directives Documents on File Type Date Recorded Patient Marketing Communication Manager [facility] Proxy 02/19/2025 1:26 PM 10- Health Care Proxy 02/18/2025 8:33 AM 10- * Full Code (Latest Code Status on File) Date Activated Date Inactivated Comments 02/17/2025 10:37 PM 02/19/2025 1:11 PM Care Teams Travel Rn Or Relationship Specialty Start Date End Date Corina Eli [address] [place] [id number] PCP - General Family Medicine 02/17/25
--- OUTSIDE RECORDS SUMMARY | 2025-03-15 07:55 | XMS_ITS | Encounter Summary ---
Author Organization [employer] Address [address] [place] [address] 7 [place] [address] Care Team Providers Care Social Welfare Administrator Name Role Phone Corina Eli MD Primary Care Provider [phone]- [phone] Reason for Visit * Reason Comments Med Refill Encounter Details Date Type Department Care Team ([facility] st Contact Info) Description 01/31/2025 Refill [facility] [address], [place] [phone] Corina Eli MD [address] [place], [place] [phone] Vitamin D deficiency, unspecified Social History Tobacco [...] Description 03/15/2025 9:00 AM EST Office Visit [facility] [address] [place] [phone] Corina Eli MD [address] [place] [phone] documented as of this encounter Visit Diagnoses Diagnosis Vitamin D deficiency, unspecified Type 1 diabetes mellitus without complications (HCC) documented in this encounter Additional Health Concerns Assessment Noted Time PHQ-9 Depression Total Score: 0 03/10/20 24 10:37 AM EDT documented as of this encounter Care Teams Social Welfare Administrator Relationship Specialty Start Date End Date Corina Eli MD [address] [place] [phone] PCP - General Family Medicine 05/11/18 Sejal Alfaro NP [facility] Endocrinology Endocrinology 04/05/24 documented as of this encounter
--- OUTSIDE RECORDS SUMMARY | 2025-03-15 07:55 | XMS_ITS | Encounter Summary ---
Author Organization [employer] Address [address] [place] [address] 7 [place] [address] Care Team Providers Care Integrated Circuit Ic Layout Designer Name Role Phone Corina Eli MD Primary Care Provider [phone]- [phone] Reason for Visit * Reason Onset Date Comments Hospital Follow-up 02/20/2025 Encounter Details Date Type Department Care Team ([facility] st Contact Info) Description 02/20/2025 Telephone [facility] [address], [place] [phone] Corina Eli MD [address] [place] [address] Hospital Follow-up Social History Tobacco Use Types [...] retuning call for HDF Contact pt at [phone] Need tomographic tech documented in this encounter Plan of Treatment Upcoming Encounters Date Type Department Care Team (Late st Contact Info) Description 03/15/2025 9:00 AM EST Office Visit [facility] [address] [place] [address] Corina Eli MD [address] [place] [address] documented as of this encounter Visit Diagnoses Not on filedocumented in this encounter Additional Health Concerns Assessment Noted Time PHQ-9 Depression Total Score: 0 03/10/20 24 10:37 AM EDT documented as of this encounter Care Teams Integrated Circuit Ic Layout Designer Relationship Specialty Start Date End Date Corina Eli MD [address] [place] [address] PCP - General Family Medicine 05/11/18 Sejal Alfaro NP [facility] Endocrinology Endocrinology 04/05/24 documented as of this encounter
[2025-03-15 08:25] LABS: Hematocrit 45.2 % (42.0-52.0); Hemoglobin 14.9 g/dl (14.0-18.0); Mean Corpuscular HGB Conc 33.0 g/dl (31.0-36.0); Mean Corpuscular Hemoglobin 30.0 pg (27.0-33.0); Mean Corpuscular Volume 90.9 fL (80.0-98.0); NRBC Abs Auto 0.000 X10*3/uL (0.0-0.012); NRBC Pct Auto 0.0 /100WBC (0.0-0.2); Platelet Count 212 X10*3/uL (160-400); Red Blood Count 4.97 X10*6/uL (4.60-5.80); White Blood Count 4.7 X10*3/uL (4.8-10.8)
[2025-03-15 09:39] LABS: Alanine Aminotransferase 39 U/L (0-40); Aspartate Amino Transferase 27 U/L (5-37); Cholesterol 125 mg/dL (<200); Estimated Glomerular Filt Rate > 60; HDL Cholesterol 64 mg/dL (>40); Triglycerides 40 mg/dL (<150)
[2025-03-15 09:46] LABS: Microalbum/Creatinine Ratio Ur 4.2 ug/mg cr (<30)
[2025-03-15 09:57] LABS: Thyroid Stimulating Hormone 0.92 uIU/mL (0.32-4.0)
== END 2025-03-15 07:51 | disposition home or self-care (01) ==
LOC: HO.LAB 07:50
PROVIDERS: PCP Family Medicine; Visit Provider Student in an Organized Health Care Education/Training Program
DX: E10.9 Type 1 diabetes mellitus without complications (principal)
CPT/HCPCS: 36415; 80061; 82043; 82565; 82570; 84443; 84450; 84460; 85027

== ENCOUNTER 2025-05-09 15:23 | Outpatient (AMB) | payer OTHER, SELFPAY ==
--- NOTE | 2025-05-09 15:28 | MHC.OFFVIS ---
Vital Signs 05/09/25 15:34 Height 5 ft 6 in Weight 162 lb 11.218 oz BMI 26.3 BP 96/60 Blood Pressure Location Rt brachial Position Sitting Intake Visit Reasons: DMT1 Pump Patient Intake Note: Patient present today for a follow-up on Type 1 Diabetes Mellitus Insulin Pump: Last seen by DR Rocky MD. Last Diabetic eye exam: 02/01/25 [facility] Last Podiatry Visit: Patient does not see a Nursing Information Systems Coordinator Most Recent HgA1C: 6.6% 05/09/2025 Random Glucose: 201 mg/dL Systems Mgr Required: No Accompanied by: Self / Same As Patient Allergies No Known Allergies Allergy (Verified 05/09/25 15:31) HPI Comments Details: Patient is 34-year-old male with DM type 1 coming today for follow up Last seen by Dr. Hidalgo on 01/30/2025, this is my 1st time seeing this patient. 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 He has had adjustments to his correction factor several visits ago to avoid evening hypoglycemia. No recent hypoglycemia. A1c October 2024 POC 6.7% 01/30/2025 POC 6.9% 05/09/25 POC 6.6% Interval history: He had an episode of DKA as the infusion set was kinked. When he realized it, he did not have back up supplies and was admitted for DKA He reports that everything has been OK after Denies significant episodes of hypoglycemia No tingling/numbness of feet Diabetes medications: humalog via Tandem T-Slim X2 with Dexcom G7 CGM/Pump data: Interpretation: Overall reasonable control, only noticed to have hyperglycemia in the evening, with expedited episode of postprandial hyperglycemia throughout the day. No episode of hypoglycemia. Control IQ 99% Carbs per day to 165 Insulin usage 50.81 units per day Basal: 21.35 units, 42% Bolus: 29.45 units per day, 59% Backup pump failure plan 18 units of Lantus once daily Humalog 6-8 units with meals Basal rate(s) (units/hour) : 12 AM to 4 PM 0.75 units / hr 4 PM to 10 PM? 0.875 units / hr 10PM 0.925 units/hr Bolus setting Insulin Carbohydrate Ratio (s) 12 AM to 6 AM 1:11 ?6 AM to 12 PM 1:8 12 PM to 4 PM 1:7 4 PM to 10pm 7 10pm 7.5 Correction Factor / Sensitivity Factor 12 AM to 6 AM 42 ?6 AM to 12 PM 45 12 PM to 4 PM 45 4 PM to 10pm 52 10pm 52 Active Insulin Time:? 5 hours Target(s): 12 AM? to 12 AM? 110Control IQ [email or web address] AM? to 12 AM? 110 -110 Denies retinopathy: followed by [facility] last eye exam 08/2023 has upcoming appt 02/02 Denies neuropathy:Symptoms reported:denies numbness, tingling, cramping in lower extremities No nephropathy: 03/2025 Microalbumin 4.2, GFR > 60 Has HLD on statin: LDL 55 03/2025 Hypoglycemia:none recent Treats with juice. Always carries sugar with him. 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 NAD. Not Cushingoid or Acromegalic Neck/Thyroid: Thyroid not palpable, no nodules. CV: RRR, no murmur. No edema. Resp:Lungs clear to auscultation bilaterally Abdomen: Soft, nontender. nondistended Extremities/Neuro: No weakness or tremor of outstretched hands Laboratory Tests 03/15/25 03/15/25 07:59 08:05 Creatinine 0.90 AST 27 ALT 39 Triglycerides 40 Cholesterol 125 LDL Cholesterol, Calc 53 HDL Cholesterol 64 TSH 0.92 Microalb/Creat Ratio 4.2 Laboratory Tests 02/01/24 07/06/24 10/28/24 10:33 10:19 16:00 Creatinine 0.92 Estimated GFR > 60 Glucose (Clinic) 152 H Hgb A1c (Clinic) 6.5 H Triglycerides 46 Cholesterol 159 LDL Cholesterol, Calc 88 HDL Cholesterol 62 TSH 0.74 Urine Creatinine 169.99 Urine Microalbumin 6.0 Microalb/Creat Ratio 3.5 10/28/24 16:14 Creatinine Estimated GFR Glucose (Clinic) Hgb A1c (Clinic) 6.7 H Triglycerides Cholesterol LDL Cholesterol, Calc HDL Cholesterol TSH Urine Creatinine Urine Microalbumin Microalb/Creat Ratio [facility] Medical History (Updated 01/30/25 @ 15:38 by Eliane Hidalgo MD) Insulin pump in place Diabetes type 1, controlled Vitamin D deficiency Surgical History No pertinent past surgical history Family History Father No pertinent past medical history Mother No problems noted. Social History Household Members: Spouse and Children Alcohol intake: never Patient Tobacco Use Status: Never used Tobacco Physical Exam Vital Signs: Last Vital Signs BP 96/60 05/09/25 15:34 BMI result Body Mass Index 26.3 Office Procedures Glucose Monitoring Details Details: See [facility] [id number] - Glucose Monitoring, continuous Procedure code (CPT) selection complete Results AMB Hemoglobin A1c AMB Hemoglobin A1c 6.6 % Last Edit by SHUN Bansal on 05/09/25 15:49 Assessment & Plan Assessment & Plan (1) Diabetes type 1, controlled: Code(s): E10.9 - Type 1 diabetes mellitus without complications Category: Medical Plan: 34-year-old male here today for follow up of type 1 diabetes mellitus on tandem T slim insulin pump with Dexcom G7 with the Humalog. A1c POC 01/30/2025 at 6.9% which is stable from October 2024 when it was 6.7%. 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 For now we will continue the same pump settings. Overall very good control. A1c decreased from 6.9% to 6.6%. He was noticed to have most hyperglycemia after dinner. Advice to make some changes to carb ratio, to which he agreed Plan: -Pump settings today shown below bolded: Basal rate(s) (units/hour) : 12 AM to 4 PM 0.75 units / hr 4 PM to 10 PM? 0.875 units / hr 10PM 0.925 units/hr Bolus setting Insulin Carbohydrate Ratio (s) 12 AM to 6 AM 1:11 ?6 AM to 12 PM 1:8 12 PM to 4 PM 1:7 4 PM to 10pm 6.5 10pm 7.5 Correction Factor / Sensitivity Factor 12 AM to 6 AM 42 ?6 AM to 12 PM 45 12 PM to 4 PM 45 4 PM to 10pm 52 10pm 52 Active Insulin Time:? 5 hours Target(s): 12 AM? to 12 AM? 110Control IQ [email or web address] AM? to 12 AM? 110 -110 -had eye appointment December 2024, no history of retinopathy -follow up in 3 months (2) Insulin pump in place: Code(s): Z96.41 - Presence of insulin pump (external) (internal) Category: Medical Plan: Has backup Lantus: To inject 18 units of Lantus in case of pump failure +6-8 8 units of Humalog t.i.d. pre meals Has urine ketone strips Prescribed nasal Baqsimi Plan I spent 30 minutes in reviewing the record, seeing the patient and documenting in the medical record. Orders: Orders AMB Hemoglobin A1c Today E10.9 - Type 1 diabetes mellitus without complications AMB Glucose Monitoring Today E10.9 - Type 1 diabetes mellitus without complications Coding Level of Care Code Est Pt Level 3 (48259) Add On Problem Visit Only Diagnoses Diabetes type 1, controlled E10.[address] Z96.41 CPT Codes Details - CPT: 09108 - Glucose Monitoring, continuous ([id number])
[2025-05-09 15:34] VITALS: BP 96/60; BMI 26.3
[2025-05-09 15:41] LABS: Glucose, Whole Blood 201 mg/dL (60-115)
--- OUTSIDE RECORDS SUMMARY | 2025-05-09 18:48 | XMS_ITS | Encounter Summary ---
Author Organization [employer] Address [address] [facility] [address] [place] [address] Care Team Providers Care Pump Technician Name Role Phone Corina Eli MD Primary Care Provider [phone]- [phone] Reason for Visit * Reason Comments Med Refill Encounter Details Date Type Department Care Team ([facility] st Contact Info) Description 01/31/2025 Refill [facility] MEDICINE [address] [place], [place] [phone] Corina Eli MD [address] [place], [place] [phone] Vitamin D deficiency, unspecified Social History Tobacco [...] documented as of this encounter Care Teams Pump Technician Relationship Specialty Start Date End Date Corina Eli MD [address] [place] [id number] PCP - General Family Medicine 05/11/18 Sejal Alfaro NP [facility] [place] Endocrinology 04/05/24 documented as of this encounter
--- OUTSIDE RECORDS SUMMARY | 2025-05-09 18:48 | XMS_ITS | Encounter Summary ---
Author Organization [employer] Address [address] [facility] [address] [place] [address] Care Team Providers Care Mechanical Technician Name Role Phone Corina Eli MD Primary Care Provider [phone]- [phone] Encounter Details Date Type Department Care Team (Late st Contact Info) Description 05/09/2025 Orders Only GENERIC EXTERNAL DATA DEPARTMENT Provider, [...] Date Recorded Patient Health Questionnaire-9 Score 0 03/15/2025 Patient Health Questionnaire-9 Score 0 03/15/2025 Last PHQ-9: Questionnaire Data Not on file 1 05/15/2024 Housing Stability Answer Date Recorded What is your housing situation today? I have cony edmond 03/15/[address] you li ve. Do you have problems with any of the following? None of the above 03/15/2025 Food Insecurity Answer Date Recorded Within the past 12 months, y ou worried that your food would run out before you got money to buy more: Never True 03/15/2025 Within the past 12 months,th e food you bought just didn't last and you didn't have enough money to get more: Never True 09/2024 Transportation Answer Date Recorded In the past 12 months, has l ack of transportation kept you from medical appts, meetings, work or from getting things needed for daily living? No 03/15/2025 Utilities Answer Date Recorded In the past 12 months, has t he electric, gas, oil or water company threatened to shut off services in your home? No 03/15/2025 Depression Answer Date Recorded Patient Health Questionnaire-2 Score 0 03/15/2025 Internet Access Answer Date Recorded Internet Access Q1 No 03/15/2025 Internet Access Q2 I do not want or need it 09/2024 Sex and Gender Information Value Date Recorded [...] Associated Diagnosis Comments GLUCOSE, WHOLE BLOOD Routine 05/09/2025 3:37 PM EST documented in this encounter Results * (ABNORMAL) Glucose, Whole Blood (05/09/2025 3:37 PM EST) Glucose, Whole Blood 201(H) 60 - 115 mg/dL [facility] Comment:METER #: [id number] Testing performed in the Endocrinology Department [address] , [address], [facility]. 05/09/2025 3:37 PM EST 05/09/2025 3:41 PM EST us Generic External Data Provider LAB BLOOD ORDERAB LES Final Result [facility] [address] [place] [address] [phone] documented in this encounter Visit Diagnoses Not on filedocumented in this encounter Additional Health Concerns Assessment Noted Time PHQ-9 Depression Total Score: 0 03/15/20 25 9:55 AM EST documented as of this encounter Care Teams Mechanical Technician Relationship Specialty Start Date End Date Corina Eli MD [address] [place] [id number] PCP - General Family Medicine 05/11/18 Sejal Alfaro NP [facility] Endocrinology Endocrinology 04/05/24 documented as of this encounter
--- OUTSIDE RECORDS SUMMARY | 2025-05-09 18:48 | XMS_ITS | Clinical Summary ---
Author Organization [facility] Address [address] [place] [address] Phone Care Team Providers Care Admitting Officer Name Role Phone Physician, Pcp Unknown Primary [...] LAB CHEMISTRY METHOD 09/30/2024 6:22 PM EDT [facility] Potassium 3.6 3.5 - 5.5 mmol/L LAB CHEMISTRY METHOD 09/30/2024 6:22 PM [facility] Chloride 103 96 - 110 mmol/L LAB CHEMISTRY METHOD 09/30/2024 6:22 PM [facility] CO2 25 21 - 32 mmol/L LAB CHEMISTRY METHOD 09/30/2024 6:22 PM [facility] Anion Gap 8 3 - 11 LAB CHEMISTRY METHOD 09/30/2024 6:22 PM [facility] Glucose 115(H) 70 - 100 mg/dL LAB CHEMISTRY METHOD 09/30/2024 6:22 PM [facility] BUN 18 5 - 25 mg/dL LAB CHEMISTRY METHOD 09/30/2024 6:22 PM [facility] Creatinine 0.90 0.70 - 1.30 mg/dL LAB CHEMISTRY METHOD 09/30/2024 6:22 PM [facility] eGFR 114 >=60 mL/min/1. 73m2 LAB CHEMISTRY METHOD 09/30/2024 6:22 PM [facility] Comment:Calculation based on the Chronic Kidney Disease Epidemiology Collaboration (CKD-EPI) equation refit without adjustment for race. BUN/Creatinine Ratio 20.0 LAB CHEMISTRY METHOD 09/30/2024 6:22 PM [facility] Calcium 9.1 8.5 - 10.5 mg/dL LAB CHEMISTRY METHOD 09/30/2024 6:22 PM [facility] AST (SGOT) 31 10 - 42 unit/L LAB CHEMISTRY METHOD 09/30/2024 6:22 PM [facility] ALT (SGPT) 48 10 - 60 unit/L LAB CHEMISTRY METHOD 09/30/2024 6:22 PM [facility] Alkaline Phosphatase 68 42 - 121 unit/L LAB CHEMISTRY METHOD 09/30/2024 6:22 PM [facility] Total Protein 7.5 6.0 - 8.0 g/dL LAB CHEMISTRY METHOD 09/30/2024 6:22 PM EDT [facility] Albumin 3.9 3.2 - 5.0 g/dL LAB CHEMISTRY METHOD 09/30/2024 6:22 PM EDT [facility] Total Bilirubin 1.4 0.0 - 1.4 mg/dL LAB CHEMISTRY METHOD 09/30/2024 6:22 PM EDT [facility] Blood Venous blood specimen / Unknown Venipuncture / Unknown 09/30/2024 5:19 PM EDT 09/30/2024 5:51 PM EDT Tay[facility]CKERT LAB BLOOD ORDERABLES F inal Result [facility] [address] [place] [address], from Last 3 Months or Most Recently Relevant to Health Maintenance Insurance [facility] [employer] Care Teams Admitting Officer Relationship Specialty Start Date End Date Physician, Pcp Unknown PCP - General 09/30/24
--- OUTSIDE RECORDS SUMMARY | 2025-05-09 18:48 | XMS_ITS | Encounter Summary ---
Author Organization [employer] Address [address] [facility] [address] [place] [address] Care Team Providers Care Senior Litigation Paralegal Name Role Phone Corina Eli MD Primary Care Provider +1- [phone] Reason for Visit * Reason Onset Date Comments Hospital Follow-up 02/20/2025 Encounter Details Date Type Department Care Team ([facility] st Contact Info) Description 02/20/2025 Telephone [facility] MEDICINE [address] [place], [place] [phone] Corina Eli MD [address] [place] [address] Hospital Follow-up Social History Tobacco Use Types [...] retuning call for HDF Contact pt at [phone] Need senior patient account representative documented in this encounter Plan of Treatment Not on file documented as of this encounter Visit Diagnoses Not on filedocumented in this encounter Additional Health Concerns Assessment Noted Time PHQ-9 Depression Total Score: 0 03/10/20 24 10:37 AM EDT documented as of this encounter Care Teams Senior Litigation Paralegal Relationship Specialty Start Date End Date Corina Eli MD [address] [place] [id number] PCP - General Family Medicine 05/11/18 Sejal Alfaro NP [facility] Endocrinology Endocrinology 04/05/24 documented as of this encounter
--- OUTSIDE RECORDS SUMMARY | 2025-05-09 18:48 | XMS_ITS | Clinical Summary ---
Author Organization [employer] Address [address] [place] [address] [address] [place] [address] Care Team Providers Care Slat Basket Maker Helper Name Role Phone Corina Eli MD Primary Care Provider [phone] Allergies No known active allergies Medications Fiasp 100 UNIT/ML solutionIndicatio ns:Type 1 Diabetes Mellitus Inject up to 100 units per day by insulin pump 02/16/20 25 Active Insulin Disposable Pump (Omnipod DASH Pods, Gen 4,) miscIndications:T ype 1 diabetes mellitus without complications (HCC) Inject 1 Application under the skin every 3 (three) days. Active Lantus SoloStar 100 UNIT/ML penIndications:Ty pe 1 Diabetes Mellitus Inject 17 units subcutaneous as needed for pump failure. Do not exceed 17 units/day 08/11/19 25 Active Embecta Pen Needle Janee 32G X 4 MM miscIndications:T ype 1 Diabetes Mellitus Use as directed up to four times a day 02/22/20 25 Active glucagon (Gvoke HypoPen 1-Pack) 1 MG/0.2ML injectionIndicati ons:Type 1 diabetes mellitus without complications (HCC) Inject 0.2 mL (1 mg) under the skin 1 (one) time if needed for low blood sugar for up to 1 dose. 0.2 mL 1 03/23/2025 3:07 PM EST 03/15/20 25 Active Acetone, Urine, Test (Ketone Test) stripIndications: Type 1 diabetes mellitus without complications (HCC) USE DIRECTED THREE TIMES DAILY FOR INCREASE BLOOD SUGAR OR SYMPTOMS OF Diabetic Keto Acidosis 50 strip 1 03/15/20 25 Active glucose (Glutose) 40 % gel oral gelIndications:Ty pe 1 diabetes mellitus without complications (HCC) Take 15 g by mouth every 15 (fifteen) minutes if needed for low blood sugar. 15 g 1 03/15/20 25 Active atorvastatin (Lipitor) 40 MG tabletIndications :Type 1 diabetes mellitus without complications (HCC) Take 1 tablet (40 mg) by mouth Once per day. 30 tablet 11 03/23/2025 3:07 PM EST 03/15/20 25 026 Active Continuous Glucose Sensor (Dexcom G7 15 Day Sensor) miscIndications:T ype 1 diabetes mellitus without complications (HCC) Active cholecalciferol (Vitamin D-3) 50 MCG (2000 UT) capsuleIndication s:Vitamin D deficiency Take 1 capsule (50 mcg) by mouth Once per day. 90 capsule 3 03/23/2025 3:07 PM EST 03/15/20 Active Active Problems Problem Noted Date Diagnosed Date Other specified health status 03/20/2023 Overview (03/15/2025): -next comprehensive annual evaluation due after 03/09/25 -eye care facilitated by [facility] seen 02/02/25 -dental home is [facility] proxy filed 03/15/26 Assessment & Plan (03/15/2025 10:36 AM EST): -next comprehensive annual evaluation due after 03/09/25 -eye care facilitated by [facility] seen 02/02/25 -dental home is [facility] care proxy filed 03/15/26 Assessment & Plan (03/10/2024 10:11 AM EDT): -next comprehensive annual evaluation due after 03/09/25 -eye care facilitated by [facility] seen 09/02/23 -dental home is [facility] proxy given and filed 03/09/24 Seasonal allergies 12/24/2021 03/20/2023 Diabetes mellitus type 1 06/13/2011 023 Overview (03/15/2025): Diabetes is controlled. -Followed by business account manager Dr. Jose Buck MD and Marion Martinez NP at [facility] -Dx d at age 9. No microvascular or macrovascular disease Lab Results Component Value Date HGBA1C 6.8 (A) 03/15/2025 HGBA1C 6.7 (A) 10/28/2024 HGBA1C 6.4 04/05/2024 Lab Results Component Value Date CREATININE 0.90 03/15/2025 EGFR >60 03/15/2025 MICROALBCREU 4.2 03/15/2025 MICROALBCREU 3.5 02/01/2024 LDLCHOLCAL 53 03/15/2025 -Bill/Arb: none -Statin therapy: Start Atorvastatin 40 mg 03/09/24 -Diabetic eye exam: done, 02/02/25 [facility] -Diabetic foot exam: done 03/09/24 -Continue lifestyle modifications -Continue current medications -Continue NovoLOG 100 UNIT/ML via insulin pump -Currently on Realvu Inctronic 10/15 og sensor and pump -Blood pressure [...] ketone strips Prescribed nasal Baqsimi -Admitted to [facility] 02/17/25-04/21/25 due to pump not working correctly. Assessment & Plan (03/15/2025 10:36 AM EST): Diabetes is controlled. -Followed by business account manager Dr. Jose Buck MD and Marion Martinez NP at [facility] -Dx d at age 9. No microvascular or macrovascular disease Lab Results Component Value Date HGBA1C 6.8 (A) 03/15/2025 HGBA1C 6.7 (A) 10/28/2024 HGBA1C 6.4 04/05/2024 Lab Results Component Value Date CREATININE 0.90 03/15/2025 EGFR >60 03/15/2025 MICROALBCREU 4.2 03/15/2025 MICROALBCREU 3.5 02/01/2024 LDLCHOLCAL 53 03/15/2025 -Bill/Arb: none -Statin therapy: Start Atorvastatin 40 mg 03/09/24 -Diabetic eye exam: done, 02/02/25 [facility] -Diabetic foot exam: done 03/09/24 -Continue lifestyle [...] ketone strips Prescribed nasal Baqsimi -Admitted to [facility] For DKA 02/17/25-04/21/25 due to pump not working correctly. Orders: glucagon (Gvoke HypoPen 1-Pack) 1 MG/0.2ML injection; Inject 0.2 mL (1 mg) under the skin 1 (one) time if needed for low blood sugar for up to 1 dose. Acetone, Urine, Test (Ketone Test) strip; USE DIRECTED THREE TIMES DAILY FOR INCREASE BLOOD SUGAR OR SYMPTOMS OF Diabetic Keto Acidosis glucose (Glutose) 40 % gel oral gel; Take 15 g by mouth every 15 (fifteen) minutes if needed for low blood sugar. atorvastatin (Lipitor) 40 MG tablet; Take 1 tablet (40 mg) by mouth Once per day. POCT glucose manually resulted POCT glycosylated hemoglobin (Hgb A1c) Assessment & Plan (03/10/2024 10:45 AM EDT): Diabetes is controlled. -Followed by business account manager Dr. Jose Buck MD and Marion Martinez NP at [facility] -Dx d at age 9. No microvascular [...] -Continue NovoLOG 100 UNIT/ML -Currently on Medtronic 6/7 og sensor and pump -Blood pressure is at goal of <130/80 -wears med alert bracelet -Importance of low-fat, low cholesterol, ADA diet discussed. Importance of moderate physical activity discussed. Endocrinology note from 12/07/23 reviewed Resolved Problems Problem Noted Date Diagnosed Date Resolved Date Verruca vulgaris 11/21/2011 03/20/2023 03/10/2024 Encounters Date Type Department Care Team Description 05/09/2025 Orders Only GENERIC EXTERNAL DATA DEPARTMENT Provider, Generic External Data 03/15/2025 9:00 AM EST Office Visit [facility] [address] [place] [phone] Corina Eli MD Vitamin D deficiency (Primary Dx); Type 1 diabetes mellitus without complications (HCC); Encounter for immunization; Other specified health status 03/15/2025 Travel 03/15/2025 Orders Only GENERIC EXTERNAL DATA DEPARTMENT Provider, [employer] External Data 03/14/2025 Telephone [facility] [address] [place] [phone] Corina Eli MD Insurance 02/20/[address] [phone] Corina Eli MD Hospital Follow-up 02/20/2025 Patient Outreach [address] [phone] Corina Eli MD Transition Of Care (Tcm) (HDF unscheduled ) from Last 3 Months Immunizations Immunization Administration Dates Next Due Hep B, adult 03/10/2024,05/22/2017,04/15/2017 Influenza injectable quadriv alent IIV4 with preservative 04/15/2017 Influenza, IIV3, injectable 02/06/2014,1 06/29/2010,06/29/2009,03/11,05/07/2007 Influenza, Split (incl. jorge fied surface antigen) 02/14/2013 Influenza, seasonal, injecta ble, preservative free 03/15/2025 Moderna Covid-19 Vaccine 12+ 09/08/2020 Pfizer Covid-19 Vaccine 09/08/2020 Pneumococcal Conjugate PCV 20 03/10/2024 Pneumococcal Polysaccharide PPSV23 05/07/2007 Tdap 03/10/2024,11/21/2011 Family History Medical History Relation Name Comments Cancer Neg Hx Hypertension Neg Hx Social History Tobacco Use Types Packs/Day Years [...] Sign Reading Time Taken Comments Blood Pressure 110/66 03/15/2025 9:27 AM EST Pulse 82 03/15/2025 9:27 AM EST Temperature 37.2 C (98.9 F) 03/15/2025 9:27 AM EST Respiratory Rate 20 03/15/2025 9:27 AM EST Oxygen Saturation 99% 03/15/2025 9:27 AM EST Inhaled Oxygen Concentration - - Weight 71.6 kg (157 lb 12.8 oz) 03/15/2025 9:27 AM EST Height 172.7 cm (5' 8 ) 03/15/2025 9:27 AM EST Body Mass Index 23.99 03/15/2025 9:27 AM EST Plan of Treatment Health Maintenance Due Date Last Done Comments HPV Vaccines (1 - Male 3-dose series) 2003 Diabetes: Hemoglobin A1C 06/15/2025 025, 10/28/2024, 04/05/2024, Additional history exists Alcohol/Substance Use Screening 03/15/2026 03/15/2025 COVID-19 Vaccine ( season) 2026 05/18/2021, 09/29/2020, 09/08/2020, Additional history exists Postponed from 01/09/2025 (Patient Refused) Depression Screening 03/15/2026 03/15/2025, 03/15/20 25 Diabetes: Foot Exam 03/15/2026 03/15/2025, 03/15/2025, 03/15/2025, Additional history exists Diabetes: Urine Protein Screening 03/15/2026 03/15/2025, 02/01/2024, 09/12/2022, Additional history exists Disability Screening 03/15/2026 03/15/2025 Family Planning (PISQ) 03/15/2026 03/15/2025 Lipid Panel 03/15/2026 03/15/2025, 01/10, 09/12/2022, Additional history exists SDOH Screening 03/15/2026 03/15/2025 Tobacco Screening 03/15/2026 03/15/2025 Eye Exam 02/02/2027 02/02/2025, 09/02/2023 DTaP/Tdap/Td Vaccines [...] (6 to 49) Years Completed 03/10/2024, 05/07/2007 Influenza Vaccine Completed 03/15/2025, , 02/06/2014, Additional history exists HIB Vaccines Aged Out No longer eligi [...] WHOLE BLOOD Routine 05/09/2025 3:37 PM EST POCT GLUCOSE (CPT-33575) Routine 03/15/2025 9:33 AM EST Type 1 diabetes mellitus without complications (HCC) POCT GLYCOSYLATED HEMOGLOBIN (HGB A1C) Routine 03/15/2025 9:32 AM EST Type 1 diabetes mellitus without complications (HCC) TSH Routine 03/15/2025 8:05 AM EST LIPID PANEL, STANDARD Routine 03/15/2025 8:05 AM EST ALT Routine 03/15/2025 8:05 AM EST AST Routine 03/15/2025 8:05 AM EST CREATININE, SERUM Routine 03/15/2025 8:0 5 AM EST CBC Routine 03/15/2025 8:05 AM EST ALBUMIN, RANDOM URINE W/CREATININE Routine 03/15/2025 7:59 AM EST HM DIABETES EYE EXAM Routine 09/02/2023 HM HEPATITIS C ANTIBODY Routine 04/15/2017 HM HIV 1/2 ANTIGEN AND ANTIBODY Routine 04/15/2017 from Last 3 Months or Most Recently Relevant to Health Maintenance Results * (ABNORMAL) Glucose, Whole Blood (05/09/2025 3:37 PM EST) Glucose, Whole Blood 201(H) 60 - 115 mg/dL [facility] Comment:METER #: [id number] Testing performed in the Endocrinology Department [address] , [address], [facility]. 05/09/2025 3:37 PM EST 05/09/2025 3:41 PM EST us Generic External Data Provider LAB BLOOD ORDERAB LES Final Result [facility] [address] [place] [phone] * POCT glucose manually resulted (03/15/2025 9:33 AM EST) Glucose Blood, POC 157 60 - 200 mg/dL QC Media Lot # [id number] Lot# Expiration Date 3 Blood Capillary blood specimen / Unknown 03/15/2025 9:33 AM EST Corina Eli MD POINT OF CARE TEST ENTER/E DIT ORDERABLES Final Result * (ABNORMAL) POCT glycosylated hemoglobin (Hgb A1c) (03/15/2025 9:32 AM EST) Hemoglobin A1C 6.8(A) 4.0 - 5.7 % QC Media Lot # [id number] Lot# Expiration Date 5, Blood Capillary blood specimen / Unknown 03/15/2025 9:32 AM EST Corina Eli MD POINT OF CARE TEST ENTER/E DIT ORDERABLES Final Result * Creatinine, Serum (03/15/2025 8:05 AM EST) Creatinine, Serum 0.90 0.5 - 1.4 mg/dL [facility] Estimated Glomerular Filt Rate >60 [facility] Comment:Chronic Kidney Disea se: Estimated GFR < 60 mL/min/1.97k1Gnergw Kidney Disease: Estimated GFR < 15 mL/min/1.73m2 03/15/2025 8:05 AM EST 03/15/2025 8:05 AM EST Generic External Data Provider LAB BLOOD ORDERAB LES Final Result [facility] [address] [place] [phone] * (ABNORMAL) CBC (03/15/2025 8:05 AM EST) White Blood Count 4.7(L) 4.8 - 10.8 X10*3/uL [facility] Red Blood Count 4.97 4.60 - 5.80 X10*6/uL [facility] Hemoglobin 14.9 14.0 - 18.0 g/dl [facility] Hematocrit 45.2 42.0 - 52.0 % [facility] Mean Corpuscular Volume 90.9 80.0 - 98.0 fL [facility] Mean Corpuscular Hemoglobin 30.0 27.0 - 33.0 pg [facility] Mean Corpuscular HGB Conc 33.0 31.0 - 36.0 g/dl [facility] Red Cell Distribution Width 12.4 11.0 - 16.0 % [facility] Platelet Count 212 160 - 400 X10*3/uL [facility] Mean Platelet Volume 11.2 9.4 - 12.4 fL [facility] NRBC Pct Auto 0.0 0.0 - 0.2 /100WBC [facility] NRBC Abs Auto 0.000 0.0 - 0.012 X10*3/uL [facility] 03/15/2025 8:05 AM EST 03/15/2025 8:05 AM EST us Generic External Data Provider LAB BLOOD ORDERAB LES Final Result Performing Organization Address [facility] Phone Number [facility] [address] [place] [phone] [phone] * ALT (03/15/2025 8:05 AM EST) Alanine Aminotransferase 39 0 - 40 U/L [facility] 03/15/2025 8:05 AM EST 03/15/2025 8:05 AM EST us Generic External Data Provider LAB BLOOD ORDERAB LES Final Result Performing Organization Address [facility] de Phone Number [facility] [address] [place] [phone] * AST (03/15/2025 8:05 AM EST) Aspartate Amino Transferase 27 5 - 37 U/L [facility] 03/15/2025 8:05 AM EST 03/15/2025 8:05 AM EST us Generic External Data Provider LAB BLOOD ORDERAB LES Final Result Performing Organization Address [facility]/ZIP Co de Phone Number [facility] [address] [place] [phone] * TSH (03/15/2025 8:05 AM EST) Thyroid Stimulating Hormone 0.92 0.32 - 4.0 uIU/mL [facility] Comment:TSH 3rd Generation ( [facility]) 03/15/2025 8:05 AM EST 03/15/2025 8:05 AM EST us Generic External Data Provider LAB BLOOD ORDERAB LES Final Result Performing Organization Address [facility] Co de Phone Number [facility] [address] [place] [phone] * Lipid Panel, Standard (03/15/2025 8:05 AM EST) Triglycerides 40 <150 mg/dL [facility] Comment:Desirable Triglyceri de: less than 150 mg/dLBorderline High Triglyceride 150-199 mg/dLHigh Triglyceride: 200-499 mg/dLVery High Triglyceride: greater than or equal to 5OO mg/dL Cholesterol 125 <200 mg/dL [facility] Comment:Desirable Cholestero l: less than 200 mg/dLBorderline High Cholesterol: 200-239 mg/dLHigh Cholesterol: greater than 239 mg/dL LDL Cholesterol Calculated 53 <100 mg/dL [facility] Comment:Desirable LDL: less than 100 mg/dLNear Optimal/Above Optimal LDL: 110- 129 mg/dLBorderline High LDL: 130-159 mg/dLHigh LDL: 160-189 mg/dLVery High LDL: greater than or equal to 190 mg/dL HDL Cholesterol 64 >40 mg/dL [facility] Comment:Desirable HDL: great er than 40 mg/dL Note: This HDL assay may give artificially low results in patients with liver disease. 03/15/2025 8:05 AM EST 03/15/2025 8:05 AM EST Generic External Data Provider LAB BLOOD ORDERAB LES Final Result Performing Organization Address [facility] Co de Phone Number [facility] [address] [place] [phone] * Albumin, Random Urine W/Creatinine (03/15/2025 7:59 AM EST) Creatinine, Urine 211.38 mg/dL [facility] Microalbumin Urine 9.0 mg/L [facility] Microalbum Creatinine Ratio Ur 4.2 <30 ug/mg cr [facility] Comment:Albumin/Creatinine R atio Reference Ranges: Normal: < 30 ug/mg creatinine Microalbuminuria: 30 - 300 ug/mg creatinineClinical Albuminuria: > 300 ug/mg creatinine 03/15/2025 7:59 AM EST 03/15/2025 8:21 AM EST Generic External Data Provider LAB URINE ORDERAB LES Final Result Performing Organization Address [facility] Co de Phone Number [facility] [address] [place] [phone] * Diabetes Eye Exam (09/02/2023) Eye Exam Normal Normal Comment:[facility] Historical Provider HEALTH MAINTENANCE Final Result * Hepatitis C Antibody (04/15/2017) Hepatitis C Antibody Nonreactive Blood Historical Provider HEALTH MAINTENANCE Final Result * HIV 1/2 Antigen and Antibody (04/15/2017) HIV Ag/Ab Nonreactive Historical Provider HEALTH MAINTENANCE Final Result from Last 3 Months or Most Recently Relevant to Health Maintenance [facility] Directives Documents on File Type Date Recorded Patient Compliance Lead Expl anation Advance Directives and Living Will 03/10/2024 Health Care Proxy 03/10/24 Care Teams Slat Basket Maker Helper Relationship Specialty Start Date End Date Carolina, MD Corina [address] [place] [phone] PCP - General Family Medicine 05/11/18 Sejal Alfaro NP [facility] Endocrinology 04/05/24
--- OUTSIDE RECORDS SUMMARY | 2025-05-09 18:48 | XMS_ITS | Clinical Summary ---
Author Organization [facility] Address [address] [place] [address] Care Team Providers Care Date Night Sitter Name Role Phone Corina Eli Primary Care Provider [phone] Allergies No known active allergies Medications atorvastatin [...] - 02/19/2025 11:06 AM EDT Hospital Encounter [facility] 2 Critical Care Unit [address] [place] [address] Saida Haro MD Gallant, Joseph J., MD [...] money to get more. Never true 02/17/2025 [facility] Utilities Answer Date Recorded In the past [...] ual Screening 05/11/2024 Hemoglobin A1C 09/07/2024 03/10/2024 Influenza Vaccine (#1) 2024 7, 02/06/2014, 02/14/2013, Additional history exists COVID-19 Vaccine (4 - 2024-2 6 season) 2025 05/18/2021, 09/29/2020, 09/08/2020 Basic Metabolic Panel 02/19/2026 02/19/2025 , 02/18/2025, 02/18/2025, Additional history exists DTaP,Tdap,and Td Vaccines (3 - Td or Tdap) 03/10/2034 03/10/2024, 11/21/2011 Hepatitis B Vaccines Completed 03/10/2024, 05/22/2017, 04/15/2017 Pneumococcal Vaccine: Pediat brianna (0-5 Years) and At-Risk Patients (6-50 Years) Completed 03/10/2024, 05/07/2007 Procedures * Due to [place] state law, [...] Last 3 Months Results * Due to [place] state law, this organization might not be sharing negative HIV tests. * (ABNORMAL) POCT Glucose, interfaced (02/19/2025 8:30 AM EDT) Only the most recent of19 resultswithin the time period is included. [facility] Glucose, POCT 121(H) 70 - 99 mg/dL 02/19/2025 8:32 AM EDT [facility] Comment: The teacher vocational training has not determined the efficacy of this test in Critically ill patients. [facility] defines Critically ill patients for the [...] LAB POCT ORDERABLES - DEVICE Final Result [facility] [address] [place] [address], [place] * CBC (02/19/2025 4:15 AM EDT) Only the most recent of3 resultswithin the time period is included. WBC 9.3 3.8 - 10.8 10*3/uL 02/19/2025 4:23 AM EDT [facility] RBC 4.47 4.20 - 5.80 10*6/uL 02/19/2025 4:23 AM EDT [facility] Hemoglobin 13.6 13.2 - 17.1 g/dL 02/19/2025 4:23 AM EDT [facility] Hematocrit 39.3 38.5 - 50.0 % 02/19/2025 4:23 AM EDT [facility] MCV 87.9 80.0 - 100.0 fL 02/19/2025 4:23 AM EDT [facility] MCH 30.4 27.0 - 33.0 pg 02/19/2025 4:23 AM EDT [facility] MCHC 34.6 32.0 - 36.0 g/dL 02/19/2025 4:23 AM EDT [facility] RDW 12.2 11.0 - 15.0 % 02/19/2025 4:23 AM EDT [facility] Platelets 188 140 - 400 10*3/uL 02/19/2025 4:23 AM EDT [facility] MPV 11.0 7.5 - 12.5 fL 02/19/2025 4:23 AM EDT [facility] Blood Structure of peripheral vein / Unknown Venipuncture / Unknown 02/19/2025 4:15 AM EDT 02/19/2025 4:19 AM EDT Waylon Fransisco ECKERT LAB BLOOD ORDERABLES Final Re sult Performing Organization Address [facility] de Phone Number [facility] [address] [place] [address], * Magnesium (02/19/2025 4:15 AM EDT) Only the most recent of5 resultswithin the time period is included. MG 2.0 1.6 - 2.4 mg/dL 02/19/2025 4:45 AM EDT [facility] Blood Structure of peripheral vein / Unknown Venipuncture / Unknown 02/19/2025 4:15 AM EDT 02/19/2025 4:19 AM EDT Waylon Fransisco ECKERT LAB BLOOD ORDERABLES Final Re sult Performing Organization Address [facility] de Phone Number [facility] [address] [place] [id number], * (ABNORMAL) Renal function panel (02/19/2025 4:15 AM EDT) NA 141 135 - 145 mmol/L 02/19/2025 4:45 AM EDT [facility] K 3.7 3.5 - 5.3 mmol/L 02/19/2025 4:45 AM EDT [facility] Cl 105 97 - 110 mmol/L 02/19/2025 4:45 AM EDT [facility] CO2 25 22 - 32 mmol/L 02/19/2025 4:45 AM EDT [facility] Anion Gap 11 5 - 15 02/19/2025 4:45 AM EDT [facility] Glucose 142(H) 65 - 99 mg/dL 02/19/2025 4:45 AM EDT [facility] BUN 9 7 - 23 mg/dL 02/19/2025 4:45 AM EDT [facility] Creatinine 0.72 0.60 - 1.30 mg/dL 02/19/2025 4:45 AM EDT [facility] Calcium 8.4(L) 8.6 - 10.5 mg/dL 02/19/2025 4:45 AM EDT [facility] Phosphorus 2.9 2.5 - 4.5 mg/dL 02/19/2025 4:45 AM EDT [facility] Albumin 3.8 3.5 - 5.2 g/dL 02/19/2025 4:45 AM EDT [facility] eGFR >90 >=60 mL/min/1. 73m2 02/19/2025 4:45 AM EDT [facility] Comment:The estimated glomer [...] ECKERT LAB BLOOD ORDERABLES Final Re sult [facility] [address] [place] [address], [place] * Troponin T, High Sensitivity (02/18/2025 11:32 AM EDT) Only the most recent of2 resultswithin the time period is included. Troponin T High Sensitivity 6 <=21 ng/L 02/18/2025 12:01 PM EDT [facility] Comment: Om-Wxgebfxw-W level of 52 ng/L or higher at [...] be evaluated in line with the 4th [place] Definition of AMI. Troponin baseline and serial [...] ECKERT LAB BLOOD ORDERABLES Final Re sult [facility] [address] [place] [address], [place] * X-Ray Chest 1 View (02/18/2025 [...] to obtain the completed interpretation. Workstation ID: [id number] Narrative 02/21/2025 8:50 AM EDT COMPARISON: None Resulting Agency Comment [id number] Procedure Note Polo Hickman MD - 02/21/2025 COMPARISON: None IMPRESSION: FINDINGS/IMPRESSION: Negative. Heart normal. Lungs clear. If this radiology report contains a blank impression section, it is anincomplete radiology report. Please contact the interpreting radiologistor applicable radiology division as soon as possible to obtain thecompleted interpretation. Workstation ID: [id number] Waylon ECKERT IMG XR PROCEDURES Final Resul t * ECG 12 lead (02/18/2025 10:44 AM EDT) Only the most recent of2 resultswithin the time period is included. Ventricular Rate EKG 86 BPM MUSE EKG Atrial Rate 86 BPM MUSE EKG WI Interval 128 ms MUSE EKG QRS Interval 86 ms MUSE EKG QT Interval 402 ms MUSE EKG QTC Interval 481 ms MUSE EKG P Carter 71 degrees MUSE EKG R Carter 34 degrees MUSE EKG T Wave Carter 57 degrees MUSE EKG 02/18/2025 10:4 4 [...] Juwan Rivera ([id number]) on 02/22/2025 11:33:28 AM Farm Field Manager Tika MIKE ECG ORDERABLES Final Resu lt MUSE EKG * (ABNORMAL) Phosphorus - Every 4 hours (02/18/2025 8:12 AM EDT) Only the most recent of3 resultswithin the time period is included. Phosphorus 1.7(L) 2.5 - 4.5 mg/dL 02/18/2025 8:47 AM EDT [facility] Blood Structure of peripheral vein / Unknown Venipuncture / Unknown 02/18/2025 8:12 AM EDT 02/18/2025 8:14 AM EDT us Ryan Kelley MD LAB BLOOD ORDERABLES Final R esult Performing Organization Address City/[facility] Co de Phone Number [facility] [address] [place] [address], [place] * (ABNORMAL) Basic Metabolic Panel - Every 4 hours (02/18/2025 8:12 AM EDT) Only the most recent of4 resultswithin the time period is included. NA 139 135 - 145 mmol/L 02/18/2025 8:47 AM EDT [facility] K 3.7 3.5 - 5.3 mmol/L 02/18/2025 8:47 AM EDT [facility] Cl 110 97 - 110 mmol/L 02/18/2025 8:47 AM EDT [facility] CO2 22 22 - 32 mmol/L 02/18/2025 8:47 AM EDT [facility] BUN 14 7 - 23 mg/dL 02/18/2025 8:47 AM EDT [facility] Creatinine 0.70 0.60 - 1.30 mg/dL 02/18/2025 8:47 AM EDT [facility] Glucose 122(H) 65 - 99 mg/dL 02/18/2025 8:47 AM EDT [facility] Calcium 8.2(L) 8.6 - 10.5 mg/dL 02/18/2025 8:47 AM EDT [facility] Anion Gap 7 5 - 15 02/18/2025 8:47 AM EDT [facility] eGFR >90 >=60 mL/min/1. 73m2 02/18/2025 8:47 AM EDT [facility] Comment:The estimated glomer [...] MD LAB BLOOD ORDERABLES Final R esult [facility] [address] [place] [address], [place] * (ABNORMAL) Urinalysis W/Reflex to Microscopic (No Culture) (02/17/2025 11:12 PM EDT) Color, Urine Light Yellow Colorless, Light Yellow, Yellow, Dark Yellow 02/17/2025 11:51 PM EDT [facility] Clarity, Urine Clear Clear 02/17/2025 11:51 PM EDT [facility] Specific Wheeler, Urine 1.027 <1.030 02/17/2025 11:51 PM EDT [facility] pH, Urine 5.5 4.6 - 8.0 02/17/2025 11:51 PM EDT [facility] Protein, Urine Negative Negative 02/17/2025 11:51 PM EDT [facility] Glucose, Urine 4+(A) Normal 02/17/2025 11:51 PM EDT [facility] Ketones, Urine 3+(A) Negative 02/17/2025 11:51 PM EDT [facility] Bilirubin, Urine Negative Negative 02/17/2025 11:51 PM EDT [facility] Blood, Urine Negative Negative 02/17/2025 11:51 PM EDT [facility] Nitrite, Urine Negative Negative 02/17/2025 11:51 PM EDT [facility] Urobilinogen, Urine Normal Normal 02/17/2025 11:51 PM EDT [facility] Leukocyte Esterase, Urine Negative Negative 02/17/2025 11:51 PM EDT [facility] Urine Urine specimen collection, clean catch / Unknown Non-Blood Collection / Unknown 02/17/2025 11:12 PM EDT 02/17/2025 11:12 PM EDT us Yousuf Grimaldo BARREL MARKER LAB URINE ORDERABLES Final R esult Performing Organization Address City/State/[facility] Co de Phone Number [facility] [address] [place] [phone], * (ABNORMAL) POCT I-STAT Lactate W/VBG, interfaced (02/17/2025 5:45 PM EDT) Sample Type, POCT Venous 02/17/2025 5:47 PM EDT [facility] Lactate, POCT 3.28(H) 0.9 - 1.7 mmol/L 02/17/2025 5:47 PM EDT [facility] pH, POCT 7.23(L) 7.31 - 7.41 pH 02/17/2025 5:47 PM EDT [facility] pCO2, POCT 33.0(L) 41 - 51 mm Hg 02/17/2025 5:47 PM EDT [facility] pO2, POCT 49(H) 35 - 40 mm Hg 02/17/2025 5:47 PM EDT [facility] Base Excess, POCT -14(L) 0 - 3 mmol/L 02/17/2025 5:47 PM EDT [facility] HCO3, POCT 13.7(L) 23 - 28 mmol/L 02/17/2025 5:47 PM EDT [facility] TCO2, POCT 15(LL) 24 - 29 mmol/L 02/17/2025 5:47 PM EDT [facility] Saturated O2, POCT 77(H) 70 - 75 % 02/17/2025 5:47 PM EDT [facility] Marshall's Test, POCT N/A 02/17/2025 5:47 PM EDT [facility] Blood 02/17/2025 5:45 PM EDT 02/17/2025 5:47 PM EDT us Saida Haro MD LAB POCT ORDERABLES - DONOVAN CE Final Result [facility] [address] [place] [address], * [place]ima Top (02/17/2025 5:12 PM EDT) Extra Tube Hold for add-ons. 02/17/2025 10:05 PM EDT [facility] Comment:Auto resulted. Blood Structure of peripheral vein / Unknown Venipuncture / Unknown 02/17/2025 5:12 PM EDT 02/17/2025 5:21 PM EDT Saida Haro MD LAB BLOOD ORDERABLES Final Result Performing Organization Address [facility]/ZIP Co de Phone Number [facility] [address] [place] [address] * (ABNORMAL) Betahydroxybutyrate (02/17/2025 5:12 PM EDT) Beta-Hydroxybu tyrate 4.45(H) <=0.27 mmol/L 02/17/2025 6:13 PM EDT [facility] Blood Structure of peripheral vein / Unknown Venipuncture / Unknown 02/17/2025 5:12 PM EDT 02/17/2025 5:25 PM EDT Saida Haro MD LAB BLOOD ORDERABLES Final Result Performing Organization Address [facility] Co de Phone Number [facility] [address] [place] [address], * (ABNORMAL) CBC Auto Differential (02/17/2025 5:12 PM EDT) Pathologist [facility] WBC 21.0(H) 3.8 - 10.8 10*3/uL 02/17/2025 5:26 PM EDT [facility] RBC 4.91 4.20 - 5.80 10*6/uL 02/17/2025 5:26 PM EDT [facility] Hemoglobin 14.9 13.2 - 17.1 g/dL 02/17/2025 5:26 PM EDT [facility] Hematocrit 44.4 38.5 - 50.0 % 02/17/2025 5:26 PM EDT [facility] MCV 90.4 80.0 - 100.0 fL 02/17/2025 5:26 PM EDT [facility] MCH 30.3 27.0 - 33.0 pg 02/17/2025 5:26 PM EDT [facility] MCHC 33.6 32.0 - 36.0 g/dL 02/17/2025 5:26 PM EDT [facility] RDW 12.1 11.0 - 15.0 % 02/17/2025 5:26 PM EDT [facility] Platelets 211 140 - 400 10*3/uL 02/17/2025 5:26 PM EDT [facility] MPV 11.9 7.5 - 12.5 fL 02/17/2025 5:26 PM EDT [facility] Neutrophil % 86.5 % 02/17/2025 5:26 PM EDT [facility] Immature Grans % 0.5 0.0 - 0.9 % 02/17/2025 5:26 PM EDT [facility] Lymphocyte % 4.8 % 02/17/2025 5:26 PM EDT [facility] Monocyte % 8.0 % 02/17/2025 5:26 PM EDT [facility] Eosinophil % 0.0 % 02/17/2025 5:26 PM EDT [facility] Basophil % 0.2 % 02/17/2025 5:26 PM EDT [facility] Neutrophil # 18.15(H) 1.50 - 7.80 10*3/uL 02/17/2025 5:26 PM EDT [facility] Immature Grans # 0.10(H) <=0.03 10*3/uL 02/17/2025 5:26 PM EDT [facility] Lymphocyte # 1.00 0.85 - 3.90 10*3/uL 02/17/2025 5:26 PM EDT [facility] Monocyte # 1.70(H) 0.20 - 0.95 10*3/uL 02/17/2025 5:26 PM EDT [facility] Eosinophil # <0.03 0.02 - 0.50 10*3/uL 02/17/2025 5:26 PM EDT [facility] Basophil # <0.03 0.00 - 0.20 10*3/uL 02/17/2025 5:26 PM EDT [facility] nRBC % 0.0 /100 WBCs 02/17/2025 5:26 PM EDT [facility] [employer] [facility] nRBC # <0.01 <0.01 10*3/uL 02/17/2025 5:26 PM EDT [facility] [employer] [facility] Blood Structure of peripheral vein / Unknown Venipuncture / Unknown 02/17/2025 5:12 PM EDT 02/17/2025 5:20 PM EDT Saida Haro MD LAB BLOOD ORDERABLES Final Result [facility] [address] [place] [address], * Blood Bank Hold Tube (02/17/2025 5:12 PM EDT) Extra Tube Hold for add-ons. [place] [facility] 02/17/2025 10:05 PM EDT BLOOD BANK Comment:Auto resulted. Blood Structure of peripheral vein / Unknown Venipuncture / Unknown 02/17/2025 5:12 PM EDT 02/17/2025 5:26 PM EDT Saida Haro MD LAB BLOOD BANK TEST ORDERA BLES Final Result BLOOD BANK [address] [place] [address], * Light Blue Top (02/17/2025 5:12 PM EDT) Extra Tube Hold for add-ons. 02/17/2025 10:05 PM EDT [facility] Comment:Auto resulted. Blood Structure of peripheral vein / Unknown Venipuncture / Unknown 02/17/2025 5:12 PM EDT 02/17/2025 5:21 PM EDT us Saida Haro MD LAB BLOOD ORDERABLES Final Result [facility] [address] [place] [address], * HEART & VASCULAR - SCANNED (02/17/2025) Only the most recent of3 resultswithin the time period is included. Anatomical Region Laterality Modality Other us Onbase Scan Tia SCANNED PROCEDURES Final Resu lt from Last 3 Months Insurance HSNO/FREE CARE Advance Directives Documents on File Type Date Recorded Patient Fuel Cell Technician Expl [facility] Health Care Proxy 02/19/2025 1:26 PM 10- Health Care Proxy 02/18/2025 8:33 AM 10- * Full Code (Latest Code Status on File) Date Activated Date Inactivated Comments 02/17/2025 10:37 PM 02/19/2025 1:11 PM Care Teams Date Night Sitter Relationship Specialty Start Date End Date Corina Eli [address] [place] [phone] PCP - General Family Medicine 02/17/25
--- OUTSIDE RECORDS SUMMARY | 2025-05-09 18:48 | XMS_ITS | Encounter Summary ---
Author Organization [employer] Address [address] [place] [address] Care Team Providers Care Veterinary Attendant Name Role Phone Corina Eli MD Primary Care Provider [phone] Encounter Details Date Type Department Care Team ([facility] st Contact Info) Description 03/11/2024 Orders Only [facility] [address] [place], [place] [phone] Corina Eli MD [address] [place], [place] [phone] Social History Tobacco Use Types Packs/Day Years [...] documented as of this encounter Care Teams Veterinary Attendant Relationship Specialty Start Date End Date Corina Eli MD [address] [place] [id number] PCP - General Family Medicine 05/11/18 Sejal Alfaro NP [facility] Endocrinology Endocrinology 04/05/24 documented as of this encounter
== END 2025-05-09 16:01 | disposition home or self-care (01) ==
LOC: HO.ENCR 15:23
PROVIDERS: PCP Family Medicine; Visit Provider Student in an Organized Health Care Education/Training Program
DX: E10.9 Type 1 diabetes mellitus without complications (principal); Z96.41 Presence of insulin pump (external) (internal)
CPT/HCPCS: 99213

== ENCOUNTER → 2025-05-09 15:23 | Outpatient (BNVA) | payer OTHER, SELFPAY | PROVIDERS: PCP Family Medicine; Visit Provider Student in an Organized Health Care Education/Training Program | DX: E10.9 Type 1 diabetes mellitus without complications (principal); Z96.41 Presence of insulin pump (external) (internal) | CPT/HCPCS: 82947; 83036; 95250 ==